=== PATIENT | female | born 1970 | race African-American/Black ===

== ENCOUNTER 2017-05-24 11:31 | Inpatient (IN) | payer OTHER ==
[2017-05-24 13:21] VITALS: BMI 31.4
--- NOTE | 2017-05-24 13:55 | HP ---
CIWA Score - CIWA Score Nausea/Vomitin (vomiting x 2) Muscle Tremors: 4-Moderate,w/Arms Extend Anxiety: 4-Mod. Anxious/Guarded Agitation: 3 Paroxysmal Sweats: No Perspiration Orientation: 0-Oriented Tacttile Disturbances: 0-None Auditory Disturbances: 0-None Visual Disturbances: 0-None Headache: 3-Moderate CIWA-Ar Total Score: 17 Admission ROS S - HPI Chief Complaint: Alcohol withdrawal symptoms Allergies/Adverse Reactions: Allergies Allergy/AdvReac Type Severity Reaction Status Date / Time No Known Allergies Allergy Verified 05/24/17 13:40 History of Present Illness: 46 years old female with a long history of alcohol dependence is admitted to detox. Patient has been in previous detox in [facility] and reports 10 years of sobriety. This is her first admission to [facility]. Patient has medical history of asthma and cirrhosis of the liver. Exam Limitations: Physical Impairment (abdominal distention) - Ebola screening Have you traveled outside of the country in the last 21 days: No Have you had contact with anyone from an Ebola affected area: No Have you been sick,other than usual withdrawal symptoms: No Do you have a fever: No - Review of Systems Constitutional: Chills, Loss of Appetite, Night Sweats, Changes in sleep EENT: reports: Blurred Vision Respiratory: reports: No Symptoms reported Cardiac: reports: No Symptoms Reported GI: reports: Abdominal Distended, Diarrhea, Nausea, Poor Appetite, Poor Fluid Intake, Vomiting, Abdominal cramping : reports: No Symptoms Reported Musculoskeletal: reports: Muscle Pain, Muscle Weakness Integumentary: reports: Dryness Endocrine: reports: No Symptoms Reported Hematology: reports: No Symptoms Reported Psychiatric: reports: Mood/Affect Appropiate, Orientated x3, Anxious Other Systems: Reviewed and Negative Patient History - Patient Medical History Hx Anemia: Yes Hx Asthma: Yes Hx Chronic Obstructive Pulmonary Disease (COPD): No Hx Cancer: No Hx Cardiac Disorders: No Hx Congestive Heart Failure: No Hx Hypertension: No Hx Hypercholesterolemia: No Hx Pacemaker: No HX Cerebrovascular Accident: No Hx Seizures: No Hx Dementia: No Hx Diabetes: No Hx Gastrointestinal Disorders: No Hx Liver Disease: Yes (cirrhosis of the liver) Hx Genitourinary Disorders: No Hx Sexually Transmitted Disorders: No Hx Renal Disease (ESRD): No Hx Thyroid Disease: No Hx Human Immunodeficiency Virus (HIV): Yes (Negative 2016) Hx Hepatitis C: No Hx Depression: No Hx Suicide Attempt: No (Denies suicidal ideation) Hx Bipolar Disorder: No Hx Schizophrenia: No - Patient Surgical History Past Surgical History: Yes Hx Neurologic Surgery: No Hx Cataract Extraction: No Hx Cardiac Surgery: No Hx Lung Surgery: No Hx Breast Surgery: No Hx Breast Biopsy: No Hx Abdominal Surgery: Yes (tubal ligation 1985) Hx Appendectomy: No Hx Cholecystectomy: No Hx Genitourinary Surgery: No Hx Section: No Hx Orthopedic Surgery: No Hx Hysterectomy: No Other Surgical History: Tubal ligation 1985 Anesthesia Reaction: No - PPD History 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 History Hx Alcohol Use: Yes Hx Substance Use: No Substance Use Type: Alcohol Hx Substance Use Treatment: Yes ([facility]) - Substances Abused Alcohol Route: Oral Frequency: Daily Amount used: liquor- 1 pint Age of first use: 40 Date of Last Use: 05/24/17 Family Disease History - Family Disease History Family Disease History: [place]: Mother (), Other: Father (Alcoholic, ) Admission Physical Exam [facility] - Vital Signs Vital Signs: Vital Signs - 24 hr 05/24/17 13:06 Temperature 96.7 F L Pulse Rate 115 H Respiratory 20 Rate Blood Pressure 167/110 - Diagnostic (1) Alcohol dependence with uncomplicated withdrawal Current Visit: Yes Status: Chronic (2) Nicotine dependence Current Visit: Yes Status: Chronic (3) Asthma Current Visit: Yes Status: Chronic (4) Cirrhosis of liver Current Visit: Yes Status: Chronic Qualifiers: Hepatic cirrhosis type: alcoholic cirrhosis Cleared for Admission [facility] - Detox or Rehab [facility] Level of Care: Medically Managed Detox Regimen/Protocol: Librium S Breath Alcohol Content Breath Alcohol Content: 0.159 Urine Pregancy Test - Result Urine Test Results: Negative- NO Line Present Urine Drug Screen - Results Drug Screen Negative: Yes
[2017-05-24] MEDS ORDERED: LOPERAMIDE HCL 2 MG CAPSULE PO PRN (14:11)
[2017-05-24] MEDS ORDERED: IBUPROFEN 400 MG TABLET (FP) PO PRN (14:11)
[2017-05-24] MEDS ORDERED: chlordiazePOXIDE HCL 25 MG CAPSULE PO PRN (14:11)
[2017-05-24] MEDS ORDERED: P-EPHED 60MG/TRIPROLIDI 2.5MG TABLET PO PRN (14:11)
[2017-05-24] MEDS ORDERED: MENTHOL/PHENOL 1 EACH UD MM PRN (14:11)
[2017-05-24] MEDS ORDERED: guaiFENesin/D-METHORPHAN HB 10 ML UNIT-DOSE CUPS PO PRN (14:11)
[2017-05-24] MEDS ORDERED: MAG HYDROX/AL HYDROX/SIMETH 30 ML UNIT-DOSE CUP PO PRN (14:11)
[2017-05-24] MEDS ORDERED: MAGNESIUM CITRATE 300 ML BOTTLE PO PRN (14:11)
[2017-05-24] MEDS ORDERED: ACETAMINOPHEN 325 MG TABLET (FP) PO PRN (14:11)
[2017-05-24] MEDS ORDERED: MAGNESIUM HYDROX 2400MG/30ML ORAL SUSPENSION 30 ML CUP PO PRN (14:11)
[2017-05-24] MEDS ORDERED: NICOTINE POLACRILEX 2 MG GUM BC PRN (14:11)
[2017-05-24] MEDS: chlordiazePOXIDE HCL 25 MG CAPSULE PO SCH ×2 (17:20→22:35)
[2017-05-24 18:43] LABS: URINE APPEARANCE CLOUDY; URINE BILIRUBIN NEGATIVE (NEGATIVE); URINE BLOOD NEGATIVE (NEGATIVE); URINE COLOR AMBER; URINE GLUCOSE (UA) NEGATIVE (NEGATIVE); URINE KETONE TRACE (NEGATIVE); URINE LEUK ESTERASE NEGATIVE (NEGATIVE); URINE NITRITE NEGATIVE (NEGATIVE); URINE UROBILINOGEN 4.0 E.U/dl mg/dL (0.2-1.0)
[2017-05-24 19:05] LABS: URINE PROTEIN 1+ (NEGATIVE)
[2017-05-24 19:07] LABS: CALCIUM OXALATE CRYSTALS MODERATE /hpf (NONE SEEN); EPI CELLS MANY /HPF (FEW); URINE BACTERIA RARE /hpf (NONE SEEN); URINE MUCUS MANY
[2017-05-24] MEDS: THIAMINE HCL 100 MG TABLET (FP) PO SCH (22:35)
[2017-05-25] MEDS: chlordiazePOXIDE HCL 25 MG CAPSULE PO SCH ×4 (05:30→22:40)
[2017-05-25] MEDS ORDERED: NICOTINE 14 MG/24 HOURS TOPICAL PATCH TD SCH (10:00)
[2017-05-25] MEDS ORDERED: PRENATAL VITAMINS W/ FOLIC ACID TABLET (FP) PO SCH (10:00)
[2017-05-25 10:39] VITALS: PULSE 115
--- NOTE | 2017-05-25 11:11 | PN ---
[facility] CIWA - CIWA Score Nausea/Vomitin Muscle Tremors: 3 Anxiety: 3 Agitation: 3 Paroxysmal Sweats: 1-Minimal Palms Moist Orientation: 0-Oriented Tacttile Disturbances: 1-Very Mild Itch/Numbness Auditory Disturbances: 1-Very Mild Visual Disturbances: 0-None Headache: 2-Mild CIWA-Ar Total Score: 16 B[facility] Progress Note (SOAP) Subjective: ALERT,IRRITABLE,ANXIOUS,INTERRUPTED SLEEP,TREMOR,EDEMA BOTH LEGS,ABOMINAL DISTENSION WITH ASCITES Objective: 05/25/17 11:08 Vital Signs Temperature 97.1 F L 05/25/17 10:00 Pulse Rate 115 H 05/25/17 10:00 Respiratory Rate 16 05/25/17 10:00 Blood Pressure 135/82 05/25/17 10:00 O2 Sat by Pulse Oximetry (%) Laboratory Last Values Urine Color Madhuri 05/24/17 16:00 Urine Appearance Cloudy 05/24/17 16:00 Urine pH 6.0 (5.0-8.0) 05/24/17 16:00 Ur Specific [place] 1.018 (1.001-1.035) 05/24/17 16:00 Urine Protein 1+ (NEGATIVE) H 05/24/17 16:00 Urine Glucose (UA) Negative (NEGATIVE) 05/24/17 16:00 Urine Ketones Trace (NEGATIVE) H 05/24/17 16:00 Urine Blood Negative (NEGATIVE) 05/24/17 16:00 Urine Nitrite Negative (NEGATIVE) 05/24/17 16:00 Urine Bilirubin Negative (NEGATIVE) 05/24/17 16:00 Urine Urobilinogen 4.0 e.u/dl mg/dL (0.2-1.0) H 05/24/17 16:00 Ur Leukocyte Esterase Negative (NEGATIVE) 05/24/17 16:00 Urine WBC (Auto) 5 /hpf (3-5) 05/24/17 16:00 Urine RBC (Auto) 2 /hpf (0-3) 05/24/17 16:00 Ur Epithelial Cells Many /HPF (FEW) 05/24/17 16:00 Calcium Oxalate Crystal Moderate /hpf (NONE SEEN) 05/24/17 16:00 Urine Bacteria Rare /hpf (NONE SEEN) 05/24/17 16:00 Urine Mucus Many 05/24/17 16:00 Assessment: 05/25/17 11:09 WITHDRAWAL SYMPTOM Plan: PATIENT WILL BE TRANSFER TO ER AT [facility] FOR EVALUATION AND TREATMENT,SPOKE WITH DR ORTEGA, TO BE TRANSPORTED BY [facility]
[2017-05-25 12:00] LABS: MCH 34.3 pg (25.7-33.7); MCHC 33.4 g/dl (32.0-36.0); MEAN CELL VOLUME 102.9 fl (80-96); MEAN PLT VOLUME 8.9 fl (7.5-11.1); PLATELET COUNT 213 K/MM3 (134-434); RBC 2.62 M/mm3 (3.60-5.2); RDW 16.1 % (11.6-15.6); WHITE BLOOD COUNT 7.6 K/mm3 (4.0-10.0)
[2017-05-25 12:14] LABS: ALBUMIN 2.1 g/dl (3.4-5.0); ALK PHOS 184 U/L (45-117); ANION GAP 10 (8-16); BILIRUBIN,TOTAL 1.2 mg/dL (0.2-1.0); BLOOD UREA NITROGEN 7 mg/dL (7-18); CALCIUM 8.1 mg/dL (8.5-10.1); CHLORIDE 105 mmol/L (98-107); CO2 25 mmol/L (21-32); CREATININE 0.6 mg/dL (0.55-1.02); GLUCOSE,RANDOM 92 mg/dL (74-106); POTASSIUM 3.2 mmol/L (3.5-5.1); SGOT/AST 101 U/L (15-37); SGPT/ALT 20 U/L (12-78); SODIUM 140 mmol/L (136-145); TOT PROT 7.3 g/dl (6.4-8.2)
--- NOTE | 2017-05-25 13:26 | CONSULT ---
[facility] Psychiatric Consult - Data Date of interview: 05/25/17 Admission source: [facility] Identifying data: Pt. is a 46 year old female with a history of alcohol dependence. Pt. admitted to for alcohol dependence. Substance Abuse History: Following information confirmed with Ms. Armstrong: - Smoking Cessation. Smoking history: Current every day smoker. Have you smoked in the past 12 months: Yes. Aproximately how many cigarettes per day: 4. Hx Chewing Tobacco Use: No. Initiated information on smoking cessation: Yes. ' Breaking Loose' booklet given: 05/24/17. - Substance & Tx. History. Hx Alcohol Use: Yes. Hx Substance Use: No. Substance Use Type: Alcohol. Hx Substance Use Treatment: Yes ([facility]). - Substances Abused. Alcohol. Route: Oral. Frequency: Daily. Amount used: liquor- 1 pint. Age of first use: 40. Date of Last Use: 05/24/17 Medical History: Anemia, Asthma, Cirrhosis, HIV, Tubal ligation in 1985. Psychiatric History: Pt. denies h/o psychiatric hospitalizations and suicide attempts. Physical/Sexual Abuse/Trauma History: Denies. Mental Status Exam - Mental Status Exam Alert and Oriented to: Time, Place, Person Cognitive Function: Good Patient Appearance: Unkempt Mood: Irritable Patient Behavior: Agitated Voice Loudness: Normal Thought Process: Goal Oriented Hallucinations: Denies Suicidal Ideation: Denies Homicidal Ideation: Denies Insight/Judgement: Poor Sleep: Poorly Appetite: Fair Muscle strength/Tone: Mild Hypertonicity Gait/Station: Other (Did not observe patient's gait as patient was laying in bed during the interview.) Psychiatric Findings - Problem List ([place] 1, 2,3) (1) Alcohol dependence with uncomplicated withdrawal Current Visit: Yes Status: Acute (2) Nicotine dependence Current Visit: Yes Status: Acute (3) Substance induced mood disorder Current Visit: No Status: Suspected - Initial Treatment Plan Initial Treatment Plan: Psychoeducation provided. Detoxification in progress. Observation.
[2017-05-25 13:51] VITALS: BP 140/86; TEMP 98.8
--- NOTE | 2017-05-25 14:17 | EKG ---
Test Reason : Blood Pressure : / mmHG Vent. Rate : 109 BPM Atrial Rate : 109 BPM P-R Int : 148 ms QRS Dur : 084 ms QT Int : 406 ms P-R-T Axes : 033 -13 025 degrees QTc Int : 546 ms SINUS TACHYCARDIA MINIMAL VOLTAGE CRITERIA FOR LVH, MAY BE NORMAL VARIANT POOR R WAVE PROGRESSION ABNORMAL ECG WHEN COMPARED WITH ECG OF 24-MAY-2017 15:47, QT HAS LENGTHENED CLINICAL CORRELATION IS RECOMMENDED Confirmed by VIOLETTA LIU, YOSELIN ([id number]) on 05/25/2017 2:16:28 PM Referred By: Fernando Forrester Confirmed By:YOSELIN SHIPLEY MD
--- NOTE | 2017-05-25 14:18 | EKG ---
Test Reason : Blood Pressure : / mmHG Vent. Rate : 102 BPM Atrial Rate : 102 BPM P-R Int : 128 ms QRS Dur : 080 ms QT Int : 372 ms P-R-T Axes : 033 -17 017 degrees QTc Int : 484 ms SINUS TACHYCARDIA MINIMAL VOLTAGE CRITERIA FOR LVH, MAY BE NORMAL VARIANT POOR R WAVE PROGRESSION ABNORMAL ECG NO PREVIOUS ECGS AVAILABLE Confirmed by VIOLETTA LIU, YOSELIN ([id number]) on 05/25/2017 2:17:38 PM Referred By: Fernando Forrester Confirmed By:YOSELIN SHIPLEY MD
[2017-05-25] MEDS: THIAMINE HCL 100 MG TABLET (FP) PO SCH (22:40)
[2017-05-26] MEDS: chlordiazePOXIDE HCL 25 MG CAPSULE PO SCH (06:54)
--- NOTE | 2017-05-26 15:19 | DS ---
[facility] Detox Discharge Summary Admission Date: 05/24/17 Discharge Date: 05/25/17 - History Present History: Alcohol Dependence Additional Comments: patient transferred to [facility] for evaluation and paracentiesis of ascites was admitted to complete detox while hospitlized Pertinent Past History: alcoholic cirrohsis, anxiety, depression and insomnia,nicotine depenednece, increasing ascites and abdo pain - Physical Exam Results Vital Signs: Vital Signs Temperature 98.8 F 05/25/17 13:50 Pulse Rate 115 H 05/25/17 13:50 Respiratory Rate 20 05/25/17 13:50 Blood Pressure 140/86 05/25/17 13:50 O2 Sat by Pulse Oximetry (%) Laboratory Tests 05/24/17 05/25/17 05/25/17 16:00 07:50 07:50 WBC 7.6 RBC 2.62 L Hgb 9.0 L Hct 27.0 L MCV 102.9 H MCH 34.3 H MCHC 33.4 RDW 16.1 H Plt Count 213 MPV 8.9 Sodium 140 Potassium 3.2 L Chloride 105 Carbon Dioxide 25 Anion Gap 10 BUN 7 Creatinine 0.6 Creat Clearance w eGFR > 60 Random Glucose 92 Calcium 8.1 L Total Bilirubin 1.2 H AST 101 H ALT 20 Alkaline Phosphatase 184 H Total Protein 7.3 Albumin 2.1 L Urine Color Madhuri Urine Appearance Cloudy Urine pH 6.0 Ur Specific [place] 1.018 Urine Protein 1+ H Urine Glucose (UA) Negative Urine Ketones Trace H Urine Blood Negative Urine Nitrite Negative Urine Bilirubin Negative Urine Urobilinogen 4.0 e.u/dl H Ur Leukocyte Esterase Negative Urine WBC (Auto) 5 Urine RBC (Auto) 2 Ur Epithelial Cells Many Calcium Oxalate Crystal Moderate Urine Bacteria Rare Urine Mucus Many RPR Titer 05/25/17 07:50 WBC RBC Hgb Hct MCV MCH MCHC RDW Plt Count MPV Sodium Potassium Chloride Carbon Dioxide Anion Gap BUN Creatinine Creat Clearance w eGFR Random Glucose Calcium Total Bilirubin AST ALT Alkaline Phosphatase Total Protein Albumin Urine Color Urine Appearance Urine pH Ur Specific [place] Urine Protein Urine Glucose (UA) Urine Ketones Urine Blood Urine Nitrite Urine Bilirubin Urine Urobilinogen Ur Leukocyte Esterase Urine WBC (Auto) Urine RBC (Auto) Ur Epithelial Cells Calcium Oxalate Crystal Urine Bacteria Urine Mucus RPR Titer Nonreactive anemia, hypokalemia, hypoalbuminemia Pertinent Admission Physical Exam Findings: withdrawal sx, ascites, abdo pain/discomfort - Treatment Hospital Course: Detox Protocol Followed Patient has Accepted a Rehab Referral to: no - Medication Discharge Medications: Ambulatory Orders NK [No Known Home Medication] 05/26/17 - Diagnosis (1) Alcohol dependence with uncomplicated withdrawal Status: Acute (2) Ascites Status: Acute (3) Cirrhosis of liver Status: Chronic Qualifiers: Hepatic cirrhosis type: unspecified hepatic cirrhosis Ascites presence: with ascites Qualified Code(s): K74.60 - Unspecified cirrhosis of liver (4) Nicotine dependence Status: Acute (5) Asthma Status: Chronic (6) Substance induced mood disorder Status: Suspected - AMA Did Patient Leave Against Medical Advice: No
[2017-05-26] MEDS ORDERED: chlordiazePOXIDE 5 MG CAPSULE PO SCH (17:00)
[2017-05-27] MEDS ORDERED: chlordiazePOXIDE HCL 10 MG CAPSULE PO SCH (17:00)
== END 2017-05-25 00:42 | disposition short-term general hospital (02) | DRG 775 ==
LOC: YASAS 11:31 → Y6N 14:03
PROVIDERS: ADMIT Internal Medicine; ATTEND Internal Medicine
PROC: HZ2ZZZZ Detoxification Services for Substance Abuse Treatment (ICD-10-PCS; principal; 2017-05-24)
DX: F10.230 Alcohol dependence with withdrawal, uncomplicated (principal); F17.210 Nicotine dependence, cigarettes, uncomplicated; F19.24 Other psychoactive substance dependence with psychoactive substance-induced mood disorder; R18.8 Other ascites; K74.60 Unspecified cirrhosis of liver; J45.909 Unspecified asthma, uncomplicated; D64.9 Anemia, unspecified
CPT/HCPCS: 36415; 80053; 81003; 81015; 85027; 86593; 93005; 93010

== ENCOUNTER 2017-05-25 12:59 | Inpatient (IN) | payer OTHER ==
--- NOTE | 2017-05-25 13:48 | PDOC ---
History of Present Illness - General Chief Complaint: Pain Stated Complaint: ABD PAIN Time Seen by Provider: 05/25/17 13:28 - History of Present Illness Initial Comments: 05/25/17 14:04 The patient is a 46 year old female with a history of alcohol abuse and liver cirrhosis who presents from [facility] for evaluation of abdominal distension. The patient reports abdominal distension beginning 4 months ago and getting progressively worse. She noted worsening distension with associated generalized abdominal discomfort that she describes as a pressure. She notes some constipation as well as some nausea, but denies any vomiting and states that she is still able to tolerate PO intake. She denies fevers, chills , chest pain, SOB, or changes with urination. Past History - Past Medical History Allergies/Adverse Reactions: Allergies Allergy/AdvReac Type Severity Reaction Status Date / Time No Known Allergies Allergy Verified 05/25/17 13:56 Home Medications: Ambulatory Orders Unobtainable [Unobtainable] 05/25/17 Anemia: Yes Asthma: Yes Cancer: No Cardiac Disorders: No CVA: No COPD: No CHF: No Dementia: No Diabetes: No GI Disorders: No Disorders: No HTN: No Hypercholesterolemia: No Kidney Stones: No Liver Disease: Yes (cirrhosis of the liver) Seizures: No Thyroid Disease: No - Surgical History Abdominal Surgery: Yes (tubal ligation 1985) Appendectomy: No Cardiac Surgery: No Cholecystectomy: No Lung Surgery: No Neurologic Surgery: No Orthopedic Surgery: No - Reproductive History PID: No - Suicide/Smoking/Psychosocial Hx Smoking History: Current every day smoker Have you smoked in the past 12 months: Yes Number of Cigarettes Smoked Daily: 4 'Breaking Loose' booklet given: 05/24/17 Hx Alcohol Use: Yes Drug/Substance Use Hx: No Substance Use Type: Alcohol Hx Substance Use Treatment: Yes ([facility]) Review of Systems - Review of Systems Comments:: 05/25/17 14:07 Constitutional: No fevers, chills, fatigue, malaise HEENT: No Rhinorrhea, nasal congestion, visual changes Cardiovascular: No chest pain, syncope, palpitations, lightheadedness Respiratory: No Cough, SOB, Hemoptysis, Gastrointestinal: Abdominal distension, abdominal discomfort, nausea, constipation. No Vomiting, Diarrhea, Melena Genitourinary: No Dysuria, Frequency, Urgency, Hesitancy, Hematuria, Flank pain Musculoskeletal: No Myalgia, arthralgia Skin: No rashes, bruising, pallor Neurologic: No Headache, Dizziness, Numbness, Weakness, or Tingling Psychiatric: No Hallucinations. No SI or HI *Physical Exam - Physical Exam Comments: 05/25/17 14:09 General Appearance: Nourished. No Apparent Distress HEENT: EOMI, ROSSANA. No Pharyngeal Erythema, Tonsillar Exudate, Tonsillar Erythema Neck: No Cervical Lymphadenopathy Respiratory/Chest: Lungs Clear, Normal Breath Sounds. No Crackles, Rales, Rhonchi, Wheezing Cardiovascular: Regular Rhythm, Regular Rate. No Murmur, Gallops, Rubs Gastrointestinal/Abdominal: Normal Bowel Sounds, Tense and significantly distended abdomen with no tenderness to percussion. No Guarding, Rebound, Musculoskeletal: No CVA Tenderness Extremity: Normal Capillary Refill Integumentary: Normal Color, Dry, Warm Neurologic: Fully Oriented, Alert, Normal Mood/Affect, Normal Response, Procedures - Additional Procedures Additional Procedures: other (Paracentesis performed. Location cleaned with betadine and anesthatized with 8ccs of lidocane. 60ml of clear peritoneal fluid aspirated ) ED Treatment Course - LABORATORY CBC & Chemistry Diagram: 05/25/17 14:00 05/25/17 14:00 Medical Decision Making - Medical Decision Making 05/25/17 14:11 The patient is a 46 year old female with a history of alcohol abuse and liver cirrhosis who presents from [facility] for evaluation of abdominal distension. Differential includes but is not limited to: Liver Cirrhosis with Ascities, SBP, infectious, metabolic derangement. Given the patient's significant distension, it is likely her symptoms are due to the amount of ascities in her abdomen. She is currently afebrile with a relatively non- tender abdomen, making SBP less likely, however we will obtain a cbc, cmp, coags , lipase as well as a diagnostic paracentesis to evaluate further. We will continue to monitor and reassess. 05/25/17 18:53 cbc, coags, ua are unremarkable. Perotineal fluid was clear on aspiration and has been sent to the lab for eval. We believe that the patient requires admission for further management and therapeutic paracentesis tomorrow. We discussed the case with the hospitalist team who accepted the patient for admission. The patient has been given librium to prevent alcohol withdrawal. *DC/Admit/Observation/Transfer Diagnosis at time of Disposition: Alcohol dependence with uncomplicated withdrawal Cirrhosis of liver Qualifiers: Hepatic cirrhosis type: unspecified hepatic cirrhosis Ascites presence: with ascites Qualified Code(s): K74.60 - Unspecified cirrhosis of liver Ascites Qualifiers: Ascites type: other type Qualified Code(s): R18.8 - Other ascites - Discharge Dispostion Condition at time of disposition: Stable Admit: Yes - Referrals - Patient Instructions - Post Discharge Activity
[2017-05-25] MEDS ORDERED: morphine CARPU-JECT 4 MG/1 ML DISP.SYRIN IVPUSH ONE (13:52)
[2017-05-25 14:14] LABS: HCG,QUALITATIVE URINE NEGATIVE
[2017-05-25 14:16] LABS: URINE APPEARANCE CLOUDY; URINE BLOOD NEGATIVE (NEGATIVE); URINE COLOR AMBER; URINE GLUCOSE (UA) NEGATIVE (NEGATIVE); URINE KETONE TRACE (NEGATIVE); URINE LEUK ESTERASE TRACE (NEGATIVE); URINE NITRITE NEGATIVE (NEGATIVE); URINE PROTEIN 1+ (NEGATIVE); URINE UROBILINOGEN 4.0 E.U/dl mg/dL (0.2-1.0)
[2017-05-25 14:19] LABS: BASO % 1.8 % (0-2.0); EOS % 1.2 % (0-4.5); HEMATOCRIT 31.4 % (32.4-45.2); HEMOGLOBIN 10.6 GM/dL (10.7-15.3); LYMPH % 24.4 % (8-40); MCH 34.3 pg (25.7-33.7); MCHC 33.6 g/dl (32.0-36.0); MEAN CELL VOLUME 101.8 fl (80-96); MEAN PLT VOLUME 9.1 fl (7.5-11.1); MONO % 8.9 % (3.8-10.2); NEUT % 63.7 % (42.8-82.8); PLATELET COUNT 286 K/MM3 (134-434); RBC 3.08 M/mm3 (3.60-5.2); RDW 16.4 % (11.6-15.6); WHITE BLOOD COUNT 8.9 K/mm3 (4.0-10.0)
[2017-05-25] MEDS ORDERED: morphine CARPU-JECT 10 MG/1 ML DISP.SYRIN ONE ×2 (14:19→18:32)
[2017-05-25 14:21] LABS: EPI CELLS MANY /HPF (FEW); URINE BACTERIA RARE /hpf (NONE SEEN); URINE HYALINE CAST 2 /lpf; URINE MUCUS MANY
[2017-05-25 14:43] LABS: INR 1.32 (0.82-1.09); PROTHROMBIN TIME (PATIENT) 14.9 SEC (9.98-11.88)
--- NOTE | 2017-05-25 17:01 | PDOC ---
Attending Attestation - Resident Resident Name: SarahPacheoc - ED Attending Attestation I have performed the following: I have examined & evaluated the patient, The case was reviewed & discussed with the resident, I agree w/resident's findings & plan, Exceptions are as noted - Medical Decision Making 05/25/17 17:01 Large abdominal distention secondary to ascites given slight tenderness we'll perform paracentesis cover with antibiotics observe on medicine to rule out SBP. Patient can receive therapeutic drainage as well while in-house <Dino Perry - Last Filed: 05/25/17 17:00> - HPI HPI: 05/25/17 17:05 The patient is a 46 year old female with a significant PMH of liver cirrhosis and alcohol abuse, now at [facility], who presents to the emergency department with worsening abdominal distension for the past 2 months. The patient also reports abdominal discomfort with associated nausea and constipation. The patient states she has been feeling different from her baseline and reports high pressure secondary to taking medication for her alcohol withdrawal symptoms. The patient denies chest pain, shortness of breath, headache and dizziness. Denies fever, chills, vomit, and diarrhea. Denies dysuria, frequency, urgency and hematuria. Allergies: NKA Past surgical history: None reported. Social history: Alcohol abuse, now in rehab. Current smoker (4 per day). No reported drug use. - Physicial Exam PE: 05/25/17 17:06 Vitals: Triage vital signs reviewed General Appearance: No acute distress, well nourished, well developed Head: Atraumatic Eyes: Pupils equal reactive round, extraocular movement intact Ears: TM's normal bilaterally Nose: Nares patent bilaterally; no nasal congestion Throat: Posterior oropharynx without erythema, mucous membranes moist Neck: Supple; No nuchal rigidity Chest Wall: Nontender Cardiac: Regular rate and rhythm, no murmurs, no rubs, no gallops Lungs: Clear to auscultation bilateral, good air movement bilaterally Abdomen: (+) Abdomen distended, tender to palpation. Soft, normal bowel sounds. Genitourinary: Rectal: Exam deferred Extremities: Full range of motion to all extremities, no cyanosis, clubbing, or edema Skin: Warm and dry, no rashes or lesions, no rash, no petechiae Neuro: AOX3; Cranial Nerves 2-12 grossly intact, Strength intact to all extremities, Sensation intact to all extremities, gait normal Psych: Normal mood, normal affect - Medical Decision Making 05/25/17 17:06 Plan: Laboratory: CMP, HCG Qual, Lipase, UA, Urine microscopic, peritoneal fluid profile, cell count Meds: Morphine Microbiology: Blood culture, body fluid culture <Jessi Velasquez - Last Filed: 05/25/17 17:08>
[2017-05-25 17:26] LABS: TOTAL PROTEIN,PERITONEAL FLUID 3 gm/dL
[2017-05-25] MEDS ORDERED: chlordiazePOXIDE HCL 25 MG CAPSULE PO ONE (17:35)
[2017-05-25] MEDS ORDERED: CEFTRIAXONE 1 GM in DEXTROSE 5%-WATER - 50 ML IVPB ONE (17:39)
[2017-05-25] MEDS ORDERED: CEFTRIAXONE 1 GM/50 ML BAG ONE (17:50)
[2017-05-25] MEDS ORDERED: chlordiazePOXIDE HCL 25 MG CAPSULE ONE (17:50)
[2017-05-25 17:57] LABS: PERITONEAL RBC 455 /mm3
[2017-05-25] MEDS ORDERED: morphine CARPU-JECT 2 MG/1 ML DISP.SYRIN IVPUSH ONE (17:58)
[2017-05-25 18:33] LABS: PERITONEAL FLUID LYMPHOCYTE 27 %; PERITONEAL FLUID MACROPHAGE 65 %; PERITONEAL FLUID MONOCYTE 4 %; PERITONEAL FLUID NEUTROPHIL 4 %
--- NOTE | 2017-05-25 19:32 | PN ---
Teaching Attending Note Name of Resident: Reilly Brown ATTENDING PHYSICIAN STATEMENT I saw and evaluated the patient. I reviewed the resident's note and discussed the case with the resident. I agree with the resident's findings and plan as documented. SUBJECTIVE: 46 yo F with hx of etoh abuse and liver cirrhosis, asthma, Last drink 24 hrs ago who presents from Detox at [facility] for increased abdominal distension. States that this began 4 months ago, and has increased. Also, with associated nausea. States she has had several days of diarrhea, watery and brown. No chest pain, pressure or shortness of breath. Does not note any fevers of chills. States occasionally feels lump near her vagina when she coughs, but then it goes away. Does not have any pain there. OBJECTIVE: Physical: VS: Vital Signs Period Temp Pulse Resp BP Sys/Pires Pulse Ox Last 24 Hr 99.8 F 110 24 144/97 100 GEN: NAD, Resting in bed, AA0X3 HEENT:NCAT, PERRL, throat without erythema or exudates CARD: RRR S1, S2 RESP: CTAB ABD: Distended, BSX4, NTD to palpation EXT: +2 Pitting Edema, Bilateral and equal, pulses intact CBCD WBC 8.9 K/mm3 (4.0-10.0) 05/25/17 14:00 RBC 3.08 M/mm3 (3.60-5.2) L 05/25/17 14:00 Hgb 10.6 GM/dL (10.7-15.3) L D 05/25/17 14:00 Hct 31.4 % (32.4-45.2) L D 05/25/17 14:00 MCV 101.8 fl (80-96) H 05/25/17 14:00 MCHC 33.6 g/dl (32.0-36.0) 05/25/17 14:00 RDW 16.4 % (11.6-15.6) H 05/25/17 14:00 Plt Count 286 K/MM3 (134-434) D 05/25/17 14:00 MPV 9.1 fl (7.5-11.1) 05/25/17 14:00 CMP Sodium Cancelled 05/25/17 14:00 Potassium Cancelled 05/25/17 14:00 Chloride Cancelled 05/25/17 14:00 Carbon Dioxide Cancelled 05/25/17 14:00 Anion Gap Cancelled 05/25/17 14:00 BUN Cancelled 05/25/17 14:00 Creatinine Cancelled 05/25/17 14:00 Creat Clearance w eGFR Cancelled 05/25/17 14:00 Random Glucose Cancelled 05/25/17 14:00 Calcium Cancelled 05/25/17 14:00 Total Bilirubin Cancelled 05/25/17 14:00 AST Cancelled 05/25/17 14:00 ALT Cancelled 05/25/17 14:00 Alkaline Phosphatase Cancelled 05/25/17 14:00 Total Protein Cancelled 05/25/17 14:00 Albumin Cancelled 05/25/17 14:00 Home Medications Medication Instructions Recorded Unobtainable [Unobtainable] 05/25/17 ASSESSMENT AND PLAN: 46 yo F with hx of etoh abuse and liver cirrhosis who presents with increased abdominal distension, being admitted for theraputic paracentesis 1) Ascites due to ETOH Cirrhosis - Paracentesis in AM - NPO - COAGS, CBC - Type and Screen - IR guided paracentesis - Needs GI FU outpt. 2.) EOTH Absuse - CIWA, Banana Bag - Thiamine/Folic A - Monitor for withdrawl - Detox consult 3.) Ashtma - Not in Exacerbation - Nebs PRN 4.) Diarrhea - Stool Cx - C. Difff- Less likely 5.) Macrocytic Anemia - B12, Folate - Trend 6.) Hyperbilirubines - Check D. Bili 7.) Dvt Ppx - Scd Place in Spor-Maximus
--- NOTE | 2017-05-25 19:37 | HP ---
CHIEF COMPLAINT: Abdominal Distension PCP: None HISTORY OF PRESENT ILLNESS: 46 yo woman w/ pmh of asthma, alcohol abuse and recently diagnosed cirrhosis who presents with four months of progressive abdominal distension and LE edema, recently with five days of increased abdominal pain and diarrhea. Pt with hx of ~6 years of chronic alcohol abuse (1pint/day). Pt noted slowly progressive abdominal distension roughly four months ago. She had never experienced these symptoms before and had never been diagnosed with liver dz prior to this admission. Roughly five days ago, patient noted new non-bloody diarrhea and band -like abdominal pain in upper abdomen and LLQ, worsened by inspiration. Pt denies any fever/chills, CORNELIUS, CP, PALMA, dysuria, fatigue, neuro symptoms. In addition, pt endorses multiple episodes of nonbloody, nonbilious emesis at onset of abdominal pain, however has not experienced any further episodes. She also endorses BL anterior forearm pruritic rash and productive cough with brown sputum over the last few weeks. Pt presented to [facility] yesterday, however was sent to ED for medical management of ascites before continuation of rehab tx. Pt has never been hospitalized for ascites/SBP before. She does not follow with a PCP or a GI specialist. Per pt, she was recently seen in the ED last week and received an abdominal MRI, which was notable for hepatic cirrhosis. ER course was notable for: (1)WBC 8.9 (2)Temp 99.8, Pulse 110 (3)Diag paracentesis w/ minimal PMNs (4) Recent Travel: None PAST MEDICAL HISTORY: Alcohol abuse Liver cirrhosis Anemia Asthma PAST SURGICAL HISTORY: Tubal Ligation (1985) Social History: Smoking: Current smoker. 4cigs/day Alcohol: Chronic drinker for past 6 years. Drugs: Denies Family History: Noncontributory Allergies No Known Allergies Allergy (Verified 05/25/17 13:56) HOME MEDICATIONS: Home Medications Medication Instructions Recorded Unobtainable [Unobtainable] 05/25/17 REVIEW OF SYSTEMS CONSTITUTIONAL: Absent: fever, chills, diaphoresis, generalized weakness, malaise, loss of appetite, weight change HEENT: Absent: rhinorrhea, nasal congestion, throat pain, throat swelling, difficulty swallowing, mouth swelling, ear pain, eye pain, visual changes CARDIOVASCULAR: Absent: chest pain, syncope, palpitations, irregular heart rate, lightheadedness , peripheral edema RESPIRATORY: Absent: cough, shortness of breath, dyspnea with exertion, orthopnea, wheezing, stridor, hemoptysis GASTROINTESTINAL: abdominal distension, nausea, constipation, abdominal pain, Absent: vomiting, diarrhea, melena, hematochezia GENITOURINARY: Absent: dysuria, frequency, urgency, hesitancy, hematuria, flank pain, genital pain MUSCULOSKELETAL: Absent: myalgia, arthralgia, joint swelling, back pain, neck pain SKIN: Absent: rash, itching, pallor HEMATOLOGIC/IMMUNOLOGIC: Absent: easy bleeding, easy bruising, lymphadenopathy, frequent infections ENDOCRINE: Absent: unexplained weight gain, unexplained weight loss, heat intolerance, cold intolerance NEUROLOGIC: Absent: headache, focal weakness or paresthesias, dizziness, unsteady gait, seizure, mental status changes, bladder or bowel incontinence PSYCHIATRIC: Absent: anxiety, depression, suicidal or homicidal ideation, hallucinations. PHYSICAL EXAMINATION Vital Signs - 24 hr 05/25/17 13:20 Temperature 99.8 F H Pulse Rate 110 H Respiratory 24 Rate Blood Pressure 144/97 O2 Sat by Pulse 100 Oximetry (%) GENERAL: Awake, alert, and fully oriented, in no acute distress. HEAD: Normal with no signs of trauma. EYES: Pupils equal, round and reactive to light, extraocular movements intact, sclera discolouration (yellow/brown), conjunctiva clear. No lid lag. EARS, NOSE, THROAT: Ears normal, nares patent, oropharynx clear without exudates. Moist mucous membranes. NECK: Normal range of motion, supple without lymphadenopathy, JVD, or masses. LUNGS: Decreased breath sounds at bases. Trace upper airway wheezing. No rhonchi , crackles. No accessory muscle use. HEART: Regular rate and rhythm, 2/6 systolic murmur best heard at RUSB/LUSB. Normal S1 and S2 ABDOMEN: Significantly disctended. Tender to palpation in epigastric, RLQ and LLQ regions. Increased tone, negative rebound tenderness. Mild voluntary guarding. Unable to appreciate organomegaly. +shifting dullness. Negative rachel 's, pederson fishman sign MUSCULOSKELETAL: Normal range of motion at all joints. No bony deformities or tenderness. No CVA tenderness. UPPER EXTREMITIES: 2+ pulses, warm, well-perfused. No cyanosis. No clubbing. No peripheral edema. LOWER EXTREMITIES: 2+ pulses, warm, well-perfused. No calf tenderness. 2+ pitting edema to knees BL. NEUROLOGICAL: Cranial nerves II-XII intact. Normal speech. Normal gait. Genital: Reducible mass in L inguinal region, likely inguinal hernia. PSYCHIATRIC: Cooperative. Good eye contact. Appropriate mood and affect. SKIN: Warm, dry, normal turgor, no rashes or lesions noted, normal capillary refill. Laboratory Results - last 24 hr CBC, BMP 05/25/17 14:00 05/25/17 05/25/17 05/25/17 14:00 14:00 14:05 WBC 8.9 RBC 3.08 L Hgb 10.6 L D Hct 31.4 L D MCV 101.8 H MCH 34.3 H MCHC 33.6 RDW 16.4 H Plt Count 286 D MPV 9.1 Neutrophils % 63.7 Lymphocytes % 24.4 Monocytes % 8.9 Eosinophils % 1.2 Basophils % 1.8 PT with INR INR PTT (Actin FS) Sodium Cancelled Potassium Cancelled Chloride Cancelled Carbon Dioxide Cancelled Anion Gap Cancelled BUN Cancelled Creatinine Cancelled Creat Clearance w eGFR Cancelled Random Glucose Cancelled Calcium Cancelled Total Bilirubin Cancelled AST Cancelled ALT Cancelled Alkaline Phosphatase Cancelled Total Protein Cancelled Albumin Cancelled Lipase Cancelled Urine Color Madhuri Urine Appearance Cloudy Urine pH 6.0 Ur Specific [place] 1.028 Urine Protein 1+ H Urine Glucose (UA) Negative Urine Ketones Trace H Urine Blood Negative Urine Nitrite Negative Urine Bilirubin 2.0 Urine Urobilinogen 4.0 e.u/dl H Ur Leukocyte Esterase Negative Urine WBC (Auto) 9 Urine RBC (Auto) 10 Ur Epithelial Cells Many Urine Bacteria Rare Hyaline Casts 2 Urine Mucus Many Urine HCG, Qual Negative Peritoneal WBC Peritoneal RBC Periton Neutrophils Periton Lymphocytes Peritoneal Monocytes Periton Macrophages Peritoneal Tot Protein Peritoneal Albumin Peritoneal LDH Peritoneal Glucose Peritoneal Amylase 05/25/17 05/25/17 14:15 17:00 WBC RBC Hgb Hct MCV MCH MCHC RDW Plt Count MPV Neutrophils % Lymphocytes % Monocytes % Eosinophils % Basophils % PT with INR 14.90 H INR 1.32 H PTT (Actin FS) 35.0 H Sodium Potassium Chloride Carbon Dioxide Anion Gap BUN Creatinine Creat Clearance w eGFR Random Glucose Calcium Total Bilirubin AST ALT Alkaline Phosphatase Total Protein Albumin Lipase Urine Color Urine Appearance Urine pH Ur Specific [place] Urine Protein Urine Glucose (UA) Urine Ketones Urine Blood Urine Nitrite Urine Bilirubin Urine Urobilinogen Ur Leukocyte Esterase Urine WBC (Auto) Urine RBC (Auto) Ur Epithelial Cells Urine Bacteria Hyaline Casts Urine Mucus Urine HCG, Qual Peritoneal WBC 172 Peritoneal RBC 455 Periton Neutrophils 4 Periton Lymphocytes 27 Peritoneal Monocytes 4 Periton Macrophages 65 Peritoneal Tot Protein 3 Peritoneal Albumin 1 Peritoneal LDH 88 Peritoneal Glucose 104 Peritoneal Amylase 13 No micro No CXR, EKG ASSESSMENT/PLAN: 46 yo woman w/ pmh of asthma, alcohol abuse and recently diagnosed cirrhosis who presents with four months of progressive abdominal distension and LE edema, recently with five days of increased abdominal pain and diarrhea. Unlikely to be SBP, given no WBC count and ascitic fluid with minimal PMNs (4). Pt will require follow-up w/ outpt GI specialist for further management of liver dz. Will require continuation of alcohol detox #Ascites secondary to Cirrhosis (likely alcoholic) - Prior MRI + for liver cirrhosis per pt. SAAG 1.2, likely secondary to increased portal pressures. PMN 4, not SBP; lipase nrml (76) - IR guided Paracentesis - NPO - Daily CMP, coags, type and screen - Outpt GI follow-up - f/u abdominal MRI studies - Lasix after K repletion - Compazine for N/V - F/u EKG #Alcohol abuse - Detox consult - Thiamine/folate - CIWA - Monitor for withdrawal symptoms - Utilization Specialist about alcohol cessation - Refer to detox program on discharge #Diarrhea - Stool cultures - C-diff antigens # Asthma/URI/PNA - Trace wheezing, persistent productive cough - Duonebs QIDR PRN - O2 tx as needed. Titrate to sat >94% - F/u CXR - trend fever, WBC #Anemia - Hgb 10.6, MCV 101.8 - Trend H/H - B12, Folate #Hyperbilirubinemia - Daily CMPs - D. Bili in AM - RUQ U/S after paracentesis PPX SCDs FEN Gentle IVFs Daily BMPs, monitor for hypoK NPO Telemetry Plan discussed with attending, Dr. Sloan Brown, PGY1 Visit type - Emergency Visit Emergency Visit: Yes ED Registration Date: 05/25/17 Care time: The patient presented to the Emergency Department on the above date and was hospitalized for further evaluation of their emergent condition. - New Patient This patient is new to me today: Yes Date on this admission: 05/26/17 - Critical Care Critical Care patient: No
[2017-05-25 20:34] LABS: ALBUMIN 2.2 g/dl (3.4-5.0); ALK PHOS 177 U/L (45-117); ANION GAP 8 (8-16); BILIRUBIN,TOTAL 1.9 mg/dL (0.2-1.0); BLOOD UREA NITROGEN 7 mg/dL (7-18); CALCIUM 7.9 mg/dL (8.5-10.1); CHLORIDE 104 mmol/L (98-107); CO2 29 mmol/L (21-32); CREATININE 0.7 mg/dL (0.55-1.02); GLUCOSE,RANDOM 137 mg/dL (74-106); LIPASE 76 U/L (73-393); POTASSIUM 3.5 mmol/L (3.5-5.1); SGOT/AST 98 U/L (15-37); SGPT/ALT 19 U/L (12-78); SODIUM 141 mmol/L (136-145); TOT PROT 8.4 g/dl (6.4-8.2)
[2017-05-25] MEDS ORDERED: FOLIC ACID INJECTION - 1 MG, THIAMINE HCL 100 MG, MULTIVIT INJECTION ADULT 10 ML in SOD... IVPB ONE (21:04)
[2017-05-25] MEDS ORDERED: chlordiazePOXIDE HCL 25 MG CAPSULE PO PRN (21:06)
[2017-05-25] MEDS ORDERED: ALBUTEROL SO4 2.5/IPRATROPIUM 0.5 INH SOL 3 ML VIAL.NEB. NEB PRN (21:47)
[2017-05-25] MEDS ORDERED: ACETAMINOPHEN 500 MG TABLET (FP) PO PRN (21:49)
[2017-05-25] MEDS ORDERED: PROCHLORPERAZINE INJECTION 10 MG/2 ML VIAL IM PRN (21:51)
[2017-05-25] MEDS ORDERED: HEPARIN NA (PORCINE) 5,000 UNITS/ML 1ML VIAL SQ SCH (22:00)
[2017-05-25] MEDS: chlordiazePOXIDE HCL 25 MG CAPSULE PO SCH (23:04)
[2017-05-25] MEDS ORDERED: PREGABALIN 50 MG CAPSULE ONE (23:46)
[2017-05-26] MEDS: chlordiazePOXIDE HCL 25 MG CAPSULE PO SCH ×5 (05:18→22:53)
[2017-05-26] MEDS ORDERED: chlordiazePOXIDE HCL 25 MG CAPSULE ONE ×3 (05:30→12:47)
[2017-05-26 07:42] LABS: BASO % 0.5 % (0-2.0); EOS % 2.5 % (0-4.5); HEMATOCRIT 29.9 % (32.4-45.2); HEMOGLOBIN 9.9 GM/dL (10.7-15.3); LYMPH % 30.2 % (8-40); MCH 34.4 pg (25.7-33.7); MCHC 33.1 g/dl (32.0-36.0); MEAN PLT VOLUME 8.9 fl (7.5-11.1); MONO % 8.4 % (3.8-10.2); NEUT % 58.4 % (42.8-82.8); PLATELET COUNT 213 K/MM3 (134-434); RBC 2.88 M/mm3 (3.60-5.2); WHITE BLOOD COUNT 7.5 K/mm3 (4.0-10.0)
[2017-05-26 08:09] LABS: BILIRUBIN,DIRECT 1.6 mg/dL (0.0-0.2)
[2017-05-26 08:10] LABS: INR 1.47 (0.82-1.09); PROTHROMBIN TIME (PATIENT) 16.6 SEC (9.98-11.88)
[2017-05-26 08:24] LABS: ALBUMIN 2.4 g/dl (3.4-5.0); ANION GAP 8 (8-16); BLOOD UREA NITROGEN 8 mg/dL (7-18); CALCIUM 8.1 mg/dL (8.5-10.1); CHLORIDE 104 mmol/L (98-107); CO2 26 mmol/L (21-32); CREATININE 0.6 mg/dL (0.55-1.02); GLUCOSE,RANDOM 80 mg/dL (74-106); PHOSPHOROUS 2.8 mg/dL (2.5-4.9); SGPT/ALT 19 U/L (12-78); SODIUM 138 mmol/L (136-145)
[2017-05-26 08:25] LABS: ALK PHOS 160 U/L (45-117); BILIRUBIN,TOTAL 2.5 mg/dL (0.2-1.0); TOT PROT 8.4 g/dl (6.4-8.2)
[2017-05-26 08:26] LABS: MAGNESIUM 1.5 mg/dL (1.8-2.4); POTASSIUM 3.7 mmol/L (3.5-5.1); SGOT/AST 97 U/L (15-37)
[2017-05-26] MEDS ORDERED: THIAMINE HCL 100 MG TABLET (FP) PO SCH (10:00)
[2017-05-26] MEDS: FOLIC ACID 1 MG TABLET (FP) PO SCH (10:00)
[2017-05-26] MEDS ORDERED: FUROSEMIDE 20 MG TABLET (FP) PO SCH (10:00)
[2017-05-26] MEDS ORDERED: SPIRONOLACTONE 25 MG TABLET (FP) PO SCH (10:00)
--- NOTE | 2017-05-26 12:16 | CON.GI ---
Consult - History of Present Illness History of Present Illness: Per initial encounter in ED, 46 yof w/ asthma, alcohol abuse and recently diagnosed cirrhosis who presents with four months of progressive abdominal distension and LE edema. Pt with hx of ~6 years of chronic alcohol abuse (1pint/ day). The is decreased PO intake, no fever, chills, melena, hmatochezia, hematemesis, dysphagia, odynophagia. No prior history of intraabdominal infection, EGD, colonoscopy. She doesn't have PCP, gastronetrologist, or infection prevention specialist. 11 L of abdominal fluid was removed earlier this am. - History Source History Provided By: Patient - Past Medical History ...LMP: 12/09/16 - Alcohol/Substance Use Hx Alcohol Use: Yes - Smoking History Smoking history: Current every day smoker Have you smoked in the past 12 months: Yes Aproximately how many cigarettes per day: 4 Home Medications - Allergies Allergies/Adverse Reactions: Allergies Allergy/AdvReac Type Severity Reaction Status Date / Time No Known Allergies Allergy Verified 05/25/17 13:56 - Home Medications Home Medications: Ambulatory Orders Unobtainable [Unobtainable] 05/25/17 Family Disease History - Family Disease History Family Disease History: CA: Mother (), Other: Father (Alcoholic, ) Review of Systems Findings/Remarks: aspe r H&P and HPI Physical Exam-GI Vital Signs: Vital Signs Temperature 98.3 F 05/26/17 07:08 Pulse Rate 101 H 05/26/17 07:08 Respiratory Rate 24 05/25/17 13:20 Blood Pressure 142/61 05/26/17 07:08 O2 Sat by Pulse Oximetry (%) 99 05/26/17 07:08 Constitutional: Yes: No Distress, Calm Cardiovascular: Yes: Regular Rate and Rhythm Respiratory: Yes: Regular Gastrointestinal Inspection: No: Ascites, Distention ...Auscultate: Yes: Normoactive Bowel Sounds, No Bowel Sounds ...Palpate: No: Firm/Rigid, Guarding ...Percussion: No: Fluid Wave Neurological: Yes: Alert, Oriented Labs: CBC, BMP 05/26/17 07:30 05/26/17 07:30 INR, PTT INR 1.47 (0.82-1.09) H 05/26/17 07:30 Abnormal Lab Results 05/25/17 05/25/17 05/25/17 14:00 14:05 14:15 RBC 3.08 L Hgb 10.6 L D Hct 31.4 L D MCV 101.8 H MCH 34.3 H RDW 16.4 H PT with INR 14.90 H INR 1.32 H PTT (Actin FS) 35.0 H Random Glucose Calcium Magnesium Total Bilirubin Direct Bilirubin AST Alkaline Phosphatase Total Protein Albumin Vitamin B12 Serum Folate Urine Protein 1+ H Urine Ketones Trace H Urine Urobilinogen 4.0 e.u/dl H 05/25/17 05/26/17 05/26/17 18:30 07:30 07:30 RBC 2.88 L Hgb 9.9 L Hct 29.9 L MCV 104.0 H MCH 34.4 H RDW 16.0 H PT with INR 16.60 H INR 1.47 H PTT (Actin FS) Random Glucose 137 H D Calcium 7.9 L Magnesium Total Bilirubin 1.9 H D Direct Bilirubin AST 98 H Alkaline Phosphatase 177 H Total Protein 8.4 H Albumin 2.2 L Vitamin B12 Serum Folate Urine Protein Urine Ketones Urine Urobilinogen 05/26/17 05/26/17 05/26/17 07:30 07:30 07:30 RBC Hgb Hct MCV MCH RDW PT with INR INR PTT (Actin FS) Random Glucose Calcium 8.1 L Magnesium 1.5 L Total Bilirubin 2.5 H D Direct Bilirubin 1.6 H AST 97 H Alkaline Phosphatase 160 H Total Protein 8.4 H Albumin 2.4 L Vitamin B12 1055 H Serum Folate 94 H Urine Protein Urine Ketones Urine Urobilinogen Imaging - Results X-ray: Report Reviewed Problem List - Problems (1) Alcohol dependence with uncomplicated withdrawal Code(s): F10.230 - ALCOHOL DEPENDENCE WITH WITHDRAWAL, UNCOMPLICATED (2) Ascites Code(s): R18.8 - OTHER ASCITES Qualifiers: Ascites type: other type Qualified Code(s): R18.8 - Other ascites (3) Cirrhosis of liver Code(s): K74.60 - UNSPECIFIED CIRRHOSIS OF LIVER Qualifiers: Hepatic cirrhosis type: unspecified hepatic cirrhosis Ascites presence: with ascites Qualified Code(s): K74.60 - Unspecified cirrhosis of liver Assessment/Plan symptomatic, tense ascites, presumed alcoholic hepatic cirrhosis. No evidence of SBP per asitic fluid results. Monitor for HRS after large volume paracentesis. Consider Albumin IV MRI of the liver, AFP [place] and lasix if no evidnce of HRS Lactulose EGD Salt restriction will follow
[2017-05-26 13:35] VITALS: BMI 29.5
--- NOTE | 2017-05-26 14:01 | PN ---
Teaching Attending Note Name of Resident: Roma Hartman ATTENDING PHYSICIAN STATEMENT I saw and evaluated the patient. I reviewed the resident's note and discussed the case with the resident. I agree with the resident's findings and plan as documented. SUBJECTIVE:sen after paracentesis no fever or chills. has less abd pain, no fever or chills. reports being at [facility] 2 weeks ago, and was diagnosed with cirrhosis. OBJECTIVE: NAD, AAOx 3., MMM, no JVD Cv: RRR, no MRG Lungs: CTAB Abd: soft, TTP in all quadrants. Liver , especially L lobe , is palpated in epigastric area 4 cm below the costal margin. Ext: 2+ pitting edema . ASSESSMENT AND PLAN: 46 yo lady with h/o Asthma , and recent diagnosis of Cirrhosis in [facility] 2 weeks ago, who presented from [facility] due to distended abd, she was ofund to have ascitis 1- Ascitis, due to liver cirrhosis: likely alcoholic in nature . No evidence of SBP per fluid analysis . 11 L were removed -give 50 g of albumin - hold alsix and spironolactone for now , due to the large volume paracentesis to avoid hepatorenal syndrome - if Cr remains stable, then can start them this admission . - per her, she had MRI done at [facility] , will try to obtain report - check Hepatitis serology - EGD to r/o varices - alcohol abstinence 2- Alcohol dependence: No signs of withdrawal - cont librium detox - cont thiamine and folic - interested in rehab after this 3- Normocytic anemia: - B12 nad folat enl - check iron studies . - EGD 4- h/o Asthma: PRN albuterol HLOC
--- NOTE | 2017-05-26 15:11 | CONSULT ---
Consult Detox [facility] Reason for Current Admission/Consult: alcohol use disorder and detoxification regimen Referred by:: maddy august MD - History History of Present Illness: 46 yo f with chronic alcoholism, transferred from [facility] yesterday mid alcohol detox because of increasing abdominal pain/girth from ascites. Today had paracentesis removing 11 l of fluid, admitted to [facility] to complee detox which she is tolerating well. was restarted, now resting comfortably after procedure and 50mg of libirium adminsitered. h/o increasing severe medical compromise from end stage alcoholic cirrhosis with ascites/liver disease - History Source History Provided By: Medical Record, Caregiver Limitations to Obtaining History: Clinical Condition - Alcohol/Substance Use Hx Alcohol Use: Yes Hx Substance Use: No Hx Substance Use Treatment: Yes ([facility] inpatient alcohol detox) - Current Drug/Alcohol Use Alcohol Route: Oral Frequency: Daily Amount used: 1 pint spirits Age of first use: 40 Date of Last Use: 05/24/17 - Past Medical History ...LMP: 12/09/16 - Significant Medical Findings: 46 yo f w chronic alcoholis, end stage liver disease with ascites s/p paraentesis w removal of 11 litres of fluids still being detoxed with libirum 50mg. Awaiting bed for admission in ED CIWA Score - CIWA Score Nausea/Vomitin-No Nausea/No Vomiting Muscle Tremors: None Anxiety: 0-No Anxiety, at Ease Agitation: 0-Normal Activity Paroxysmal Sweats: No Perspiration Orientation: 0-Oriented Tacttile Disturbances: 0-None Auditory Disturbances: 0-None Visual Disturbances: 0-None Headache: 0-None Present CIWA-Ar Total Score: 0 Assessment Plan - Diagnosis (1) Alcohol dependence with uncomplicated withdrawal Status: Acute (2) Ascites Status: Acute (3) Cirrhosis of liver Status: Chronic Qualifiers: Hepatic cirrhosis type: unspecified hepatic cirrhosis Ascites presence: with ascites Qualified Code(s): K74.60 - Unspecified cirrhosis of liver (4) Nicotine dependence Status: Acute (5) Asthma Status: Chronic (6) Substance induced mood disorder Status: Suspected - Plan Plan: chart, labs, imaging, ekg reviewed, patient examined, history taken, discussed care with staff, carol was very agitated post procedure but now sleepign comfortably cont librium detox, when patient is medically stable bed can be arranged for alcohol rehab at [facility]. Thank you for this consult. Fernando Forrester MD [phone] - Medication Detox Regimen/Protocol: Ovi
[2017-05-26] MEDS ORDERED: chlordiazePOXIDE HCL 25 MG CAPSULE PO ONE (15:20)
[2017-05-26] MEDS ORDERED: chlordiazePOXIDE HCL 25 MG CAPSULE PO PRN (15:20)
[2017-05-26] MEDS ORDERED: ALBUMIN HUMAN 25% 12.5 GM/50 ML VIAL IVPB ONE (16:00)
[2017-05-26] MEDS ORDERED: chlordiazePOXIDE HCL 25 MG CAPSULE PO SCH (17:00)
[2017-05-26] MEDS ORDERED: ALBUMIN HUMAN 25% 100 ML VIAL IVPB ONE (18:30)
[2017-05-26] MEDS ORDERED: MAGNESIUM SULF 50% (8.12 MEQ/2 ML-1 GM VIAL) IVPB ONE (18:45)
[2017-05-26] MEDS ORDERED: MELATONIN 5 MG TABLETS PO ONE (19:00)
[2017-05-26] MEDS: THIAMINE HCL 100 MG TABLET (FP) PO SCH (21:34)
--- NOTE | 2017-05-26 22:24 | PN ---
Physical Exam: SUBJECTIVE: Patient seen and examined. Had large volume paracentesis this morning (11L removed). Abdominal pain improved. No fever or chills. OBJECTIVE: Vital Signs Period Temp Pulse Resp BP Sys/Pires Pulse Ox Last 24 Hr 98.0 F-99.5 F 92-110 20-20 108-151/61-98 99-99 GENERAL: aaox3, nad EYES: sclera anicteric, conjunctiva clear ENT: oropharynx clear without exudates, MMM LUNGS: CTAB HEART: rrr, no m/r/g ABDOMEN: Soft, nondistended, diffusely tender in all 4 quadrants, normoactive BS , hepatomegaly rebound, no hepatosplenomegaly, no masses. EXTREMITIES: 2+ pre-tibial and pedal pitting edema, wwp CBC, BMP 05/26/17 07:30 05/26/17 07:30 Mg 1.5 Phos - 2.8 Total Bilirubin 2.5 mg/dL (0.2-1.0) H D 05/26/17 07:30 Direct Bilirubin 1.6 mg/dL (0.0-0.2) H 05/26/17 07:30 AST 97 U/L (15-37) H 05/26/17 07:30 ALT 19 U/L (12-78) 05/26/17 07:30 Alkaline Phosphatase 160 U/L (45-117) H 05/26/17 07:30 Albumin 2.4 g/dl (3.4-5.0) L 05/26/17 07:30 Active Medications Albuterol/Ipratropium (Duoneb -) 1 amp NEB Q6H PRN PRN Reason: SHORTNESS OF BREATH Chlordiazepoxide HCl (Librium -) 25 mg PO [id number] MOODY Stop: 05/27/17 17:01 Chlordiazepoxide HCl (Librium -) 15 mg PO [id number] MOODY Stop: 05/28/17 17:01 Chlordiazepoxide HCl (Librium -) 25 mg PO Q4H PRN PRN Reason: WITHDRAWAL(CONT SUBST) Stop: 05/28/17 21:05 Folic Acid (Folic Acid -) 1 mg PO DAILY [facility] Last Admin: 05/26/17 10:00 Dose: Not Given Prochlorperazine Edisylate (Compazine Injection -) 5 mg IM Q4H PRN PRN Reason: NAUSEA AND/OR VOMITING Thiamine HCl (Vitamin B1 -) 100 mg PO HS MOODY Last Admin: 05/26/17 21:34 Dose: 100 mg ASSESSMENT/PLAN: 46yo woman with PMH of asthma, EtOH abuse (1pint/day), and recently diagnosed cirrhosis who presents with abdominal pain, ascites and LE edema. afour months of progressive abdominal distension and LE edema, recently with five days of increased abdominal pain and diarrhea. Unlikely to be SBP, given no WBC count and ascitic fluid with minimal PMNs (4). Pt will require follow-up w/ outpt GI specialist for further management of liver dz. Will require continuation of alcohol detox #Ascites 2/2 to likely alcoholic cirrhosis, no SBP per ascitic studies, SAAG 1.2 (transudative) -GI following and planning for EGD to r/o varices -Large volume removed - will give Albumin IV 100mg -Will consider spironolactone and lasix tomorrow if no e/o HRS -f/u hepatic viral panel and AFP #Alcohol abuse, 1pint/d -Dr. Forrester consulted. Librium detox started -Continue Thiamine, folate, MVI -Lactulose tomorrow if no HRS -Pt wishes to go to [facility] detox program on discharge #non-bloddy diarrhea -f/u stool cultures, C-diff #h/o asthma -O2 PRN, titrate to pSaO2>90% -Duo nebs Q6H PRN #macrocytic anemia, B12 and folate wnl -f/u Fe studies #FEN: PO hydration / Mg repleted / Na controlled diet #DVT PPX - SCDs d/w Dr. Yaneli Hartman MD PGY1 - Internal Medicine Visit type - Emergency Visit Emergency Visit: No - New Patient This patient is new to me today: Yes Date on this admission: 05/26/17 - Critical Care Critical Care patient: No
[2017-05-27] MEDS: chlordiazePOXIDE HCL 25 MG CAPSULE PO SCH ×3 (06:16→18:06)
[2017-05-27 07:36] LABS: HEMOGLOBIN 8.4 GM/dL (10.7-15.3); MCH 34.6 pg (25.7-33.7); MCHC 33.7 g/dl (32.0-36.0); MEAN CELL VOLUME 102.5 fl (80-96); PLATELET COUNT 174 K/MM3 (134-434); RBC 2.43 M/mm3 (3.60-5.2); RDW 16.1 % (11.6-15.6); WHITE BLOOD COUNT 7.2 K/mm3 (4.0-10.0)
[2017-05-27 08:05] LABS: ALBUMIN 2.2 g/dl (3.4-5.0); ANION GAP 9 (8-16); BLOOD UREA NITROGEN 7 mg/dL (7-18); CHLORIDE 107 mmol/L (98-107); CO2 26 mmol/L (21-32); GLUCOSE,RANDOM 87 mg/dL (74-106); MAGNESIUM 1.9 mg/dL (1.8-2.4); POTASSIUM 3.1 mmol/L (3.5-5.1); SODIUM 142 mmol/L (136-145)
[2017-05-27 08:09] LABS: ALK PHOS 107 U/L (45-117); BILIRUBIN,TOTAL 1.5 mg/dL (0.2-1.0); CREATININE 0.6 mg/dL (0.55-1.02); PHOSPHOROUS 2.9 mg/dL (2.5-4.9); SGOT/AST 44 U/L (15-37); SGPT/ALT 10 U/L (12-78); TOT PROT 5.6 g/dl (6.4-8.2)
--- NOTE | 2017-05-27 08:40 | PN ---
Physical Exam: SUBJECTIVE: Patient seen and examined. LVP (11L) yesterday, s/p Albumin IV. This morning patient c/o generalized weakness and aches. Continues to have diffuse abdominal pain. No nausea or vomiting. Ambulating to bathroom; eating and voiding without issue. OBJECTIVE: Vital Signs Period Temp Pulse Resp BP Sys/Pires Pulse Ox Last 24 Hr 97.8 F-99.8 F 92-110 18-20 100-151/57-98 99-99 GENERAL: aaox3, nad EYES: sclera anicteric, conjunctiva clear ENT: MMM LUNGS: CTAB HEART: rrr, no m/r/g ABDOMEN: Soft, nondistended, mild diffuse discomfort in all 4 quadrants, normoactive BS EXTREMITIES: 2+ pre-tibial and pedal pitting edema, wwp CBC, BMP 05/27/17 07:00 05/27/17 07:00 Phos - 2.9 Mg - 1.9 Hepatic Panel Total Bilirubin 1.5 mg/dL (0.2-1.0) H D 05/27/17 07:00 Direct Bilirubin 0.9 mg/dL (0.0-0.2) H D 05/27/17 07:00 AST 44 U/L (15-37) H D 05/27/17 07:00 ALT 10 U/L (12-78) L D 05/27/17 07:00 Alkaline Phosphatase 107 U/L (45-117) D 05/27/17 07:00 Albumin 2.2 g/dl (3.4-5.0) L 05/27/17 07:00 Active Medications Albuterol/Ipratropium (Duoneb -) 1 amp NEB Q6H PRN PRN Reason: SHORTNESS OF BREATH Chlordiazepoxide HCl (Librium -) 25 mg PO [id number] [facility] Stop: 05/27/17 17:01 Last Admin: 05/27/17 11:55 Dose: 25 mg Chlordiazepoxide HCl (Librium -) 15 mg PO [id number] [facility] Stop: 05/28/17 17:01 Chlordiazepoxide HCl (Librium -) 25 mg PO Q4H PRN PRN Reason: WITHDRAWAL(CONT SUBST) Stop: 05/28/17 21:05 Folic Acid (Folic Acid -) 1 mg PO DAILY [facility] Last Admin: 05/27/17 11:55 Dose: 1 mg Furosemide (Lasix -) 40 mg PO DAILY [facility] Last Admin: 05/27/17 11:56 Dose: 40 mg Potassium Chloride (Potassium Chloride Oral Liquid) 40 meq PO BID [facility] Last Admin: 05/27/17 11:56 Dose: 40 meq Prochlorperazine Edisylate (Compazine Injection -) 5 mg IM Q4H PRN PRN Reason: NAUSEA AND/OR VOMITING Spironolactone (Aldactone -) 100 mg PO DAILY [facility] Thiamine HCl (Vitamin B1 -) 100 mg PO HS [facility] Last Admin: 05/26/17 21:34 Dose: 100 mg ASSESSMENT/PLAN: 46yo woman with PMH of asthma, EtOH abuse (1pint/day), and recently diagnosed cirrhosis who presents with abdominal pain, tense ascites and LE edema. #Ascites 2/2 to likely alcoholic cirrhosis, no SBP per ascitic studies, SAAG 1.2 (transudative) -GI following. EGD tomorrow to r/o varices -MRCP to evaluate liver -Start spironolactone and lasix -Hepatic viral panel and AFP still pending #macrocytic anemia, 8.4 from 9.9 yesterday, no s/s of active bleeding -Will repeat in evening -B12 and folate wnl, remaining Fe studies pending #Alcohol abuse (reports 1pint/day) -Dr. Forrester consulted. Librium detox started -Thiamine, folate, MVI -Pt wishes to go to [facility] detox program on discharge #non-bloddy diarrhea -f/u stool cultures, C-diff #h/o asthma -Duo nebs Q6H PRN #FEN: PO hydration / repleting K / Na controlled diet, NPO after midnight for EGD tomorrow #DVT PPX - SCDs d/w Dr. Carlitos Hartman MD PGY1 - Internal Medicine Visit type - Emergency Visit Emergency Visit: No - New Patient This patient is new to me today: No - Critical Care Critical Care patient: No - Discharge Referral Referred to [facility] Med P.C.: No
--- NOTE | 2017-05-27 09:56 | PN ---
Progress Note, Physician History of Present Illness: C/o generalized body ache. BUN, Cr, WBC normal. Hgb 8.4 g/dl from 10.6 w/o obvious external signs of blood loss. S/p 11 L paracentesis. - Current Medication List Current Medications: Active Medications Albuterol/Ipratropium (Duoneb -) 1 amp NEB Q6H PRN PRN Reason: SHORTNESS OF BREATH Chlordiazepoxide HCl (Librium -) 25 mg PO [id number] [facility] Stop: 05/27/17 17:01 Last Admin: 05/27/17 06:16 Dose: 25 mg Chlordiazepoxide HCl (Librium -) 15 mg PO [id number] [facility] Stop: 05/28/17 17:01 Chlordiazepoxide HCl (Librium -) 25 mg PO Q4H PRN PRN Reason: WITHDRAWAL(CONT SUBST) Stop: 05/28/17 21:05 Folic Acid (Folic Acid -) 1 mg PO DAILY [facility] Last Admin: 05/26/17 10:00 Dose: Not Given Potassium Chloride (Potassium Chloride Oral Liquid) 40 meq PO BID [facility] Prochlorperazine Edisylate (Compazine Injection -) 5 mg IM Q4H PRN PRN Reason: NAUSEA AND/OR VOMITING Thiamine HCl (Vitamin B1 -) 100 mg PO HS [facility] Last Admin: 05/26/17 21:34 Dose: 100 mg - Objective Vital Signs: Vital Signs Temperature 98.8 F 05/27/17 06:00 Pulse Rate 98 H 05/27/17 06:00 Respiratory Rate 18 05/27/17 06:00 Blood Pressure 100/62 05/27/17 06:00 O2 Sat by Pulse Oximetry (%) 99 05/26/17 21:00 Constitutional: Yes: Anxious, Mild Distress Eyes: Yes: Conjunctiva Clear HENT: Yes: Atraumatic Neck: Yes: Supple Cardiovascular: Yes: Regular Rate and Rhythm, Tachycardia Respiratory: Yes: Regular Gastrointestinal: Yes: Soft. No: Melena, Rectal Bleeding, Tenderness, Tenderness, Epigastrium, Tenderness, Rebound, Vomiting Neurological: Yes: Alert, Oriented. No: Asterixis, Confusion, Lethargy, Tremors Labs: CBC, BMP 05/27/17 07:00 05/27/17 07:00 INR, PTT INR 1.47 (0.82-1.09) H 05/26/17 07:30 Laboratory Results - last 24 hr 05/26/17 05/26/17 05/26/17 07:30 07:30 09:40 WBC RBC Hgb Hct MCV MCH MCHC RDW Plt Count MPV Sodium Potassium Chloride Carbon Dioxide Anion Gap BUN Creatinine Creat Clearance w eGFR POC Glucometer Random Glucose Calcium Phosphorus Magnesium Ferritin 120.825 Cancelled Total Bilirubin Direct Bilirubin 1.6 H AST ALT Alkaline Phosphatase Total Protein Albumin Hepatitis C Antibody Blood Type O POSITIVE Antibody Screen Negative 05/26/17 05/26/17 05/26/17 16:49 18:45 18:45 WBC RBC Hgb Hct MCV MCH MCHC RDW Plt Count MPV Sodium Potassium Chloride Carbon Dioxide Anion Gap BUN Creatinine Creat Clearance w eGFR POC Glucometer 92 Random Glucose Calcium Phosphorus Magnesium Ferritin 109.191 Total Bilirubin Direct Bilirubin AST ALT Alkaline Phosphatase Total Protein Albumin Hepatitis C Antibody Cancelled Blood Type Antibody Screen 05/27/17 05/27/17 05/27/17 06:18 07:00 07:00 WBC 7.2 RBC 2.43 L Hgb 8.4 L D Hct 25.0 L D MCV 102.5 H MCH 34.6 H MCHC 33.7 RDW 16.1 H Plt Count 174 MPV 9.0 Sodium 142 Potassium 3.1 L Chloride 107 Carbon Dioxide 26 Anion Gap 9 BUN 7 Creatinine 0.6 Creat Clearance w eGFR > 60 POC Glucometer 105 Random Glucose 87 Calcium 8.0 L Phosphorus 2.9 Magnesium 1.9 D Ferritin Total Bilirubin 1.5 H D Direct Bilirubin AST 44 H D ALT 10 L D Alkaline Phosphatase 107 D Total Protein 5.6 L D Albumin 2.2 L Hepatitis C Antibody Blood Type Antibody Screen Problem List - Problems (1) Alcohol dependence with uncomplicated withdrawal Code(s): F10.230 - ALCOHOL DEPENDENCE WITH WITHDRAWAL, UNCOMPLICATED (2) Ascites Code(s): R18.8 - OTHER ASCITES (3) Cirrhosis of liver Code(s): K74.60 - UNSPECIFIED CIRRHOSIS OF LIVER Qualifiers: Hepatic cirrhosis type: unspecified hepatic cirrhosis Ascites presence: with ascites Qualified Code(s): K74.60 - Unspecified cirrhosis of liver Assessment/Plan symptomatic, tense ascites, presumed alcoholic hepatic cirrhosis. No evidence of SBP per asitic fluid results. CBC this PM MRI of the liver, AFP [place] and lasix if no evidnce of HRS Lactulose EGD Salt restriction will follow
[2017-05-27] MEDS ORDERED: chlordiazePOXIDE HCL 25 MG CAPSULE PO PRN (11:50)
[2017-05-27 11:53] LABS: BILIRUBIN,DIRECT 0.9 mg/dL (0.0-0.2)
[2017-05-27] MEDS: FOLIC ACID 1 MG TABLET (FP) PO SCH (11:55)
[2017-05-27] MEDS: POTASSIUM CHLORIDE ORAL LIQUID 20 MEQ/15 ML PO SCH ×2 (11:56→22:32)
[2017-05-27] MEDS: FUROSEMIDE 40 MG TABLET (FP) PO SCH (11:56)
--- NOTE | 2017-05-27 12:54 | PN ---
Progress Note (short form) - Note Progress Note: Called to speak with the patient at her request. She is upset b/c she is "still not feeling well". Wants to know names of doctors who did paracentesis. I explained to her her liver is in advanced stage of the disease, we are monitoring blood test results, starting water pills to prevent fluid in the abdomen from accumulating and scheduling endoscopy to look at the stomach and esophagus. She was referred to sewing machine operator floorperson for auxiliary questions. Problem List - Problems (1) Alcohol dependence with uncomplicated withdrawal Code(s): F10.230 - ALCOHOL DEPENDENCE WITH WITHDRAWAL, UNCOMPLICATED (2) Ascites Code(s): R18.8 - OTHER ASCITES (3) Cirrhosis of liver Code(s): K74.60 - UNSPECIFIED CIRRHOSIS OF LIVER Qualifiers: Hepatic cirrhosis type: unspecified hepatic cirrhosis Ascites presence: with ascites Qualified Code(s): K74.60 - Unspecified cirrhosis of liver
--- NOTE | 2017-05-27 13:30 | MSN ---
Progress Note (short form) - Note Progress Note: Subjective: Patient was seen this morning and states that she has generalized aches. She complains of aches mostly on her abdomen and posterior leg. She has not had a bowel movement for 2 days. She also notes that she has been wheezing last night and this morning. Patient denies chest pain/ SOB. Objective: Last Vital Signs Temp Pulse Resp BP Pulse Ox 98.8 F 98 H 18 100/62 99 05/27/17 06:00 05/27/17 06:00 05/27/17 06:00 05/27/17 06:00 05/26/17 21:00 General: patient is alert and oriented x3. In mild distress. HEENT: normorcephalic, atraumatic. PERRLA. Scleral icterus B/L. Trachea midline. no lymphadenopathy Lungs: scattered wheezes throughout. Heart: RRR. no murmurs, rubs or gallops. Abdomen: distended, diffusely tender in all 4 quadrants, normoactive bowel sound. hepatomegaly. Extremities: 2+ pitting edema on the left LE, 3+ pitting edema on right LE. Tenderness on palpation of b/l calf. Pulses 2+ B/L on UE and LE. CBC, BMP 05/27/17 07:00 05/27/17 07:00 05/27/17 05/27/17 07:00 07:00 RBC 2.43 L Hgb 8.4 L D Hct 25.0 L D MCV 102.5 H MCH 34.6 H RDW 16.1 H Potassium 3.1 L Calcium 8.0 L Total Bilirubin 1.5 H D Direct Bilirubin 0.9 H D AST 44 H D ALT 10 L D Total Protein 5.6 L D Albumin 2.2 L Assessment/ Plan: 46yo F with a PMH of asthma, EtOH abuse and cirrhosis diagnosed at [facility] 2 weeks ago presented with abdominal pain, ascites and LE edema likely due to alcoholic cirrhosis, possible alcoholic hepatitis. # Ascites likely due to alcoholic cirrhosis - paracentesis performed on 05/26/17 drained 11L. Albumin 100g administered after. - GI (Dr. Frias) consulted and plan on EGD to rule out varices. - diurese: Furosemide (Lasix -) 40 mg PO DAILY [facility] Spironolactone (Aldactone -) 100 mg PO DAILY [facility] - hepatic viral panel, AFP pending. #Alcohol abuse - Dr. Forrester consulted. Patient on Librium detox and will go to rehab at [facility] after d/c. - Thiamine HCl (Vitamin B1 -) 100 mg PO HS [facility] - Folic Acid (Folic Acid -) 1 mg PO DAILY [facility] #hx of asthma, wheezing. - O2 prn, titrate to O2 >90% - Albuterol/Ipratropium (Duoneb -) 1 amp NEB Q6H PRN #macrocytic anemia, B12 and folate wnl - pending Fe studies #FEN - F: PO hydration - E: K+ repleted - N: Na controlled diet. NPO after midnight for EGD
[2017-05-27] MEDS: SPIRONOLACTONE 25 MG TABLET (FP) PO SCH (13:37)
[2017-05-27] MEDS ORDERED: chlordiazePOXIDE 5 MG CAPSULE PO SCH (17:00)
[2017-05-27] MEDS ORDERED: PT OWN MED DRAWER 7, Y5N ONE (18:46)
--- NOTE | 2017-05-27 19:05 | PN ---
Teaching Attending Note Name of Resident: Roma Hartman ATTENDING PHYSICIAN STATEMENT I saw and evaluated the patient. I reviewed the resident's note and discussed the case with the resident. I agree with the resident's findings and plan as documented. SUBJECTIVE: C/O diffuse abdominal pain less than before. No fever or chills. OBJECTIVE: Vital Signs Temperature 97.3 F L 05/27/17 15:18 Pulse Rate 97 H 05/27/17 15:18 Respiratory Rate 20 05/27/17 14:06 Blood Pressure 102/60 05/27/17 15:18 O2 Sat by Pulse Oximetry (%) 100 05/27/17 10:00 CBCD WBC 7.2 K/mm3 (4.0-10.0) 05/27/17 07:00 RBC 2.43 M/mm3 (3.60-5.2) L 05/27/17 07:00 Hgb 8.4 GM/dL (10.7-15.3) L D 05/27/17 07:00 Hct 25.0 % (32.4-45.2) L D 05/27/17 07:00 MCV 102.5 fl (80-96) H 05/27/17 07:00 MCHC 33.7 g/dl (32.0-36.0) 05/27/17 07:00 RDW 16.1 % (11.6-15.6) H 05/27/17 07:00 Plt Count 174 K/MM3 (134-434) 05/27/17 07:00 MPV 9.0 fl (7.5-11.1) 05/27/17 07:00 CMP Sodium 142 mmol/L (136-145) 05/27/17 07:00 Potassium 3.1 mmol/L (3.5-5.1) L 05/27/17 07:00 Chloride 107 mmol/L (98-107) 05/27/17 07:00 Carbon Dioxide 26 mmol/L (21-32) 05/27/17 07:00 Anion Gap 9 (8-16) 05/27/17 07:00 BUN 7 mg/dL (7-18) 05/27/17 07:00 Creatinine 0.6 mg/dL (0.55-1.02) 05/27/17 07:00 Creat Clearance w eGFR > 60 (>60) 05/27/17 07:00 Random Glucose 87 mg/dL (74-106) 05/27/17 07:00 Calcium 8.0 mg/dL (8.5-10.1) L 05/27/17 07:00 Total Bilirubin 1.5 mg/dL (0.2-1.0) H D 05/27/17 07:00 AST 44 U/L (15-37) H D 05/27/17 07:00 ALT 10 U/L (12-78) L D 05/27/17 07:00 Alkaline Phosphatase 107 U/L (45-117) D 05/27/17 07:00 Total Protein 5.6 g/dl (6.4-8.2) L D 05/27/17 07:00 Albumin 2.2 g/dl (3.4-5.0) L 05/27/17 07:00 CARDIAC ENZYMES Troponin I 0.03 ng/ml (0.00-0.05) 05/25/17 19:30 Current Medications Generic Name Dose Route Start Last Admin Trade Name Freq PRN Reason Stop Dose Admin Albuterol/Ipratropium 1 amp 05/25/17 21:47 Duoneb - NEB Q6H PRN SHORTNESS OF BREATH Chlordiazepoxide HCl 15 mg 05/27/17 23:00 Librium - PO 05/28/17 17:01 [id number] [facility] Chlordiazepoxide HCl 25 mg 05/27/17 11:50 Librium - PO 05/28/17 21:05 Q4H PRN WITHDRAWAL(CONT SUBST) Folic Acid 1 mg 05/26/17 10:00 05/27/17 11:55 Folic Acid - PO 1 mg DAILY [facility] Administration Furosemide 40 mg 05/27/17 10:00 05/27/17 11:56 Lasix - PO 40 mg DAILY [facility] Administration Multivitamins/Minerals/Vitamin C 1 tab 05/28/17 10:00 Tab-A-Vit - PO DAILY [facility] Potassium Chloride 40 meq 05/27/17 10:00 05/27/17 11:56 Potassium Chloride Oral Liquid PO 40 meq BID [facility] Administration Prochlorperazine Edisylate 5 mg 05/25/17 21:51 Compazine Injection - IM Q4H PRN NAUSEA AND/OR VOMITING Spironolactone 100 mg 05/27/17 10:00 05/27/17 13:37 Aldactone - PO 100 mg DAILY [facility] Administration Thiamine HCl 100 mg 05/26/17 22:00 05/26/17 21:34 Vitamin B1 - PO 100 mg HS [facility] Administration Home Medications Medication Instructions Recorded NK [No Known Home Medication] 05/26/17 PE: per resident's note ASSESSMENT AND PLAN: 46 yo lady with h/o Asthma , and recent diagnosis of Cirrhosis in [facility] 2 weeks ago, who presented from [facility] due to distended abd, she was ofund to have ascitis # Ascitis, due to liver cirrhosis: most likely due to alcoholism s/p Paracentesis will monitor on Lasix, spironolactone, thiamine, folic acid # Alcohol dependence: No signs of withdrawal, cont librium detox , cont thiamine and folic # Normocytic anemia: B12 & folic acid wnl , EGD # Hx of Asthma: albuterol PRN
[2017-05-27] MEDS: THIAMINE HCL 100 MG TABLET (FP) PO SCH (22:32)
[2017-05-27] MEDS: chlordiazePOXIDE 5 MG CAPSULE PO SCH (22:32)
[2017-05-28 06:08] LABS: SERUM IRON SATURATION 32 % (15-55); TOTAL IRON BINDING CAPACITY 93 ug/dL (250-450); UIBC 63 ug/dL (131-425)
[2017-05-28 06:08] LABS: HEPATITIS B CORE ANTIBODY,IGM Negative (Negative)
[2017-05-28] MEDS: chlordiazePOXIDE 5 MG CAPSULE PO SCH ×3 (06:35→17:02)
[2017-05-28] MEDS ORDERED: LIDOCAINE HCL/PF 2% SDV 5ML VIAL ONE (08:00)
[2017-05-28] MEDS ORDERED: PROPOFOL 20 ML ONE (08:00)
--- NOTE | 2017-05-28 08:29 | PROC ---
Endoscopy Procedure Endoscopy procedure completed. Please see scanned procedure report. antral gastritis, otherwise normal EGD. No esophageal, or gastric varices, no portal hypertensive gastropathy noted. Normal proximal small bowel. Biopsies taken from antrum.
--- NOTE | 2017-05-28 10:00 | PN ---
[facility] Progress Note (SOAP) Subjective: c/o pain all over since this am, s/p endoscopy - no varices or portal hypertension noted, still tremulous unable to sleep at night Objective: 05/28/17 09:57 Vital Signs - 24 hr 05/27/17 05/27/17 05/27/17 10:00 14:06 15:18 Temperature 98.4 F 97.3 F L Pulse Rate 101 H 97 H Respiratory 20 Rate Blood Pressure 99/68 102/60 O2 Sat by Pulse 100 Oximetry (%) 05/27/17 05/27/17 05/27/17 18:00 21:00 22:00 Temperature 98.3 F 98.1 F Pulse Rate 93 H 95 H Respiratory 20 20 Rate Blood Pressure 126/90 104/66 O2 Sat by Pulse 100 Oximetry (%) 05/28/17 05/28/17 05/28/17 02:00 05:57 08:31 Temperature 98.9 F 98.3 F 97.9 F Pulse Rate 96 H 89 91 H Respiratory 20 20 16 Rate Blood Pressure 100/58 98/60 76/45 O2 Sat by Pulse 99 Oximetry (%) 05/28/17 05/28/17 05/28/17 08:46 09:01 09:15 Temperature Pulse Rate 92 H 91 H 91 H Respiratory 18 18 18 Rate Blood Pressure 87/57 91/62 94/56 O2 Sat by Pulse 99 99 99 Oximetry (%) Laboratory Results - last 24 hr 05/26/17 05/27/17 05/27/17 18:45 07:00 07:00 Sodium Potassium Chloride Carbon Dioxide Anion Gap BUN Creatinine Creat Clearance w eGFR POC Glucometer Random Glucose Calcium Phosphorus Magnesium Iron 30 TIBC 93 L Iron Saturation 32 Total Bilirubin Direct Bilirubin AST ALT Alkaline Phosphatase Total Protein Albumin Tumor Marker AFP 1.7 Hep B Core IgM Ab Negative Hepatitis C Antibody 0.1 05/27/17 05/27/17 05/27/17 07:00 07:00 12:06 Sodium 142 Potassium 3.1 L Chloride 107 Carbon Dioxide 26 Anion Gap 9 BUN 7 Creatinine 0.6 Creat Clearance w eGFR > 60 POC Glucometer 97 Random Glucose 87 Calcium 8.0 L Phosphorus 2.9 Magnesium 1.9 D Iron TIBC Iron Saturation Total Bilirubin 1.5 H D Direct Bilirubin 0.9 H D Cancelled AST 44 H D ALT 10 L D Alkaline Phosphatase 107 D Total Protein 5.6 L D Albumin 2.2 L Tumor Marker AFP Hep B Core IgM Ab Hepatitis C Antibody 05/27/17 05/27/17 05/28/17 18:04 22:33 06:37 Sodium Potassium Chloride Carbon Dioxide Anion Gap BUN Creatinine Creat Clearance w eGFR POC Glucometer 77 141 99 Random Glucose Calcium Phosphorus Magnesium Iron TIBC Iron Saturation Total Bilirubin Direct Bilirubin AST ALT Alkaline Phosphatase Total Protein Albumin Tumor Marker AFP Hep B Core IgM Ab Hepatitis C Antibody anemia, low k tremulous, anxious, a and o x3 Assessment: 05/28/17 09:58 alcohol dependence with withdrawal, cont detox, give libirum at [facility] for sleep , ambien prn, low k - needs supplementation,, when medically stable patient is requesting to come to [facility] for rehab, beds available at this time. neurontin 100mg tid for pain started, may need to be tapped again. avoid tyleno and nsaids in this patient, consider adding flexeril, do not send before she completes her mediicallys upervised detox while hospitalized. Fernando Forrester MD [phone]
[2017-05-28 10:32] LABS: BASO % 0.9 % (0-2.0); EOS % 3.1 % (0-4.5); HEMATOCRIT 26.6 % (32.4-45.2); HEMOGLOBIN 8.7 GM/dL (10.7-15.3); LYMPH % 40.4 % (8-40); MCH 34.2 pg (25.7-33.7); MCHC 32.7 g/dl (32.0-36.0); MEAN CELL VOLUME 104.5 fl (80-96); MEAN PLT VOLUME 9.8 fl (7.5-11.1); MONO % 9.7 % (3.8-10.2); NEUT % 45.9 % (42.8-82.8); PLATELET COUNT 197 K/MM3 (134-434); RBC 2.54 M/mm3 (3.60-5.2); RDW 16.1 % (11.6-15.6); WHITE BLOOD COUNT 7.6 K/mm3 (4.0-10.0)
[2017-05-28 10:42] LABS: ALBUMIN 2.1 g/dl (3.4-5.0); ANION GAP 6 (8-16); BILIRUBIN,TOTAL 1.2 mg/dL (0.2-1.0); BLOOD UREA NITROGEN 6 mg/dL (7-18); CALCIUM 8.1 mg/dL (8.5-10.1); CHLORIDE 108 mmol/L (98-107); CO2 29 mmol/L (21-32); CREATININE 0.7 mg/dL (0.55-1.02); GLUCOSE,RANDOM 93 mg/dL (74-106); POTASSIUM 3.8 mmol/L (3.5-5.1); SGOT/AST 45 U/L (15-37); SGPT/ALT 12 U/L (12-78); SODIUM 143 mmol/L (136-145)
[2017-05-28 10:43] LABS: ALK PHOS 117 U/L (45-117)
[2017-05-28] MEDS: FOLIC ACID 1 MG TABLET (FP) PO SCH (11:51)
[2017-05-28] MEDS: SPIRONOLACTONE 25 MG TABLET (FP) PO SCH (11:52)
[2017-05-28] MEDS: POTASSIUM CHLORIDE ORAL LIQUID 20 MEQ/15 ML PO SCH ×2 (11:53→21:24)
[2017-05-28] MEDS: FUROSEMIDE 40 MG TABLET (FP) PO SCH (11:53)
[2017-05-28] MEDS: MULTIVITAMINS (DAILY MVI) TABLET (FP) PO SCH (11:53)
--- NOTE | 2017-05-28 16:59 | PN ---
Physical Exam: SUBJECTIVE: Patient seen and examined. poor sleep. c/o generalized body pain and weakness. some tremors. no fever or chills. OBJECTIVE: Vital Signs Period Temp Pulse Resp BP Sys/Pires Pulse Ox Last 24 Hr 97.9 F-98.9 F 88-96 16-20 76-144/45-90 99-100 GENERAL: anxious, aaox3 EYES: sclera anicteric, conjunctiva clear ENT: oropharynx clear without exudates, mmm LUNGS: CTAB HEART: rrr, normal s1/s2, no m/r/g ABDOMEN: distended, diffuse ttp in all 4 quadrants EXTREMITIES: 2+ DP pulses, wwp, 2+ pretibial pitting edema NEUROLOGICAL: Cranial nerves II through XII grossly intact. CBC, BMP 05/28/17 06:45 05/28/17 06:45 Hepatic Panel Total Bilirubin 1.2 mg/dL (0.2-1.0) H 05/28/17 06:45 Direct Bilirubin 0.9 mg/dL (0.0-0.2) H D 05/27/17 07:00 AST 45 U/L (15-37) H 05/28/17 06:45 ALT 12 U/L (12-78) 05/28/17 06:45 Alkaline Phosphatase 117 U/L (45-117) 05/28/17 06:45 Albumin 2.1 g/dl (3.4-5.0) L 05/28/17 06:45 Microbiology 05/25/17 17:00 Ascites Gram Stain - Final 05/25/17 17:00 Ascites Body Fluid Culture - Final NO GROWTH OF AEROBIC ORGANISMS AFTER 48 HOURS INCUBATION 05/25/17 17:00 Ascites Anaerobic Culture - Final NO ANAEROBES WERE ISOLATED 05/25/17 14:16 Blood - Peripheral Venous Blood Culture - Preliminary NO GROWTH OBTAINED AFTER 72 HOURS, INCUBATION TO CONTINUE FOR 2 DAYS. 05/25/17 14:00 Blood - Peripheral Venous Blood Culture - Preliminary NO GROWTH OBTAINED AFTER 72 HOURS, INCUBATION TO CONTINUE FOR 2 DAYS. Active Medications Albuterol/Ipratropium (Duoneb -) 1 amp NEB Q6H PRN PRN Reason: SHORTNESS OF BREATH Chlordiazepoxide HCl (Librium -) 25 mg PO Q4H PRN PRN Reason: WITHDRAWAL(CONT SUBST) Stop: 05/28/17 21:05 Chlordiazepoxide HCl (Librium -) 25 mg PO HS [facility] Folic Acid (Folic Acid -) 1 mg PO DAILY [facility] Last Admin: 05/28/17 11:51 Dose: 1 mg Furosemide (Lasix -) 40 mg PO DAILY [facility] Last Admin: 05/28/17 11:53 Dose: 40 mg Gabapentin (Neurontin -) 100 mg PO TID [facility] Last Admin: 05/28/17 17:02 Dose: 100 mg Multivitamins/Minerals/Vitamin C (Tab-A-Vit -) 1 tab PO DAILY [facility] Last Admin: 05/28/17 11:53 Dose: 1 tab Potassium Chloride (Potassium Chloride Oral Liquid) 40 meq PO BID [facility] Last Admin: 05/28/17 11:53 Dose: 40 meq Prochlorperazine Edisylate (Compazine Injection -) 5 mg IM Q4H PRN PRN Reason: NAUSEA AND/OR VOMITING Spironolactone (Aldactone -) 100 mg PO DAILY [facility] Last Admin: 05/28/17 11:52 Dose: 100 mg Thiamine HCl (Vitamin B1 -) 100 mg PO HS [facility] Last Admin: 05/27/17 22:32 Dose: 100 mg Zolpidem Tartrate (Ambien -) 10 mg PO HS PRN PRN Reason: INSOMNIA ASSESSMENT/PLAN: 46yo woman with PMH of asthma, EtOH abuse (1pint/day), and recently diagnosed cirrhosis who presents with abdominal pain, tense ascites and LE edema. #transudative ascites likely due to alcoholic cirrhosis, appears to be re- accumulating s/p 11L removed, may need TIPS s/p EGD - antral gastritis, but no varices or portal hypertension gastropathy -GI following. MRCP c/w cirrhosis and ascites. AFP negative, hepatitis viral panel pending -Spironolactone 100mg qd and lasix 40mg po qd --> SBP in 80's today, will hold off on increasing doses today #macrocytic anemia -B12 and folate wnl, Fe low normal, TIBC low #Alcohol abuse (reports 1pint/day) -Dr. Forrester consulted. Librium detox started -Thiamine, folate, MVI -Will d/c patient to [facility] rehab #non-bloddy diarrhea -f/u stool cultures, C-diff #h/o asthma -Duo nebs Q6H PRN #FEN: PO hydration / lytes wnl / Na controlled diet #DVT PPX - SCDs d/w Dr. Carlitos Hartman MD PGY1 - Internal Medicine Visit type - Emergency Visit Emergency Visit: No - New Patient This patient is new to me today: No - Critical Care Critical Care patient: No
[2017-05-28] MEDS: GABAPENTIN 100 MG CAPSULE (FP) PO SCH ×2 (17:02→21:24)
--- NOTE | 2017-05-28 20:09 | PN ---
Teaching Attending Note Name of Resident: Roma Hartman ATTENDING PHYSICIAN STATEMENT I saw and evaluated the patient. I reviewed the resident's note and discussed the case with the resident. I agree with the resident's findings and plan as documented. SUBJECTIVE: OBJECTIVE: Vital Signs Temperature 98.5 F 05/28/17 15:41 Pulse Rate 92 H 05/28/17 15:41 Respiratory Rate 18 05/28/17 15:41 Blood Pressure 144/90 05/28/17 15:41 O2 Sat by Pulse Oximetry (%) 100 05/28/17 09:45 CBCD WBC 7.6 K/mm3 (4.0-10.0) 05/28/17 06:45 RBC 2.54 M/mm3 (3.60-5.2) L 05/28/17 06:45 Hgb 8.7 GM/dL (10.7-15.3) L 05/28/17 06:45 Hct 26.6 % (32.4-45.2) L 05/28/17 06:45 MCV 104.5 fl (80-96) H 05/28/17 06:45 MCHC 32.7 g/dl (32.0-36.0) 05/28/17 06:45 RDW 16.1 % (11.6-15.6) H 05/28/17 06:45 Plt Count 197 K/MM3 (134-434) 05/28/17 06:45 MPV 9.8 fl (7.5-11.1) 05/28/17 06:45 CMP Sodium 143 mmol/L (136-145) 05/28/17 06:45 Potassium 3.8 mmol/L (3.5-5.1) D 05/28/17 06:45 Chloride 108 mmol/L (98-107) H 05/28/17 06:45 Carbon Dioxide 29 mmol/L (21-32) 05/28/17 06:45 Anion Gap 6 (8-16) L 05/28/17 06:45 BUN 6 mg/dL (7-18) L 05/28/17 06:45 Creatinine 0.7 mg/dL (0.55-1.02) 05/28/17 06:45 Creat Clearance w eGFR > 60 (>60) 05/28/17 06:45 Random Glucose 93 mg/dL (74-106) 05/28/17 06:45 Calcium 8.1 mg/dL (8.5-10.1) L 05/28/17 06:45 Total Bilirubin 1.2 mg/dL (0.2-1.0) H 05/28/17 06:45 AST 45 U/L (15-37) H 05/28/17 06:45 ALT 12 U/L (12-78) 05/28/17 06:45 Alkaline Phosphatase 117 U/L (45-117) 05/28/17 06:45 Total Protein 6.0 g/dl (6.4-8.2) L 05/28/17 06:45 Albumin 2.1 g/dl (3.4-5.0) L 05/28/17 06:45 CARDIAC ENZYMES Troponin I 0.03 ng/ml (0.00-0.05) 05/25/17 19:30 Home Medications Medication Instructions Recorded NK [No Known Home Medication] 05/26/17 ASSESSMENT AND PLAN: 46 yo lady with h/o Asthma , and recent diagnosis of Cirrhosis in [facility] 2 weeks ago, who presented from [facility] due to distended abd, she was ofund to have ascitis # Ascitis, due to liver cirrhosis: most likely due to alcoholism s/p Paracentesis will monitor on Lasix, spironolactone, thiamine, folic acid # Alcohol dependence: No signs of withdrawal, cont librium detox , cont thiamine and folic # Normocytic anemia: B12 & folic acid wnl , EGD # Hx of Asthma: albuterol PRN
[2017-05-28] MEDS: chlordiazePOXIDE HCL 25 MG CAPSULE PO SCH (21:23)
[2017-05-28] MEDS: THIAMINE HCL 100 MG TABLET (FP) PO SCH (21:25)
[2017-05-28] MEDS: ZOLPIDEM TARTRATE 5 MG TABLET PO PRN (23:31)
[2017-05-29 06:06] LABS: HBSAG SCREEN Negative (Negative); HEP A AB, IGM Negative (Negative); HEP B CORE AB, TOT Positive (Negative)
[2017-05-29] MEDS: GABAPENTIN 100 MG CAPSULE (FP) PO SCH ×3 (06:23→21:48)
[2017-05-29] MEDS: FOLIC ACID 1 MG TABLET (FP) PO SCH (09:52)
[2017-05-29] MEDS: SPIRONOLACTONE 25 MG TABLET (FP) PO SCH ×2 (09:53→15:09)
[2017-05-29] MEDS: FUROSEMIDE 40 MG TABLET (FP) PO SCH ×2 (09:53→15:10)
[2017-05-29] MEDS: MULTIVITAMINS (DAILY MVI) TABLET (FP) PO SCH (09:53)
[2017-05-29] MEDS: POTASSIUM CHLORIDE ORAL LIQUID 20 MEQ/15 ML PO SCH (09:53)
[2017-05-29 10:11] LABS: BASO % 0.5 % (0-2.0); EOS % 3.6 % (0-4.5); HEMATOCRIT 28.7 % (32.4-45.2); HEMOGLOBIN 9.5 GM/dL (10.7-15.3); LYMPH % 38.8 % (8-40); MCHC 33.2 g/dl (32.0-36.0); MEAN CELL VOLUME 102.5 fl (80-96); MEAN PLT VOLUME 8.7 fl (7.5-11.1); MONO % 8.3 % (3.8-10.2); NEUT % 48.8 % (42.8-82.8); PLATELET COUNT 232 K/MM3 (134-434); RDW 16.1 % (11.6-15.6); WHITE BLOOD COUNT 7.2 K/mm3 (4.0-10.0)
[2017-05-29 11:05] LABS: ALBUMIN 2.3 g/dl (3.4-5.0); ANION GAP 6 (8-16); BLOOD UREA NITROGEN 7 mg/dL (7-18); CALCIUM 8.2 mg/dL (8.5-10.1); CHLORIDE 104 mmol/L (98-107); CO2 28 mmol/L (21-32); CREATININE 0.8 mg/dL (0.55-1.02); GLUCOSE,RANDOM 118 mg/dL (74-106); SGOT/AST 40 U/L (15-37); SGPT/ALT 13 U/L (12-78); SODIUM 138 mmol/L (136-145)
[2017-05-29 11:07] LABS: ALK PHOS 116 U/L (45-117); BILIRUBIN,TOTAL 1.6 mg/dL (0.2-1.0); TOT PROT 6.7 g/dl (6.4-8.2)
--- NOTE | 2017-05-29 12:20 | PATH ---
Surgical Pathology Report Patient Name: RONI GATES [facility]. Rec. #: [id number] /Age/Gender: 1970 (Age: 46) / F Account: [id number] Location: [address] [place] [id number] Taken: 05/28/2017 Received: 05/28/2017 Reported: 05/29/2017 Physicians: Devyn Aviles M.D. Specimen(s) Received BX ANTRUM Clinical History Preoperative diagnosis: Cirrhosis of the liver, esophageal varices surveillance Postoperative diagnosis: Gastritis Final Diagnosis STOMACH, ANTRUM, BIOPSY: REACTIVE GASTROPATHY WITH SUPERFICIAL ULCERATION. IMMUNOSTAIN FOR H. PYLORI IS NEGATIVE. Electronically Signed Robbi Ramos M.D. Gross Description Received in formalin, labeled "biopsy antrum" are 2 perez, irregular portions of soft tissue measuring 0.2 and 0.3 cm. in greatest dimension. The specimens are submitted in toto in one cassette. 05/28/201705/28/2017
--- NOTE | 2017-05-29 12:26 | MSN ---
Progress Note (short form) - Note Progress Note: Subjective: Patient was seen this morning. Patient complains of calf pain and abdominal pain. Patient has had a bowel movement, has a good appetite. Denies: chest pain, SOB, N/V/D Objective: Last Vital Signs Temp Pulse Resp BP Pulse Ox 97.3 F L 92 H 20 103/56 99 05/29/17 09:51 05/29/17 12:04 05/29/17 12:04 05/29/17 12:04 05/29/17 11:00 General: patient is alert and oriented x3. In no apparent distress HEENT: normocephalic, atraumatic. PERRLA. Scleral icterus B/L. Trachea midline. no lymphadenopathy Lungs:CTA B/L. no wheezing, rhonci, crackles. Heart: RRR. no murmurs, rubs or gallops. Abdomen: distended, diffusely tender in all 4 quadrants, normoactive bowel sound. hepatomegaly. shifting dullness on percussion. Extremities: 2+ pitting edema on B/L LE. Tenderness on palpation of b/l calf. Pulses 2+ B/L on UE and LE. CBC, BMP 05/29/17 09:50 05/29/17 09:50 Imaging: - US B/L LE on 05/29/16 no evidence of DVT. Edema noted. - MRI 05/28/16 - Cirrhotic liver with large abdominal ascites. - Nonspecific 8 mm focus of delayed arterial/early portal venous enhancement in the right hepatic lobe subcapsular region demonstrating washout but with no restricted diffusion or T2 signal abnormality. This possibly represents focus of regenerative nodule however continued follow-up is recommended. Findings are suggestive of LI-RAD 2 lesion-probably benign lesion. Continued follow-up is recommended. Alpha- fetoprotein level is also helpful. - Diffuse irregularity in the omentum with mild enhancement in the left upper abdominal quadrant omentum is nonspecific. Underlying infection/inflammation or neoplasm cannot be excluded. Clinical correlation is needed. Diagnostic paracentesis would be helpful. - Contracted gallbladder containing small amount of sludge and possibly small stone with wall thickening likely secondary to hepatocellular disease rather than cholecystitis. Correlate with patient's symptoms. - Left adrenal gland hyperplasia. - Xray chest on 05/26/16 Imaging reveals a weak inspiration with elevated right hemidiaphragm and some right base atelectasis with prominent mediastinum. Correlation recommended. Assessment/ Plan: 46yo F with a PMH of asthma, EtOH abuse and cirrhosis diagnosed at [facility] 2 weeks ago presented with abdominal pain, ascites and LE edema likely due to alcoholic cirrhosis, possible alcoholic hepatitis. # Ascites likely due to alcoholic cirrhosis- re-accumulating - paracentesis performed on 05/26/17 drained 11L. Fluid re-accumulating, may need another paracentesis or TIPS - GI (Dr. Frias) consulted. EGD showed antral gastritis, biopsy negative for H. Pylori - diuretics cannot be increased yet due to bp on lower side: Furosemide (Lasix - ) 40 mg PO DAILY [facility] Spironolactone (Aldactone -) 100 mg PO DAILY MOODY - hepatic viral panel negative, AFP wnl. # Leg pain likely due to fluid accumulation - US performed on B/L LE shows no DVT - pain: Gabapentin (Neurontin -) 100 mg PO TID MOODY. Consider adding flexeril if needed. #Alcohol abuse - Dr. Forrester consulted. Patient on Librium detox and will go to rehab at [facility] after d/c. - Thiamine HCl (Vitamin B1 -) 100 mg PO HS MOODY - Folic Acid (Folic Acid -) 1 mg PO DAILY MOODY #hx of asthma, wheezing. - O2 prn, titrate to O2 >90% - Albuterol/Ipratropium (Duoneb -) 1 amp NEB Q6H PRN #macrocytic anemia, B12 and folate wnl - pending Fe studies #FEN - F: PO hydration - E: K+ repleted - N: Na controlled diet. NPO after midnight for EGD
--- NOTE | 2017-05-29 13:17 | PN ---
Progress Note, Physician History of Present Illness: No events, c/o unsteady gate - Current Medication List Current Medications: Active Medications Albuterol/Ipratropium (Duoneb -) 1 amp NEB Q6H PRN PRN Reason: SHORTNESS OF BREATH Chlordiazepoxide HCl (Librium -) 25 mg PO HS [facility] Last Admin: 05/28/17 21:23 Dose: 25 mg Folic Acid (Folic Acid -) 1 mg PO DAILY [facility] Last Admin: 05/29/17 09:52 Dose: 1 mg Furosemide (Lasix -) 40 mg PO DAILY [facility] Last Admin: 05/29/17 09:53 Dose: Not Given Gabapentin (Neurontin -) 100 mg PO TID [facility] Last Admin: 05/29/17 06:23 Dose: 100 mg Multivitamins/Minerals/Vitamin C (Tab-A-Vit -) 1 tab PO DAILY [facility] Last Admin: 05/29/17 09:53 Dose: 1 tab Potassium Chloride (Potassium Chloride Oral Liquid) 40 meq PO BID [facility] Last Admin: 05/29/17 09:53 Dose: 40 meq Prochlorperazine Edisylate (Compazine Injection -) 5 mg IM Q4H PRN PRN Reason: NAUSEA AND/OR VOMITING Spironolactone (Aldactone -) 100 mg PO DAILY [facility] Last Admin: 05/29/17 09:53 Dose: Not Given Thiamine HCl (Vitamin B1 -) 100 mg PO HS [facility] Last Admin: 05/28/17 21:25 Dose: 100 mg Zolpidem Tartrate (Ambien -) 10 mg PO HS PRN PRN Reason: INSOMNIA Last Admin: 05/28/17 23:31 Dose: 10 mg - Objective Vital Signs: Vital Signs Temperature 97.3 F L 05/29/17 09:51 Pulse Rate 92 H 05/29/17 12:04 Respiratory Rate 20 05/29/17 12:04 Blood Pressure 103/56 05/29/17 12:04 O2 Sat by Pulse Oximetry (%) 99 05/29/17 11:00 Constitutional: Yes: No Distress, Calm Eyes: Yes: Conjunctiva Clear HENT: Yes: Atraumatic Neck: Yes: Supple Gastrointestinal: Yes: Ascites, Distention. No: Melena, Rectal Bleeding, Tenderness, Tenderness, Epigastrium, Vomiting Neurological: Yes: Alert, Oriented. No: Confusion, Lethargy, Tremors Labs: CBC, BMP 05/29/17 09:50 05/29/17 09:50 INR, PTT INR 1.47 (0.82-1.09) H 05/26/17 07:30 Abnormal Lab Results 05/26/17 05/29/17 05/29/17 18:45 09:50 09:50 RBC 2.80 L Hgb 9.5 L Hct 28.7 L MCV 102.5 H MCH 34.0 H RDW 16.1 H Anion Gap 6 L Random Glucose 118 H D Calcium 8.2 L Total Bilirubin 1.6 H D AST 40 H Albumin 2.3 L Hepatitis A Ab Total Positive H Hep B Core Total Ab Positive H Problem List - Problems (1) Alcohol dependence with uncomplicated withdrawal Code(s): F10.230 - ALCOHOL DEPENDENCE WITH WITHDRAWAL, UNCOMPLICATED (2) Ascites Code(s): R18.8 - OTHER ASCITES (3) Cirrhosis of liver Code(s): K74.60 - UNSPECIFIED CIRRHOSIS OF LIVER Qualifiers: Hepatic cirrhosis type: unspecified hepatic cirrhosis Ascites presence: with ascites Qualified Code(s): K74.60 - Unspecified cirrhosis of liver Assessment/Plan Asymptomatic, tense ascites, presumed alcoholic hepatic cirrhosis. No evidence of SBP per asitic fluid results. Possibly stage I-II encephalopathy, ?Wernicke Recurrent, tense ascites Consider repeast paracenthesis, and if reaccumulating despite high dose diuretics, TIPS may be an option. However, encephalopathy may worsen Aldacton and Lasix Lactulose Salt restriction neurology eval b12, B1-2, folate will follow
--- NOTE | 2017-05-29 14:13 | PN ---
<Roma Hartman - Last Filed: 05/29/17 20:11> Physical Exam: SUBJECTIVE: Patient seen and examined. C/o calf pain and weakness. Feels gait is unsteady. Some tremors. No fever or chills. OBJECTIVE: Vital Signs Period Temp Pulse Resp BP Sys/Pires Pulse Ox Last 24 Hr 97.1 F-98.6 F 88-104 18-20 100-144/54-90 99-100 GENERAL: anxious, aaox3 EYES: sclera anicteric, conjunctiva clear ENT: oropharynx clear without exudates, mmm LUNGS: CTAB HEART: rrr, normal s1/s2, no m/r/g ABDOMEN: distended, shifting dullness, diffuse ttp in all 4 quadrants EXTREMITIES: 2+ DP pulses, wwp, 2+ pretibial pitting edema NEUROLOGICAL: CN II through XII intact. gait intact. motor strength 5/5 in all 4 extremities. mild hand tremors, no asterixis, no tongue fasiculations. CBC, BMP 05/29/17 09:50 05/29/17 09:50 Hepatic Panel Total Bilirubin 1.6 mg/dL (0.2-1.0) H D 05/29/17 09:50 Direct Bilirubin 0.9 mg/dL (0.0-0.2) H D 05/27/17 07:00 AST 40 U/L (15-37) H 05/29/17 09:50 ALT 13 U/L (12-78) 05/29/17 09:50 Alkaline Phosphatase 116 U/L (45-117) 05/29/17 09:50 Albumin 2.3 g/dl (3.4-5.0) L 05/29/17 09:50 Microbiology 05/25/17 14:16 Blood - Peripheral Venous Blood Culture - Preliminary NO GROWTH OBTAINED AFTER 96 HOURS, INCUBATION TO CONTINUE FOR 1 DAYS. 05/25/17 14:00 Blood - Peripheral Venous Blood Culture - Preliminary NO GROWTH OBTAINED AFTER 96 HOURS, INCUBATION TO CONTINUE FOR 1 DAYS. 05/25/17 17:00 Ascites Gram Stain - Final 05/25/17 17:00 Ascites Body Fluid Culture - Final NO GROWTH OF AEROBIC ORGANISMS AFTER 48 HOURS INCUBATION 05/25/17 17:00 Ascites Anaerobic Culture - Final NO ANAEROBES WERE ISOLATED Active Medications Albuterol/Ipratropium (Duoneb -) 1 amp NEB Q6H PRN PRN Reason: SHORTNESS OF BREATH Chlordiazepoxide HCl (Librium -) 25 mg PO HS [facility] Last Admin: 05/28/17 21:23 Dose: 25 mg Folic Acid (Folic Acid -) 1 mg PO DAILY [facility] Last Admin: 05/29/17 09:52 Dose: 1 mg Furosemide (Lasix -) 40 mg PO DAILY [facility] Last Admin: 05/29/17 15:10 Dose: 40 mg Gabapentin (Neurontin -) 100 mg PO TID [facility] Last Admin: 05/29/17 14:04 Dose: 100 mg Multivitamins/Minerals/Vitamin C (Tab-A-Vit -) 1 tab PO DAILY [facility] Last Admin: 05/29/17 09:53 Dose: 1 tab Potassium Chloride (Potassium Chloride Oral Liquid) 40 meq PO BID [facility] Last Admin: 05/29/17 09:53 Dose: 40 meq Prochlorperazine Edisylate (Compazine Injection -) 5 mg IM Q4H PRN PRN Reason: NAUSEA AND/OR VOMITING Spironolactone (Aldactone -) 100 mg PO DAILY [facility] Last Admin: 05/29/17 15:09 Dose: 100 mg Thiamine HCl (Vitamin B1 -) 100 mg PO HS [facility] Last Admin: 05/28/17 21:25 Dose: 100 mg Zolpidem Tartrate (Ambien -) 10 mg PO HS PRN PRN Reason: INSOMNIA Last Admin: 05/28/17 23:31 Dose: 10 mg ASSESSMENT/PLAN: 46yo woman with PMH of asthma, EtOH abuse (1pint/day), and recently diagnosed cirrhosis who presents with abdominal pain, tense ascites and LE edema. #transudative ascites likely due to alcoholic cirrhosis, fluid re-accumulating s /p 11L removed on 05/26, may need 2nd therapeutic para and possible TIPS s/p EGD 05/28- antral gastritis, but no varices or portal hypertension gastropathy , AFP neg, Hepatitis serology c/w prior Hep B infection (HepBc and HepBs Ab+, HepBc Ag neg), acute HepA and HCV neg -GI following. MRCP c/w cirrhosis and ascites -Spironolactone 100mg qd and lasix 40mg po qd, hold if SBP<95 #unsteady gait, pt receiving thiamine, folate, and MVI -Neurology consulted -will check B1, B2, ammonia levels #bilateral calf pain, likely 2/2 to edema, U/S dopplers negative for DVTs -Continue gabapentin 100mg TID #macrocytic anemia -B12 and folate wnl, Fe low normal, TIBC low #Alcohol abuse (reports 1pint/day) -Dr. Forrester consulted. On Librium detox -Continue thiamine, folate, MVI -Will d/c patient to [facility] rehab #non-bloody diarrhea -f/u stool cultures, C-diff #h/o asthma -Duo nebs Q6H PRN #FEN: PO hydration / Mg repleted / Na controlled diet #DVT PPX - SCDs d/w Dr. Carlitos Hartman MD PGY1 - Internal Medicine Visit type - Emergency Visit Emergency Visit: No - New Patient This patient is new to me today: No - Critical Care Critical Care patient: No <Pascual Urbina - Last Filed: 05/29/17 20:49> Physical Exam: SUBJECTIVE: Patient seen and examined agree with
[2017-05-29 19:04] LABS: MAGNESIUM 1.7 mg/dL (1.8-2.4); PHOSPHOROUS 3.6 mg/dL (2.5-4.9)
[2017-05-29] MEDS ORDERED: MAGNESIUM SULF 50% (8.12 MEQ/2 ML-1 GM VIAL) IVPB ONE ×2 (19:31→22:00)
[2017-05-29] MEDS: THIAMINE HCL 100 MG TABLET (FP) PO SCH (21:47)
[2017-05-29] MEDS: chlordiazePOXIDE HCL 25 MG CAPSULE PO SCH (21:48)
[2017-05-29] MEDS: ZOLPIDEM TARTRATE 5 MG TABLET PO PRN (21:48)
[2017-05-30] MEDS: GABAPENTIN 100 MG CAPSULE (FP) PO SCH ×3 (06:24→22:15)
[2017-05-30] MEDS: FUROSEMIDE 40 MG TABLET (FP) PO SCH (10:07)
[2017-05-30] MEDS: FOLIC ACID 1 MG TABLET (FP) PO SCH (10:07)
[2017-05-30] MEDS: MULTIVITAMINS (DAILY MVI) TABLET (FP) PO SCH (10:07)
[2017-05-30] MEDS: SPIRONOLACTONE 25 MG TABLET (FP) PO SCH (10:07)
[2017-05-30 11:54] LABS: EOS % 2.7 % (0-4.5); HEMATOCRIT 28.4 % (32.4-45.2); HEMOGLOBIN 9.4 GM/dL (10.7-15.3); LYMPH % 33.4 % (8-40); MCHC 33.2 g/dl (32.0-36.0); MEAN CELL VOLUME 102.7 fl (80-96); MEAN PLT VOLUME 9.7 fl (7.5-11.1); MONO % 8.7 % (3.8-10.2); NEUT % 53.2 % (42.8-82.8); PLATELET COUNT 208 K/MM3 (134-434); RBC 2.77 M/mm3 (3.60-5.2); RDW 16.3 % (11.6-15.6); WHITE BLOOD COUNT 8.2 K/mm3 (4.0-10.0)
[2017-05-30 12:30] LABS: ALBUMIN 2.4 g/dl (3.4-5.0); ALK PHOS 138 U/L (45-117); ANION GAP 7 (8-16); BILIRUBIN,TOTAL 1.3 mg/dL (0.2-1.0); BLOOD UREA NITROGEN 10 mg/dL (7-18); CALCIUM 8.5 mg/dL (8.5-10.1); CHLORIDE 102 mmol/L (98-107); CO2 28 mmol/L (21-32); CREATININE 0.9 mg/dL (0.55-1.02); GLUCOSE,RANDOM 99 mg/dL (74-106); POTASSIUM 4.3 mmol/L (3.5-5.1); SGOT/AST 41 U/L (15-37); SGPT/ALT 14 U/L (12-78); SODIUM 137 mmol/L (136-145); TOT PROT 7.2 g/dl (6.4-8.2)
--- NOTE | 2017-05-30 13:26 | PN ---
Progress Note (short form) - Note Progress Note: Vital Signs Temperature 98.9 F 05/30/17 10:00 Pulse Rate 99 H 05/30/17 10:00 Respiratory Rate 18 05/30/17 10:00 Blood Pressure 80/50 05/30/17 10:00 O2 Sat by Pulse Oximetry (%) 98 05/29/17 21:00 CBCD WBC 8.2 K/mm3 (4.0-10.0) 05/30/17 11:14 RBC 2.77 M/mm3 (3.60-5.2) L 05/30/17 11:14 Hgb 9.4 GM/dL (10.7-15.3) L 05/30/17 11:14 Hct 28.4 % (32.4-45.2) L 05/30/17 11:14 MCV 102.7 fl (80-96) H 05/30/17 11:14 MCHC 33.2 g/dl (32.0-36.0) 05/30/17 11:14 RDW 16.3 % (11.6-15.6) H 05/30/17 11:14 Plt Count 208 K/MM3 (134-434) 05/30/17 11:14 MPV 9.7 fl (7.5-11.1) D 05/30/17 11:14 CMP Sodium 137 mmol/L (136-145) 05/30/17 11:14 Potassium 4.3 mmol/L (3.5-5.1) 05/30/17 11:14 Chloride 102 mmol/L (98-107) 05/30/17 11:14 Carbon Dioxide 28 mmol/L (21-32) 05/30/17 11:14 Anion Gap 7 (8-16) L 05/30/17 11:14 BUN 10 mg/dL (7-18) D 05/30/17 11:14 Creatinine 0.9 mg/dL (0.55-1.02) 05/30/17 11:14 Creat Clearance w eGFR > 60 (>60) 05/30/17 11:14 Random Glucose 99 mg/dL (74-106) 05/30/17 11:14 Calcium 8.5 mg/dL (8.5-10.1) 05/30/17 11:14 Total Bilirubin 1.3 mg/dL (0.2-1.0) H 05/30/17 11:14 AST 41 U/L (15-37) H 05/30/17 11:14 ALT 14 U/L (12-78) 05/30/17 11:14 Alkaline Phosphatase 138 U/L (45-117) H 05/30/17 11:14 Total Protein 7.2 g/dl (6.4-8.2) 05/30/17 11:14 Albumin 2.4 g/dl (3.4-5.0) L 05/30/17 11:14 CARDIAC ENZYMES Troponin I 0.03 ng/ml (0.00-0.05) 05/25/17 19:30 Home Medications Medication Instructions Recorded NK [No Known Home Medication] 05/26/17 Current Medications Generic Name Dose Route Start Last Admin Trade Name Freq PRN Reason Stop Dose Admin Albuterol/Ipratropium 1 amp 05/25/17 21:47 Duoneb - NEB Q6H PRN SHORTNESS OF BREATH Chlordiazepoxide HCl 25 mg 05/28/17 22:00 05/29/17 21:48 Librium - PO 25 mg HS [facility]ODY Administration Folic Acid 1 mg 05/26/17 10:00 05/30/17 10:07 Folic Acid - PO 1 mg DAILY [facility] Administration Furosemide 40 mg 05/29/17 14:07 05/30/17 10:07 Lasix - PO Not Given DAILY [facility] Gabapentin 100 mg 05/28/17 14:00 05/30/17 06:24 Neurontin - PO 100 mg TID [facility] Administration Multivitamins/Minerals/Vitamin C 1 tab 05/28/17 10:00 05/30/17 10:07 Tab-A-Vit - PO 1 tab DAILY [facility] Administration Prochlorperazine Edisylate 5 mg 05/25/17 21:51 Compazine Injection - IM Q4H PRN NAUSEA AND/OR VOMITING Spironolactone 100 mg 05/29/17 14:07 05/30/17 10:07 Aldactone - PO Not Given DAILY [facility] Thiamine HCl 100 mg 05/26/17 22:00 05/29/17 21:47 Vitamin B1 - PO 100 mg HS [facility] Administration Zolpidem Tartrate 10 mg 05/28/17 09:53 05/29/17 21:48 Ambien - PO 10 mg HS PRN Administration INSOMNIA Home Medications Medication Instructions Recorded NK [No Known Home Medication] 05/26/17
--- NOTE | 2017-05-30 14:45 | CONSULT ---
Consult - text type - Consultation Consultation Note: NEUROLOGICAL CONSULTATION is greatly appreciated: Events reviewed, patient examined. Nain 46 yo RH woman with h/o chronic alcoholism and cirrhosis is admitted with increasing abdominal girth c/w ascites. S/p paracentesis removing 11 liters but patient notes "belly coming back," MRI of abd shows atrophic, nodular liver c/w cirrhosis but no masses. Labs show elevated alk phos and transaminases with ammonia level=40.8 mg%. Also a macrocytic anemia with normal B12 and folic acid. Pt relates approx 2 mos of nocturnal pains in both legs with insomnia. She describes "heaviness" in the legs as well as "sharp, shooting pains" in the ankles, feet and toes that can awaken her from sleep. difficult "getting comfortable" and falling asleep. + stiffness in the legs. Pains and stiffness improve with walking but she did fall x 1 yesterday without sequellae. RADHA: Thin. Ascitic. 1+ pretiabial edema. Neck supple. Neg SLR. NEURO: Awake, alert, cooperative. Ox 3. Sl dysathric speech. CN II-XII: Normal Motor: No drift. +Asterixis. Normal strength. Minimal cogwheeling with reinforcement. Brisk reflexes except absent AJ's. Toes downgoing. Coord: No FTN Dystaxia. Sensory: Normal. Romberg neg Gait: Sl wide-based, shuffling, unsteady with turns. IMP: 1. Mild B/L cerebral dysfunction with features of hyperammonemic (hepatic) encephalopthy. 2. Mild ataxia, probably multifactorial with mild extrapyramidal and neuropathic signs. 3. Nocturnal dysesthesia and paresthesia with features of Restless Legs Syndrome (RLS) possible due to iron deficiency/chronic disease. SUGGEST: CT of head (C-) Check Fe++, TIBC, Ferritin. Repeat Mg++ level and replenish if neccessary. Try pramipexole .125 mg hs x 2 days then .25 mg q HS. (If effective can add a morning dose after breakfast). PT for gait with walker. Thank you very much, Ricki Cantu MD
[2017-05-30] MEDS ORDERED: PRAMIPEXOLE DIHYDROCHLORIDE 0.125 MG TABLET PO SCH (20:00)
[2017-05-30] MEDS: chlordiazePOXIDE HCL 25 MG CAPSULE PO SCH (22:15)
[2017-05-30] MEDS: THIAMINE HCL 100 MG TABLET (FP) PO SCH (22:15)
[2017-05-31] MEDS: GABAPENTIN 100 MG CAPSULE (FP) PO SCH ×3 (06:26→21:05)
[2017-05-31] MEDS: SPIRONOLACTONE 25 MG TABLET (FP) PO SCH (09:35)
[2017-05-31] MEDS: MULTIVITAMINS (DAILY MVI) TABLET (FP) PO SCH (09:35)
[2017-05-31] MEDS: FUROSEMIDE 40 MG TABLET (FP) PO SCH (09:35)
[2017-05-31] MEDS: FOLIC ACID 1 MG TABLET (FP) PO SCH (09:35)
[2017-05-31 10:04] LABS: EOS % 2.8 % (0-4.5); HEMATOCRIT 29.4 % (32.4-45.2); HEMOGLOBIN 9.9 GM/dL (10.7-15.3); LYMPH % 37.1 % (8-40); MCH 34.8 pg (25.7-33.7); MCHC 33.8 g/dl (32.0-36.0); MEAN CELL VOLUME 102.9 fl (80-96); MEAN PLT VOLUME 8.8 fl (7.5-11.1); MONO % 10.5 % (3.8-10.2); NEUT % 48.6 % (42.8-82.8); PLATELET COUNT 251 K/MM3 (134-434); RBC 2.85 M/mm3 (3.60-5.2); RDW 15.5 % (11.6-15.6); WHITE BLOOD COUNT 7.9 K/mm3 (4.0-10.0)
--- NOTE | 2017-05-31 17:05 | PN ---
Progress Note (short form) - Note Progress Note: Vital Signs Temperature 99.3 F 05/31/17 14:13 Pulse Rate 92 H 05/31/17 14:13 Respiratory Rate 20 05/31/17 14:13 Blood Pressure 81/49 05/31/17 14:13 O2 Sat by Pulse Oximetry (%) 100 05/31/17 09:00 GENERAL: anxious, aaox3 EYES: sclera anicteric, conjunctiva clear ENT: oropharynx clear without exudates, mmm LUNGS: CTAB HEART: rrr, normal s1/s2, no m/r/g ABDOMEN: distended, diffuse ttp in all 4 quadrants EXTREMITIES: 2+ DP pulses, wwp, 2+ pretibial pitting edema NEUROLOGICAL: Cranial nerves II through XII grossly intact. CBCD WBC 7.9 K/mm3 (4.0-10.0) 05/31/17 09:40 RBC 2.85 M/mm3 (3.60-5.2) L 05/31/17 09:40 Hgb 9.9 GM/dL (10.7-15.3) L 05/31/17 09:40 Hct 29.4 % (32.4-45.2) L 05/31/17 09:40 MCV 102.9 fl (80-96) H 05/31/17 09:40 MCHC 33.8 g/dl (32.0-36.0) 05/31/17 09:40 RDW 15.5 % (11.6-15.6) 05/31/17 09:40 Plt Count 251 K/MM3 (134-434) D 05/31/17 09:40 MPV 8.8 fl (7.5-11.1) 05/31/17 09:40 CMP Sodium 137 mmol/L (136-145) 05/30/17 11:14 Potassium 4.3 mmol/L (3.5-5.1) 05/30/17 11:14 Chloride 102 mmol/L (98-107) 05/30/17 11:14 Carbon Dioxide 28 mmol/L (21-32) 05/30/17 11:14 Anion Gap 7 (8-16) L 05/30/17 11:14 BUN 10 mg/dL (7-18) D 05/30/17 11:14 Creatinine 0.9 mg/dL (0.55-1.02) 05/30/17 11:14 Creat Clearance w eGFR > 60 (>60) 05/30/17 11:14 Random Glucose 99 mg/dL (74-106) 05/30/17 11:14 Calcium 8.5 mg/dL (8.5-10.1) 05/30/17 11:14 Total Bilirubin 1.3 mg/dL (0.2-1.0) H 05/30/17 11:14 AST 41 U/L (15-37) H 05/30/17 11:14 ALT 14 U/L (12-78) 05/30/17 11:14 Alkaline Phosphatase 138 U/L (45-117) H 05/30/17 11:14 Total Protein 7.2 g/dl (6.4-8.2) 05/30/17 11:14 Albumin 2.4 g/dl (3.4-5.0) L 05/30/17 11:14 CARDIAC ENZYMES Troponin I 0.03 ng/ml (0.00-0.05) 05/25/17 19:30 Current Medications Generic Name Dose Route Start Last Admin Trade Name Freq PRN Reason Stop Dose Admin Albuterol/Ipratropium 1 amp 05/25/17 21:47 Duoneb - NEB Q6H PRN SHORTNESS OF BREATH Chlordiazepoxide HCl 25 mg 05/28/17 22:00 05/30/17 22:15 Librium - PO 25 mg HS ON [facility] OF [facility] Administration Folic Acid 1 mg 05/26/17 10:00 05/31/17 09:35 Folic Acid - PO 1 mg DAILY [facility] Administration Furosemide 40 mg 05/29/17 14:07 05/31/17 09:35 Lasix - PO Not Given DAILY [facility] Gabapentin 100 mg 05/28/17 14:00 05/31/17 14:00 Neurontin - PO 100 mg TID [facility] OF [facility] Administration Multivitamins/Minerals/Vitamin C 1 tab 05/28/17 10:00 05/31/17 09:35 Tab-A-Vit - PO 1 tab DAILY [facility] Administration Pramipexole Dihydrochloride 0.125 mg 05/31/17 20:00 Mirapex - PO HS@2000 ON LICENSE OF [facility] Spironolactone 100 mg 05/29/17 14:07 05/31/17 09:35 Aldactone - PO Not Given DAILY [facility] Thiamine HCl 100 mg 05/26/17 22:00 05/30/17 22:15 Vitamin B1 - PO 100 mg HS [facility] Administration Home Medications Medication Instructions Recorded NK [No Known Home Medication] 05/26/17 A/P: 46 yo lady with h/o Asthma , and recent diagnosis of Cirrhosis in [facility] 2 weeks ago, who presented from [facility] due to distended abd, she was ofund to have ascitis # Ascitis, due to liver cirrhosis: due to alcoholism s/p Paracentesis #1, patient's abdomen increased in size again, ordered another paracenthesis per IR in am. continue taking Lasix, spironolactone, thiamine, folic acid # Alcohol dependence: No signs of withdrawal, cont librium detox , cont thiamine and folic # Normocytic anemia: B12 & folic acid wnl , EGD # Hx of Asthma: albuterol PRN Going paracentesis in am by IR
[2017-05-31] MEDS ORDERED: PT OWN MED DRAWER 7, Y5N ONE (19:49)
[2017-05-31] MEDS ORDERED: LACTULOSE 20 GM/30 ML UDC (FOR ORAL USE ONLY) PO ONE (20:00)
[2017-05-31] MEDS: PRAMIPEXOLE DIHYDROCHLORIDE 0.25 MG TABLET PO SCH (21:01)
[2017-05-31] MEDS: THIAMINE HCL 100 MG TABLET (FP) PO SCH (21:05)
[2017-05-31] MEDS: chlordiazePOXIDE HCL 25 MG CAPSULE PO SCH (21:05)
[2017-06-01] MEDS: GABAPENTIN 100 MG CAPSULE (FP) PO SCH ×3 (05:40→21:40)
[2017-06-01 06:06] LABS: SERUM IRON SATURATION 17 % (15-55); TOTAL IRON BINDING CAPACITY 160 ug/dL (250-450); UIBC 133 ug/dL (131-425)
[2017-06-01 08:13] LABS: BASO % 0.9 % (0-2.0); EOS % 2.7 % (0-4.5); HEMATOCRIT 26.5 % (32.4-45.2); HEMOGLOBIN 8.9 GM/dL (10.7-15.3); MCH 34.2 pg (25.7-33.7); MCHC 33.5 g/dl (32.0-36.0); MEAN CELL VOLUME 102.1 fl (80-96); MEAN PLT VOLUME 8.6 fl (7.5-11.1); MONO % 14.8 % (3.8-10.2); NEUT % 46.6 % (42.8-82.8); PLATELET COUNT 236 K/MM3 (134-434); RBC 2.59 M/mm3 (3.60-5.2); RDW 15.3 % (11.6-15.6); WHITE BLOOD COUNT 8.2 K/mm3 (4.0-10.0)
[2017-06-01 08:27] LABS: INR 1.41 (0.82-1.09); PROTHROMBIN TIME (PATIENT) 15.9 SEC (9.98-11.88)
[2017-06-01 08:41] LABS: ANION GAP 8 (8-16); BLOOD UREA NITROGEN 8 mg/dL (7-18); CHLORIDE 106 mmol/L (98-107); CO2 25 mmol/L (21-32); GLUCOSE,RANDOM 85 mg/dL (74-106); MAGNESIUM 1.9 mg/dL (1.8-2.4); POTASSIUM 3.9 mmol/L (3.5-5.1); SODIUM 139 mmol/L (136-145)
[2017-06-01 08:46] LABS: ALK PHOS 112 U/L (45-117); BILIRUBIN,TOTAL 1.1 mg/dL (0.2-1.0); CREATININE 0.8 mg/dL (0.55-1.02); PHOSPHOROUS 4.2 mg/dL (2.5-4.9); SGOT/AST 32 U/L (15-37); SGPT/ALT 10 U/L (12-78); TOT PROT 6.4 g/dl (6.4-8.2)
[2017-06-01] MEDS: MULTIVITAMINS (DAILY MVI) TABLET (FP) PO SCH (09:48)
[2017-06-01] MEDS: FOLIC ACID 1 MG TABLET (FP) PO SCH (09:48)
--- NOTE | 2017-06-01 11:01 | PN ---
Progress Note, Physician History of Present Illness: No events, much more awake and alert. - Current Medication List Current Medications: Active Medications Albuterol/Ipratropium (Duoneb -) 1 amp NEB Q6H PRN PRN Reason: SHORTNESS OF BREATH Chlordiazepoxide HCl (Librium -) 25 mg PO [facility] Last Admin: 05/31/17 21:05 Dose: 25 mg Folic Acid (Folic Acid -) 1 mg PO DAILY [facility] Last Admin: 06/01/17 09:48 Dose: 1 mg Furosemide (Lasix -) 40 mg PO DAILY [facility] Last Admin: 05/31/17 09:35 Dose: Not Given Gabapentin (Neurontin -) 100 mg PO TID [facility] Last Admin: 06/01/17 05:40 Dose: 100 mg Multivitamins/Minerals/Vitamin C (Tab-A-Vit -) 1 tab PO DAILY [facility] Last Admin: 06/01/17 09:48 Dose: 1 tab Pramipexole Dihydrochloride (Mirapex -) 0.125 mg PO HS@2000 [facility] Last Admin: 05/31/17 21:01 Dose: 0.125 mg Spironolactone (Aldactone -) 100 mg PO DAILY [facility] Last Admin: 05/31/17 09:35 Dose: Not Given Thiamine HCl (Vitamin B1 -) 100 mg PO [facility] Last Admin: 05/31/17 21:05 Dose: 100 mg - Objective Vital Signs: Vital Signs Temperature 98.7 F 06/01/17 09:33 Pulse Rate 94 H 06/01/17 09:33 Respiratory Rate 20 06/01/17 09:33 Blood Pressure 111/57 06/01/17 09:33 O2 Sat by Pulse Oximetry (%) 99 05/31/17 21:00 Constitutional: Yes: No Distress, Calm Eyes: Yes: Conjunctiva Clear HENT: Yes: Atraumatic Neck: Yes: Supple Cardiovascular: Yes: Regular Rate and Rhythm Gastrointestinal: Yes: Soft, Ascites, Distention. No: Melena, Rectal Bleeding, Tenderness, Tenderness, Epigastrium, Tenderness, Rebound, Vomiting Neurological: Yes: Alert, Oriented Labs: CBC, BMP 06/01/17 07:16 06/01/17 07:16 INR, PTT INR 1.41 (0.82-1.09) H 06/01/17 07:16 Laboratory Results - last 24 hr 05/30/17 05/31/17 05/31/17 11:14 11:53 16:40 WBC RBC Hgb Hct MCV MCH MCHC RDW Plt Count MPV Neutrophils % Lymphocytes % Monocytes % Eosinophils % Basophils % PT with INR INR Sodium Potassium Chloride Carbon Dioxide Anion Gap BUN Creatinine Creat Clearance w eGFR POC Glucometer 86 112 Random Glucose Calcium Phosphorus Magnesium Iron 27 TIBC 160 L Iron Saturation 17 Total Bilirubin AST ALT Alkaline Phosphatase Total Protein Albumin 06/01/17 06/01/17 06/01/17 00:49 06:05 07:16 WBC 8.2 RBC 2.59 L Hgb 8.9 L D Hct 26.5 L MCV 102.1 H MCH 34.2 H MCHC 33.5 RDW 15.3 Plt Count 236 MPV 8.6 Neutrophils % 46.6 Lymphocytes % 35.0 Monocytes % 14.8 H Eosinophils % 2.7 Basophils % 0.9 PT with INR INR Sodium Potassium Chloride Carbon Dioxide Anion Gap BUN Creatinine Creat Clearance w eGFR POC Glucometer 109 100 Random Glucose Calcium Phosphorus Magnesium Iron TIBC Iron Saturation Total Bilirubin AST ALT Alkaline Phosphatase Total Protein Albumin 06/01/17 06/01/17 07:16 07:16 WBC RBC Hgb Hct MCV MCH MCHC RDW Plt Count MPV Neutrophils % Lymphocytes % Monocytes % Eosinophils % Basophils % PT with INR 15.90 H INR 1.41 H Sodium 139 Potassium 3.9 Chloride 106 Carbon Dioxide 25 Anion Gap 8 BUN 8 Creatinine 0.8 Creat Clearance w eGFR > 60 POC Glucometer Random Glucose 85 Calcium 8.0 L Phosphorus 4.2 Magnesium 1.9 Iron TIBC Iron Saturation Total Bilirubin 1.1 H AST 32 D ALT 10 L D Alkaline Phosphatase 112 Total Protein 6.4 Albumin 2.0 L Problem List - Problems (1) Alcohol dependence with uncomplicated withdrawal Code(s): F10.230 - ALCOHOL DEPENDENCE WITH WITHDRAWAL, UNCOMPLICATED (2) Ascites Code(s): R18.8 - OTHER ASCITES (3) Cirrhosis of liver Code(s): K74.60 - UNSPECIFIED CIRRHOSIS OF LIVER Qualifiers: Hepatic cirrhosis type: unspecified hepatic cirrhosis Ascites presence: with ascites Qualified Code(s): K74.60 - Unspecified cirrhosis of liver Assessment/Plan Asymptomatic, no longer has tense ascites. repeast paracenthesis [place]on and Lasix Lactulose Salt restriction
[2017-06-01] MEDS: FUROSEMIDE 40 MG TABLET (FP) PO SCH (11:30)
[2017-06-01] MEDS: SPIRONOLACTONE 25 MG TABLET (FP) PO SCH (11:30)
--- NOTE | 2017-06-01 16:53 | PN ---
[facility] Progress Note (SOAP) Subjective: patient without complaints, no withdrawal sx noted requesting rehab at [facility] when stable Objective: 06/01/17 16:52 Vital Signs - 24 hr 05/31/17 05/31/17 05/31/17 18:00 20:44 21:00 Temperature 98.1 F 100.1 F H Pulse Rate 98 H 95 H Respiratory 20 20 Rate Blood Pressure 131/78 101/59 O2 Sat by Pulse 99 Oximetry (%) 06/01/17 06/01/17 06/01/17 00:53 04:00 09:33 Temperature 99.6 F 98.9 F 98.7 F Pulse Rate 95 H 90 94 H Respiratory 18 18 20 Rate Blood Pressure 89/45 106/62 111/57 O2 Sat by Pulse Oximetry (%) 06/01/17 06/01/17 06/01/17 10:00 11:26 14:25 Temperature 98.1 F Pulse Rate 97 H 94 H Respiratory 20 20 Rate Blood Pressure 139/78 117/79 O2 Sat by Pulse 100 100 Oximetry (%) 06/01/17 15:59 Temperature 98.2 F Pulse Rate 94 H Respiratory 20 Rate Blood Pressure 100/61 O2 Sat by Pulse Oximetry (%) Laboratory Results - last 24 hr 05/30/17 05/31/17 06/01/17 11:14 16:40 00:49 WBC RBC Hgb Hct MCV MCH MCHC RDW Plt Count MPV Neutrophils % Lymphocytes % Monocytes % Eosinophils % Basophils % PT with INR INR Sodium Potassium Chloride Carbon Dioxide Anion Gap BUN Creatinine Creat Clearance w eGFR POC Glucometer 112 109 Random Glucose Calcium Phosphorus Magnesium Iron 27 TIBC 160 L Iron Saturation 17 Total Bilirubin AST ALT Alkaline Phosphatase Total Protein Albumin 06/01/17 06/01/17 06/01/17 06:05 07:16 07:16 WBC 8.2 RBC 2.59 L Hgb 8.9 L D Hct 26.5 L MCV 102.1 H MCH 34.2 H MCHC 33.5 RDW 15.3 Plt Count 236 MPV 8.6 Neutrophils % 46.6 Lymphocytes % 35.0 Monocytes % 14.8 H Eosinophils % 2.7 Basophils % 0.9 PT with INR 15.90 H INR 1.41 H Sodium Potassium Chloride Carbon Dioxide Anion Gap BUN Creatinine Creat Clearance w eGFR POC Glucometer 100 Random Glucose Calcium Phosphorus Magnesium Iron TIBC Iron Saturation Total Bilirubin AST ALT Alkaline Phosphatase Total Protein Albumin 06/01/17 06/01/17 07:16 11:46 WBC RBC Hgb Hct MCV MCH MCHC RDW Plt Count MPV Neutrophils % Lymphocytes % Monocytes % Eosinophils % Basophils % PT with INR INR Sodium 139 Potassium 3.9 Chloride 106 Carbon Dioxide 25 Anion Gap 8 BUN 8 Creatinine 0.8 Creat Clearance w eGFR > 60 POC Glucometer 102 Random Glucose 85 Calcium 8.0 L Phosphorus 4.2 Magnesium 1.9 Iron TIBC Iron Saturation Total Bilirubin 1.1 H AST 32 D ALT 10 L D Alkaline Phosphatase 112 Total Protein 6.4 Albumin 2.0 L Assessment: 06/01/17 16:52 patient may be transferred to [facility] for inpaient alcohol rehab when medically stable. Fernando Forrester [phone]
--- NOTE | 2017-06-01 17:49 | PN ---
Addendum entered and electronically signed by Roma Hartman, RESIDENT 06/01/17 19: 03: [id number] fluid removed during paracentesis - will give Albumin IV Original Note: <Roma Hartman - Last Filed: 06/01/17 17:37> Physical Exam: SUBJECTIVE: Patient seen and examined. Feels better today. LE edema and bilateral leg pain has improved. No fever, chills, sob, chest pain. OBJECTIVE: Vital Signs Period Temp Pulse Resp BP Sys/Pires Pulse Ox Last 24 Hr 98.1 F-100.1 F 90-98 18-20 89-139/45-79 99-100 GENERAL: lying comfortably in bed, nad, aaox3 EYES: sclera anicteric, conjunctiva clear ENT: oropharynx clear without exudates, mmm LUNGS: CTAB HEART: rrr, normal s1/s2, no m/r/g ABDOMEN: distended, but not tense, +shifting dullness, non-tender EXTREMITIES: 2+ DP pulses, wwp, 1+ pretibial pitting edema NEUROLOGICAL: CN II through XII grossly intact. no hand tremors, no asterixis CBC, BMP 06/01/17 07:16 06/01/17 07:16 Hepatic Panel Total Bilirubin 1.1 mg/dL (0.2-1.0) H 06/01/17 07:16 Direct Bilirubin 0.9 mg/dL (0.0-0.2) H D 05/27/17 07:00 AST 32 U/L (15-37) D 06/01/17 07:16 ALT 10 U/L (12-78) L D 06/01/17 07:16 Alkaline Phosphatase 112 U/L (45-117) 06/01/17 07:16 Albumin 2.0 g/dl (3.4-5.0) L 06/01/17 07:16 Active Medications Albuterol/Ipratropium (Duoneb -) 1 amp NEB Q6H PRN PRN Reason: SHORTNESS OF BREATH Chlordiazepoxide HCl (Librium -) 25 mg PO [facility] Last Admin: 05/31/17 21:05 Dose: 25 mg Folic Acid (Folic Acid -) 1 mg PO DAILY [facility] Last Admin: 06/01/17 09:48 Dose: 1 mg Furosemide (Lasix -) 40 mg PO DAILY [facility] Last Admin: 06/01/17 11:30 Dose: 40 mg Gabapentin (Neurontin -) 100 mg PO TID [facility] Last Admin: 06/01/17 14:30 Dose: 100 mg Multivitamins/Minerals/Vitamin C (Tab-A-Vit -) 1 tab PO DAILY [facility] Last Admin: 06/01/17 09:48 Dose: 1 tab Pramipexole Dihydrochloride (Mirapex -) 0.125 mg PO HS@1999 [facility] Last Admin: 05/31/17 21:01 Dose: 0.125 mg Spironolactone (Aldactone -) 100 mg PO DAILY [facility] Last Admin: 06/01/17 11:30 Dose: 100 mg Thiamine HCl (Vitamin B1 -) 100 mg PO [facility] Last Admin: 05/31/17 21:05 Dose: 100 mg ASSESSMENT/PLAN: 46yo woman with PMH of asthma, EtOH abuse (1pint/day), and recently diagnosed cirrhosis who presents with abdominal pain, tense ascites and LE edema. #transudative ascites likely due to alcoholic cirrhosis, fluid re-accumulating s /p 11L removed on 05/26, may need 2nd therapeutic para and possible TIPS s/p EGD 05/28- antral gastritis, but no varices or portal hypertension gastropathy , AFP neg, Hepatitis serology c/w prior Hep B infection (HepBc and HepBs Ab+, HepBc Ag neg), acute HepA and HCV neg; MRCP c/w cirrhosis and ascites -GI following. -2nd Paracentesis today -Continue with Spironolactone 100mg qd and lasix 40mg po qd, hold if SBP<95 #bilateral calf pain, improved, U/S dopplers negative for DVTs -Continue gabapentin 100mg TID -Continue Pramipexole 0.125mg PO per Neurology, increase to 0.25mg HS tomorrow #macrocytic anemia -B12 and folate wnl, Fe low normal, TIBC low #Alcohol abuse (reports 1pint/day) -Dr. Forrester consulted. completed Librium detox, continue Librium 25mg HS -Continue thiamine, folate, MVI -Will d/c patient to [facility] rehab #h/o asthma -Duo nebs Q6H PRN #FEN: PO hydration / Mg repleted / Na controlled diet #DVT PPX - SCDs d/w Dr. Carlitos Hartman MD PGY1 - Internal Medicine Visit type - Emergency Visit Emergency Visit: No - New Patient This patient is new to me today: No - Critical Care Critical Care patient: No <Pascual Urbina - Last Filed: 06/01/17 19:45> Physical Exam: SUBJECTIVE: Patient seen and examined Patient is s/p paracenthesis x2 today . will initiate albumin , taken 5.6 liter today and previously taken 11L on 05/26/2017 Patient is doing well. agree with the resident's assessment and plan. will monitor
[2017-06-01] MEDS: ALBUMIN HUMAN 25% 12.5 GM/50 ML VIAL IVPB SCH ×4 (20:15→23:32)
[2017-06-01] MEDS ORDERED: PT OWN MED DRAWER 7, Y5N ONE (21:38)
[2017-06-01] MEDS: THIAMINE HCL 100 MG TABLET (FP) PO SCH (21:40)
[2017-06-01] MEDS: chlordiazePOXIDE HCL 25 MG CAPSULE PO SCH (21:40)
[2017-06-01] MEDS ORDERED: LACTATED RINGERS SOLUTION 1,000 ML/1,000 ML INFUS.BAG IV ONE (22:04)
[2017-06-01] MEDS ORDERED: ACETAMINOPHEN 325 MG TABLET (FP) PO ONE (22:13)
--- NOTE | 2017-06-01 22:31 | HOSP ---
Subjective - Review of Symptoms Events since last encounter: Called to bedside by nursing staff for hypotension in pt (70s/40s) and fever of 100.7. Pt S/P therapeutic paracentesis today, w/ 5.6L removed. Pt given 12.5g albumin in evening by day team. Pt denies feeling feverish/chills, lightheadness/CORNELIUS, cough, SOB, palpitations, dysuria, diarrhea or rashes. Pt states BP is normally ~140/80. PE: NCAT RRR, S1, S2 CTABL Abdomen soft, mildly tender to palpation, ND 2+ DP, PT pulses in legs Pt likely hypotensive secondary to fluid shifts from paracentesis, however given fever and recent abdominal procedure, clinically prudent to r/o occult infectious process. Recommendation: - Complete albumin infusion - Bolus 1L LR and repeat vitals. Vitals q4h - CBC, lactic acid - Low dose tylenol (325mg PO once) for fever. Can give tylenol as antipyretic in setting of hepatic/renal failure, as long as dose is limited to less than > 2g per day. - Continue to monitor for signs of hypotension, fever or infection - Maintain MAP >65 Physical Examination Vital Signs: Vital Signs Temperature 98.3 F 06/01/17 17:01 Pulse Rate 94 H 06/01/17 17:01 Respiratory Rate 18 06/01/17 17:01 Blood Pressure 106/66 06/01/17 17:01 O2 Sat by Pulse Oximetry (%) 100 06/01/17 14:25 Labs: CBC, BMP 06/01/17 07:16 06/01/17 07:16 Visit type - Emergency Visit Emergency Visit: Yes ED Registration Date: 05/25/17 Care time: The patient presented to the Emergency Department on the above date and was hospitalized for further evaluation of their emergent condition. - New Patient This patient is new to me today: No - Critical Care Critical Care patient: No
[2017-06-01] MEDS: PRAMIPEXOLE DIHYDROCHLORIDE 0.25 MG TABLET PO SCH (23:01)
[2017-06-02 01:02] LABS: BASO % 1.8 % (0-2.0); HEMATOCRIT 28.7 % (32.4-45.2); HEMOGLOBIN 9.8 GM/dL (10.7-15.3); LYMPH % 32.6 % (8-40); MCH 34.7 pg (25.7-33.7); MEAN CELL VOLUME 101.9 fl (80-96); MEAN PLT VOLUME 9.8 fl (7.5-11.1); MONO % 12.9 % (3.8-10.2); NEUT % 50.7 % (42.8-82.8); PLATELET COUNT 266 K/MM3 (134-434); RBC 2.81 M/mm3 (3.60-5.2); RDW 15.4 % (11.6-15.6); WHITE BLOOD COUNT 8.3 K/mm3 (4.0-10.0)
[2017-06-02] MEDS: GABAPENTIN 100 MG CAPSULE (FP) PO SCH ×3 (06:19→22:21)
[2017-06-02 08:57] LABS: HEMATOCRIT 34.1 % (32.4-45.2); MCH 33.5 pg (25.7-33.7); MCHC 32.3 g/dl (32.0-36.0); MEAN CELL VOLUME 103.9 fl (80-96); MEAN PLT VOLUME 9.9 fl (7.5-11.1); PLATELET COUNT 227 K/MM3 (134-434); RBC 3.28 M/mm3 (3.60-5.2); RDW 15.7 % (11.6-15.6); WHITE BLOOD COUNT 8.8 K/mm3 (4.0-10.0)
[2017-06-02 09:30] LABS: ALBUMIN 2.9 g/dl (3.4-5.0); ALK PHOS 119 U/L (45-117); ANION GAP 9 (8-16); BILIRUBIN,TOTAL 1.5 mg/dL (0.2-1.0); BLOOD UREA NITROGEN 9 mg/dL (7-18); CALCIUM 8.6 mg/dL (8.5-10.1); CHLORIDE 106 mmol/L (98-107); CO2 24 mmol/L (21-32); CREATININE 0.9 mg/dL (0.55-1.02); GLUCOSE,RANDOM 104 mg/dL (74-106); SGOT/AST 32 U/L (15-37); SGPT/ALT 13 U/L (12-78); SODIUM 139 mmol/L (136-145); TOT PROT 7.9 g/dl (6.4-8.2)
[2017-06-02] MEDS ORDERED: PT OWN MED DRAWER 7, Y5N ONE ×2 (10:33→21:49)
[2017-06-02] MEDS: FUROSEMIDE 40 MG TABLET (FP) PO SCH (10:45)
[2017-06-02] MEDS: FOLIC ACID 1 MG TABLET (FP) PO SCH (10:45)
[2017-06-02] MEDS: MULTIVITAMINS (DAILY MVI) TABLET (FP) PO SCH (10:45)
[2017-06-02] MEDS ORDERED: SPIRONOLACTONE 25 MG TABLET (FP) PO SCH (11:00)
--- NOTE | 2017-06-02 13:16 | PN ---
Progress Note, Physician History of Present Illness: Hypertensive overnight with low grade fever. S/p 5 L paracentesis. Asymptomatic this am. - Current Medication List Current Medications: Active Medications Albuterol/Ipratropium (Duoneb -) 1 amp NEB Q6H PRN PRN Reason: SHORTNESS OF BREATH Chlordiazepoxide HCl (Librium -) 25 mg PO [facility] Last Admin: 06/01/17 21:40 Dose: 25 mg Folic Acid (Folic Acid -) 1 mg PO DAILY [facility] Last Admin: 06/02/17 10:45 Dose: 1 mg Furosemide (Lasix -) 40 mg PO DAILY [facility] Last Admin: 06/02/17 10:45 Dose: 40 mg Gabapentin (Neurontin -) 100 mg PO TID [facility] Last Admin: 06/02/17 06:19 Dose: 100 mg Multivitamins/Minerals/Vitamin C (Tab-A-Vit -) 1 tab PO DAILY [facility] Last Admin: 06/02/17 10:45 Dose: 1 tab Pramipexole Dihydrochloride (Mirapex -) 0.125 mg PO HS@1999 [facility] Last Admin: 06/01/17 23:01 Dose: 0.125 mg Spironolactone (Aldactone -) 50 mg PO DAILY [facility] Thiamine HCl (Vitamin B1 -) 100 mg PO [facility] Last Admin: 06/01/17 21:40 Dose: 100 mg - Objective Vital Signs: Vital Signs Temperature 97.9 F 06/02/17 10:00 Pulse Rate 90 06/02/17 10:00 Respiratory Rate 16 06/02/17 10:00 Blood Pressure 102/53 06/02/17 10:00 O2 Sat by Pulse Oximetry (%) 100 06/02/17 09:00 Constitutional: Yes: No Distress, Calm Eyes: Yes: Conjunctiva Clear HENT: Yes: Atraumatic Neck: Yes: Supple Cardiovascular: Yes: Regular Rate and Rhythm Respiratory: Yes: Regular Gastrointestinal: Yes: Soft. No: Distention, Melena, Rectal Bleeding, Tenderness, Vomiting Neurological: Yes: Alert, Oriented Labs: CBC, BMP 06/02/17 08:47 06/02/17 08:47 INR, PTT INR 1.41 (0.82-1.09) H 06/01/17 07:16 Laboratory Results - last 24 hr 05/29/17 06/02/17 06/02/17 17:45 00:00 00:00 WBC 8.3 RBC 2.81 L Hgb 9.8 L D Hct 28.7 L MCV 101.9 H MCH 34.7 H MCHC 34.0 RDW 15.4 Plt Count 266 MPV 9.8 D Neutrophils % 50.7 Lymphocytes % 32.6 Monocytes % 12.9 H Eosinophils % 2.0 Basophils % 1.8 Sodium Potassium Chloride Carbon Dioxide Anion Gap BUN Creatinine Creat Clearance w eGFR Random Glucose Lactic Acid 1.2 Calcium Total Bilirubin AST ALT Alkaline Phosphatase Total Protein Albumin Serum Copper 104 06/02/17 06/02/17 08:47 08:47 WBC 8.8 RBC 3.28 L Hgb 11.0 D Hct 34.1 D MCV 103.9 H MCH 33.5 MCHC 32.3 RDW 15.7 H Plt Count 227 MPV 9.9 Neutrophils % Lymphocytes % Monocytes % Eosinophils % Basophils % Sodium 139 Potassium 4.0 Chloride 106 Carbon Dioxide 24 Anion Gap 9 BUN 9 Creatinine 0.9 Creat Clearance w eGFR > 60 Random Glucose 104 D Lactic Acid Calcium 8.6 Total Bilirubin 1.5 H D AST 32 ALT 13 D Alkaline Phosphatase 119 H Total Protein 7.9 D Albumin 2.9 L D Serum Copper Problem List - Problems (1) Alcohol dependence with uncomplicated withdrawal Code(s): F10.230 - ALCOHOL DEPENDENCE WITH WITHDRAWAL, UNCOMPLICATED (2) Ascites Code(s): R18.8 - OTHER ASCITES (3) Cirrhosis of liver Code(s): K74.60 - UNSPECIFIED CIRRHOSIS OF LIVER Qualifiers: Hepatic cirrhosis type: unspecified hepatic cirrhosis Ascites presence: with ascites Qualified Code(s): K74.60 - Unspecified cirrhosis of liver Assessment/Plan Asymptomatic, no longer has tense ascites. Repeat BUN, Cr, CBC in PM Aldacton and Lasix Lactulose Salt restriction
--- NOTE | 2017-06-02 13:37 | PN ---
Teaching Attending Note Name of Resident: Roma Hartman ATTENDING PHYSICIAN STATEMENT I saw and evaluated the patient. I reviewed the resident's note and discussed the case with the resident. I agree with the resident's findings and plan as documented. SUBJECTIVE: OBJECTIVE: Vital Signs Temperature 97.9 F 06/02/17 10:00 Pulse Rate 90 06/02/17 10:00 Respiratory Rate 16 06/02/17 10:00 Blood Pressure 102/53 06/02/17 10:00 O2 Sat by Pulse Oximetry (%) 100 06/02/17 09:00 CBCD WBC 8.8 K/mm3 (4.0-10.0) 06/02/17 08:47 RBC 3.28 M/mm3 (3.60-5.2) L 06/02/17 08:47 Hgb 11.0 GM/dL (10.7-15.3) D 06/02/17 08:47 Hct 34.1 % (32.4-45.2) D 06/02/17 08:47 MCV 103.9 fl (80-96) H 06/02/17 08:47 MCHC 32.3 g/dl (32.0-36.0) 06/02/17 08:47 RDW 15.7 % (11.6-15.6) H 06/02/17 08:47 Plt Count 227 K/MM3 (134-434) 06/02/17 08:47 MPV 9.9 fl (7.5-11.1) 06/02/17 08:47 CMP Sodium 139 mmol/L (136-145) 06/02/17 08:47 Potassium 4.0 mmol/L (3.5-5.1) 06/02/17 08:47 Chloride 106 mmol/L (98-107) 06/02/17 08:47 Carbon Dioxide 24 mmol/L (21-32) 06/02/17 08:47 Anion Gap 9 (8-16) 06/02/17 08:47 BUN 9 mg/dL (7-18) 06/02/17 08:47 Creatinine 0.9 mg/dL (0.55-1.02) 06/02/17 08:47 Creat Clearance w eGFR > 60 (>60) 06/02/17 08:47 Random Glucose 104 mg/dL (74-106) D 06/02/17 08:47 Calcium 8.6 mg/dL (8.5-10.1) 06/02/17 08:47 Total Bilirubin 1.5 mg/dL (0.2-1.0) H D 06/02/17 08:47 AST 32 U/L (15-37) 06/02/17 08:47 ALT 13 U/L (12-78) D 06/02/17 08:47 Alkaline Phosphatase 119 U/L (45-117) H 06/02/17 08:47 Total Protein 7.9 g/dl (6.4-8.2) D 06/02/17 08:47 Albumin 2.9 g/dl (3.4-5.0) L D 06/02/17 08:47 CARDIAC ENZYMES Troponin I 0.03 ng/ml (0.00-0.05) 05/25/17 19:30 Current Medications Generic Name Dose Route Start Last Admin Trade Name Freq PRN Reason Stop Dose Admin Albuterol/Ipratropium 1 amp 05/25/17 21:47 Duoneb - NEB Q6H PRN SHORTNESS OF BREATH Chlordiazepoxide HCl 25 mg 05/28/17 22:00 06/01/17 21:40 Librium - PO 25 mg HS [facility] Administration Folic Acid 1 mg 05/26/17 10:00 06/02/17 10:45 Folic Acid - PO 1 mg DAILY [facility] Administration Furosemide 40 mg 05/29/17 14:07 06/02/17 10:45 Lasix - PO 40 mg DAILY [facility] Administration Gabapentin 100 mg 05/28/17 14:00 06/02/17 06:19 Neurontin - PO 100 mg TID [facility] Administration Multivitamins/Minerals/Vitamin C 1 tab 05/28/17 10:00 06/02/17 10:45 Tab-A-Vit - PO 1 tab DAILY [facility] Administration Pramipexole Dihydrochloride 0.125 mg 05/31/17 20:00 06/01/17 23:01 Mirapex - PO 0.125 mg HS@2000 [facility] Administration Spironolactone 50 mg 06/02/17 11:00 Aldactone - PO DAILY [facility] Thiamine HCl 100 mg 05/26/17 22:00 06/01/17 21:40 Vitamin B1 - PO 100 mg HS [facility] Administration Home Medications Medication Instructions Recorded NK [No Known Home Medication] 05/26/17 PE: per resident's note ASSESSMENT AND PLAN: 46 yo lady with h/o Asthma , and recent diagnosis of Cirrhosis in [facility] 2 weeks ago, who presented from [facility] due to distended abd, she was ofund to have ascitis # Ascitis, due to liver cirrhosis: due to alcoholism s/p Paracentesis x2 , patient's abdomen is soft now , in size again, continue taking Lasix, spironolactone, thiamine, folic acid # Alcohol dependence: No signs of withdrawal, cont librium detox , cont thiamine and folic # Normocytic anemia: B12 & folic acid wnl , EGD # Hx of Asthma: albuterol PRN completed paracynthesis x 2
[2017-06-02 17:34] LABS: EOS % 2.4 % (0-4.5); HEMATOCRIT 26.5 % (32.4-45.2); HEMOGLOBIN 8.8 GM/dL (10.7-15.3); LYMPH % 29.4 % (8-40); MCH 34.2 pg (25.7-33.7); MCHC 33.4 g/dl (32.0-36.0); MEAN CELL VOLUME 102.4 fl (80-96); MEAN PLT VOLUME 9.4 fl (7.5-11.1); MONO % 16.3 % (3.8-10.2); NEUT % 50.9 % (42.8-82.8); PLATELET COUNT 244 K/MM3 (134-434); RBC 2.59 M/mm3 (3.60-5.2); RDW 14.4 % (11.6-15.6); WHITE BLOOD COUNT 7.7 K/mm3 (4.0-10.0)
[2017-06-02 18:09] LABS: ALBUMIN 2.4 g/dl (3.4-5.0); ALK PHOS 97 U/L (45-117); ANION GAP 7 (8-16); BILIRUBIN,TOTAL 1.1 mg/dL (0.2-1.0); BLOOD UREA NITROGEN 10 mg/dL (7-18); CALCIUM 7.9 mg/dL (8.5-10.1); CHLORIDE 103 mmol/L (98-107); CO2 28 mmol/L (21-32); CREATININE 0.8 mg/dL (0.55-1.02); GLUCOSE,RANDOM 118 mg/dL (74-106); POTASSIUM 3.7 mmol/L (3.5-5.1); SGOT/AST 26 U/L (15-37); SGPT/ALT 11 U/L (12-78); SODIUM 138 mmol/L (136-145); TOT PROT 6.3 g/dl (6.4-8.2)
--- NOTE | 2017-06-02 18:35 | PN ---
Physical Exam: 24H Events: -yesterday 5.6L removed, given Albumin IVP -Hypotensive to 70's/40's and given 1L LR, with low grade fever to 100.7 SUBJECTIVE: Patient seen and examined. feels gait is unsteady, but otherwise leg and abdominal pain has improved. no fever or chills. OBJECTIVE: Vital Signs Period Temp Pulse Resp BP Sys/Pires Pulse Ox Last 24 Hr 97.9 F-100.7 F 83-94 16-20 74-102/40-60 98-100 GENERAL: sitting in chair, nad, aaox3 EYES: sclera anicteric, conjunctiva clear ENT: oropharynx clear without exudates, mmm LUNGS: CTAB HEART: rrr, normal s1/s2, no m/r/g ABDOMEN: distended, but not tense, non-tender EXTREMITIES: 2+ DP pulses, wwp, no edema NEUROLOGICAL: CN II through XII grossly intact. no hand tremors, no asterixis CBC, BMP 06/02/17 16:30 Hepatic Panel Total Bilirubin 1.5 mg/dL (0.2-1.0) H D 06/02/17 08:47 Direct Bilirubin 0.9 mg/dL (0.0-0.2) H D 05/27/17 07:00 AST 32 U/L (15-37) 06/02/17 08:47 ALT 13 U/L (12-78) D 06/02/17 08:47 Alkaline Phosphatase 119 U/L (45-117) H 06/02/17 08:47 Albumin 2.9 g/dl (3.4-5.0) L D 06/02/17 08:47 Microbiology 05/31/17 20:00 Stool Clostridium difficile Antigen POSITIVE/ Toxin NEGATIVE 05/28/17 04:30 Stool Salmonella/Shigella Culture - Final NO GROWTH OF SALMONELLA OR SHIGELLA SPECIES OBTAINED 05/28/17 04:30 Stool Campylobacter Culture - Final NO GROWTH OF CAMPYLOBACTER SPECIES OBTAINED 05/28/17 04:30 Stool Yersinia Culture - Final NO GROWTH OF YERSINIA SPECIES OBTAINED 05/28/17 04:30 Stool Vibrio Culture - Final NO GROWTH OF VIBRIO SPECIES OBTAINED 05/28/17 04:30 Stool Escherichia coli 0157 Culture - Final NO GROWTH OF E COLI 0157 OBTAINED 05/25/17 14:16 Blood - Peripheral Venous Blood Culture - Final NO GROWTH AFTER 5 DAYS INCUBATION 05/25/17 14:00 Blood - Peripheral Venous Blood Culture - Final NO GROWTH AFTER 5 DAYS INCUBATION 05/25/17 17:00 Ascites Gram Stain - Final 05/25/17 17:00 Ascites Body Fluid Culture - Final NO GROWTH OF AEROBIC ORGANISMS AFTER 48 HOURS INCUBATION 05/25/17 17:00 Ascites Anaerobic Culture - Final NO ANAEROBES WERE ISOLATED Active Medications Albuterol/Ipratropium (Duoneb -) 1 amp NEB Q6H PRN PRN Reason: SHORTNESS OF BREATH Chlordiazepoxide HCl (Librium -) 25 mg PO HS [facility] Last Admin: 06/01/17 21:40 Dose: 25 mg Folic Acid (Folic Acid -) 1 mg PO DAILY [facility] Last Admin: 06/02/17 10:45 Dose: 1 mg Furosemide (Lasix -) 20 mg PO DAILY [facility] Gabapentin (Neurontin -) 100 mg PO TID [facility] Last Admin: 06/02/17 14:39 Dose: 100 mg Multivitamins/Minerals/Vitamin C (Tab-A-Vit -) 1 tab PO DAILY [facility] Last Admin: 06/02/17 10:45 Dose: 1 tab Pramipexole Dihydrochloride (Mirapex -) 0.25 mg PO 1999 [facility] Spironolactone (Aldactone -) 50 mg PO DAILY [facility] Thiamine HCl (Vitamin B1 -) 100 mg PO [facility] Last Admin: 06/01/17 21:40 Dose: 100 mg ASSESSMENT/PLAN: 46yo woman with PMH of asthma, EtOH abuse (1pint/day), and recently diagnosed cirrhosis who presents with abdominal pain, tense ascites and LE edema and found to have alcoholic cirrhosis. #transudative ascites likely due to alcoholic cirrhosis, s/p 5.6L removed yesterday and 11L removed on 05/26, may need TIPS s/p EGD 05/28- antral gastritis, but no varices or portal hypertension gastropathy , AFP neg, neg hepatitis panel, MRCP c/w cirrhosis -GI following -Reduced diuretics to Spironolactone 50mg po qd and lasix 20mg due to hypotension, hold if SBP<95 #bilateral calf pain, improved, U/S dopplers negative for DVTs -Continue gabapentin 100mg TID -Increast Pramipexole 0.25mg PO HS as per Neurology #macrocytic anemia -B12 and folate wnl, Fe low normal, TIBC low #Alcohol abuse (reports 1pint/day) -Dr. Forrester consulted. completed Librium detox, continue Librium 25mg HS -Continue thiamine, folate, MVI -[facility] #h/o asthma -Duo nebs Q6H PRN #FEN: PO hydration / lytes wnl / Na controlled diet, fluid restriction #DVT PPX - SCDs d/w Dr. Carlitos Hartman MD PGY1 - Internal Medicine Visit type - Emergency Visit Emergency Visit: No - New Patient This patient is new to me today: No - Critical Care Critical Care patient: No
[2017-06-02] MEDS ORDERED: PRAMIPEXOLE DIHYDROCHLORIDE 0.25 MG TABLET PO SCH (20:00)
[2017-06-02] MEDS: chlordiazePOXIDE HCL 25 MG CAPSULE PO SCH (22:21)
[2017-06-02] MEDS: THIAMINE HCL 100 MG TABLET (FP) PO SCH (22:21)
[2017-06-03] MEDS: GABAPENTIN 100 MG CAPSULE (FP) PO SCH ×2 (05:48→14:40)
--- NOTE | 2017-06-03 06:57 | PN ---
Physical Exam: SUBJECTIVE: Patient seen and examined OBJECTIVE: Vital Signs Period Temp Pulse Resp BP Sys/Pires Pulse Ox Last 24 Hr 97.9 F-99.5 F 88-94 16-20 89-102/49-53 100-100 GENERAL: The patient is awake, alert, and fully oriented, in no acute distress. HEAD: Normal with no signs of trauma. EYES: PERRL, extraocular movements intact, sclera anicteric, conjunctiva clear. No ptosis. ENT: Ears normal, nares patent, oropharynx clear without exudates, moist mucous membranes. NECK: Trachea midline, full range of motion, supple. LUNGS: Breath sounds equal, clear to auscultation bilaterally, no wheezes, no crackles, no accessory muscle use. HEART: Regular rate and rhythm, S1, S2 without murmur, rub or gallop. ABDOMEN: Soft, nontender, nondistended, normoactive bowel sounds, no guarding, no rebound, no hepatosplenomegaly, no masses. EXTREMITIES: 2+ pulses, warm, well-perfused, no edema. NEUROLOGICAL: Cranial nerves II through XII grossly intact. Normal speech, gait not observed. PSYCH: Normal mood, normal affect. SKIN: Warm, dry, normal turgor, no rashes or lesions noted Laboratory Results - last 24 hr 05/29/17 06/02/17 06/02/17 17:45 08:47 08:47 WBC 8.8 RBC 3.28 L Hgb 11.0 D Hct 34.1 D MCV 103.9 H MCH 33.5 MCHC 32.3 RDW 15.7 H Plt Count 227 MPV 9.9 Neutrophils % Lymphocytes % Monocytes % Eosinophils % Basophils % Sodium 139 Potassium 4.0 Chloride 106 Carbon Dioxide 24 Anion Gap 9 BUN 9 Creatinine 0.9 Creat Clearance w eGFR > 60 Random Glucose 104 D Calcium 8.6 Total Bilirubin 1.5 H D AST 32 ALT 13 D Alkaline Phosphatase 119 H Total Protein 7.9 D Albumin 2.9 L D Serum Copper 104 06/02/17 06/02/17 16:30 16:30 WBC 7.7 RBC 2.59 L D Hgb 8.8 L D Hct 26.5 L D MCV 102.4 H MCH 34.2 H MCHC 33.4 RDW 14.4 Plt Count 244 MPV 9.4 Neutrophils % 50.9 Lymphocytes % 29.4 Monocytes % 16.3 H Eosinophils % 2.4 Basophils % 1.0 Sodium 138 Potassium 3.7 Chloride 103 Carbon Dioxide 28 Anion Gap 7 L BUN 10 Creatinine 0.8 Creat Clearance w eGFR > 60 Random Glucose 118 H Calcium 7.9 L Total Bilirubin 1.1 H D AST 26 ALT 11 L Alkaline Phosphatase 97 Total Protein 6.3 L D Albumin 2.4 L Serum Copper Active Medications Generic Name Dose Route Start Last Admin Trade Name Freq PRN Reason Stop Dose Admin Albuterol/Ipratropium 1 amp 05/25/17 21:47 Duoneb - NEB Q6H PRN SHORTNESS OF BREATH Chlordiazepoxide HCl 25 mg 05/28/17 22:00 06/02/17 22:21 Librium - PO 25 mg HS [facility] Administration Folic Acid 1 mg 05/26/17 10:00 06/02/17 10:45 Folic Acid - PO 1 mg DAILY [facility] Administration Furosemide 20 mg 06/03/17 10:00 Lasix - PO DAILY [facility] Gabapentin 100 mg 05/28/17 14:00 06/03/17 05:48 Neurontin - PO 100 mg TID [facility] Administration Multivitamins/Minerals/Vitamin C 1 tab 05/28/17 10:00 06/02/17 10:45 Tab-A-Vit - PO 1 tab DAILY [facility] Administration Pramipexole Dihydrochloride 0.25 mg 06/02/17 20:00 06/02/17 22:21 Mirapex - PO 0.25 mg DAILY@2000 [facility] Administration Spironolactone 50 mg 06/02/17 11:00 Aldactone - PO DAILY [facility] Thiamine HCl 100 mg 05/26/17 22:00 06/02/17 22:21 Vitamin B1 - PO 100 mg HS [facility] Administration ASSESSMENT/PLAN:
[2017-06-03 08:29] LABS: HEMATOCRIT 27.4 % (32.4-45.2); HEMOGLOBIN 9.1 GM/dL (10.7-15.3); MCH 33.9 pg (25.7-33.7); MCHC 33.1 g/dl (32.0-36.0); MEAN CELL VOLUME 102.3 fl (80-96); MEAN PLT VOLUME 9.2 fl (7.5-11.1); PLATELET COUNT 255 K/MM3 (134-434); RBC 2.67 M/mm3 (3.60-5.2); RDW 15.1 % (11.6-15.6)
[2017-06-03 09:12] LABS: CHLORIDE 105 mmol/L (98-107); SODIUM 138 mmol/L (136-145)
[2017-06-03 09:27] LABS: ALBUMIN 2.2 g/dl (3.4-5.0); ALK PHOS 106 U/L (45-117); ANION GAP 9 (8-16); BILIRUBIN,TOTAL 0.9 mg/dL (0.2-1.0); BLOOD UREA NITROGEN 9 mg/dL (7-18); CALCIUM 8.1 mg/dL (8.5-10.1); CO2 24 mmol/L (21-32); CREATININE 0.7 mg/dL (0.55-1.02); GLUCOSE,RANDOM 88 mg/dL (74-106); PHOSPHOROUS 3.9 mg/dL (2.5-4.9); SGPT/ALT 11 U/L (12-78); TOT PROT 6.2 g/dl (6.4-8.2)
[2017-06-03 09:28] LABS: MAGNESIUM 1.8 mg/dL (1.8-2.4); POTASSIUM 3.8 mmol/L (3.5-5.1); SGOT/AST 29 U/L (15-37)
[2017-06-03] MEDS ORDERED: FUROSEMIDE 20 MG TABLET (FP) PO SCH (10:00)
[2017-06-03] MEDS: FOLIC ACID 1 MG TABLET (FP) PO SCH (10:17)
[2017-06-03] MEDS: MULTIVITAMINS (DAILY MVI) TABLET (FP) PO SCH (10:17)
--- NOTE | 2017-06-03 10:57 | PN ---
[facility] Progress Note (SOAP) Subjective: pateitn stable, no compliants, completed detox, no diarrhea Objective: 06/03/17 10:55 Vital Signs - 24 hr 06/02/17 06/02/17 06/02/17 15:07 16:30 21:00 Temperature 98.0 F 99.5 F Pulse Rate 91 H 94 H Respiratory 16 20 18 Rate Blood Pressure 91/51 89/49 O2 Sat by Pulse 100 Oximetry (%) 06/03/17 06/03/17 06/03/17 01:56 06:00 10:00 Temperature 99 F 98.9 F 98.5 F Pulse Rate 90 88 88 Respiratory 18 18 18 Rate Blood Pressure 90/52 90/52 93/55 O2 Sat by Pulse Oximetry (%) Laboratory Tests 05/25/17 05/25/17 05/25/17 14:00 14:00 14:05 WBC 8.9 RBC 3.08 L Hgb 10.6 L D Hct 31.4 L D MCV 101.8 H MCH 34.3 H MCHC 33.6 RDW 16.4 H Plt Count 286 D MPV 9.1 Neutrophils % 63.7 Lymphocytes % 24.4 Monocytes % 8.9 Eosinophils % 1.2 Basophils % 1.8 PT with INR INR PTT (Actin FS) Sodium Cancelled Potassium Cancelled Chloride Cancelled Carbon Dioxide Cancelled Anion Gap Cancelled BUN Cancelled Creatinine Cancelled Creat Clearance w eGFR Cancelled POC Glucometer Random Glucose Cancelled Lactic Acid Calcium Cancelled Phosphorus Magnesium Iron TIBC Iron Saturation Ferritin Total Bilirubin Cancelled Direct Bilirubin AST Cancelled ALT Cancelled Alkaline Phosphatase Cancelled Ammonia Troponin I Total Protein Cancelled Albumin Cancelled Lipase Cancelled Tumor Marker AFP Vitamin B2 Vitamin B12 Serum Folate Urine Color Madhuri Urine Appearance Cloudy Urine pH 6.0 Ur Specific [place] 1.028 Urine Protein 1+ H Urine Glucose (UA) Negative Urine Ketones Trace H Urine Blood Negative Urine Nitrite Negative Urine Bilirubin 2.0 Urine Urobilinogen 4.0 e.u/dl H Ur Leukocyte Esterase Negative Urine WBC (Auto) 9 Urine RBC (Auto) 10 Ur Epithelial Cells Many Urine Bacteria Rare Hyaline Casts 2 Urine Mucus Many Urine HCG, Qual Negative Peritoneal WBC Peritoneal RBC Periton Neutrophils Periton Lymphocytes Peritoneal Monocytes Periton Macrophages Peritoneal Tot Protein Peritoneal Albumin Peritoneal LDH Peritoneal Glucose Peritoneal Amylase Stool Occult Blood Serum Copper Hep A IgM Ab Confirm Hepatitis A Ab Total Hep Bs Antigen Hep Bs Antibody Hep B Core Total Ab Hep B Core IgM Ab Hepatitis C Antibody Blood Type Antibody Screen 05/25/17 05/25/17 05/25/17 14:15 17:00 18:30 WBC RBC Hgb Hct MCV MCH MCHC RDW Plt Count MPV Neutrophils % Lymphocytes % Monocytes % Eosinophils % Basophils % PT with INR 14.90 H INR 1.32 H PTT (Actin FS) 35.0 H Sodium 141 Potassium 3.5 Chloride 104 Carbon Dioxide 29 Anion Gap 8 BUN 7 Creatinine 0.7 Creat Clearance w eGFR > 60 POC Glucometer Random Glucose 137 H D Lactic Acid Calcium 7.9 L Phosphorus Magnesium Iron TIBC Iron Saturation Ferritin Total Bilirubin 1.9 H D Direct Bilirubin AST 98 H ALT 19 Alkaline Phosphatase 177 H Ammonia Troponin I Total Protein 8.4 H Albumin 2.2 L Lipase 76 Tumor Marker AFP Vitamin B2 Vitamin B12 Serum Folate Urine Color Urine Appearance Urine pH Ur Specific [place] Urine Protein Urine Glucose (UA) Urine Ketones Urine Blood Urine Nitrite Urine Bilirubin Urine Urobilinogen Ur Leukocyte Esterase Urine WBC (Auto) Urine RBC (Auto) Ur Epithelial Cells Urine Bacteria Hyaline Casts Urine Mucus Urine HCG, Qual Peritoneal WBC 172 Peritoneal RBC 455 Periton Neutrophils 4 Periton Lymphocytes 27 Peritoneal Monocytes 4 Periton Macrophages 65 Peritoneal Tot Protein 3 Peritoneal Albumin 1 Peritoneal LDH 88 Peritoneal Glucose 104 Peritoneal Amylase 13 Stool Occult Blood Serum Copper Hep A IgM Ab Confirm Hepatitis A Ab Total Hep Bs Antigen Hep Bs Antibody Hep B Core Total Ab Hep B Core IgM Ab Hepatitis C Antibody Blood Type Antibody Screen 05/25/17 05/26/17 05/26/17 19:30 07:30 07:30 WBC 7.5 RBC 2.88 L Hgb 9.9 L Hct 29.9 L MCV 104.0 H MCH 34.4 H MCHC 33.1 RDW 16.0 H Plt Count 213 D MPV 8.9 Neutrophils % 58.4 Lymphocytes % 30.2 D Monocytes % 8.4 Eosinophils % 2.5 D Basophils % 0.5 PT with INR 16.60 H INR 1.47 H PTT (Actin FS) Sodium Potassium Chloride Carbon Dioxide Anion Gap BUN Creatinine Creat Clearance w eGFR POC Glucometer Random Glucose Lactic Acid Calcium Phosphorus Magnesium Iron TIBC Iron Saturation Ferritin Total Bilirubin Direct Bilirubin AST ALT Alkaline Phosphatase Ammonia Troponin I 0.03 Total Protein Albumin Lipase Tumor Marker AFP Vitamin B2 Vitamin B12 Serum Folate Urine Color Urine Appearance Urine pH Ur Specific [place] Urine Protein Urine Glucose (UA) Urine Ketones Urine Blood Urine Nitrite Urine Bilirubin Urine Urobilinogen Ur Leukocyte Esterase Urine WBC (Auto) Urine RBC (Auto) Ur Epithelial Cells Urine Bacteria Hyaline Casts Urine Mucus Urine HCG, Qual Peritoneal WBC Peritoneal RBC Periton Neutrophils Periton Lymphocytes Peritoneal Monocytes Periton Macrophages Peritoneal Tot Protein Peritoneal Albumin Peritoneal LDH Peritoneal Glucose Peritoneal Amylase Stool Occult Blood Serum Copper Hep A IgM Ab Confirm Hepatitis A Ab Total Hep Bs Antigen Hep Bs Antibody Hep B Core Total Ab Hep B Core IgM Ab Hepatitis C Antibody Blood Type Antibody Screen 05/26/17 05/26/17 05/26/17 07:30 07:30 07:30 WBC RBC Hgb Hct MCV MCH MCHC RDW Plt Count MPV Neutrophils % Lymphocytes % Monocytes % Eosinophils % Basophils % PT with INR INR PTT (Actin FS) Sodium 138 Potassium 3.7 Chloride 104 Carbon Dioxide 26 Anion Gap 8 BUN 8 Creatinine 0.6 Creat Clearance w eGFR > 60 POC Glucometer Random Glucose 80 D Lactic Acid Calcium 8.1 L Phosphorus 2.8 Magnesium 1.5 L Iron TIBC Iron Saturation Ferritin 120.825 Total Bilirubin 2.5 H D Direct Bilirubin 1.6 H AST 97 H ALT 19 Alkaline Phosphatase 160 H Ammonia Troponin I Total Protein 8.4 H Albumin 2.4 L Lipase Tumor Marker AFP Vitamin B2 Vitamin B12 1055 H Serum Folate 94 H Urine Color Urine Appearance Urine pH Ur Specific [place] Urine Protein Urine Glucose (UA) Urine Ketones Urine Blood Urine Nitrite Urine Bilirubin Urine Urobilinogen Ur Leukocyte Esterase Urine WBC (Auto) Urine RBC (Auto) Ur Epithelial Cells Urine Bacteria Hyaline Casts Urine Mucus Urine HCG, Qual Peritoneal WBC Peritoneal RBC Periton Neutrophils Periton Lymphocytes Peritoneal Monocytes Periton Macrophages Peritoneal Tot Protein Peritoneal Albumin Peritoneal LDH Peritoneal Glucose Peritoneal Amylase Stool Occult Blood Serum Copper Hep A IgM Ab Confirm Hepatitis A Ab Total Hep Bs Antigen Hep Bs Antibody Hep B Core Total Ab Hep B Core IgM Ab Hepatitis C Antibody Blood Type Antibody Screen 05/26/17 05/26/17 05/26/17 07:30 09:40 16:49 WBC RBC Hgb Hct MCV MCH MCHC RDW Plt Count MPV Neutrophils % Lymphocytes % Monocytes % Eosinophils % Basophils % PT with INR INR PTT (Actin FS) Sodium Potassium Chloride Carbon Dioxide Anion Gap BUN Creatinine Creat Clearance w eGFR POC Glucometer 92 Random Glucose Lactic Acid Calcium Phosphorus Magnesium Iron TIBC Iron Saturation Ferritin Cancelled Total Bilirubin Direct Bilirubin AST ALT Alkaline Phosphatase Ammonia Troponin I Total Protein Albumin Lipase Tumor Marker AFP Vitamin B2 Vitamin B12 Serum Folate Urine Color Urine Appearance Urine pH Ur Specific [place] Urine Protein Urine Glucose (UA) Urine Ketones Urine Blood Urine Nitrite Urine Bilirubin Urine Urobilinogen Ur Leukocyte Esterase Urine WBC (Auto) Urine RBC (Auto) Ur Epithelial Cells Urine Bacteria Hyaline Casts Urine Mucus Urine HCG, Qual Peritoneal WBC Peritoneal RBC Periton Neutrophils Periton Lymphocytes Peritoneal Monocytes Periton Macrophages Peritoneal Tot Protein Peritoneal Albumin Peritoneal LDH Peritoneal Glucose Peritoneal Amylase Stool Occult Blood Serum Copper Hep A IgM Ab Confirm Hepatitis A Ab Total Hep Bs Antigen Hep Bs Antibody Hep B Core Total Ab Hep B Core IgM Ab Hepatitis C Antibody Blood Type O POSITIVE Antibody Screen Negative 05/26/17 05/26/17 05/26/17 18:45 18:45 18:45 WBC RBC Hgb Hct MCV MCH MCHC RDW Plt Count MPV Neutrophils % Lymphocytes % Monocytes % Eosinophils % Basophils % PT with INR INR PTT (Actin FS) Sodium Potassium Chloride Carbon Dioxide Anion Gap BUN Creatinine Creat Clearance w eGFR POC Glucometer Random Glucose Lactic Acid Calcium Phosphorus Magnesium Iron TIBC Iron Saturation Ferritin 109.191 Total Bilirubin Direct Bilirubin AST ALT Alkaline Phosphatase Ammonia Troponin I Total Protein Albumin Lipase Tumor Marker AFP Vitamin B2 Vitamin B12 Serum Folate Urine Color Urine Appearance Urine pH Ur Specific [place] Urine Protein Urine Glucose (UA) Urine Ketones Urine Blood Urine Nitrite Urine Bilirubin Urine Urobilinogen Ur Leukocyte Esterase Urine WBC (Auto) Urine RBC (Auto) Ur Epithelial Cells Urine Bacteria Hyaline Casts Urine Mucus Urine HCG, Qual Peritoneal WBC Peritoneal RBC Periton Neutrophils Periton Lymphocytes Peritoneal Monocytes Periton Macrophages Peritoneal Tot Protein Peritoneal Albumin Peritoneal LDH Peritoneal Glucose Peritoneal Amylase Stool Occult Blood Serum Copper Hep A IgM Ab Confirm Negative Hepatitis A Ab Total Positive H Hep Bs Antigen Negative Hep Bs Antibody Reactive Hep B Core Total Ab Positive H Hep B Core IgM Ab Negative Hepatitis C Antibody Cancelled 0.1 Blood Type Antibody Screen 05/27/17 05/27/17 05/27/17 06:18 07:00 07:00 WBC RBC Hgb Hct MCV MCH MCHC RDW Plt Count MPV Neutrophils % Lymphocytes % Monocytes % Eosinophils % Basophils % PT with INR INR PTT (Actin FS) Sodium Potassium Chloride Carbon Dioxide Anion Gap BUN Creatinine Creat Clearance w eGFR POC Glucometer 105 Random Glucose Lactic Acid Calcium Phosphorus Magnesium Iron 30 TIBC 93 L Iron Saturation 32 Ferritin Total Bilirubin Direct Bilirubin AST ALT Alkaline Phosphatase Ammonia Troponin I Total Protein Albumin Lipase Tumor Marker AFP 1.7 Vitamin B2 Vitamin B12 Serum Folate Urine Color Urine Appearance Urine pH Ur Specific [place] Urine Protein Urine Glucose (UA) Urine Ketones Urine Blood Urine Nitrite Urine Bilirubin Urine Urobilinogen Ur Leukocyte Esterase Urine WBC (Auto) Urine RBC (Auto) Ur Epithelial Cells Urine Bacteria Hyaline Casts Urine Mucus Urine HCG, Qual Peritoneal WBC Peritoneal RBC Periton Neutrophils Periton Lymphocytes Peritoneal Monocytes Periton Macrophages Peritoneal Tot Protein Peritoneal Albumin Peritoneal LDH Peritoneal Glucose Peritoneal Amylase Stool Occult Blood Serum Copper Hep A IgM Ab Confirm Hepatitis A Ab Total Hep Bs Antigen Hep Bs Antibody Hep B Core Total Ab Hep B Core IgM Ab Hepatitis C Antibody Blood Type Antibody Screen 05/27/17 05/27/17 05/27/17 07:00 07:00 07:00 WBC 7.2 RBC 2.43 L Hgb 8.4 L D Hct 25.0 L D MCV 102.5 H MCH 34.6 H MCHC 33.7 RDW 16.1 H Plt Count 174 MPV 9.0 Neutrophils % Lymphocytes % Monocytes % Eosinophils % Basophils % PT with INR INR PTT (Actin FS) Sodium 142 Potassium 3.1 L Chloride 107 Carbon Dioxide 26 Anion Gap 9 BUN 7 Creatinine 0.6 Creat Clearance w eGFR > 60 POC Glucometer Random Glucose 87 Lactic Acid Calcium 8.0 L Phosphorus 2.9 Magnesium 1.9 D Iron TIBC Iron Saturation Ferritin Total Bilirubin 1.5 H D Direct Bilirubin 0.9 H D Cancelled AST 44 H D ALT 10 L D Alkaline Phosphatase 107 D Ammonia Troponin I Total Protein 5.6 L D Albumin 2.2 L Lipase Tumor Marker AFP Vitamin B2 Vitamin B12 Serum Folate Urine Color Urine Appearance Urine pH Ur Specific [place] Urine Protein Urine Glucose (UA) Urine Ketones Urine Blood Urine Nitrite Urine Bilirubin Urine Urobilinogen Ur Leukocyte Esterase Urine WBC (Auto) Urine RBC (Auto) Ur Epithelial Cells Urine Bacteria Hyaline Casts Urine Mucus Urine HCG, Qual Peritoneal WBC Peritoneal RBC Periton Neutrophils Periton Lymphocytes Peritoneal Monocytes Periton Macrophages Peritoneal Tot Protein Peritoneal Albumin Peritoneal LDH Peritoneal Glucose Peritoneal Amylase Stool Occult Blood Serum Copper Hep A IgM Ab Confirm Hepatitis A Ab Total Hep Bs Antigen Hep Bs Antibody Hep B Core Total Ab Hep B Core IgM Ab Hepatitis C Antibody Blood Type Antibody Screen 05/27/17 05/27/17 05/27/17 12:06 18:04 22:33 WBC RBC Hgb Hct MCV MCH MCHC RDW Plt Count MPV Neutrophils % Lymphocytes % Monocytes % Eosinophils % Basophils % PT with INR INR PTT (Actin FS) Sodium Potassium Chloride Carbon Dioxide Anion Gap BUN Creatinine Creat Clearance w eGFR POC Glucometer 97 77 141 Random Glucose Lactic Acid Calcium Phosphorus Magnesium Iron TIBC Iron Saturation Ferritin Total Bilirubin Direct Bilirubin AST ALT Alkaline Phosphatase Ammonia Troponin I Total Protein Albumin Lipase Tumor Marker AFP Vitamin B2 Vitamin B12 Serum Folate Urine Color Urine Appearance Urine pH Ur Specific [place] Urine Protein Urine Glucose (UA) Urine Ketones Urine Blood Urine Nitrite Urine Bilirubin Urine Urobilinogen Ur Leukocyte Esterase Urine WBC (Auto) Urine RBC (Auto) Ur Epithelial Cells Urine Bacteria Hyaline Casts Urine Mucus Urine HCG, Qual Peritoneal WBC Peritoneal RBC Periton Neutrophils Periton Lymphocytes Peritoneal Monocytes Periton Macrophages Peritoneal Tot Protein Peritoneal Albumin Peritoneal LDH Peritoneal Glucose Peritoneal Amylase Stool Occult Blood Serum Copper Hep A IgM Ab Confirm Hepatitis A Ab Total Hep Bs Antigen Hep Bs Antibody Hep B Core Total Ab Hep B Core IgM Ab Hepatitis C Antibody Blood Type Antibody Screen 05/28/17 05/28/17 05/28/17 04:30 06:37 06:45 WBC RBC Hgb Hct MCV MCH MCHC RDW Plt Count MPV Neutrophils % Lymphocytes % Monocytes % Eosinophils % Basophils % PT with INR INR PTT (Actin FS) Sodium Potassium Chloride Carbon Dioxide Anion Gap BUN Creatinine Creat Clearance w eGFR POC Glucometer 99 Random Glucose Lactic Acid Calcium Phosphorus Magnesium Iron TIBC Iron Saturation Ferritin Total Bilirubin Direct Bilirubin AST ALT Alkaline Phosphatase Ammonia Troponin I Total Protein Albumin Lipase Tumor Marker AFP 2.8 Vitamin B2 Vitamin B12 Serum Folate Urine Color Urine Appearance Urine pH Ur Specific [place] Urine Protein Urine Glucose (UA) Urine Ketones Urine Blood Urine Nitrite Urine Bilirubin Urine Urobilinogen Ur Leukocyte Esterase Urine WBC (Auto) Urine RBC (Auto) Ur Epithelial Cells Urine Bacteria Hyaline Casts Urine Mucus Urine HCG, Qual Peritoneal WBC Peritoneal RBC Periton Neutrophils Periton Lymphocytes Peritoneal Monocytes Periton Macrophages Peritoneal Tot Protein Peritoneal Albumin Peritoneal LDH Peritoneal Glucose Peritoneal Amylase Stool Occult Blood Negative Serum Copper Hep A IgM Ab Confirm Hepatitis A Ab Total Hep Bs Antigen Hep Bs Antibody Hep B Core Total Ab Hep B Core IgM Ab Hepatitis C Antibody Blood Type Antibody Screen 05/28/17 05/28/17 05/28/17 06:45 06:45 11:39 WBC 7.6 RBC 2.54 L Hgb 8.7 L Hct 26.6 L MCV 104.5 H MCH 34.2 H MCHC 32.7 RDW 16.1 H Plt Count 197 MPV 9.8 Neutrophils % 45.9 D Lymphocytes % 40.4 H D Monocytes % 9.7 Eosinophils % 3.1 Basophils % 0.9 PT with INR INR PTT (Actin FS) Sodium 143 Potassium 3.8 D Chloride 108 H Carbon Dioxide 29 Anion Gap 6 L BUN 6 L Creatinine 0.7 Creat Clearance w eGFR > 60 POC Glucometer 106 Random Glucose 93 Lactic Acid Calcium 8.1 L Phosphorus Magnesium Iron TIBC Iron Saturation Ferritin Total Bilirubin 1.2 H Direct Bilirubin AST 45 H ALT 12 Alkaline Phosphatase 117 Ammonia Troponin I Total Protein 6.0 L Albumin 2.1 L Lipase Tumor Marker AFP Vitamin B2 Vitamin B12 Serum Folate Urine Color Urine Appearance Urine pH Ur Specific [place] Urine Protein Urine Glucose (UA) Urine Ketones Urine Blood Urine Nitrite Urine Bilirubin Urine Urobilinogen Ur Leukocyte Esterase Urine WBC (Auto) Urine RBC (Auto) Ur Epithelial Cells Urine Bacteria Hyaline Casts Urine Mucus Urine HCG, Qual Peritoneal WBC Peritoneal RBC Periton Neutrophils Periton Lymphocytes Peritoneal Monocytes Periton Macrophages Peritoneal Tot Protein Peritoneal Albumin Peritoneal LDH Peritoneal Glucose Peritoneal Amylase Stool Occult Blood Serum Copper Hep A IgM Ab Confirm Hepatitis A Ab Total Hep Bs Antigen Hep Bs Antibody Hep B Core Total Ab Hep B Core IgM Ab Hepatitis C Antibody Blood Type Antibody Screen 05/28/17 05/29/17 05/29/17 17:27 06:22 09:50 WBC 7.2 RBC 2.80 L Hgb 9.5 L Hct 28.7 L MCV 102.5 H MCH 34.0 H MCHC 33.2 RDW 16.1 H Plt Count 232 MPV 8.7 D Neutrophils % 48.8 Lymphocytes % 38.8 Monocytes % 8.3 Eosinophils % 3.6 Basophils % 0.5 PT with INR INR PTT (Actin FS) Sodium Potassium Chloride Carbon Dioxide Anion Gap BUN Creatinine Creat Clearance w eGFR POC Glucometer 87 98 Random Glucose Lactic Acid Calcium Phosphorus Magnesium Iron TIBC Iron Saturation Ferritin Total Bilirubin Direct Bilirubin AST ALT Alkaline Phosphatase Ammonia Troponin I Total Protein Albumin Lipase Tumor Marker AFP Vitamin B2 Vitamin B12 Serum Folate Urine Color Urine Appearance Urine pH Ur Specific [place] Urine Protein Urine Glucose (UA) Urine Ketones Urine Blood Urine Nitrite Urine Bilirubin Urine Urobilinogen Ur Leukocyte Esterase Urine WBC (Auto) Urine RBC (Auto) Ur Epithelial Cells Urine Bacteria Hyaline Casts Urine Mucus Urine HCG, Qual Peritoneal WBC Peritoneal RBC Periton Neutrophils Periton Lymphocytes Peritoneal Monocytes Periton Macrophages Peritoneal Tot Protein Peritoneal Albumin Peritoneal LDH Peritoneal Glucose Peritoneal Amylase Stool Occult Blood Serum Copper Hep A IgM Ab Confirm Hepatitis A Ab Total Hep Bs Antigen Hep Bs Antibody Hep B Core Total Ab Hep B Core IgM Ab Hepatitis C Antibody Blood Type Antibody Screen 05/29/17 05/29/17 05/29/17 09:50 11:53 15:30 WBC RBC Hgb Hct MCV MCH MCHC RDW Plt Count MPV Neutrophils % Lymphocytes % Monocytes % Eosinophils % Basophils % PT with INR INR PTT (Actin FS) Sodium 138 Potassium 4.0 Chloride 104 Carbon Dioxide 28 Anion Gap 6 L BUN 7 Creatinine 0.8 Creat Clearance w eGFR > 60 POC Glucometer 89 Random Glucose 118 H D Lactic Acid Calcium 8.2 L Phosphorus Magnesium Iron TIBC Iron Saturation Ferritin Total Bilirubin 1.6 H D Direct Bilirubin AST 40 H ALT 13 Alkaline Phosphatase 116 Ammonia Troponin I Total Protein 6.7 Albumin 2.3 L Lipase Tumor Marker AFP Vitamin B2 Vitamin B12 Serum Folate 41 H D Urine Color Urine Appearance Urine pH Ur Specific [place] Urine Protein Urine Glucose (UA) Urine Ketones Urine Blood Urine Nitrite Urine Bilirubin Urine Urobilinogen Ur Leukocyte Esterase Urine WBC (Auto) Urine RBC (Auto) Ur Epithelial Cells Urine Bacteria Hyaline Casts Urine Mucus Urine HCG, Qual Peritoneal WBC Peritoneal RBC Periton Neutrophils Periton Lymphocytes Peritoneal Monocytes Periton Macrophages Peritoneal Tot Protein Peritoneal Albumin Peritoneal LDH Peritoneal Glucose Peritoneal Amylase Stool Occult Blood Serum Copper Hep A IgM Ab Confirm Hepatitis A Ab Total Hep Bs Antigen Hep Bs Antibody Hep B Core Total Ab Hep B Core IgM Ab Hepatitis C Antibody Blood Type Antibody Screen 05/29/17 05/29/17 05/29/17 17:30 17:45 17:45 WBC RBC Hgb Hct MCV MCH MCHC RDW Plt Count MPV Neutrophils % Lymphocytes % Monocytes % Eosinophils % Basophils % PT with INR INR PTT (Actin FS) Sodium Potassium Chloride Carbon Dioxide Anion Gap BUN Creatinine Creat Clearance w eGFR POC Glucometer 98 Random Glucose Lactic Acid Calcium Phosphorus 3.6 D Magnesium 1.7 L Iron TIBC Iron Saturation Ferritin Total Bilirubin Direct Bilirubin AST ALT Alkaline Phosphatase Ammonia 40.8 H Troponin I Total Protein Albumin Lipase Tumor Marker AFP Vitamin B2 Vitamin B12 Serum Folate Urine Color Urine Appearance Urine pH Ur Specific [place] Urine Protein Urine Glucose (UA) Urine Ketones Urine Blood Urine Nitrite Urine Bilirubin Urine Urobilinogen Ur Leukocyte Esterase Urine WBC (Auto) Urine RBC (Auto) Ur Epithelial Cells Urine Bacteria Hyaline Casts Urine Mucus Urine HCG, Qual Peritoneal WBC Peritoneal RBC Periton Neutrophils Periton Lymphocytes Peritoneal Monocytes Periton Macrophages Peritoneal Tot Protein Peritoneal Albumin Peritoneal LDH Peritoneal Glucose Peritoneal Amylase Stool Occult Blood Serum Copper Hep A IgM Ab Confirm Hepatitis A Ab Total Hep Bs Antigen Hep Bs Antibody Hep B Core Total Ab Hep B Core IgM Ab Hepatitis C Antibody Blood Type Antibody Screen 05/29/17 05/30/17 05/30/17 17:45 06:23 09:15 WBC RBC Hgb Hct MCV MCH MCHC RDW Plt Count MPV Neutrophils % Lymphocytes % Monocytes % Eosinophils % Basophils % PT with INR INR PTT (Actin FS) Sodium Potassium Chloride Carbon Dioxide Anion Gap BUN Creatinine Creat Clearance w eGFR POC Glucometer 95 Random Glucose Lactic Acid Calcium Phosphorus Magnesium Iron TIBC Iron Saturation Ferritin Total Bilirubin Direct Bilirubin AST ALT Alkaline Phosphatase Ammonia Troponin I Total Protein Albumin Lipase Tumor Marker AFP Vitamin B2 214.0 Vitamin B12 Serum Folate Urine Color Urine Appearance Urine pH Ur Specific [place] Urine Protein Urine Glucose (UA) Urine Ketones Urine Blood Urine Nitrite Urine Bilirubin Urine Urobilinogen Ur Leukocyte Esterase Urine WBC (Auto) Urine RBC (Auto) Ur Epithelial Cells Urine Bacteria Hyaline Casts Urine Mucus Urine HCG, Qual Peritoneal WBC Peritoneal RBC Periton Neutrophils Periton Lymphocytes Peritoneal Monocytes Periton Macrophages Peritoneal Tot Protein Peritoneal Albumin Peritoneal LDH Peritoneal Glucose Peritoneal Amylase Stool Occult Blood Serum Copper 104 Hep A IgM Ab Confirm Hepatitis A Ab Total Hep Bs Antigen Hep Bs Antibody Hep B Core Total Ab Hep B Core IgM Ab Hepatitis C Antibody Blood Type Antibody Screen 05/30/17 05/30/17 05/30/17 11:14 11:14 11:14 WBC 8.2 RBC 2.77 L Hgb 9.4 L Hct 28.4 L MCV 102.7 H MCH 34.0 H MCHC 33.2 RDW 16.3 H Plt Count 208 MPV 9.7 D Neutrophils % 53.2 Lymphocytes % 33.4 Monocytes % 8.7 Eosinophils % 2.7 Basophils % 2.0 D PT with INR INR PTT (Actin FS) Sodium 137 Potassium 4.3 Chloride 102 Carbon Dioxide 28 Anion Gap 7 L BUN 10 D Creatinine 0.9 Creat Clearance w eGFR > 60 POC Glucometer Random Glucose 99 Lactic Acid Calcium 8.5 Phosphorus Magnesium Iron 27 TIBC 160 L Iron Saturation 17 Ferritin Total Bilirubin 1.3 H Direct Bilirubin AST 41 H ALT 14 Alkaline Phosphatase 138 H Ammonia Troponin I Total Protein 7.2 Albumin 2.4 L Lipase Tumor Marker AFP Vitamin B2 Vitamin B12 Serum Folate Urine Color Urine Appearance Urine pH Ur Specific [place] Urine Protein Urine Glucose (UA) Urine Ketones Urine Blood Urine Nitrite Urine Bilirubin Urine Urobilinogen Ur Leukocyte Esterase Urine WBC (Auto) Urine RBC (Auto) Ur Epithelial Cells Urine Bacteria Hyaline Casts Urine Mucus Urine HCG, Qual Peritoneal WBC Peritoneal RBC Periton Neutrophils Periton Lymphocytes Peritoneal Monocytes Periton Macrophages Peritoneal Tot Protein Peritoneal Albumin Peritoneal LDH Peritoneal Glucose Peritoneal Amylase Stool Occult Blood Serum Copper Hep A IgM Ab Confirm Hepatitis A Ab Total Hep Bs Antigen Hep Bs Antibody Hep B Core Total Ab Hep B Core IgM Ab Hepatitis C Antibody Blood Type Antibody Screen 05/30/17 05/30/17 05/31/17 11:57 16:37 06:26 WBC RBC Hgb Hct MCV MCH MCHC RDW Plt Count MPV Neutrophils % Lymphocytes % Monocytes % Eosinophils % Basophils % PT with INR INR PTT (Actin FS) Sodium Potassium Chloride Carbon Dioxide Anion Gap BUN Creatinine Creat Clearance w eGFR POC Glucometer 115 111 109 Random Glucose Lactic Acid Calcium Phosphorus Magnesium Iron TIBC Iron Saturation Ferritin Total Bilirubin Direct Bilirubin AST ALT Alkaline Phosphatase Ammonia Troponin I Total Protein Albumin Lipase Tumor Marker AFP Vitamin B2 Vitamin B12 Serum Folate Urine Color Urine Appearance Urine pH Ur Specific [place] Urine Protein Urine Glucose (UA) Urine Ketones Urine Blood Urine Nitrite Urine Bilirubin Urine Urobilinogen Ur Leukocyte Esterase Urine WBC (Auto) Urine RBC (Auto) Ur Epithelial Cells Urine Bacteria Hyaline Casts Urine Mucus Urine HCG, Qual Peritoneal WBC Peritoneal RBC Periton Neutrophils Periton Lymphocytes Peritoneal Monocytes Periton Macrophages Peritoneal Tot Protein Peritoneal Albumin Peritoneal LDH Peritoneal Glucose Peritoneal Amylase Stool Occult Blood Serum Copper Hep A IgM Ab Confirm Hepatitis A Ab Total Hep Bs Antigen Hep Bs Antibody Hep B Core Total Ab Hep B Core IgM Ab Hepatitis C Antibody Blood Type Antibody Screen 05/31/17 05/31/17 05/31/17 09:40 11:53 16:40 WBC 7.9 RBC 2.85 L Hgb 9.9 L Hct 29.4 L MCV 102.9 H MCH 34.8 H MCHC 33.8 RDW 15.5 Plt Count 251 D MPV 8.8 Neutrophils % 48.6 Lymphocytes % 37.1 Monocytes % 10.5 H Eosinophils % 2.8 Basophils % 1.0 PT with INR INR PTT (Actin FS) Sodium Potassium Chloride Carbon Dioxide Anion Gap BUN Creatinine Creat Clearance w eGFR POC Glucometer 86 112 Random Glucose Lactic Acid Calcium Phosphorus Magnesium Iron TIBC Iron Saturation Ferritin Total Bilirubin Direct Bilirubin AST ALT Alkaline Phosphatase Ammonia Troponin I Total Protein Albumin Lipase Tumor Marker AFP Vitamin B2 Vitamin B12 Serum Folate Urine Color Urine Appearance Urine pH Ur Specific [place] Urine Protein Urine Glucose (UA) Urine Ketones Urine Blood Urine Nitrite Urine Bilirubin Urine Urobilinogen Ur Leukocyte Esterase Urine WBC (Auto) Urine RBC (Auto) Ur Epithelial Cells Urine Bacteria Hyaline Casts Urine Mucus Urine HCG, Qual Peritoneal WBC Peritoneal RBC Periton Neutrophils Periton Lymphocytes Peritoneal Monocytes Periton Macrophages Peritoneal Tot Protein Peritoneal Albumin Peritoneal LDH Peritoneal Glucose Peritoneal Amylase Stool Occult Blood Serum Copper Hep A IgM Ab Confirm Hepatitis A Ab Total Hep Bs Antigen Hep Bs Antibody Hep B Core Total Ab Hep B Core IgM Ab Hepatitis C Antibody Blood Type Antibody Screen 06/01/17 06/01/17 06/01/17 00:49 06:05 07:16 WBC 8.2 RBC 2.59 L Hgb 8.9 L D Hct 26.5 L MCV 102.1 H MCH 34.2 H MCHC 33.5 RDW 15.3 Plt Count 236 MPV 8.6 Neutrophils % 46.6 Lymphocytes % 35.0 Monocytes % 14.8 H Eosinophils % 2.7 Basophils % 0.9 PT with INR INR PTT (Actin FS) Sodium Potassium Chloride Carbon Dioxide Anion Gap BUN Creatinine Creat Clearance w eGFR POC Glucometer 109 100 Random Glucose Lactic Acid Calcium Phosphorus Magnesium Iron TIBC Iron Saturation Ferritin Total Bilirubin Direct Bilirubin AST ALT Alkaline Phosphatase Ammonia Troponin I Total Protein Albumin Lipase Tumor Marker AFP Vitamin B2 Vitamin B12 Serum Folate Urine Color Urine Appearance Urine pH Ur Specific [place] Urine Protein Urine Glucose (UA) Urine Ketones Urine Blood Urine Nitrite Urine Bilirubin Urine Urobilinogen Ur Leukocyte Esterase Urine WBC (Auto) Urine RBC (Auto) Ur Epithelial Cells Urine Bacteria Hyaline Casts Urine Mucus Urine HCG, Qual Peritoneal WBC Peritoneal RBC Periton Neutrophils Periton Lymphocytes Peritoneal Monocytes Periton Macrophages Peritoneal Tot Protein Peritoneal Albumin Peritoneal LDH Peritoneal Glucose Peritoneal Amylase Stool Occult Blood Serum Copper Hep A IgM Ab Confirm Hepatitis A Ab Total Hep Bs Antigen Hep Bs Antibody Hep B Core Total Ab Hep B Core IgM Ab Hepatitis C Antibody Blood Type Antibody Screen 06/01/17 06/01/17 06/01/17 07:16 07:16 11:46 WBC RBC Hgb Hct MCV MCH MCHC RDW Plt Count MPV Neutrophils % Lymphocytes % Monocytes % Eosinophils % Basophils % PT with INR 15.90 H INR 1.41 H PTT (Actin FS) Sodium 139 Potassium 3.9 Chloride 106 Carbon Dioxide 25 Anion Gap 8 BUN 8 Creatinine 0.8 Creat Clearance w eGFR > 60 POC Glucometer 102 Random Glucose 85 Lactic Acid Calcium 8.0 L Phosphorus 4.2 Magnesium 1.9 Iron TIBC Iron Saturation Ferritin Total Bilirubin 1.1 H Direct Bilirubin AST 32 D ALT 10 L D Alkaline Phosphatase 112 Ammonia Troponin I Total Protein 6.4 Albumin 2.0 L Lipase Tumor Marker AFP Vitamin B2 Vitamin B12 Serum Folate Urine Color Urine Appearance Urine pH Ur Specific [place] Urine Protein Urine Glucose (UA) Urine Ketones Urine Blood Urine Nitrite Urine Bilirubin Urine Urobilinogen Ur Leukocyte Esterase Urine WBC (Auto) Urine RBC (Auto) Ur Epithelial Cells Urine Bacteria Hyaline Casts Urine Mucus Urine HCG, Qual Peritoneal WBC Peritoneal RBC Periton Neutrophils Periton Lymphocytes Peritoneal Monocytes Periton Macrophages Peritoneal Tot Protein Peritoneal Albumin Peritoneal LDH Peritoneal Glucose Peritoneal Amylase Stool Occult Blood Serum Copper Hep A IgM Ab Confirm Hepatitis A Ab Total Hep Bs Antigen Hep Bs Antibody Hep B Core Total Ab Hep B Core IgM Ab Hepatitis C Antibody Blood Type Antibody Screen 06/02/17 06/02/17 06/02/17 00:00 00:00 08:47 WBC 8.3 8.8 RBC 2.81 L 3.28 L Hgb 9.8 L D 11.0 D Hct 28.7 L 34.1 D MCV 101.9 H 103.9 H MCH 34.7 H 33.5 MCHC 34.0 32.3 RDW 15.4 15.7 H Plt Count 266 227 MPV 9.8 D 9.9 Neutrophils % 50.7 Lymphocytes % 32.6 Monocytes % 12.9 H Eosinophils % 2.0 Basophils % 1.8 PT with INR INR PTT (Actin FS) Sodium Potassium Chloride Carbon Dioxide Anion Gap BUN Creatinine Creat Clearance w eGFR POC Glucometer Random Glucose Lactic Acid 1.2 Calcium Phosphorus Magnesium Iron TIBC Iron Saturation Ferritin Total Bilirubin Direct Bilirubin AST ALT Alkaline Phosphatase Ammonia Troponin I Total Protein Albumin Lipase Tumor Marker AFP Vitamin B2 Vitamin B12 Serum Folate Urine Color Urine Appearance Urine pH Ur Specific [place] Urine Protein Urine Glucose (UA) Urine Ketones Urine Blood Urine Nitrite Urine Bilirubin Urine Urobilinogen Ur Leukocyte Esterase Urine WBC (Auto) Urine RBC (Auto) Ur Epithelial Cells Urine Bacteria Hyaline Casts Urine Mucus Urine HCG, Qual Peritoneal WBC Peritoneal RBC Periton Neutrophils Periton Lymphocytes Peritoneal Monocytes Periton Macrophages Peritoneal Tot Protein Peritoneal Albumin Peritoneal LDH Peritoneal Glucose Peritoneal Amylase Stool Occult Blood Serum Copper Hep A IgM Ab Confirm Hepatitis A Ab Total Hep Bs Antigen Hep Bs Antibody Hep B Core Total Ab Hep B Core IgM Ab Hepatitis C Antibody Blood Type Antibody Screen 06/02/17 06/02/17 06/02/17 08:47 16:30 16:30 WBC 7.7 RBC 2.59 L D Hgb 8.8 L D Hct 26.5 L D MCV 102.4 H MCH 34.2 H MCHC 33.4 RDW 14.4 Plt Count 244 MPV 9.4 Neutrophils % 50.9 Lymphocytes % 29.4 Monocytes % 16.3 H Eosinophils % 2.4 Basophils % 1.0 PT with INR INR PTT (Actin FS) Sodium 139 138 Potassium 4.0 3.7 Chloride 106 103 Carbon Dioxide 24 28 Anion Gap 9 7 L BUN 9 10 Creatinine 0.9 0.8 Creat Clearance w eGFR > 60 > 60 POC Glucometer Random Glucose 104 D 118 H Lactic Acid Calcium 8.6 7.9 L Phosphorus Magnesium Iron TIBC Iron Saturation Ferritin Total Bilirubin 1.5 H D 1.1 H D Direct Bilirubin AST 32 26 ALT 13 D 11 L Alkaline Phosphatase 119 H 97 Ammonia Troponin I Total Protein 7.9 D 6.3 L D Albumin 2.9 L D 2.4 L Lipase Tumor Marker AFP Vitamin B2 Vitamin B12 Serum Folate Urine Color Urine Appearance Urine pH Ur Specific [place] Urine Protein Urine Glucose (UA) Urine Ketones Urine Blood Urine Nitrite Urine Bilirubin Urine Urobilinogen Ur Leukocyte Esterase Urine WBC (Auto) Urine RBC (Auto) Ur Epithelial Cells Urine Bacteria Hyaline Casts Urine Mucus Urine HCG, Qual Peritoneal WBC Peritoneal RBC Periton Neutrophils Periton Lymphocytes Peritoneal Monocytes Periton Macrophages Peritoneal Tot Protein Peritoneal Albumin Peritoneal LDH Peritoneal Glucose Peritoneal Amylase Stool Occult Blood Serum Copper Hep A IgM Ab Confirm Hepatitis A Ab Total Hep Bs Antigen Hep Bs Antibody Hep B Core Total Ab Hep B Core IgM Ab Hepatitis C Antibody Blood Type Antibody Screen 06/03/17 06/03/17 06:30 06:30 WBC 9.0 RBC 2.67 L Hgb 9.1 L Hct 27.4 L MCV 102.3 H MCH 33.9 H MCHC 33.1 RDW 15.1 Plt Count 255 MPV 9.2 Neutrophils % Lymphocytes % Monocytes % Eosinophils % Basophils % PT with INR INR PTT (Actin FS) Sodium 138 Potassium 3.8 Chloride 105 Carbon Dioxide 24 Anion Gap 9 BUN 9 Creatinine 0.7 Creat Clearance w eGFR > 60 POC Glucometer Random Glucose 88 D Lactic Acid Calcium 8.1 L Phosphorus 3.9 Magnesium 1.8 Iron TIBC Iron Saturation Ferritin Total Bilirubin 0.9 Direct Bilirubin AST 29 ALT 11 L Alkaline Phosphatase 106 Ammonia Troponin I Total Protein 6.2 L Albumin 2.2 L Lipase Tumor Marker AFP Vitamin B2 Vitamin B12 Serum Folate Urine Color Urine Appearance Urine pH Ur Specific [place] Urine Protein Urine Glucose (UA) Urine Ketones Urine Blood Urine Nitrite Urine Bilirubin Urine Urobilinogen Ur Leukocyte Esterase Urine WBC (Auto) Urine RBC (Auto) Ur Epithelial Cells Urine Bacteria Hyaline Casts Urine Mucus Urine HCG, Qual Peritoneal WBC Peritoneal RBC Periton Neutrophils Periton Lymphocytes Peritoneal Monocytes Periton Macrophages Peritoneal Tot Protein Peritoneal Albumin Peritoneal LDH Peritoneal Glucose Peritoneal Amylase Stool Occult Blood Serum Copper Hep A IgM Ab Confirm Hepatitis A Ab Total Hep Bs Antigen Hep Bs Antibody Hep B Core Total Ab Hep B Core IgM Ab Hepatitis C Antibody Blood Type Antibody Screen Assessment: 06/03/17 10:55 detxo completed, arrange for rehab bed as per patietn request when medically stable. patient appears able to participate in inpatient rehab at [facility]. Fernando Garcia md [phone]
--- NOTE | 2017-06-03 11:16 | PN ---
Progress Note, Physician History of Present Illness: No events. Comfortable. Ambulating. - Current Medication List Current Medications: Active Medications Albuterol/Ipratropium (Duoneb -) 1 amp NEB Q6H PRN PRN Reason: SHORTNESS OF BREATH Chlordiazepoxide HCl (Librium -) 25 mg PO [facility] Last Admin: 06/02/17 22:21 Dose: 25 mg Folic Acid (Folic Acid -) 1 mg PO DAILY [facility] Last Admin: 06/03/17 10:17 Dose: 1 mg Furosemide (Lasix -) 20 mg PO DAILY [facility] Last Admin: 06/03/17 10:17 Dose: 20 mg Gabapentin (Neurontin -) 100 mg PO TID [facility] Last Admin: 06/03/17 05:48 Dose: 100 mg Multivitamins/Minerals/Vitamin C (Tab-A-Vit -) 1 tab PO DAILY [facility] Last Admin: 06/03/17 10:17 Dose: 1 tab Pramipexole Dihydrochloride (Mirapex -) 0.25 mg PO DAILY@1999 [facility] Last Admin: 06/02/17 22:21 Dose: 0.25 mg Spironolactone (Aldactone -) 50 mg PO DAILY [facility] Last Admin: 06/03/17 10:14 Dose: Not Given Thiamine HCl (Vitamin B1 -) 100 mg PO [facility] Last Admin: 06/02/17 22:21 Dose: 100 mg - Objective Vital Signs: Vital Signs Temperature 98.5 F 06/03/17 10:00 Pulse Rate 88 06/03/17 10:00 Respiratory Rate 18 06/03/17 10:00 Blood Pressure 93/55 06/03/17 10:00 O2 Sat by Pulse Oximetry (%) 100 06/02/17 21:00 Constitutional: Yes: No Distress, Calm Eyes: Yes: Conjunctiva Clear HENT: Yes: Atraumatic Neck: Yes: Supple Cardiovascular: Yes: Regular Rate and Rhythm Respiratory: Yes: Regular Gastrointestinal: Yes: Soft, Ascites, Distention (mild). No: Melena, Rectal Bleeding, Tenderness, Tenderness, Epigastrium, Tenderness, Rebound, Vomiting Neurological: Yes: Alert, Oriented Labs: CBC, BMP 06/03/17 06:30 06/03/17 06:30 INR, PTT INR 1.41 (0.82-1.09) H 06/01/17 07:16 Laboratory Results - last 24 hr 05/30/17 06/02/17 06/02/17 09:15 16:30 16:30 WBC 7.7 RBC 2.59 L D Hgb 8.8 L D Hct 26.5 L D MCV 102.4 H MCH 34.2 H MCHC 33.4 RDW 14.4 Plt Count 244 MPV 9.4 Neutrophils % 50.9 Lymphocytes % 29.4 Monocytes % 16.3 H Eosinophils % 2.4 Basophils % 1.0 Sodium 138 Potassium 3.7 Chloride 103 Carbon Dioxide 28 Anion Gap 7 L BUN 10 Creatinine 0.8 Creat Clearance w eGFR > 60 Random Glucose 118 H Calcium 7.9 L Phosphorus Magnesium Total Bilirubin 1.1 H D AST 26 ALT 11 L Alkaline Phosphatase 97 Total Protein 6.3 L D Albumin 2.4 L Vitamin B2 214.0 06/03/17 06/03/17 06:30 06:30 WBC 9.0 RBC 2.67 L Hgb 9.1 L Hct 27.4 L MCV 102.3 H MCH 33.9 H MCHC 33.1 RDW 15.1 Plt Count 255 MPV 9.2 Neutrophils % Lymphocytes % Monocytes % Eosinophils % Basophils % Sodium 138 Potassium 3.8 Chloride 105 Carbon Dioxide 24 Anion Gap 9 BUN 9 Creatinine 0.7 Creat Clearance w eGFR > 60 Random Glucose 88 D Calcium 8.1 L Phosphorus 3.9 Magnesium 1.8 Total Bilirubin 0.9 AST 29 ALT 11 L Alkaline Phosphatase 106 Total Protein 6.2 L Albumin 2.2 L Vitamin B2 Problem List - Problems (1) Alcohol dependence with uncomplicated withdrawal Code(s): F10.230 - ALCOHOL DEPENDENCE WITH WITHDRAWAL, UNCOMPLICATED (2) Ascites Code(s): R18.8 - OTHER ASCITES (3) Cirrhosis of liver Code(s): K74.60 - UNSPECIFIED CIRRHOSIS OF LIVER Qualifiers: Hepatic cirrhosis type: unspecified hepatic cirrhosis Ascites presence: with ascites Qualified Code(s): K74.60 - Unspecified cirrhosis of liver Assessment/Plan Asymptomatic, no longer has tense ascites. [place] and Lasix Lactulose Salt restriction Follow up as op in 1-2 weeks
[2017-06-03] MEDS ORDERED: NICOTINE 7 MG/24 HOURS TOPICAL PATCH TD SCH (17:00)
--- NOTE | 2017-06-03 17:34 | DS ---
Physical Exam: SUBJECTIVE: Patient seen and examined OBJECTIVE: Vital Signs Period Temp Pulse Resp BP Sys/Pires Pulse Ox Last 24 Hr 98.0 F-99 F 86-93 16-20 90-104/52-68 100-100 PHYSICAL EXAM GENERAL: The patient is awake, alert, and fully oriented, in no acute distress. HEAD: Normal with no signs of trauma. EYES: PERRL, extraocular movements intact, sclera anicteric, conjunctiva clear. ENT: Ears normal, nares patent, oropharynx clear without exudates, moist mucous membranes. NECK: Trachea midline, full range of motion, supple. LUNGS: Breath sounds equal, clear to auscultation bilaterally, no wheezes, no crackles, no accessory muscle use. HEART: Regular rate and rhythm, S1, S2 without murmur, rub or gallop. ABDOMEN: Soft, nontender, nondistended, normoactive bowel sounds, no guarding, no rebound, no hepatosplenomegaly, no masses. EXTREMITIES: 2+ pulses, warm, well-perfused, no edema. NEUROLOGICAL: Cranial nerves II through XII grossly intact. Normal speech, gait not observed. PSYCH: Normal mood, normal affect. SKIN: Warm, dry, normal turgor, no rashes or lesions noted. LABS Laboratory Results - last 24 hr 05/30/17 06/02/17 06/02/17 09:15 16:30 16:30 WBC 7.7 RBC 2.59 L D Hgb 8.8 L D Hct 26.5 L D MCV 102.4 H MCH 34.2 H MCHC 33.4 RDW 14.4 Plt Count 244 MPV 9.4 Neutrophils % 50.9 Lymphocytes % 29.4 Monocytes % 16.3 H Eosinophils % 2.4 Basophils % 1.0 Sodium 138 Potassium 3.7 Chloride 103 Carbon Dioxide 28 Anion Gap 7 L BUN 10 Creatinine 0.8 Creat Clearance w eGFR > 60 Random Glucose 118 H Calcium 7.9 L Phosphorus Magnesium Total Bilirubin 1.1 H D AST 26 ALT 11 L Alkaline Phosphatase 97 Total Protein 6.3 L D Albumin 2.4 L Vitamin B2 214.0 06/03/17 06/03/17 06:30 06:30 WBC 9.0 RBC 2.67 L Hgb 9.1 L Hct 27.4 L MCV 102.3 H MCH 33.9 H MCHC 33.1 RDW 15.1 Plt Count 255 MPV 9.2 Neutrophils % Lymphocytes % Monocytes % Eosinophils % Basophils % Sodium 138 Potassium 3.8 Chloride 105 Carbon Dioxide 24 Anion Gap 9 BUN 9 Creatinine 0.7 Creat Clearance w eGFR > 60 Random Glucose 88 D Calcium 8.1 L Phosphorus 3.9 Magnesium 1.8 Total Bilirubin 0.9 AST 29 ALT 11 L Alkaline Phosphatase 106 Total Protein 6.2 L Albumin 2.2 L Vitamin B2 HOSPITAL COURSE: Date of Admission:05/25/17 Date of Discharge: 06/03/17 Discharge Summary Reason For Visit: HEPATIC CIRRHOSIS ACITES Current Active Problems Alcohol dependence with uncomplicated withdrawal (Acute) Ascites (Acute) Cirrhosis of liver (Chronic) Condition: Stable - Instructions Diet, Activity, Other Instructions: f/u antral biopsy with Dr. Frias Abdominal MRI - Left adrenal gland hyperplasia - Home Medications Comprehensive Discharge Medication List: Ambulatory Orders NK [No Known Home Medication] 05/26/17 - Discharge Referral Referred to [facility] Med P.C.: No
[2017-06-03 18:55] VITALS: BP 107/67; PULSE 90; TEMP 98.7
--- NOTE | 2017-06-03 19:56 | PN ---
Teaching Attending Note Name of Resident: Roma Hartman ATTENDING PHYSICIAN STATEMENT I saw and evaluated the patient. I reviewed the resident's note and discussed the case with the resident. I agree with the resident's findings and plan as documented. SUBJECTIVE: no fever or chills, no abd pain. OBJECTIVE: NAD, AAOx 3., MMM, no JVD Cv: RRR, no MRG Lungs: CTAB Abd: soft, NT Liver, is palpated in epigastric area 4 cm below the costal margin. Ext: 1+ pitting edema . ASSESSMENT AND PLAN: 46 yo lady with h/o Asthma , and recent diagnosis of Cirrhosis in [facility] 2 weeks ago, who presented from [facility] due to distended abd, she was ofund to have ascitis 1- Ascitis, due to liver cirrhosis: likely alcoholic in nature . No evidence of SBP per fluid analysis. s/p paracentesis x2. cont diuretics 2- cirrhosis : no esophageal varices today. - cont lactulose - GI f/u - alcohol abstinence , to qualify fro liver transplant 3- ETOH abuse: was detoxed , but still on Librium. send to rehab where librium can be tapered off 3- Normocytic anemia: ACD 4- h/o Asthma: PRN albuterol transfer to [facility] rehab
--- NOTE | 2017-06-03 20:48 | DS ---
Physical Exam: SUBJECTIVE: Patient seen and examined OBJECTIVE: Vital Signs Period Temp Pulse Resp BP Sys/Pires Pulse Ox Last 24 Hr 98.0 F-99 F 86-93 16-20 90-107/52-68 100-100 PHYSICAL EXAM GENERAL: The patient is awake, alert, and fully oriented, in no acute distress. HEAD: Normal with no signs of trauma. EYES: PERRL, extraocular movements intact, sclera anicteric, conjunctiva clear. ENT: Ears normal, nares patent, oropharynx clear without exudates, moist mucous membranes. NECK: Trachea midline, full range of motion, supple. LUNGS: Breath sounds equal, clear to auscultation bilaterally, no wheezes, no crackles, no accessory muscle use. HEART: Regular rate and rhythm, S1, S2 without murmur, rub or gallop. ABDOMEN: Soft, nontender, nondistended, normoactive bowel sounds, no guarding, no rebound, no hepatosplenomegaly, no masses. EXTREMITIES: 2+ pulses, warm, well-perfused, no edema. NEUROLOGICAL: Cranial nerves II through XII grossly intact. Normal speech, gait not observed. PSYCH: Normal mood, normal affect. SKIN: Warm, dry, normal turgor, no rashes or lesions noted. LABS Laboratory Results - last 24 hr 05/30/17 06/03/17 06/03/17 09:15 06:30 06:30 WBC 9.0 RBC 2.67 L Hgb 9.1 L Hct 27.4 L MCV 102.3 H MCH 33.9 H MCHC 33.1 RDW 15.1 Plt Count 255 MPV 9.2 Sodium 138 Potassium 3.8 Chloride 105 Carbon Dioxide 24 Anion Gap 9 BUN 9 Creatinine 0.7 Creat Clearance w eGFR > 60 Random Glucose 88 D Calcium 8.1 L Phosphorus 3.9 Magnesium 1.8 Total Bilirubin 0.9 AST 29 ALT 11 L Alkaline Phosphatase 106 Total Protein 6.2 L Albumin 2.2 L Vitamin B2 214.0 HOSPITAL COURSE: Date of Admission:05/25/17 Date of Discharge: 06/03/17 Discharge Summary Reason For Visit: HEPATIC CIRRHOSIS ACITES Current Active Problems Alcohol dependence with uncomplicated withdrawal (Acute) Ascites (Acute) Cirrhosis of liver (Chronic) Condition: Improved - Instructions Diet, Activity, Other Instructions: You were admitted to the hospital for fluid in your abdomen (ascites). The fluid was removed two separate times by a procedure called paracentesis. You were given Librium for alcohol detox. You are being transferred to [facility] for rehabilitation. Recommendations: -Keep a low salt diet to help prevent fluid re-accumulation. -It is important to not drink alcohol. You need to remain abstinent for 6 months before you can qualify for a liver transplant. -You have a history of asthma, and it is important that you stop smoking cigarettes. You were given a nicotine patch. Ask the doctors at [facility] if medications to help you quit smoking would be appropriate. - You have Left adrenal gland hyperplasia , please follow with your PCP for repeat imaging and hormonal testing if indicated - You have a liver lesion that needs to be followed periodically by imaging. Discuss this with Dr. Frias. Medications: You were started on the medications listed below. The providers at rehab may adjust them. Please follow their recommendations. -Spironolactone 50mg daily and Furosemide 20mg daily. These are two diuretics ( water pills) to help keep the fluid from re-accumulating. -Pramipexole 0.25mg at bedtime. This medication is for your lower leg pain and discomfort that may be due to Restless leg syndrome. If you feel this medication does not help or want to stop taking it, discuss it first with a physician. It is important to decrease the dose slowly. -Gabapentin 100mg three times per day for pain. -Folic acid 1mg every day and Thiamine 100mg every day. These are vitamins that you should take daily. -Take a Multivitamin every day -Take Albuterol inhaler 1-2puffs every 4-6 hours as needed if you experience shortness of breath. This medication is for your asthma. - librium is to be tapered off in rehab - take lactulose to achieve 2-3 bowel movements per day Follow-up: -Make an appointment to see Dr. Frias (stomach doctor) in 1-2 weeks. You should discuss your medications and ask about the results of the stomach biopsy he took. -Make an appointment with Dr. Isidro, who is a primary care physician, when you complete rehab to establish care. Please return to the Emergency Department if you have fever, chills, worsening fluid in your abdomen, or have new or concerning symptoms. Referrals: Jorge Isidro MD [Staff Physician] - Bartolo Frias MD [Staff Physician] - () Disposition: TRANSFER ACUTE CARE/OTHER HOSP - Home Medications Comprehensive Discharge Medication List: Ambulatory Orders Albuterol Sulfate Inhaler - [Ventolin HFA Inhaler -] 1 - 2 inh PO Q4H #1 inhaler 06/03/17 Chlordiazepoxide [Librium -] 25 mg PO HS capsule MDD 25 06/03/17 Folic Acid - 1 mg PO DAILY tablet 06/03/17 Furosemide [Lasix -] 20 mg PO DAILY tablet 06/03/17 Gabapentin [Neurontin -] 100 mg PO TID capsule 06/03/17 Lactulose 20 gm PO BID PRN #1 ml 06/03/17 Multivitamins [Multivit ([facility])] 1 tab PO DAILY tab 06/03/17 Pramipexole Dihydrochloride [Mirapex -] 0.25 mg PO DAILY@1999 tablet 06/03/17 Spironolactone [Aldactone -] 50 mg PO DAILY tablet 06/03/17 Thiamine HCl [Vitamin B1 -] 100 mg PO HS tablet 06/03/17 - Discharge Referral Referred to [facility] Med P.C.: No
== END 2017-06-03 20:30 | disposition short-term general hospital (02) | DRG 264 ==
LOC: JER 12:59 → JERBED 18:07 → J5S 05-26 18:29 → J8W 06-01 14:45
PROVIDERS: ADMIT Internal Medicine; ATTEND Internal Medicine
PROC: 0W9G3ZX Drainage of Peritoneal Cavity, Percutaneous Approach, Diagnostic (ICD-10-PCS; 2017-05-26)
PROC: 0DD68ZX Extraction of Stomach, Via Natural or Artificial Opening Endoscopic, Diagnostic (ICD-10-PCS; principal; 2017-05-28 08:00)
PROC: 0W9G3ZX Drainage of Peritoneal Cavity, Percutaneous Approach, Diagnostic (ICD-10-PCS; 2017-06-01)
DX: K70.31 Alcoholic cirrhosis of liver with ascites (principal); R19.7 Diarrhea, unspecified; J45.909 Unspecified asthma, uncomplicated; J06.9 Acute upper respiratory infection, unspecified; D64.9 Anemia, unspecified; F10.230 Alcohol dependence with withdrawal, uncomplicated; F17.210 Nicotine dependence, cigarettes, uncomplicated; K29.70 Gastritis, unspecified, without bleeding
CPT/HCPCS: 36415; 71045-TC; 74183-TC; 76942-TC; 80053; 81003; 81015; 82042; 82105; 82140; 82150; 82248; 82272; 82525; 82607; 82728; 82746; 82945; 82962; 83540; 83550; 83605; 83615; 83690; 83735; 84100; 84157; 84252; 84425; 84484; 84703; 85025; 85027; 85610; 85730; 86704; 86705; 86706; 86708; 86803; 86850; 86900; 86901; 87040; 87045; 87046; 87070; 87075; 87205; 87324; 87340; 87449; 87899; 88305-TC; 89051; 93970-TC; 99285-25; P9047

== ENCOUNTER 2017-06-03 20:58 | Inpatient (IN) | payer OTHER ==
[2017-06-03] MEDS ORDERED: LIDOCAINE PATCH REMOVAL MC SCH (22:00)
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
[2017-06-03 22:37] VITALS: BMI 23.0
[2017-06-03] MEDS ORDERED: MAGNESIUM HYDROX 2400MG/30ML ORAL SUSPENSION 30 ML CUP PO PRN (22:44)
[2017-06-03] MEDS ORDERED: MAG HYDROX/AL HYDROX/SIMETH 30 ML UNIT-DOSE CUP PO PRN (22:44)
[2017-06-03] MEDS ORDERED: LOPERAMIDE HCL 2 MG CAPSULE PO PRN (22:44)
[2017-06-03] MEDS ORDERED: ACETAMINOPHEN 325 MG TABLET (FP) PO PRN (22:44)
[2017-06-03] MEDS ORDERED: P-EPHED 60MG/TRIPROLIDI 2.5MG TABLET PO PRN (22:44)
[2017-06-03] MEDS ORDERED: IBUPROFEN 400 MG TABLET (FP) PO PRN (22:44)
[2017-06-03] MEDS ORDERED: guaiFENesin/D-METHORPHAN HB 10 ML UNIT-DOSE CUPS PO PRN (22:44)
[2017-06-03] MEDS ORDERED: MAGNESIUM CITRATE 300 ML BOTTLE PO PRN (22:44)
[2017-06-03] MEDS ORDERED: NICOTINE POLACRILEX 2 MG GUM BC PRN (22:44)
[2017-06-03] MEDS ORDERED: MENTHOL/PHENOL 1 EACH UD MM PRN (22:44)
[2017-06-03] MEDS ORDERED: ALBUTEROL SO4 18 GM HFA INHALER IH PRN (22:47)
[2017-06-04 00:01] LABS: URINE APPEARANCE SLCLOUDY; URINE BILIRUBIN NEGATIVE (NEGATIVE); URINE BLOOD NEGATIVE (NEGATIVE); URINE COLOR YELLOW; URINE GLUCOSE (UA) NEGATIVE (NEGATIVE); URINE KETONE NEGATIVE (NEGATIVE); URINE NITRITE NEGATIVE (NEGATIVE); URINE PROTEIN NEGATIVE (NEGATIVE); URINE UROBILINOGEN 4.0 E.U/dl mg/dL (0.2-1.0)
[2017-06-04 00:10] LABS: URINE LEUK ESTERASE 2+ (NEGATIVE)
[2017-06-04 01:06] LABS: EPI CELLS FEW /HPF (FEW); URINE BACTERIA RARE /hpf (NONE SEEN); URINE MUCUS RARE
[2017-06-04] MEDS: GABAPENTIN 100 MG CAPSULE (FP) PO SCH ×2 (06:40→13:22)
[2017-06-04 07:37] VITALS: BP 93/60
[2017-06-04] MEDS ORDERED: SPIRONOLACTONE 25 MG TABLET (FP) PO SCH (10:00)
[2017-06-04] MEDS ORDERED: LACTULOSE 20 GM/30 ML UDC (FOR ORAL USE ONLY) PO SCH (10:00)
[2017-06-04] MEDS ORDERED: NICOTINE 14 MG/24 HOURS TOPICAL PATCH TD SCH (10:00)
[2017-06-04] MEDS ORDERED: FUROSEMIDE 20 MG TABLET (FP) PO SCH (10:00)
[2017-06-04] MEDS ORDERED: LIDOCAINE 5% TOPICAL PATCH TP SCH (10:00)
[2017-06-04] MEDS ORDERED: PRENATAL VITAMINS W/ FOLIC ACID TABLET (FP) PO SCH (10:00)
--- NOTE | 2017-06-04 12:44 | EKG ---
Test Reason : Blood Pressure : / mmHG Vent. Rate : 085 BPM Atrial Rate : 085 BPM P-R Int : 126 ms QRS Dur : 080 ms QT Int : 396 ms P-R-T Axes : 046 -01 015 degrees QTc Int : 471 ms NORMAL SINUS RHYTHM POSSIBLE LEFT ATRIAL ENLARGEMENT BORDERLINE ECG WHEN COMPARED WITH ECG OF 25-MAY-2017 06:06, CRITERIA FOR ANTERIOR INFARCT ARE NO LONGER PRESENT T WAVE INVERSION NO LONGER EVIDENT IN ANTERIOR LEADS QT HAS SHORTENED Confirmed by COLUMBA BARRIOS MD ([id number]) on 06/04/2017 12:44:18 PM Referred By: Confirmed By:COLUMBA BARRIOS MD
[2017-06-04 13:05] VITALS: PULSE 94
[2017-06-04 13:53] VITALS: TEMP 99.8
--- NOTE | 2017-06-04 14:12 | PN ---
[facility] Progress Note Note: Was called by the nurse from to place a discharge order due to fact that patient's insurance does not cover inpatient treatment, patient was referred to [facility] program. Patient was admitted to on 06/03 in evening shift. Please see medical staff notes.
[2017-06-04] MEDS ORDERED: PRAMIPEXOLE DIHYDROCHLORIDE 0.25 MG TABLET PO SCH (20:00)
[2017-06-04] MEDS ORDERED: THIAMINE HCL 100 MG TABLET (FP) PO SCH (22:00)
[2017-06-04] MEDS ORDERED: MINERAL OIL/PETROLAT/WATER TOPICAL CREAM 113 GM JAR TP SCH (22:00)
== END 2017-06-04 14:18 | disposition home or self-care (01) | DRG 772 ==
LOC: YASAS 20:58 → Y3E 23:10
PROVIDERS: ADMIT Psychiatry & Neurology Psychiatry; ATTEND Psychiatry & Neurology Psychiatry
PROC: HZ42ZZZ Group Counseling for Substance Abuse Treatment, Cognitive-Behavioral (ICD-10-PCS; principal; 2017-06-03)
DX: F10.230 Alcohol dependence with withdrawal, uncomplicated (principal); F17.213 Nicotine dependence, cigarettes, with withdrawal; F34.1 Dysthymic disorder; D52.0 Dietary folate deficiency anemia; J45.22 Mild intermittent asthma with status asthmaticus; K74.60 Unspecified cirrhosis of liver; R76.11 Nonspecific reaction to tuberculin skin test without active tuberculosis; R63.4 Abnormal weight loss; Z68.23 Body mass index [BMI] 23.0-23.9, adult
CPT/HCPCS: 71046-TC; 81003; 81015; 93005; 93010

== ENCOUNTER 2017-06-16 12:20 | Inpatient (IN) | payer OTHER ==
[2017-06-16 14:20] VITALS: BMI 24.1
--- NOTE | 2017-06-16 19:45 | HP ---
Admission ROS [facility] Chief Complaint: i want to go to rehab Allergies/Adverse Reactions: Allergies Allergy/AdvReac Type Severity Reaction Status Date / Time No Known Allergies Allergy Verified 06/16/17 15:37 History of Present Illness: 45 years old female with long history of alcohol nicotine dependence has neuropathy constipation cirrhosis of liver with ascites asthma Exam Limitations: No Limitations - Ebola screening Have you traveled outside of the country in the last 21 days: No Have you had contact with anyone from an Ebola affected area: No Have you been sick,other than usual withdrawal symptoms: No Do you have a fever: No - Review of Systems Constitutional: Loss of Appetite, Unintentional Wgt. Loss, Unexplained wgt Loss EENT: reports: Blurred Vision (eye glasses) Respiratory: reports: No Symptoms reported Cardiac: reports: No Symptoms Reported GI: reports: Constipated, Poor Appetite : reports: No Symptoms Reported Musculoskeletal: reports: Back Pain Integumentary: reports: Rash Neuro: reports: No Symptoms reported Endocrine: reports: No Symptoms Reported Hematology: reports: No Symptoms Reported Psychiatric: reports: Judgement Intact, Mood/Affect Appropiate, Orientated x3 Other Systems: Reviewed and Negative Patient History - Patient Medical History Hx Anemia: Yes Hx Asthma: Yes Hx Chronic Obstructive Pulmonary Disease (COPD): No Hx Cancer: No Hx Cardiac Disorders: No Hx Congestive Heart Failure: No Hx Hypertension: No Hx Hypercholesterolemia: No Hx Pacemaker: No HX Cerebrovascular Accident: No Hx Seizures: No Hx Dementia: No Hx Diabetes: No Hx Gastrointestinal Disorders: No Hx Liver Disease: Yes (cirrhosis of the liver) Hx Genitourinary Disorders: No Hx Sexually Transmitted Disorders: No Hx Renal Disease (ESRD): No Hx Thyroid Disease: No Hx Human Immunodeficiency Virus (HIV): No (Negative 2015) Hx Hepatitis C: No Hx Depression: Yes Hx Suicide Attempt: No (Denies suicidal ideation) Hx Bipolar Disorder: No Hx Schizophrenia: No - Patient Surgical History Past Surgical History: Yes Hx Neurologic Surgery: No Hx Cataract Extraction: No Hx Cardiac Surgery: No Hx Lung Surgery: No Hx Breast Surgery: No Hx Breast Biopsy: No Hx Abdominal Surgery: Yes (tubal ligation 1985) Hx Appendectomy: No Hx Cholecystectomy: No Hx Genitourinary Surgery: No Hx Section: No Hx Orthopedic Surgery: No Hx Hysterectomy: No Other Surgical History: Tubal ligation 1985 Anesthesia Reaction: No - PPD History Previous Implant?: Yes Documented Results: Positive w/proof Implanted On Prior R Admission?: No PPD to be Administered?: No - Reproductive History Patient is a Female of Child Bearing Age (11 -55 yrs old): Yes Last Menstrual Period: 12/09/16 Patient : No - Smoking Cessation Smoking history: Current every day smoker Have you smoked in the past 12 months: Yes Aproximately how many cigarettes per day: 4 Cigars Per Day: 0 Hx Chewing Tobacco Use: No Initiated information on smoking cessation: Yes 'Breaking Loose' booklet given: 06/16/17 - Substance & Tx. History Hx Alcohol Use: Yes Hx Substance Use: No Substance Use Type: Alcohol Hx Substance Use Treatment: Yes (05/2017 [facility] - Substances Abused Alcohol Route: Oral Frequency: Daily Amount used: 1 PINT vodka Age of first use: 37 Date of Last Use: 06/15/17 Family Disease History - Family Disease History Family Disease History: [place]: Mother (), Other: Father (Alcoholic, ), Brother ( killed), Sister (no contact) Admission Physical Exam [facility] - Vital Signs Vital Signs: Vital Signs - 24 hr 06/16/17 14:18 Temperature 98.1 F Pulse Rate 100 H Respiratory 20 Rate Blood Pressure 110/73 - Physical General Appearance: Yes: No Apparent Distress, Appropriately Dressed, Thin HEENTM: Yes: Hearing grossly Normal, Normal ENT Inspection, Normocephalic, Normal Voice Respiratory: Yes: Chest Non-Tender, Lungs Clear, Normal Breath Sounds, No Respiratory Distress, No Accessory Muscle Use Neck: Yes: Supple, Trachea in good position Breast: Yes: Breasts Symetrical Cardiology: Yes: Regular Rhythm, S1, S2, Tachycardia Abdominal: Yes: Non Tender, Soft, Protuberent (long history of ascites treated with lasix and mechanical drainage) Genitourinary: Yes: Within Normal Limits Back: Yes: Normal Inspection Musculoskeletal: Yes: full range of Motion, Gait Steady, Back pain (mild) Extremities: Yes: Normal Inspection, Normal Range of Motion, Non-Tender Neurological: Yes: Fully Oriented, Alert, Motor Strength 5/5, Normal Response, Numbness (feet treated with neurontin) Integumentary: Yes: Warm, Other (rashes) Lymphatic: Yes: Within Normal Limits - Diagnostic (1) Alcohol dependence with uncomplicated withdrawal Current Visit: Yes Status: Acute (2) Nicotine dependence Current Visit: Yes Status: Acute Qualifiers: Nicotine product type: cigarettes Substance use status: in withdrawal Qualified Code(s): F17.213 - Nicotine dependence, cigarettes, with withdrawal (3) Weight loss Current Visit: Yes Status: Acute (4) Asthma Current Visit: Yes Status: Chronic Qualifiers: Asthma severity: mild Asthma persistence: intermittent Asthma complication type: with status asthmaticus Qualified Code(s): J45.22 - Mild intermittent asthma with status asthmaticus (5) Cirrhosis of liver Current Visit: Yes Status: Chronic Qualifiers: Hepatic cirrhosis type: unspecified hepatic cirrhosis Ascites presence: with ascites Qualified Code(s): K74.60 - Unspecified cirrhosis of liver Comment: with ascites (6) Positive PPD, treated Current Visit: Yes Status: Resolved Cleared for Admission [facility] - Detox or Rehab [facility] Level of Care: Observation Bed Detox Regimen/Protocol: Not Applicable Claeared for Rehab Admission: Yes [facility] Breath Alcohol Content Breath Alcohol Content: 0 Urine Pregancy Test - Result Urine Test Results: Negative- NO Line Present Urine Drug Screen - Results Drug Screen Negative: No Urine Drug Screen Results: BZO-Benzodiazepines Inpatient Rehab Admission - Initial Determination Are CD services needed?: Yes Free of communicable disease: Yes Not in need of hospitalization: Yes - Rehab Admission Criteria Previous failed treatment: Yes Poor recovery environment: Yes Comorbidities: Yes Lacks judgement: No Patient is meeting Inpatient Rehab admission criteria:: Yes
[2017-06-16] MEDS ORDERED: guaiFENesin/D-METHORPHAN HB 10 ML UNIT-DOSE CUPS PO PRN (19:52)
[2017-06-16] MEDS ORDERED: P-EPHED 60MG/TRIPROLIDI 2.5MG TABLET PO PRN (19:52)
[2017-06-16] MEDS ORDERED: ACETAMINOPHEN 325 MG TABLET (FP) PO PRN (19:52)
[2017-06-16] MEDS ORDERED: LOPERAMIDE HCL 2 MG CAPSULE PO PRN (19:52)
[2017-06-16] MEDS ORDERED: IBUPROFEN 400 MG TABLET (FP) PO PRN (19:52)
[2017-06-16] MEDS ORDERED: MAG HYDROX/AL HYDROX/SIMETH 30 ML UNIT-DOSE CUP PO PRN (19:52)
[2017-06-16] MEDS ORDERED: MENTHOL/PHENOL 1 EACH UD MM PRN (19:52)
[2017-06-16] MEDS ORDERED: MAGNESIUM CITRATE 300 ML BOTTLE PO PRN (19:52)
[2017-06-16] MEDS ORDERED: MAGNESIUM HYDROX 2400MG/30ML ORAL SUSPENSION 30 ML CUP PO PRN (19:52)
[2017-06-16] MEDS ORDERED: ALBUTEROL SO4 18 GM HFA INHALER IH PRN (19:54)
[2017-06-16] MEDS: THIAMINE HCL 100 MG TABLET (FP) PO SCH (22:04)
[2017-06-16] MEDS: HYDROCORTISONE 1% TOPICAL OINT 30 GM TUBE TP SCH (22:04)
[2017-06-16] MEDS: LACTULOSE 20 GM/30 ML UDC (FOR ORAL USE ONLY) PO SCH (22:04)
[2017-06-16] MEDS: GABAPENTIN 100 MG CAPSULE (FP) PO SCH (22:04)
[2017-06-16] MEDS: PRAMIPEXOLE DIHYDROCHLORIDE 0.25 MG TABLET PO SCH (23:06)
[2017-06-17 00:01] LABS: URINE APPEARANCE SLCLOUDY; URINE BILIRUBIN NEGATIVE (NEGATIVE); URINE BLOOD NEGATIVE (NEGATIVE); URINE COLOR AMBER; URINE GLUCOSE (UA) NEGATIVE (NEGATIVE); URINE KETONE TRACE (NEGATIVE); URINE LEUK ESTERASE TRACE (NEGATIVE); URINE NITRITE NEGATIVE (NEGATIVE)
[2017-06-17 00:18] LABS: URINE PROTEIN 1+ (NEGATIVE)
[2017-06-17 00:21] LABS: EPI CELLS MODERATE /HPF (FEW); URINE BACTERIA RARE /hpf (NONE SEEN); URINE MUCUS RARE
[2017-06-17] MEDS: GABAPENTIN 100 MG CAPSULE (FP) PO SCH ×3 (06:40→21:49)
--- NOTE | 2017-06-17 10:22 | EKG ---
Test Reason : Blood Pressure : / mmHG Vent. Rate : 089 BPM Atrial Rate : 089 BPM P-R Int : 126 ms QRS Dur : 086 ms QT Int : 400 ms P-R-T Axes : 035 -10 006 degrees QTc Int : 486 ms NORMAL SINUS RHYTHM MINIMAL VOLTAGE CRITERIA FOR LVH, MAY BE NORMAL VARIANT PROLONGED QT ABNORMAL ECG WHEN COMPARED WITH ECG OF 04-JUN-2017 08:14, NO SIGNIFICANT CHANGE WAS FOUND Confirmed by DELORES LIU, NANDINI ([id number]) on 06/17/2017 10:22:45 AM Referred By: Confirmed By:NANDINI ESTRELLA MD
[2017-06-17] MEDS: PRENATAL VITAMINS W/ FOLIC ACID TABLET (FP) PO SCH (10:34)
[2017-06-17] MEDS: SPIRONOLACTONE 25 MG TABLET (FP) PO SCH (10:34)
[2017-06-17] MEDS: FUROSEMIDE 20 MG TABLET (FP) PO SCH (10:34)
[2017-06-17] MEDS: LACTULOSE 20 GM/30 ML UDC (FOR ORAL USE ONLY) PO SCH ×2 (10:34→21:48)
[2017-06-17] MEDS: NICOTINE 14 MG/24 HOURS TOPICAL PATCH TD SCH (10:35)
[2017-06-17] MEDS: HYDROCORTISONE 1% TOPICAL OINT 30 GM TUBE TP SCH ×4 (10:37→21:49)
[2017-06-17 13:40] LABS: HEMATOCRIT 30.1 % (32.4-45.2); MCH 33.2 pg (25.7-33.7); MCHC 33.1 g/dl (32.0-36.0); MEAN CELL VOLUME 100.3 fl (80-96); MEAN PLT VOLUME 8.7 fl (7.5-11.1); PLATELET COUNT 328 K/MM3 (134-434); WHITE BLOOD COUNT 7.5 K/mm3 (4.0-10.0)
[2017-06-17 13:42] LABS: ALBUMIN 2.6 g/dl (3.4-5.0); ALK PHOS 110 U/L (45-117); ANION GAP 8 (8-16); BLOOD UREA NITROGEN 11 mg/dL (7-18); CALCIUM 8.4 mg/dL (8.5-10.1); CHLORIDE 105 mmol/L (98-107); CO2 29 mmol/L (21-32); CREATININE 0.8 mg/dL (0.55-1.02); GLUCOSE,RANDOM 170 mg/dL (74-106); POTASSIUM 3.1 mmol/L (3.5-5.1); SGOT/AST 41 U/L (15-37); SGPT/ALT 17 U/L (12-78); SODIUM 142 mmol/L (136-145); TOT PROT 7.3 g/dl (6.4-8.2)
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
[2017-06-17] MEDS ORDERED: PT OWN MED DRAWER 7, Y5N ONE (19:35)
[2017-06-17] MEDS: PRAMIPEXOLE DIHYDROCHLORIDE 0.25 MG TABLET PO SCH (21:48)
[2017-06-17] MEDS: THIAMINE HCL 100 MG TABLET (FP) PO SCH (21:48)
[2017-06-17] MEDS: diphenhydrAMINE HCL 50 MG CAPSULE PO PRN (21:50)
[2017-06-18] MEDS: GABAPENTIN 100 MG CAPSULE (FP) PO SCH ×3 (06:37→21:41)
[2017-06-18] MEDS: NICOTINE 14 MG/24 HOURS TOPICAL PATCH TD SCH (10:27)
[2017-06-18] MEDS: LACTULOSE 20 GM/30 ML UDC (FOR ORAL USE ONLY) PO SCH ×2 (10:27→21:42)
[2017-06-18] MEDS: FUROSEMIDE 20 MG TABLET (FP) PO SCH (10:28)
[2017-06-18] MEDS: SPIRONOLACTONE 25 MG TABLET (FP) PO SCH (10:28)
[2017-06-18] MEDS: PRENATAL VITAMINS W/ FOLIC ACID TABLET (FP) PO SCH (10:28)
[2017-06-18] MEDS: HYDROCORTISONE 1% TOPICAL OINT 30 GM TUBE TP SCH ×4 (10:29→21:42)
--- NOTE | 2017-06-18 13:22 | PN ---
[facility] Progress Note Note: random glc 170 post prandial ho etoh check fasting fsg known anemia
[2017-06-18] MEDS ORDERED: PT OWN MED DRAWER 7, Y5N ONE (19:41)
[2017-06-18] MEDS: PRAMIPEXOLE DIHYDROCHLORIDE 0.25 MG TABLET PO SCH (21:41)
[2017-06-18] MEDS: THIAMINE HCL 100 MG TABLET (FP) PO SCH (21:41)
[2017-06-18] MEDS: diphenhydrAMINE HCL 50 MG CAPSULE PO PRN (21:43)
[2017-06-19] MEDS: GABAPENTIN 100 MG CAPSULE (FP) PO SCH ×3 (06:51→21:41)
[2017-06-19] MEDS ORDERED: PT OWN MED DRAWER 7, Y5N ONE (09:06)
[2017-06-19] MEDS: SPIRONOLACTONE 25 MG TABLET (FP) PO SCH (10:35)
[2017-06-19] MEDS: FUROSEMIDE 20 MG TABLET (FP) PO SCH (10:35)
[2017-06-19] MEDS: PRENATAL VITAMINS W/ FOLIC ACID TABLET (FP) PO SCH (10:35)
[2017-06-19] MEDS: LACTULOSE 20 GM/30 ML UDC (FOR ORAL USE ONLY) PO SCH ×2 (10:35→21:41)
[2017-06-19] MEDS: NICOTINE 14 MG/24 HOURS TOPICAL PATCH TD SCH (10:35)
[2017-06-19] MEDS: POTASSIUM CHLORIDE TABS 20 MEQ TABLET.ER (FP) PO SCH ×2 (10:35→21:41)
[2017-06-19] MEDS: HYDROCORTISONE 1% TOPICAL OINT 30 GM TUBE TP SCH ×4 (10:36→21:42)
[2017-06-19] MEDS: PRAMIPEXOLE DIHYDROCHLORIDE 0.25 MG TABLET PO SCH (21:41)
[2017-06-19] MEDS: THIAMINE HCL 100 MG TABLET (FP) PO SCH (21:41)
[2017-06-19] MEDS: diphenhydrAMINE HCL 50 MG CAPSULE PO PRN (21:43)
[2017-06-20] MEDS: GABAPENTIN 100 MG CAPSULE (FP) PO SCH ×3 (06:49→22:01)
[2017-06-20] MEDS ORDERED: PT OWN MED DRAWER 7, Y5N ONE ×2 (08:29→16:55)
[2017-06-20] MEDS: POTASSIUM CHLORIDE TABS 20 MEQ TABLET.ER (FP) PO SCH ×2 (10:22→22:01)
[2017-06-20] MEDS: PRENATAL VITAMINS W/ FOLIC ACID TABLET (FP) PO SCH (10:22)
[2017-06-20] MEDS: LACTULOSE 20 GM/30 ML UDC (FOR ORAL USE ONLY) PO SCH ×2 (10:22→22:02)
[2017-06-20] MEDS: HYDROCORTISONE 1% TOPICAL OINT 30 GM TUBE TP SCH ×4 (10:23→22:01)
[2017-06-20] MEDS: NICOTINE 14 MG/24 HOURS TOPICAL PATCH TD SCH (10:23)
[2017-06-20] MEDS: FUROSEMIDE 20 MG TABLET (FP) PO SCH (11:00)
[2017-06-20] MEDS: SPIRONOLACTONE 25 MG TABLET (FP) PO SCH ×2 (11:00→18:17)
[2017-06-20] MEDS: PRAMIPEXOLE DIHYDROCHLORIDE 0.25 MG TABLET PO SCH (21:00)
[2017-06-20] MEDS: THIAMINE HCL 100 MG TABLET (FP) PO SCH (22:00)
[2017-06-20] MEDS: diphenhydrAMINE HCL 50 MG CAPSULE PO PRN (22:01)
[2017-06-21] MEDS: GABAPENTIN 100 MG CAPSULE (FP) PO SCH ×3 (06:48→21:36)
[2017-06-21] MEDS: NICOTINE 14 MG/24 HOURS TOPICAL PATCH TD SCH (10:20)
[2017-06-21] MEDS: POTASSIUM CHLORIDE TABS 20 MEQ TABLET.ER (FP) PO SCH ×2 (10:20→21:36)
[2017-06-21] MEDS: PRENATAL VITAMINS W/ FOLIC ACID TABLET (FP) PO SCH (10:21)
[2017-06-21] MEDS: LACTULOSE 20 GM/30 ML UDC (FOR ORAL USE ONLY) PO SCH ×2 (10:21→21:36)
[2017-06-21] MEDS: FUROSEMIDE 20 MG TABLET (FP) PO SCH (10:21)
[2017-06-21] MEDS: SPIRONOLACTONE 25 MG TABLET (FP) PO SCH ×2 (10:21→17:53)
[2017-06-21] MEDS: HYDROCORTISONE 1% TOPICAL OINT 30 GM TUBE TP SCH ×4 (10:22→21:36)
[2017-06-21 10:43] LABS: HEMOGLOBIN 10.5 GM/dL (10.7-15.3); MCH 32.9 pg (25.7-33.7); MCHC 32.9 g/dl (32.0-36.0); MEAN CELL VOLUME 99.9 fl (80-96); MEAN PLT VOLUME 9.2 fl (7.5-11.1); PLATELET COUNT 297 K/MM3 (134-434); RDW 15.2 % (11.6-15.6); WHITE BLOOD COUNT 9.4 K/mm3 (4.0-10.0)
[2017-06-21 10:53] LABS: CALCIUM 9.6 mg/dL (8.5-10.1); POTASSIUM 4.4 mmol/L (3.5-5.1)
[2017-06-21] MEDS: PRAMIPEXOLE DIHYDROCHLORIDE 0.25 MG TABLET PO SCH (19:55)
[2017-06-21] MEDS: THIAMINE HCL 100 MG TABLET (FP) PO SCH (21:36)
[2017-06-21] MEDS: diphenhydrAMINE HCL 50 MG CAPSULE PO PRN (21:37)
[2017-06-21] MEDS ORDERED: diphenhydrAMINE HCL 25 MG CAPSULE (FP) PO ONE (21:37)
[2017-06-22] MEDS: GABAPENTIN 100 MG CAPSULE (FP) PO SCH ×3 (06:47→21:49)
[2017-06-22] MEDS: HYDROCORTISONE 1% TOPICAL OINT 30 GM TUBE TP SCH ×4 (10:34→21:51)
[2017-06-22] MEDS: PRENATAL VITAMINS W/ FOLIC ACID TABLET (FP) PO SCH (10:34)
[2017-06-22] MEDS: LACTULOSE 20 GM/30 ML UDC (FOR ORAL USE ONLY) PO SCH ×2 (10:34→21:51)
[2017-06-22] MEDS: NICOTINE 14 MG/24 HOURS TOPICAL PATCH TD SCH (10:34)
[2017-06-22] MEDS: SPIRONOLACTONE 25 MG TABLET (FP) PO SCH ×2 (11:08→18:02)
[2017-06-22] MEDS: FUROSEMIDE 20 MG TABLET (FP) PO SCH (11:08)
[2017-06-22 14:00] LABS: ALBUMIN 2.7 g/dl (3.4-5.0); ANION GAP 10 (8-16); BLOOD UREA NITROGEN 9 mg/dL (7-18); CHLORIDE 100 mmol/L (98-107); CO2 28 mmol/L (21-32); GLUCOSE,RANDOM 101 mg/dL (74-106); POTASSIUM 4.4 mmol/L (3.5-5.1); SODIUM 138 mmol/L (136-145)
[2017-06-22 14:04] LABS: ALK PHOS 140 U/L (45-117); BILIRUBIN,TOTAL 0.6 mg/dL (0.2-1.0); CREATININE 0.7 mg/dL (0.55-1.02); SGOT/AST 29 U/L (15-37); SGPT/ALT 15 U/L (12-78); TOT PROT 7.4 g/dl (6.4-8.2)
[2017-06-22] MEDS: diphenhydrAMINE HCL 50 MG CAPSULE PO PRN (21:49)
[2017-06-22] MEDS: PRAMIPEXOLE DIHYDROCHLORIDE 0.25 MG TABLET PO SCH (21:49)
[2017-06-22] MEDS: THIAMINE HCL 100 MG TABLET (FP) PO SCH (21:49)
[2017-06-23] MEDS ORDERED: PT OWN MED DRAWER 7, Y5N ONE ×2 (05:58→14:19)
[2017-06-23] MEDS: GABAPENTIN 100 MG CAPSULE (FP) PO SCH ×3 (06:46→21:47)
[2017-06-23] MEDS: FUROSEMIDE 40 MG/5 ML UNIT-DOSE CUP PO SCH ×2 (08:18→14:00)
[2017-06-23] MEDS: NICOTINE 14 MG/24 HOURS TOPICAL PATCH TD SCH (10:33)
[2017-06-23] MEDS: LACTULOSE 20 GM/30 ML UDC (FOR ORAL USE ONLY) PO SCH ×2 (10:33→21:47)
[2017-06-23] MEDS: PRENATAL VITAMINS W/ FOLIC ACID TABLET (FP) PO SCH (10:34)
[2017-06-23] MEDS: SPIRONOLACTONE 25 MG TABLET (FP) PO SCH ×2 (10:34→18:03)
[2017-06-23] MEDS: HYDROCORTISONE 1% TOPICAL OINT 30 GM TUBE TP SCH ×4 (10:35→21:48)
[2017-06-23] MEDS: THIAMINE HCL 100 MG TABLET (FP) PO SCH (21:47)
[2017-06-23] MEDS: PRAMIPEXOLE DIHYDROCHLORIDE 0.25 MG TABLET PO SCH (21:47)
[2017-06-23] MEDS: diphenhydrAMINE HCL 50 MG CAPSULE PO PRN (21:47)
[2017-06-24] MEDS ORDERED: PT OWN MED DRAWER 7, Y5N ONE ×5 (03:37→13:23)
[2017-06-24] MEDS: GABAPENTIN 100 MG CAPSULE (FP) PO SCH (06:43)
[2017-06-24] MEDS: FUROSEMIDE 40 MG/5 ML UNIT-DOSE CUP PO SCH ×2 (06:46→13:23)
[2017-06-24] MEDS: PRENATAL VITAMINS W/ FOLIC ACID TABLET (FP) PO SCH (10:19)
[2017-06-24] MEDS: SPIRONOLACTONE 25 MG TABLET (FP) PO SCH ×2 (10:20→18:17)
[2017-06-24] MEDS: LACTULOSE 20 GM/30 ML UDC (FOR ORAL USE ONLY) PO SCH ×2 (10:20→21:39)
[2017-06-24] MEDS: HYDROCORTISONE 1% TOPICAL OINT 30 GM TUBE TP SCH ×4 (10:20→21:40)
[2017-06-24] MEDS: NICOTINE 14 MG/24 HOURS TOPICAL PATCH TD SCH (10:21)
[2017-06-24] MEDS: THIAMINE HCL 100 MG TABLET (FP) PO SCH (21:39)
[2017-06-24] MEDS: diphenhydrAMINE HCL 50 MG CAPSULE PO PRN (21:39)
[2017-06-24] MEDS: PRAMIPEXOLE DIHYDROCHLORIDE 0.25 MG TABLET PO SCH (21:39)
[2017-06-25] MEDS ORDERED: PT OWN MED DRAWER 7, Y5N ONE ×2 (02:56→11:35)
[2017-06-25] MEDS: FUROSEMIDE 40 MG/5 ML UNIT-DOSE CUP PO SCH ×2 (06:48→13:09)
[2017-06-25] MEDS: SPIRONOLACTONE 25 MG TABLET (FP) PO SCH ×2 (10:25→17:06)
[2017-06-25] MEDS: PRENATAL VITAMINS W/ FOLIC ACID TABLET (FP) PO SCH (10:25)
[2017-06-25] MEDS: NICOTINE 14 MG/24 HOURS TOPICAL PATCH TD SCH (10:27)
[2017-06-25] MEDS: LACTULOSE 20 GM/30 ML UDC (FOR ORAL USE ONLY) PO SCH ×2 (10:27→21:33)
[2017-06-25] MEDS: HYDROCORTISONE 1% TOPICAL OINT 30 GM TUBE TP SCH ×4 (10:27→21:34)
[2017-06-25] MEDS: NICOTINE POLACRILEX 2 MG GUM BC PRN (10:29)
[2017-06-25] MEDS: THIAMINE HCL 100 MG TABLET (FP) PO SCH (21:33)
[2017-06-25] MEDS: PRAMIPEXOLE DIHYDROCHLORIDE 0.25 MG TABLET PO SCH (21:34)
[2017-06-25] MEDS: diphenhydrAMINE HCL 50 MG CAPSULE PO PRN (21:34)
[2017-06-26] MEDS: FUROSEMIDE 40 MG/5 ML UNIT-DOSE CUP PO SCH ×2 (06:27→13:21)
[2017-06-26] MEDS: LACTULOSE 20 GM/30 ML UDC (FOR ORAL USE ONLY) PO SCH ×2 (10:26→21:43)
[2017-06-26] MEDS: SPIRONOLACTONE 25 MG TABLET (FP) PO SCH ×2 (10:26→17:22)
[2017-06-26] MEDS: HYDROCORTISONE 1% TOPICAL OINT 30 GM TUBE TP SCH ×4 (10:26→21:44)
[2017-06-26] MEDS: PRENATAL VITAMINS W/ FOLIC ACID TABLET (FP) PO SCH (10:26)
[2017-06-26] MEDS: NICOTINE POLACRILEX 2 MG GUM BC PRN (10:28)
[2017-06-26] MEDS: NICOTINE 14 MG/24 HOURS TOPICAL PATCH TD SCH (10:28)
[2017-06-26] MEDS: PRAMIPEXOLE DIHYDROCHLORIDE 0.25 MG TABLET PO SCH (21:43)
[2017-06-26] MEDS: THIAMINE HCL 100 MG TABLET (FP) PO SCH (21:43)
[2017-06-26] MEDS: diphenhydrAMINE HCL 50 MG CAPSULE PO PRN (21:44)
[2017-06-27] MEDS ORDERED: PT OWN MED DRAWER 7, Y5N ONE ×2 (05:54→12:56)
[2017-06-27] MEDS: FUROSEMIDE 40 MG/5 ML UNIT-DOSE CUP PO SCH ×2 (06:49→13:07)
[2017-06-27] MEDS: LACTULOSE 20 GM/30 ML UDC (FOR ORAL USE ONLY) PO SCH ×2 (10:23→21:32)
[2017-06-27] MEDS: HYDROCORTISONE 1% TOPICAL OINT 30 GM TUBE TP SCH ×4 (10:23→21:33)
[2017-06-27] MEDS: NICOTINE 14 MG/24 HOURS TOPICAL PATCH TD SCH (10:23)
[2017-06-27] MEDS: SPIRONOLACTONE 25 MG TABLET (FP) PO SCH ×2 (10:23→17:51)
[2017-06-27] MEDS: PRENATAL VITAMINS W/ FOLIC ACID TABLET (FP) PO SCH (10:23)
[2017-06-27] MEDS: NICOTINE POLACRILEX 2 MG GUM BC PRN (10:25)
[2017-06-27] MEDS: diphenhydrAMINE HCL 50 MG CAPSULE PO PRN (21:32)
[2017-06-27] MEDS: THIAMINE HCL 100 MG TABLET (FP) PO SCH (21:32)
[2017-06-27] MEDS: PRAMIPEXOLE DIHYDROCHLORIDE 0.25 MG TABLET PO SCH (21:32)
[2017-06-28] MEDS: FUROSEMIDE 40 MG/5 ML UNIT-DOSE CUP PO SCH ×2 (06:33→13:35)
[2017-06-28] MEDS ORDERED: PT OWN MED DRAWER 7, Y5N ONE (08:40)
[2017-06-28] MEDS: LACTULOSE 20 GM/30 ML UDC (FOR ORAL USE ONLY) PO SCH ×2 (10:30→21:42)
[2017-06-28] MEDS: NICOTINE 14 MG/24 HOURS TOPICAL PATCH TD SCH (10:30)
[2017-06-28] MEDS: PRENATAL VITAMINS W/ FOLIC ACID TABLET (FP) PO SCH (10:30)
[2017-06-28] MEDS: SPIRONOLACTONE 25 MG TABLET (FP) PO SCH ×2 (10:30→18:01)
[2017-06-28] MEDS: HYDROCORTISONE 1% TOPICAL OINT 30 GM TUBE TP SCH ×3 (10:31→21:43)
[2017-06-28] MEDS: PRAMIPEXOLE DIHYDROCHLORIDE 0.25 MG TABLET PO SCH (21:42)
[2017-06-28] MEDS: diphenhydrAMINE HCL 50 MG CAPSULE PO PRN (21:42)
[2017-06-28] MEDS: THIAMINE HCL 100 MG TABLET (FP) PO SCH (21:42)
[2017-06-29] MEDS ORDERED: PT OWN MED DRAWER 7, Y5N ONE ×2 (03:26→08:58)
[2017-06-29] MEDS: FUROSEMIDE 40 MG/5 ML UNIT-DOSE CUP PO SCH ×2 (06:42→13:03)
[2017-06-29] MEDS: LACTULOSE 20 GM/30 ML UDC (FOR ORAL USE ONLY) PO SCH ×2 (10:20→21:38)
[2017-06-29] MEDS: HYDROCORTISONE 1% TOPICAL OINT 30 GM TUBE TP SCH ×4 (10:20→21:39)
[2017-06-29] MEDS: SPIRONOLACTONE 25 MG TABLET (FP) PO SCH ×2 (10:20→18:06)
[2017-06-29] MEDS: PRENATAL VITAMINS W/ FOLIC ACID TABLET (FP) PO SCH (10:20)
[2017-06-29] MEDS: NICOTINE 14 MG/24 HOURS TOPICAL PATCH TD SCH (10:21)
[2017-06-29] MEDS: PRAMIPEXOLE DIHYDROCHLORIDE 0.25 MG TABLET PO SCH (21:38)
[2017-06-29] MEDS: THIAMINE HCL 100 MG TABLET (FP) PO SCH (21:38)
[2017-06-29] MEDS: diphenhydrAMINE HCL 50 MG CAPSULE PO PRN (21:39)
[2017-06-30] MEDS: FUROSEMIDE 40 MG/5 ML UNIT-DOSE CUP PO SCH ×2 (06:40→13:22)
[2017-06-30] MEDS: SPIRONOLACTONE 25 MG TABLET (FP) PO SCH ×2 (10:02→17:02)
[2017-06-30] MEDS: PRENATAL VITAMINS W/ FOLIC ACID TABLET (FP) PO SCH (10:02)
[2017-06-30] MEDS: HYDROCORTISONE 1% TOPICAL OINT 30 GM TUBE TP SCH ×4 (10:02→21:23)
[2017-06-30] MEDS: LACTULOSE 20 GM/30 ML UDC (FOR ORAL USE ONLY) PO SCH ×2 (10:02→21:23)
[2017-06-30] MEDS: NICOTINE 14 MG/24 HOURS TOPICAL PATCH TD SCH (10:02)
[2017-06-30] MEDS ORDERED: PT OWN MED DRAWER 7, Y5N ONE ×2 (12:58→16:55)
[2017-06-30] MEDS: PRAMIPEXOLE DIHYDROCHLORIDE 0.25 MG TABLET PO SCH (21:22)
[2017-06-30] MEDS: THIAMINE HCL 100 MG TABLET (FP) PO SCH (21:22)
[2017-06-30] MEDS: diphenhydrAMINE HCL 50 MG CAPSULE PO PRN (21:23)
[2017-07-01] MEDS ORDERED: PT OWN MED DRAWER 7, Y5N ONE ×4 (03:11→12:36)
[2017-07-01] MEDS: FUROSEMIDE 40 MG/5 ML UNIT-DOSE CUP PO SCH ×2 (06:40→13:23)
[2017-07-01] MEDS: SPIRONOLACTONE 25 MG TABLET (FP) PO SCH ×2 (10:29→18:21)
[2017-07-01] MEDS: LACTULOSE 20 GM/30 ML UDC (FOR ORAL USE ONLY) PO SCH ×2 (10:29→21:33)
[2017-07-01] MEDS: NICOTINE 14 MG/24 HOURS TOPICAL PATCH TD SCH (10:29)
[2017-07-01] MEDS: PRENATAL VITAMINS W/ FOLIC ACID TABLET (FP) PO SCH (10:29)
[2017-07-01] MEDS: HYDROCORTISONE 1% TOPICAL OINT 30 GM TUBE TP SCH ×4 (10:30→21:34)
[2017-07-01] MEDS: THIAMINE HCL 100 MG TABLET (FP) PO SCH (21:33)
[2017-07-01] MEDS: diphenhydrAMINE HCL 50 MG CAPSULE PO PRN (21:34)
[2017-07-01] MEDS: PRAMIPEXOLE DIHYDROCHLORIDE 0.25 MG TABLET PO SCH (21:34)
[2017-07-02] MEDS: FUROSEMIDE 40 MG/5 ML UNIT-DOSE CUP PO SCH ×2 (06:56→13:39)
[2017-07-02] MEDS ORDERED: PT OWN MED DRAWER 7, Y5N ONE ×3 (08:52→13:40)
[2017-07-02] MEDS: NICOTINE 14 MG/24 HOURS TOPICAL PATCH TD SCH (10:10)
[2017-07-02] MEDS: SPIRONOLACTONE 25 MG TABLET (FP) PO SCH ×2 (10:11→18:54)
[2017-07-02] MEDS: LACTULOSE 20 GM/30 ML UDC (FOR ORAL USE ONLY) PO SCH ×2 (10:11→21:40)
[2017-07-02] MEDS: PRENATAL VITAMINS W/ FOLIC ACID TABLET (FP) PO SCH (10:11)
[2017-07-02] MEDS: HYDROCORTISONE 1% TOPICAL OINT 30 GM TUBE TP SCH ×4 (10:12→21:41)
[2017-07-02] MEDS: PRAMIPEXOLE DIHYDROCHLORIDE 0.25 MG TABLET PO SCH (21:40)
[2017-07-02] MEDS: diphenhydrAMINE HCL 50 MG CAPSULE PO PRN (21:40)
[2017-07-02] MEDS: THIAMINE HCL 100 MG TABLET (FP) PO SCH (21:40)
[2017-07-03] MEDS ORDERED: PT OWN MED DRAWER 7, Y5N ONE ×2 (05:59→14:08)
[2017-07-03] MEDS: FUROSEMIDE 40 MG/5 ML UNIT-DOSE CUP PO SCH ×2 (06:31→13:24)
[2017-07-03] MEDS: SPIRONOLACTONE 25 MG TABLET (FP) PO SCH ×2 (10:43→19:22)
[2017-07-03] MEDS: HYDROCORTISONE 1% TOPICAL OINT 30 GM TUBE TP SCH ×4 (10:43→21:48)
[2017-07-03] MEDS: PRENATAL VITAMINS W/ FOLIC ACID TABLET (FP) PO SCH (10:43)
[2017-07-03] MEDS: LACTULOSE 20 GM/30 ML UDC (FOR ORAL USE ONLY) PO SCH ×2 (10:43→21:48)
[2017-07-03] MEDS: NICOTINE 14 MG/24 HOURS TOPICAL PATCH TD SCH (10:46)
[2017-07-03] MEDS: THIAMINE HCL 100 MG TABLET (FP) PO SCH (21:47)
[2017-07-03] MEDS: PRAMIPEXOLE DIHYDROCHLORIDE 0.25 MG TABLET PO SCH (21:48)
[2017-07-03] MEDS: diphenhydrAMINE HCL 50 MG CAPSULE PO PRN (21:48)
[2017-07-04] MEDS ORDERED: PT OWN MED DRAWER 7, Y5N ONE ×2 (03:20→12:51)
[2017-07-04] MEDS: FUROSEMIDE 40 MG/5 ML UNIT-DOSE CUP PO SCH ×2 (06:34→13:11)
[2017-07-04] MEDS: NICOTINE 14 MG/24 HOURS TOPICAL PATCH TD SCH (09:59)
[2017-07-04] MEDS: SPIRONOLACTONE 25 MG TABLET (FP) PO SCH ×2 (09:59→17:53)
[2017-07-04] MEDS: PRENATAL VITAMINS W/ FOLIC ACID TABLET (FP) PO SCH (09:59)
[2017-07-04] MEDS: HYDROCORTISONE 1% TOPICAL OINT 30 GM TUBE TP SCH ×4 (10:00→21:39)
[2017-07-04] MEDS: LACTULOSE 20 GM/30 ML UDC (FOR ORAL USE ONLY) PO SCH ×2 (10:00→21:39)
[2017-07-04] MEDS: PRAMIPEXOLE DIHYDROCHLORIDE 0.25 MG TABLET PO SCH (19:57)
[2017-07-04] MEDS: THIAMINE HCL 100 MG TABLET (FP) PO SCH (21:38)
[2017-07-04] MEDS: diphenhydrAMINE HCL 50 MG CAPSULE PO PRN (21:38)
[2017-07-05] MEDS: FUROSEMIDE 40 MG/5 ML UNIT-DOSE CUP PO SCH ×2 (06:36→13:06)
[2017-07-05] MEDS: NICOTINE 14 MG/24 HOURS TOPICAL PATCH TD SCH (09:49)
[2017-07-05] MEDS: SPIRONOLACTONE 25 MG TABLET (FP) PO SCH ×2 (09:49→17:59)
[2017-07-05] MEDS: PRENATAL VITAMINS W/ FOLIC ACID TABLET (FP) PO SCH (09:49)
[2017-07-05] MEDS: LACTULOSE 20 GM/30 ML UDC (FOR ORAL USE ONLY) PO SCH ×2 (09:50→21:24)
[2017-07-05] MEDS: HYDROCORTISONE 1% TOPICAL OINT 30 GM TUBE TP SCH ×4 (09:52→21:28)
[2017-07-05] MEDS ORDERED: PT OWN MED DRAWER 7, Y5N ONE (12:58)
[2017-07-05] MEDS: PRAMIPEXOLE DIHYDROCHLORIDE 0.25 MG TABLET PO SCH (20:00)
[2017-07-05] MEDS: THIAMINE HCL 100 MG TABLET (FP) PO SCH (21:24)
[2017-07-05] MEDS: diphenhydrAMINE HCL 50 MG CAPSULE PO PRN (21:24)
[2017-07-06] MEDS: FUROSEMIDE 40 MG/5 ML UNIT-DOSE CUP PO SCH ×2 (06:46→13:35)
[2017-07-06] MEDS: LACTULOSE 20 GM/30 ML UDC (FOR ORAL USE ONLY) PO SCH ×2 (10:31→21:45)
[2017-07-06] MEDS: PRENATAL VITAMINS W/ FOLIC ACID TABLET (FP) PO SCH (10:31)
[2017-07-06] MEDS: NICOTINE 14 MG/24 HOURS TOPICAL PATCH TD SCH (10:32)
[2017-07-06] MEDS: SPIRONOLACTONE 25 MG TABLET (FP) PO SCH ×2 (10:32→18:01)
[2017-07-06] MEDS: HYDROCORTISONE 1% TOPICAL OINT 30 GM TUBE TP SCH ×4 (10:33→21:46)
[2017-07-06] MEDS ORDERED: PT OWN MED DRAWER 7, Y5N ONE (10:33)
[2017-07-06] MEDS: PRAMIPEXOLE DIHYDROCHLORIDE 0.25 MG TABLET PO SCH (20:50)
[2017-07-06] MEDS: THIAMINE HCL 100 MG TABLET (FP) PO SCH (21:45)
[2017-07-06] MEDS: diphenhydrAMINE HCL 50 MG CAPSULE PO PRN (21:46)
[2017-07-07] MEDS ORDERED: PT OWN MED DRAWER 7, Y5N ONE ×3 (03:11→09:32)
[2017-07-07] MEDS: FUROSEMIDE 40 MG/5 ML UNIT-DOSE CUP PO SCH ×2 (06:45→13:05)
[2017-07-07] MEDS: NICOTINE 14 MG/24 HOURS TOPICAL PATCH TD SCH (10:13)
[2017-07-07] MEDS: SPIRONOLACTONE 25 MG TABLET (FP) PO SCH ×2 (10:14→17:58)
[2017-07-07] MEDS: LACTULOSE 20 GM/30 ML UDC (FOR ORAL USE ONLY) PO SCH ×2 (10:14→21:59)
[2017-07-07] MEDS: PRENATAL VITAMINS W/ FOLIC ACID TABLET (FP) PO SCH (10:14)
[2017-07-07] MEDS: HYDROCORTISONE 1% TOPICAL OINT 30 GM TUBE TP SCH ×4 (10:14→22:00)
[2017-07-07] MEDS: PRAMIPEXOLE DIHYDROCHLORIDE 0.25 MG TABLET PO SCH (19:36)
[2017-07-07] MEDS: diphenhydrAMINE HCL 50 MG CAPSULE PO PRN (21:59)
[2017-07-07] MEDS: THIAMINE HCL 100 MG TABLET (FP) PO SCH (21:59)
[2017-07-08] MEDS: FUROSEMIDE 40 MG/5 ML UNIT-DOSE CUP PO SCH ×2 (07:02→13:02)
[2017-07-08] MEDS ORDERED: PT OWN MED DRAWER 7, Y5N ONE ×2 (08:37→11:00)
[2017-07-08] MEDS: PRENATAL VITAMINS W/ FOLIC ACID TABLET (FP) PO SCH (10:33)
[2017-07-08] MEDS: LACTULOSE 20 GM/30 ML UDC (FOR ORAL USE ONLY) PO SCH ×2 (10:33→21:44)
[2017-07-08] MEDS: SPIRONOLACTONE 25 MG TABLET (FP) PO SCH ×2 (10:33→18:05)
[2017-07-08] MEDS: NICOTINE 14 MG/24 HOURS TOPICAL PATCH TD SCH (10:33)
[2017-07-08] MEDS: HYDROCORTISONE 1% TOPICAL OINT 30 GM TUBE TP SCH ×4 (10:34→21:45)
[2017-07-08] MEDS: PRAMIPEXOLE DIHYDROCHLORIDE 0.25 MG TABLET PO SCH (20:11)
[2017-07-08] MEDS: THIAMINE HCL 100 MG TABLET (FP) PO SCH (21:44)
[2017-07-08] MEDS: diphenhydrAMINE HCL 50 MG CAPSULE PO PRN (21:58)
[2017-07-09] MEDS: FUROSEMIDE 40 MG/5 ML UNIT-DOSE CUP PO SCH ×2 (06:20→13:34)
[2017-07-09] MEDS: PRENATAL VITAMINS W/ FOLIC ACID TABLET (FP) PO SCH (09:17)
[2017-07-09] MEDS: SPIRONOLACTONE 25 MG TABLET (FP) PO SCH ×2 (09:17→18:02)
[2017-07-09] MEDS: NICOTINE 14 MG/24 HOURS TOPICAL PATCH TD SCH (09:17)
[2017-07-09] MEDS: LACTULOSE 20 GM/30 ML UDC (FOR ORAL USE ONLY) PO SCH ×2 (09:17→21:41)
[2017-07-09] MEDS: HYDROCORTISONE 1% TOPICAL OINT 30 GM TUBE TP SCH ×4 (09:18→21:41)
[2017-07-09] MEDS ORDERED: PT OWN MED DRAWER 7, Y5N ONE ×2 (13:01→13:44)
[2017-07-09] MEDS: PRAMIPEXOLE DIHYDROCHLORIDE 0.25 MG TABLET PO SCH (19:24)
[2017-07-09] MEDS: THIAMINE HCL 100 MG TABLET (FP) PO SCH (21:41)
[2017-07-09] MEDS: diphenhydrAMINE HCL 50 MG CAPSULE PO PRN (21:42)
[2017-07-10] MEDS: FUROSEMIDE 40 MG/5 ML UNIT-DOSE CUP PO SCH ×2 (06:26→13:20)
[2017-07-10] MEDS: NICOTINE 14 MG/24 HOURS TOPICAL PATCH TD SCH (10:51)
[2017-07-10] MEDS: LACTULOSE 20 GM/30 ML UDC (FOR ORAL USE ONLY) PO SCH ×2 (10:51→22:00)
[2017-07-10] MEDS: SPIRONOLACTONE 25 MG TABLET (FP) PO SCH ×2 (10:51→17:48)
[2017-07-10] MEDS: HYDROCORTISONE 1% TOPICAL OINT 30 GM TUBE TP SCH ×4 (10:51→22:19)
[2017-07-10] MEDS: PRENATAL VITAMINS W/ FOLIC ACID TABLET (FP) PO SCH (10:51)
[2017-07-10] MEDS ORDERED: PT OWN MED DRAWER 7, Y5N ONE ×3 (12:02→17:37)
[2017-07-10] MEDS: PRAMIPEXOLE DIHYDROCHLORIDE 0.25 MG TABLET PO SCH (19:16)
[2017-07-10] MEDS: THIAMINE HCL 100 MG TABLET (FP) PO SCH (22:00)
[2017-07-10] MEDS: diphenhydrAMINE HCL 50 MG CAPSULE PO PRN (22:00)
[2017-07-11] MEDS: FUROSEMIDE 40 MG/5 ML UNIT-DOSE CUP PO SCH ×2 (06:22→13:21)
[2017-07-11] MEDS: PRENATAL VITAMINS W/ FOLIC ACID TABLET (FP) PO SCH (10:25)
[2017-07-11] MEDS: HYDROCORTISONE 1% TOPICAL OINT 30 GM TUBE TP SCH ×4 (10:25→21:58)
[2017-07-11] MEDS: SPIRONOLACTONE 25 MG TABLET (FP) PO SCH ×2 (10:25→18:05)
[2017-07-11] MEDS: LACTULOSE 20 GM/30 ML UDC (FOR ORAL USE ONLY) PO SCH ×2 (10:25→21:57)
[2017-07-11] MEDS: NICOTINE 14 MG/24 HOURS TOPICAL PATCH TD SCH (10:26)
[2017-07-11] MEDS ORDERED: PT OWN MED DRAWER 7, Y5N ONE (12:05)
[2017-07-11] MEDS: PRAMIPEXOLE DIHYDROCHLORIDE 0.25 MG TABLET PO SCH (19:44)
[2017-07-11] MEDS: THIAMINE HCL 100 MG TABLET (FP) PO SCH (21:57)
[2017-07-11] MEDS: diphenhydrAMINE HCL 50 MG CAPSULE PO PRN (21:57)
[2017-07-12] MEDS: FUROSEMIDE 40 MG/5 ML UNIT-DOSE CUP PO SCH ×2 (06:15→13:31)
[2017-07-12] MEDS: PRENATAL VITAMINS W/ FOLIC ACID TABLET (FP) PO SCH (10:20)
[2017-07-12] MEDS: LACTULOSE 20 GM/30 ML UDC (FOR ORAL USE ONLY) PO SCH ×2 (10:20→21:48)
[2017-07-12] MEDS: NICOTINE 14 MG/24 HOURS TOPICAL PATCH TD SCH (10:20)
[2017-07-12] MEDS: SPIRONOLACTONE 25 MG TABLET (FP) PO SCH ×2 (10:20→19:09)
[2017-07-12] MEDS: HYDROCORTISONE 1% TOPICAL OINT 30 GM TUBE TP SCH ×4 (10:20→21:49)
[2017-07-12] MEDS: PRAMIPEXOLE DIHYDROCHLORIDE 0.25 MG TABLET PO SCH (19:10)
[2017-07-12] MEDS: diphenhydrAMINE HCL 50 MG CAPSULE PO PRN (21:48)
[2017-07-12] MEDS: THIAMINE HCL 100 MG TABLET (FP) PO SCH (21:48)
[2017-07-13] MEDS: FUROSEMIDE 40 MG/5 ML UNIT-DOSE CUP PO SCH ×2 (06:20→14:08)
[2017-07-13] MEDS: HYDROCORTISONE 1% TOPICAL OINT 30 GM TUBE TP SCH ×4 (10:19→21:57)
[2017-07-13] MEDS: SPIRONOLACTONE 25 MG TABLET (FP) PO SCH ×2 (10:19→18:43)
[2017-07-13] MEDS: NICOTINE 14 MG/24 HOURS TOPICAL PATCH TD SCH (10:19)
[2017-07-13] MEDS: PRENATAL VITAMINS W/ FOLIC ACID TABLET (FP) PO SCH (10:19)
[2017-07-13] MEDS: LACTULOSE 20 GM/30 ML UDC (FOR ORAL USE ONLY) PO SCH ×2 (10:19→21:57)
[2017-07-13] MEDS: PRAMIPEXOLE DIHYDROCHLORIDE 0.25 MG TABLET PO SCH (19:37)
[2017-07-13] MEDS: THIAMINE HCL 100 MG TABLET (FP) PO SCH (21:56)
[2017-07-13] MEDS: diphenhydrAMINE HCL 50 MG CAPSULE PO PRN (21:56)
[2017-07-14] MEDS: FUROSEMIDE 40 MG/5 ML UNIT-DOSE CUP PO SCH (06:20)
[2017-07-14 07:07] VITALS: TEMP 98
[2017-07-14] MEDS: PRENATAL VITAMINS W/ FOLIC ACID TABLET (FP) PO SCH (09:51)
[2017-07-14] MEDS: SPIRONOLACTONE 25 MG TABLET (FP) PO SCH (09:51)
[2017-07-14] MEDS: NICOTINE 14 MG/24 HOURS TOPICAL PATCH TD SCH (09:51)
[2017-07-14] MEDS: HYDROCORTISONE 1% TOPICAL OINT 30 GM TUBE TP SCH (09:51)
[2017-07-14] MEDS: LACTULOSE 20 GM/30 ML UDC (FOR ORAL USE ONLY) PO SCH (09:51)
[2017-07-14 10:10] VITALS: BP 113/77; PULSE 95
--- NOTE | 2017-07-14 11:08 | PN ---
[facility] Progress Note Note: patient completed treatment today and was discharged in stable condition, patient is with h/o alcohol and nicotine dependence, Liver cirrhosis, Anemia, BA , patient was referred to [facility] outpatient program.
== END 2017-07-14 09:55 | disposition home or self-care (01) | DRG 772 ==
LOC: YASAS 12:20 → Y3E 16:25
PROVIDERS: ADMIT Psychiatry & Neurology Psychiatry; ATTEND Psychiatry & Neurology Psychiatry
PROC: HZ42ZZZ Group Counseling for Substance Abuse Treatment, Cognitive-Behavioral (ICD-10-PCS; principal; 2017-06-16)
DX: F10.20 Alcohol dependence, uncomplicated (principal); F17.213 Nicotine dependence, cigarettes, with withdrawal; F19.282 Other psychoactive substance dependence with psychoactive substance-induced sleep disorder; J45.22 Mild intermittent asthma with status asthmaticus; K74.60 Unspecified cirrhosis of liver; D52.0 Dietary folate deficiency anemia
CPT/HCPCS: 36415; 80053; 81003; 81015; 82310; 82962; 84132; 85027; 86593; 93005; 93010

== ENCOUNTER 2017-11-14 07:08 | Emergency (ER) | payer OTHER ==
[2017-11-14] MEDS ORDERED: predniSONE 20 MG TABLET (UD) PO ONE (07:54)
[2017-11-14] MEDS ORDERED: ALBUTEROL SO4 2.5/IPRATROPIUM 0.5 INH SOL 3 ML VIAL.NEB. NEB ONE ×2 (07:54→08:52)
[2017-11-14] MEDS: ALBUTEROL SO4 2.5/IPRATROPIUM 0.5 INH SOL 3 ML VIAL.NEB. NEB SCH ×4 (08:00→08:44)
[2017-11-14] MEDS ORDERED: predniSONE 20 MG TABLET (UD) ONE (08:00)
[2017-11-14 08:01] VITALS: TEMP 98.7; BMI 23.3
--- NOTE | 2017-11-14 08:08 | PDOC ---
History of Present Illness - General History Source: Patient - History of Present Illness Timing/Duration: reports: yesterday Associated Symptoms: reports: cough, shortness of breath, wheezing <Jean Pierre Sanders - Last Filed: 11/14/17 12:40> <Dino Perry - Last Filed: 11/14/17 12:45> - General Chief Complaint: Asthma Stated Complaint: ASTHMA Time Seen by Provider: 11/14/17 07:49 Past History - Past Medical History Anemia: Yes Asthma: Yes Cancer: No Cardiac Disorders: No CVA: No COPD: No CHF: No Dementia: No Diabetes: No GI Disorders: No Disorders: No HTN: No Hypercholesterolemia: No Kidney Stones: No Liver Disease: Yes (cirrhosis of the liver) Seizures: No Thyroid Disease: No - Surgical History Abdominal Surgery: Yes (tubal ligation 1991) Appendectomy: No Cardiac Surgery: No Cholecystectomy: No Lung Surgery: No Neurologic Surgery: No Orthopedic Surgery: No - Reproductive History PID: No - Suicide/Smoking/Psychosocial Hx Smoking History: Unknown if ever smoked Have you smoked in the past 12 months: Yes Number of Cigarettes Smoked Daily: 4 Cigars Per Day: 0 'Breaking Loose' booklet given: 06/16/17 Hx Alcohol Use: Yes (reports drinking since 2008,vodka 1,5 pint of daily) Drug/Substance Use Hx: No (stopped cocaine/crack in 1992) Substance Use Type: Alcohol Hx Substance Use Treatment: Yes (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, 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) <Jean Pierre Sanders - Last Filed: 11/14/17 12:40> <Dino Perry - Last Filed: 11/14/17 12:45> - Past Medical History Allergies/Adverse Reactions: Allergies Allergy/AdvReac Type Severity Reaction Status Date / Time No Known Allergies Allergy Verified 11/14/17 07:40 Home Medications: Ambulatory Orders Albuterol Sulfate Inhaler - [Ventolin HFA Inhaler -] 2 puff IH Q4H PRN #1 inhaler 10/08/17 Furosemide [Lasix -] 20 mg PO DAILY #30 tablet 10/08/17 Lactulose (Oral Use) [Cephulac -] 20 gm PO BID #60 udc 10/08/17 Loratadine [Claritin -] 10 mg PO Q48H PRN #15 tablet 10/08/17 Spironolactone [Aldactone] 0.5 tab PO DAILY #15 tablet 10/08/17 Prednisone [Prednisone 50 MG TABLETS] 50 mg PO DAILY #4 tablet 11/14/17 Respiratory Specific PMHX - Complaint Specific PMHX TB (Tuberculosis): No <Jean Pierre Sanders - Last Filed: 11/14/17 12:40> Review of Systems - Review of Systems Constitutional: No: Chills, Fever Respiratory: Yes: Cough, Shortness of Breath, Wheezing Cardiac (ROS): Yes: Chest Tightness <Jean Pierre Sanders - Last Filed: 11/14/17 12:40> *Physical Exam - Vital Signs Last Vital Signs Temp Pulse Resp BP Pulse Ox 98.7 F 83 18 142/91 98 11/14/17 07:15 11/14/17 07:15 11/14/17 07:15 11/14/17 07:15 11/14/17 07:15 - Physical Exam General Appearance: Yes: Appropriately Dressed. No: Apparent Distress HEENT: positive: Normal Voice Respiratory/Chest: positive: Respiratory Distress, Wheezing Cardiovascular: positive: Regular Rate, S1, S2 Integumentary: positive: Dry, Warm Neurologic: positive: Fully Oriented, Alert, Normal Mood/Affect <Jean Pierre Sanders - Last Filed: 11/14/17 12:40> - Vital Signs Last Vital Signs Temp Pulse Resp BP Pulse Ox 98.7 F 117 H 16 140/84 96 11/14/17 09:50 11/14/17 11:47 11/14/17 11:47 11/14/17 11:47 11/14/17 11:47 <Dino Perry - Last Filed: 11/14/17 12:45> ED Treatment Course - LABORATORY CBC & Chemistry Diagram: 11/14/17 10:30 11/14/17 10:30 - RADIOLOGY Radiology Studies Ordered: Category Date Time Status CHEST PA & LAT [RAD] Stat Radiology 11/14/17 07:53 Ordered <Jean Pierre Sanders - Last Filed: 11/14/17 12:40> - LABORATORY CBC & Chemistry Diagram: 11/14/17 10:30 11/14/17 10:30 - ADDITIONAL ORDERS Additional order review: Laboratory Results 11/14/17 11/14/1711/14/18 10:30 10:30 08:22 Sodium 141 Potassium 3.8 Chloride 109 H Carbon Dioxide 24 Anion Gap 8 BUN 11 Creatinine 0.9 Creat Clearance w eGFR > 60 Random Glucose 137 H Calcium 8.2 L Total Bilirubin 0.2 AST 39 H ALT 35 Alkaline Phosphatase 147 H Creatine Kinase 109 Troponin I < 0.02 Total Protein 7.1 Albumin 3.4 Urine HCG, Qual Negative Alcohol, Quantitative < 5.0 11/14/17 10:30 RBC 3.71 MCV 92.6 MCHC 34.3 RDW 14.9 MPV 9.2 D Neutrophils % 82.4 D Lymphocytes % 11.1 D Monocytes % 3.9 Eosinophils % 2.0 Basophils % 0.6 - Medications Given in the ED: ED Medications Discontinued Medications Generic Name Dose Route Start Last Admin Trade Name Freq PRN Reason Stop Dose Admin Albuterol/Ipratropium 1 amp 11/14/17 08:00 11/14/17 08:44 Duoneb - NEB 11/14/17 08:46 1 amp Q15M MOODY Administration Sodium Chloride 500 mls @ 500 mls/hr 11/14/17 10:24 11/14/17 10:25 Normal Saline - IV 11/14/17 11:23 500 mls/hr ASDIR STA Administration Magnesium Sulfate 2 gm 11/14/17 10:21 11/14/17 10:23 Magnesium Sulfate IVPB 11/14/17 10:22 2 gm ONCE ONE Administration Prednisone 60 mg 11/14/17 07:54 11/14/17 08:11 Deltasone - PO 11/14/17 07:55 60 mg ONCE ONE Administration <Dino Perry - Last Filed: 11/14/17 12:45> Medical Decision Making - Critical Care Time Total Critical Care Time (minutes): 35 Critical Care Statement: The care of this patient involved high complexity decision making to prevent further life threatening deterioration of the patient 's condition and/or to evaluate & treat vital organ system(s) failure or risk of failure. - Medical Decision Making 11/14/17 07:55 47-year-old female, history of ETOH abuse, cirrhosis, anemia, asthma, ~20 pack year hx, here with shortness of breath with wheezing and cough since yesterday, similar to her asthma. Pt denies any fever or chills. She states she has not had an asthma flare in several years and in fact did not have any asthma meds at home until recently when her doctor prescribed her an albuterol pump. States she has been using her pump since yesterday with no relief of symptoms. No history of intubation See exam Asthma exacerbation Tachy to 112, in NAD w/ diffuse exp wheeze on exam -duoneb -pred -cxr -reassess 11/14/17 10:20 Chest x-ray negative. On reassessment, patient continues to complain of wheezing and chest tightness with diffuse wheezing on exam. Will place IV, check labs and give mag at this time. Dispo pending, pt states she would rather not be admitted if possible 11/14/17 10:30 11/14/17 11:47 Labs unremarkable. Patient still with some mild wheezing and now agrees to be admitted to OBs. HR 117, doubt ETOH withdrawal as pt reports last ETOH intake was 06/11 after a stint in rehab. ETOH lvl <0.5 on labs. Tachycardia m/l 2/2 nebs. A/w call back from hosp to admit 11/14/17 12:40 Case d/w Dr Land, states she will come see pt and decide dispo <Jean Pierre Sanders - Last Filed: 11/14/17 12:40> *DC/Admit/Observation/Transfer <Jean Pierre Sanders - Last Filed: 11/14/17 12:40> - Discharge Dispostion Decision to Admit order: No Decision to Admit order Date/Time: Decision to Admit Order Category Date Time Status Decision to Admit to Hospital Routine Admission 11/14/17 12:42 Active <Dino Perry - Last Filed: 11/14/17 12:45> Diagnosis at time of Disposition: Asthma Qualifiers: Asthma severity: moderate Asthma persistence: unspecified Asthma complication type: with acute exacerbation Qualified Code(s): J45.901 - Unspecified asthma with (acute) exacerbation - Discharge Dispostion Condition at time of disposition: Fair - Referrals Referrals: Stacie Knowles ATTENDANT [facility] [Primary Care Provider] - - Patient Instructions Printed Discharge Instructions: Asthma -- Adult - Post Discharge Activity
[2017-11-14] MEDS ORDERED: MAGNESIUM SULF 50% (8.12 MEQ/2 ML-1 GM VIAL) IVPB ONE (10:21)
[2017-11-14] MEDS ORDERED: SODIUM CHLORIDE 500 ML IV STA ×2 (10:24→11:57)
[2017-11-14] MEDS ORDERED: MAGNESIUM 1GM/D5W - 2 GM/200 ML IVPB IVPB ONE (10:27)
[2017-11-14 10:44] LABS: BASO % 0.6 % (0-2.0); HEMATOCRIT 34.3 % (32.4-45.2); HEMOGLOBIN 11.8 GM/dL (10.7-15.3); LYMPH % 11.1 % (8-40); MCH 31.7 pg (25.7-33.7); MCHC 34.3 g/dl (32.0-36.0); MEAN CELL VOLUME 92.6 fl (80-96); MEAN PLT VOLUME 9.2 fl (7.5-11.1); MONO % 3.9 % (3.8-10.2); NEUT % 82.4 % (42.8-82.8); PLATELET COUNT 165 K/MM3 (134-434); RBC 3.71 M/mm3 (3.60-5.2); RDW 14.9 % (11.6-15.6); WHITE BLOOD COUNT 7.7 K/mm3 (4.0-10.0)
[2017-11-14 11:22] LABS: ALBUMIN 3.4 g/dl (3.4-5.0); ANION GAP 8 (8-16); BILIRUBIN,TOTAL 0.2 mg/dL (0.2-1.0); BLOOD UREA NITROGEN 11 mg/dL (7-18); CALCIUM 8.2 mg/dL (8.5-10.1); CHLORIDE 109 mmol/L (98-107); CO2 24 mmol/L (21-32); CREATININE 0.9 mg/dL (0.55-1.02); GLUCOSE,RANDOM 137 mg/dL (74-106); SGPT/ALT 35 U/L (12-78); SODIUM 141 mmol/L (136-145); TOT PROT 7.1 g/dl (6.4-8.2)
[2017-11-14 11:25] LABS: ALK PHOS 147 U/L (45-117)
[2017-11-14 11:33] LABS: POTASSIUM 3.8 mmol/L (3.5-5.1)
[2017-11-14 11:34] LABS: SGOT/AST 39 U/L (15-37)
[2017-11-14 11:48] VITALS: BP 140/84; PULSE 117
--- NOTE | 2017-11-16 21:54 | EKG ---
Test Reason : Blood Pressure : / mmHG Vent. Rate : 117 BPM Atrial Rate : 117 BPM P-R Int : 122 ms QRS Dur : 080 ms QT Int : 350 ms P-R-T Axes : 056 000 033 degrees QTc Int : 488 ms SINUS TACHYCARDIA RIGHT ATRIAL ENLARGEMENT BORDERLINE ECG WHEN COMPARED WITH ECG OF 16-JUN-2017 23:29, T WAVE VARIATION Confirmed by ALDO BALLESTEROS MD ([id number]) on 11/16/2017 9:53:37 PM Referred By: Confirmed By:ALDO BALLESTEROS MD
== END 2017-11-14 13:08 | disposition home or self-care (01) ==
LOC: JER 07:08
DX: J45.901 Unspecified asthma with (acute) exacerbation (principal); K74.60 Unspecified cirrhosis of liver; D64.9 Anemia, unspecified
CPT/HCPCS: 36415; 71046-TC-FY; 80053; 80307; 82550; 84484; 84703; 85025; 93005; 93010; 99283-25; J7620

== ENCOUNTER 2018-08-07 08:58 | Emergency (ER) | payer SELFPAY ==
[2018-08-07 09:09] VITALS: BMI 24.1
[2018-08-07] MEDS ORDERED: ONDANSETRON 4 MG/2 ML VIAL ONE ×2 (09:37→11:16)
[2018-08-07] MEDS: ONDANSETRON 4 MG/2 ML VIAL IVPUSH PRN ×2 (09:40→11:24)
[2018-08-07] MEDS ORDERED: ACETAMINOPHEN 1000 MG/100 ML VIAL (NON FORMULARY) IVPB ONE (09:49)
[2018-08-07] MEDS ORDERED: SODIUM CHLORIDE 1,000 ML IV STA (09:49)
[2018-08-07] MEDS ORDERED: ACETAMINOPHEN INJECTION 100 ML IVPB ONE (09:50)
--- NOTE | 2018-08-07 10:22 | PDOC ---
History of Present Illness - General Chief Complaint: Pain, Acute Stated Complaint: ABD PAIN Time Seen by Provider: 08/07/18 09:33 History Source: Patient Exam Limitations: No Limitations - History of Present Illness Initial Comments: 08/07/18 10:18 48 yo female pmh of ETOH abuse (over 14 months sober) cirrhosis, anemia, asthma and uterine fibroids presents to the ED for 1 day of diffuse abdominal cramping 3 episodes NB/NB vomiting today. Of note pt had similar episodes, 2 times over the last month that was of the same quality and intensity but resolved within 1 day without medication or PCP f/u. Pain described as constant cramping, worse in the LLQ with radiation to the left mid back. Denies burning/frequency/pain on urination, changes in bowel habits, F/C, vaginal pain/discharge, recent travel or illness, sick contacts, LMP 2 weeks ago, last couple cycles have been irregular, pain not similar to menstrual cramps in the past. Past History - Past Medical History Allergies/Adverse Reactions: Allergies Allergy/AdvReac Type Severity Reaction Status Date / Time No Known Allergies Allergy Verified 08/07/18 09:03 Home Medications: Ambulatory Orders NK [No Known Home Medication] 08/07/18 Anemia: Yes Asthma: Yes Cancer: No Cardiac Disorders: No CVA: No COPD: No CHF: No Dementia: No Diabetes: No GI Disorders: No Disorders: No HTN: No Hypercholesterolemia: No Kidney Stones: No Liver Disease: Yes (cirrhosis of the liver) Seizures: No Thyroid Disease: No - Surgical History Abdominal Surgery: Yes (tubal ligation 1991) Appendectomy: No Cardiac Surgery: No Cholecystectomy: No Lung Surgery: No Neurologic Surgery: No Orthopedic Surgery: No - Reproductive History PID: No - Immunization History Immunization Up to Date: No - Suicide/Smoking/Psychosocial Hx Smoking History: Current some day smoker Have you smoked in the past 12 months: Yes Number of Cigarettes Smoked Daily: 5 Cigars Per Day: 0 Information on smoking cessation initiated: Yes 'Breaking Loose' booklet given: 06/16/17 Hx Alcohol Use: Yes (etoh abuse, sober x months) Drug/Substance Use Hx: No Substance Use Type: Alcohol Hx Substance Use Treatment: Yes (completed [facility] treatment in 1992, 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) *Physical Exam - Vital Signs Last Vital Signs Temp Pulse Resp BP Pulse Ox 98.4 F 88 18 195/102 H 99 08/07/18 08:58 08/07/18 08:58 08/07/18 08:58 08/07/18 08:58 08/07/18 08:58 Moderate Sedation - Procedure Monitoring Vital Signs: Procedure Monitoring Vital Signs Temperature 98.4 F 08/07/18 08:58 Pulse Rate 88 08/07/18 08:58 Respiratory Rate 18 08/07/18 08:58 Blood Pressure 195/102 H 08/07/18 08:58 O2 Sat by Pulse Oximetry (%) 99 08/07/18 08:58 ED Treatment Course - LABORATORY CBC & Chemistry Diagram: 08/07/18 10:01 08/07/18 10:01 - Medications Given in the ED: ED Medications Discontinued Medications Generic Name Dose Route Start Last Admin Trade Name Freq PRN Reason Stop Dose Admin Acetaminophen 1,000 mg 08/07/18 09:49 08/07/18 10:06 Ofirmev Injection - IVPB 08/07/18 09:50 1,000 mg ONCE ONE Administration Medical Decision Making - Medical Decision Making 08/07/18 12:45 48 yo female presents for 1 day of intense crampy abdominal pain. Known hx of uterine fibroids DDX INLT: ovarian torsion, diverticulitis, renal stone TV US negative for torsion or acute findings Abd/pel non con ordered *DC/Admit/Observation/Transfer Diagnosis at time of Disposition: Abdominal pain, Gall stone - Discharge Dispostion Disposition: HOME Condition at time of disposition: Stable Decision to Admit order: No - Referrals Referrals: Stacie Knowles NP [Primary Care Provider] - Torsten Ricardo MD [Staff Physician] - - Patient Instructions Printed Discharge Instructions: DI for Gallstones, DI for Abdominal Pain-Adult Additional Instructions: Please go to your appointment ThursdayAugust 11 at [address] Ricardo. The office is expecting you. Please make an appointment with your primary doctor within the next 48 hours. take over the counter Motrin for your abdominal pain as needed. Return to the ER for new or concerning symptoms including but not limited to: high fevers, worsening abdominal pain or inability to eat or drink. Thank you - Post Discharge Activity
[2018-08-07 10:41] LABS: BASO % 1.5 % (0-2.0); EOS % 1.8 % (0-4.5); HEMATOCRIT 38.3 % (32.4-45.2); HEMOGLOBIN 13.1 GM/dL (10.7-15.3); MCH 31.5 pg (25.7-33.7); MCHC 34.1 g/dl (32.0-36.0); MEAN CELL VOLUME 92.4 fl (80-96); MONO % 5.1 % (3.8-10.2); NEUT % 52.6 % (42.8-82.8); PLATELET COUNT 236 K/MM3 (134-434); RBC 4.14 M/mm3 (3.60-5.2); RDW 14.4 % (11.6-15.6); WHITE BLOOD COUNT 9.1 K/mm3 (4.0-10.0)
[2018-08-07 10:43] LABS: URINE APPEARANCE CLEAR; URINE BILIRUBIN NEGATIVE (<2.0 mg/dL); URINE COLOR STRAW; URINE GLUCOSE (UA) NEGATIVE (NEGATIVE); URINE KETONE NEGATIVE (NEGATIVE); URINE LEUK ESTERASE NEGATIVE (NEGATIVE); URINE NITRITE NEGATIVE (NEGATIVE); URINE PROTEIN NEGATIVE (NEGATIVE); URINE UROBILINOGEN NEGATIVE mg/dL (0.2-1.0)
[2018-08-07 11:11] LABS: ALK PHOS 152 U/L (45-117); ANION GAP 6 MMOL/L (8-16); BILIRUBIN,TOTAL 0.3 mg/dL (0.2-1); BLOOD UREA NITROGEN 14 mg/dL (7-18); CALCIUM 9.4 mg/dL (8.5-10.1); CHLORIDE 106 mmol/L (98-107); CO2 27 mmol/L (21-32); CREATININE 0.9 mg/dL (0.55-1.3); GLUCOSE,RANDOM 103 mg/dL (74-106); LIPASE 68 U/L (73-393); POTASSIUM 4.3 mmol/L (3.5-5.1); SGOT/AST 38 U/L (15-37); SGPT/ALT 51 U/L (13-61); SODIUM 140 mmol/L (136-145); TOT PROT 7.8 g/dl (6.4-8.2)
[2018-08-07] MEDS ORDERED: KETOROLAC TROMETHAMINE 30 MG/1 ML VIAL IVPUSH ONE (11:14)
[2018-08-07] MEDS ORDERED: KETOROLAC TROMETHAMINE 30 MG/1 ML VIAL ONE (11:16)
[2018-08-07 11:33] LABS: COCAINE, UR NEGATIVE ng/ml (CUTOFF=300); METHADONE, UR NEGATIVE ng/ml (CUTOFF=300); OPIATES, URI NEGATIVE ng/ml (CUTOFF=300); PHENCYCLIDINE,URINE NEGATIVE ng/ml (CUTOFF=25); URINE AMPHETAMINES NEGATIVE ng/ml (CUTOFF=500); URINE BARBITURATES NEGATIVE ng/ml (CUTOFF=200); URINE BENZODIAZEPINES NEGATIVE ng/ml (CUTOFF=200)
--- NOTE | 2018-08-07 11:40 | PDOC ---
Attending Attestation - Resident Resident Name: Yuri Castillo - ED Attending Attestation I have performed the following: I have examined & evaluated the patient, The case was reviewed & discussed with the resident, I agree w/resident's findings & plan - HPI HPI: 08/07/18 11:37 48-year-old female with history of substance abuse now in remission presents with acute onset of left pelvic pain that awoke her from sleep around 6:30 AM. Pain has been a constant mild pain with intermittent sharp exacerbations, begins in the left pelvis and radiates to the back, associated with nausea and retching/vomiting. No fevers or chills, no urinary complaints, no recent diarrhea or constipation, presents for evaluation. On review of past presentations, patient does have history of ovarian cysts. - Physicial Exam PE: 08/07/18 11:38 Vitals as noted, afebrile Urine negative Alert, no jaundice or pallor Abdomen is soft/nondistended. Very local tenderness in the left lower pelvis, no guarding or rebound. No CVA tenderness, no palpable hernia, no rash. - Medical Decision Making 08/07/18 11:39 48-year-old female with acute left pelvic pain that awoke her from sleep, intermittent since then with nausea/retching. Afebrile, not . 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 Labs are within normal limits, including lipase Urinalysis is clear with no blood Pain control, IV fluids Transvaginal ultrasound Reassess
[2018-08-07 15:12] VITALS: BP 134/80; PULSE 74; TEMP 98.3
== END 2018-08-07 16:21 | disposition home or self-care (01) ==
LOC: JER 08:58
PROC: 3E033GC Introduction of Other Therapeutic Substance into Peripheral Vein, Percutaneous Approach (ICD-10-PCS; principal; 2018-08-07)
PROC: 3E0337Z Introduction of Electrolytic and Water Balance Substance into Peripheral Vein, Percutaneous Approach (ICD-10-PCS; 2018-08-07)
PROC: 3E033NZ Introduction of Analgesics, Hypnotics, Sedatives into Peripheral Vein, Percutaneous Approach (ICD-10-PCS; 2018-08-07)
PROC: 3E0333Z Introduction of Anti-inflammatory into Peripheral Vein, Percutaneous Approach (ICD-10-PCS; 2018-08-07)
DX: K80.20 Calculus of gallbladder without cholecystitis without obstruction (principal); D25.9 Leiomyoma of uterus, unspecified; D64.9 Anemia, unspecified; J45.909 Unspecified asthma, uncomplicated; K74.60 Unspecified cirrhosis of liver; F17.210 Nicotine dependence, cigarettes, uncomplicated; F10.21 Alcohol dependence, in remission
CPT/HCPCS: 36415; 74176-TC; 76830-TC; 80053; 80307; 81003; 83690; 84703; 85025; 87086; 99284-25; J0131; J7030

== ENCOUNTER 2018-08-11 03:14 | Inpatient (IN) | payer OTHER ==
[2018-08-11 07:14] LABS: URINE APPEARANCE CLEAR; URINE BILIRUBIN NEGATIVE (<2.0 mg/dL); URINE COLOR STRAW; URINE GLUCOSE (UA) NEGATIVE (NEGATIVE); URINE KETONE NEGATIVE (NEGATIVE); URINE LEUK ESTERASE NEGATIVE (NEGATIVE); URINE NITRITE NEGATIVE (NEGATIVE); URINE PROTEIN NEGATIVE (NEGATIVE); URINE UROBILINOGEN NEGATIVE mg/dL (0.2-1.0)
[2018-08-11 08:01] LABS: HCG,QUALITATIVE URINE Negative
[2018-08-11] MEDS ORDERED: ONDANSETRON 4 MG/2 ML VIAL IVPB ONE (08:23)
[2018-08-11] MEDS ORDERED: SODIUM CHLORIDE 1,000 ML IV STA ×2 (08:23→11:07)
[2018-08-11] MEDS ORDERED: KETOROLAC TROMETHAMINE 30 MG/1 ML VIAL IVPUSH ONE (08:24)
[2018-08-11] MEDS ORDERED: morphine CARPU-JECT 4 MG/1 ML DISP.SYRIN IVPUSH ONE (08:24)
--- NOTE | 2018-08-11 08:27 | PDOC ---
History of Present Illness - General History Source: Patient Exam Limitations: No Limitations - History of Present Illness Initial Comments: 08/11/18 08:43 The patient is a [id number], with a past medical history of anemia, asthma, EtOH abuse (14 months sober), liver cirrhosis, and uterine fibroids, who presents to the ED for evaluation of abdominal pain and vomiting that began at 1 :45 AM this morning. Patient states that she is experiencing soreness in the RUQ with radiation to the back. She reports multiple episodes of nonbloody/ nonbilious vomiting today. Patient was seen here on Monday 08/07 for similar symptoms and had an US taken that was +gallstones. Last menstrual period was at the end of June. The patient denies any fevers, chills, diarrhea, or constipation. Denies any chest pain or shortness of breath. Denies any urinary symptoms. Allergies: NKA Social History: Hx EtOH abuse (sober for 14 months). Surgical History: Tubal ligation - 1991 PCP: Dr. Stacie Knowles <Jennifer Camlio - Last Filed: 08/11/18 10:58> <Gregory Fung - Last Filed: 08/11/18 13:14> - General Chief Complaint: Pain, Acute Stated Complaint: ABD PAIN Time Seen by Provider: 08/11/18 08:12 Past History <Jennifer Camilo - Last Filed: 08/11/18 10:58> - Past Medical History Anemia: Yes Asthma: Yes Cancer: No Cardiac Disorders: No CVA: No COPD: No CHF: No Dementia: No Diabetes: No GI Disorders: No Disorders: No HTN: No Hypercholesterolemia: No Kidney Stones: No Liver Disease: Yes (cirrhosis of the liver) Seizures: No Thyroid Disease: No - Surgical History Abdominal Surgery: Yes (tubal ligation 1991) Appendectomy: No Cardiac Surgery: No Cholecystectomy: No Lung Surgery: No Neurologic Surgery: No Orthopedic Surgery: No - Reproductive History PID: No - Immunization History Immunization Up to Date: No - Suicide/Smoking/Psychosocial Hx Smoking History: Current some day smoker Have you smoked in the past 12 months: Yes Number of Cigarettes Smoked Daily: 10 Cigars Per Day: 0 Information on smoking cessation initiated: No 'Breaking Loose' booklet given: 06/16/17 Hx Alcohol Use: Yes (Occasional) Drug/Substance Use Hx: Yes Substance Use Type: Alcohol Hx Substance Use Treatment: Yes (completed prison treatment in 1992, 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) <KentonGregory - Last Filed: 08/11/18 13:14> - Past Medical History Allergies/Adverse Reactions: Allergies Allergy/AdvReac Type Severity Reaction Status Date / Time No Known Allergies Allergy Verified 08/11/18 05:06 Home Medications: Ambulatory Orders NK [No Known Home Medication] 08/07/18 Abd/GI Specific PMHX - Complaint Specific PMHX Hepatitis: No Pancreatitis: No <KentonGregory - Last Filed: 08/11/18 13:14> Review of Systems - Review of Systems Able to Perform ROS?: Yes Comments:: 08/11/18 08:44 CONSTITUTIONAL: No fever, no chills, no fatigue EYES: No visual changes ENT: No ear pain, no sore throat CARDIOVASCULAR: No chest pain, no palpitations RESPIRATORY: No cough, no SOB GI: (+)Abdominal pain, nausea, vomiting. No constipation, no diarrhea GENITOURINARY: No dysuria, no frequency, no hematuria MUSKULOSKELETAL: (+)Back pain. No joint pain, no myalgias SKIN: No rash NEURO: No headache <Jennifer Camilo - Last Filed: 08/11/18 10:58> *Physical Exam - Vital Signs Last Vital Signs Temp Pulse Resp BP Pulse Ox 98.1 F 79 18 198/110 H 100 08/11/18 07:20 08/11/18 07:20 08/11/18 07:20 08/11/18 07:20 08/11/18 07:20 - Physical Exam Comments: 08/11/18 08:52 CONSTITUTIONAL: Well-appearing; well-nourished; in no apparent distress HEAD: Normocephalic; atraumatic EYES: PERRL; EOM intact ENMT: External appears normal; normal oropharynx NECK: Supple; non-tender; no cervical lymphadenopathy CARD: Normal S1, S2; no murmurs, rubs, or gallops RESP: Normal chest excursion with respiration; breath sounds clear and equal bilaterally; no wheezes, rhonchi, or rales ABD: (+)Severe RUQ pain, +Moraes's sign. Soft, non-distended; no palpable organomegaly, no palpable hernias EXT: Normal ROM in all four extremities; non-tender to palpation; distal pulses intact SKIN: Warm, dry, no rash NEURO: No focal neurological deficiencies. <Jennifer Camilo - Last Filed: 08/11/18 10:58> - Vital Signs Last Vital Signs Temp Pulse Resp BP Pulse Ox 98.1 F 79 18 198/110 H 100 08/11/18 07:20 08/11/18 07:20 08/11/18 07:20 08/11/18 07:20 08/11/18 07:20 <Gregory Fung - Last Filed: 08/11/18 13:14> Moderate Sedation - Procedure Monitoring Vital Signs: Procedure Monitoring Vital Signs Temperature 98.1 F 08/11/18 07:20 Pulse Rate 79 08/11/18 07:20 Respiratory Rate 18 08/11/18 07:20 Blood Pressure 198/110 H 08/11/18 07:20 O2 Sat by Pulse Oximetry (%) 100 08/11/18 07:20 <Jennifer Camilo - Last Filed: 08/11/18 10:58> - Procedure Monitoring Vital Signs: Procedure Monitoring Vital Signs Temperature 98.1 F 08/11/18 07:20 Pulse Rate 79 08/11/18 07:20 Respiratory Rate 18 08/11/18 07:20 Blood Pressure 198/110 H 08/11/18 07:20 O2 Sat by Pulse Oximetry (%) 100 08/11/18 07:20 <Gregory Fung - Last Filed: 08/11/18 13:14> ED Treatment Course - LABORATORY CBC & Chemistry Diagram: 08/11/18 08:52 08/11/18 08:52 - ADDITIONAL ORDERS Additional order review: Laboratory Results 08/11/18 06:50 Urine Color Straw Urine Appearance Clear Urine pH 8.0 Ur Specific [place] 1.011 Urine Protein Negative Urine Glucose (UA) Negative Urine Ketones Negative Urine Blood Negative Urine Nitrite Negative Urine Bilirubin Negative Urine Urobilinogen Negative Ur Leukocyte Esterase Negative Urine HCG, Qual Negative <Jennifer Camilo - Last Filed: 08/11/18 10:58> - LABORATORY CBC & Chemistry Diagram: 08/11/18 08:52 08/11/18 08:52 - ADDITIONAL ORDERS Additional order review: Laboratory Results 08/11/18 06:50 Urine Color Straw Urine Appearance Clear Urine pH 8.0 Ur Specific [place] 1.011 Urine Protein Negative Urine Glucose (UA) Negative Urine Ketones Negative Urine Blood Negative Urine Nitrite Negative Urine Bilirubin Negative Urine Urobilinogen Negative Ur Leukocyte Esterase Negative Urine HCG, Qual Negative - RADIOLOGY Radiology Studies Ordered: Category Date Time Status ABDOMEN US -LIMITED [US] Stat Ultrasound 08/11/18 08:24 Ordered <Gregory Fung - Last Filed: 08/11/18 13:14> Medical Decision Making - Medical Decision Making 08/11/18 10:58 GI paged via phone service. Awaiting call back. <Jennifer Camilo - Last Filed: 08/11/18 10:58> - Medical Decision Making 08/11/18 10:50 Patient is a 48-year-old female with history of chronic pancreatitis, cholelithiasis who presents with atraumatic sharp right upper quadrant abdominal pain radiating to the back. Symptoms are consistent with biliary colic. Patient's hypotensive and afebrile initial evaluation with a positive Moraes's. Ultrasound reveals sludge and small calculi within the gallbladder without evidence of acute cholecystitis. Prominent pancreatic duct is noted without an obvious obstruction. CBC reveals WBCs of 10.2 which appears to increase from 9.14 days previously. Patient's AST is mildly elevated and alkaline phosphatase is elevated as well but appears to be at baseline. Patient' s symptoms may be related to choledocholithiasis or pancreatic obstruction. Will discuss with GI for possible admission for IV antibiotics and MRCP. We'll administer pain meds, antiemetics and IV fluids. <Gregory Fung - Last Filed: 08/11/18 13:14> *DC/Admit/Observation/Transfer - Attestations Scribe Attestion: 08/11/18 08:55 Documentation prepared by Jennifer Camilo, acting as vice president medical affairs for Gregory Fung MD. <Jennifer Camilo - Last Filed: 08/11/18 10:58> - Discharge Dispostion Decision to Admit order: Yes - Attestations Physician Attestion: 08/11/18 10:49 The documentation was prepared by the scribe under my direct supervision. I have reviewed the documentation which correctly represents the findings, medical decision-making and critical action taken by me. <Gregory Fung - Last Filed: 08/11/18 13:14> Diagnosis at time of Disposition: Pancreatic duct obstruction Gall stone Qualifiers: Cholecystitis presence: without cholecystitis Biliary obstruction: without biliary obstruction Qualified Code(s): K80.20 - Calculus of gallbladder without cholecystitis without obstruction Nausea and vomiting Qualifiers: Vomiting type: unspecified Vomiting Intractability: non-intractable Qualified Code(s): R11.2 - Nausea with vomiting, unspecified - Discharge Dispostion Condition at time of disposition: Fair - Referrals Referrals: Stacie Knowles, HEAT REGULATOR [Primary Care Provider] - - Patient Instructions - Post Discharge Activity
[2018-08-11] MEDS ORDERED: KETOROLAC TROMETHAMINE 15 MG/ML VIAL ONE (08:35)
[2018-08-11] MEDS ORDERED: morphine SULFATE 4 MG/ML VIAL ONE (08:35)
[2018-08-11] MEDS ORDERED: ONDANSETRON 4 MG/2 ML VIAL ONE (08:36)
[2018-08-11 09:00] LABS: BASO % 0.8 % (0-2.0); EOS % 0.4 % (0-4.5); HEMATOCRIT 36.7 % (32.4-45.2); HEMOGLOBIN 12.8 GM/dL (10.7-15.3); LYMPH % 16.4 % (8-40); MCH 31.4 pg (25.7-33.7); MCHC 34.8 g/dl (32.0-36.0); MEAN CELL VOLUME 90.1 fl (80-96); MEAN PLT VOLUME 10.1 fl (7.5-11.1); MONO % 1.8 % (3.8-10.2); NEUT % 80.6 % (42.8-82.8); PLATELET COUNT 236 K/MM3 (134-434); RBC 4.07 M/mm3 (3.60-5.2); RDW 14.1 % (11.6-15.6); WHITE BLOOD COUNT 10.2 K/mm3 (4.0-10.0)
[2018-08-11 09:30] LABS: ALBUMIN 4.4 g/dl (3.4-5.0); ALK PHOS 168 U/L (45-117); ANION GAP 8 MMOL/L (8-16); BILIRUBIN,TOTAL 0.2 mg/dL (0.2-1); BLOOD UREA NITROGEN 11 mg/dL (7-18); CALCIUM 9.5 mg/dL (8.5-10.1); CHLORIDE 102 mmol/L (98-107); CO2 24 mmol/L (21-32); CREATININE 0.8 mg/dL (0.55-1.3); GLUCOSE,RANDOM 123 mg/dL (74-106); LIPASE 54 U/L (73-393); POTASSIUM 3.9 mmol/L (3.5-5.1); SGOT/AST 43 U/L (15-37); SGPT/ALT 47 U/L (13-61); SODIUM 134 mmol/L (136-145); TOT PROT 8.5 g/dl (6.4-8.2)
[2018-08-11] MEDS ORDERED: morphine CARPU-JECT 2 MG/1 ML DISP.SYRIN IVPUSH ONE (12:23)
[2018-08-11] MEDS ORDERED: MORPHINE SULFATE 2 MG/ML VIAL ONE (12:40)
[2018-08-11] MEDS ORDERED: DEXTROSE 5%-0.45% SALINE 1,000 ML IV SCH ×3 (12:45→14:41)
[2018-08-11] MEDS ORDERED: SODIUM CHLORIDE 1,000 ML IV SCH ×2 (14:00→21:00)
[2018-08-11] MEDS ORDERED: PIPERACILLIN/TAZOB 3.375 GM 3.375 GM in DEXTROSE 5%-WATER - 50 ML IVPB ONE ×2 (14:02→22:00)
[2018-08-11] MEDS ORDERED: PIPERACILLIN/TAZOB 3.375 GM 3.375 GM/50 ML BAG IVPB ONE (14:10)
--- NOTE | 2018-08-11 14:23 | HP ---
CHIEF COMPLAINT: RUQ pain x 1 day PCP: Stacie Knowles HISTORY OF PRESENT ILLNESS: 48 y/o F with PMH anemia, asthma, alcohol abuse (14 mo clean), hepatic cirrhosis , leiomyomata, who presents to the ED c/o RUQ abdominal pain over the past day. As per pt, at 1:30AM, she developed pain in her RUQ. It was 6/10, constant, and felt like a "gnawing pain" with radiation to the back. Was a/w multiple episodes of NBNB emesis. No relation to food. Pt had the same exact pain on 08/07 and came to the ED for evaluation. Had a CTAP done which showed cholelithiasis, pancreatic calcifications and leiomyomata. Was d/c from ED with rec to f/u with Dr. Ricardo- states that her appt was today. During this time, pt endorses subjective chills and urinary frequency. Denies CORNELIUS, fever, SOB, chest pain or pressure, or changes in bowel function. 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 Has worked there for 8 yrs ago Smokin-7 cigarettes/day since age 25. has increased # gradually. would like to quit Alcohol: clean for 14 months. used to drink 1 pint/vodka x 8 yrs Drugs: denies Family History: mother- passed from [place] when pt was at 9 yrs old. does not know cause. father passed from complications from alcohol- cirrhosis Allergies No Known Allergies Allergy (Verified 08/11/18 05:06) HOME MEDICATIONS: Home Medications Medication Instructions Recorded NK [No Known Home Medication] 08/07/18 verified with patient - currently not on any meds including no BP meds states she used to be on aldactone, lasix REVIEW OF SYSTEMS CONSTITUTIONAL: Absent: fever, chills, diaphoresis, generalized weakness, malaise, loss of appetite, weight change HEENT: Absent: rhinorrhea, nasal congestion, throat pain, throat swelling, difficulty swallowing, mouth swelling, ear pain, eye pain, visual changes CARDIOVASCULAR: Absent: chest pain, syncope, palpitations, irregular heart rate, lightheadedness , peripheral edema RESPIRATORY: Absent: cough, shortness of breath, dyspnea with exertion, orthopnea, wheezing, stridor, hemoptysis GASTROINTESTINAL: +abdominal pain, nausea, vomiting Absent: abdominal distension, diarrhea, constipation, melena, hematochezia GENITOURINARY: +urinary frequency Absent: dysuria, urgency, hesitancy, hematuria, flank pain, genital pain MUSCULOSKELETAL: Absent: myalgia, arthralgia, joint swelling, back pain, neck pain SKIN: Absent: rash, itching, pallor HEMATOLOGIC/IMMUNOLOGIC: Absent: easy bleeding, easy bruising, lymphadenopathy, frequent infections ENDOCRINE: Absent: unexplained weight gain, unexplained weight loss, heat intolerance, cold intolerance NEUROLOGIC: Absent: headache, focal weakness or paresthesias, dizziness, unsteady gait, seizure, mental status changes, bladder or bowel incontinence PSYCHIATRIC: Absent: anxiety, depression, suicidal or homicidal ideation, hallucinations. PHYSICAL EXAMINATION Vital Signs 08/11/18 08/11/18 03:14 07:20 Temperature 98.3 F 98.1 F Pulse Rate 83 Pulse Rate [ 79 Left Radial] Respiratory 18 18 Rate Blood Pressure 195/87 H Blood Pressure 198/110 H [Right Arm] O2 Sat by Pulse 100 100 Oximetry (%) GENERAL: Pleasant. Resting comfortably. Awake, alert, and fully oriented, in no acute distress. HEAD: Normal with no signs of trauma. EYES: Pupils equal, round and reactive to light, extraocular movements intact, sclera anicteric, conjunctiva clear. EARS, NOSE, THROAT: Ears normal, nares patent, oropharynx clear without exudates. Moist mucous membranes. NECK: Normal range of motion, supple LUNGS: Breath sounds equal, clear to auscultation bilaterally. No wheezes, and no crackles. No accessory muscle use. HEART: Regular rate and rhythm, normal S1 and S2 without murmur, rub or gallop. ABDOMEN: Soft, obese, +TTP RUQ, not distended, normoactive bowel sounds LOWER EXTREMITIES: 2+ pt pulses, warm, well-perfused. No peripheral edema. NEUROLOGICAL: Cranial nerves II-XII intact. 5/5 motor strength UE, LE. sensation intact PSYCHIATRIC: Cooperative. Good eye contact. SKIN: Warm, dry, normal turgor Laboratory Results - last 24 hr 08/11/18 08/11/18 08/11/18 06:50 08:52 08:52 WBC 10.2 H RBC 4.07 Hgb 12.8 Hct 36.7 MCV 90.1 MCH 31.4 MCHC 34.8 RDW 14.1 Plt Count 236 MPV 10.1 Absolute Neuts (auto) 8.2 H Neutrophils % 80.6 D Lymphocytes % 16.4 D Monocytes % 1.8 L Eosinophils % 0.4 Basophils % 0.8 Nucleated RBC % 0 Sodium 134 L Potassium 3.9 Chloride 102 Carbon Dioxide 24 Anion Gap 8 BUN 11 Creatinine 0.8 Creat Clearance w eGFR 76.56 Random Glucose 123 H Calcium 9.5 Total Bilirubin 0.2 AST 43 H ALT 47 Alkaline Phosphatase 168 H Total Protein 8.5 H Albumin 4.4 Lipase 54 L Urine Color Straw Urine Appearance Clear Urine pH 8.0 Ur Specific [place] 1.011 Urine Protein Negative Urine Glucose (UA) Negative Urine Ketones Negative Urine Blood Negative Urine Nitrite Negative Urine Bilirubin Negative Urine Urobilinogen Negative Ur Leukocyte Esterase Negative Urine HCG, Qual Negative Gallbladder sono: with 5mm stone at GB neck, sludge, with small calculi in GB. no sono evidence of cholecystitis. mild diffuse fatty liver changes. prominent main pancreatic duct without obvious obstruction. no extrahepatic dilation. EKG: pending ASSESSMENT/PLAN: 48 y/o F with PMH anemia, asthma, alcohol abuse (14 mo clean), hepatic cirrhosis , leiomyomata, who presents to the ED c/o RUQ abdominal pain over the past day. #r/o choledocholithiasis, PD obstruction -U/S without information of whether CBD dilated, however prominent main pancreatic duct -LFTs WNL -afebrile, with mild white count -f/u MRCP to check for obstruction -c/w zosyn 3.375g q8h -pain control with morphine 2mg q6h PRN -may need ?endoscopic U/S to eval pancreatic area, for mass, or bx -await EKG qtc before zofran -GI consult: Dr. Flaherty -ID consult: Dr. Omalley -NPO #biliary colic -though no evidence acute cholecystitis on sono, with stones and sx -stone at GB neck -d/w surgery: scheduled for lap keanu on Thursday (08/13) -surgery on board: Dr. Ricardo -T+S, coags #HTN -likely 2/2 pain -has improved as pain better controlled #cirrhosis -c/w outpatient f/u -currently has not been on aldactone, lasix states self d/c -w/ hx varices on past EGD #leiomyomata -continue outpt f/u #F/E/N NS 100 cc/hr continue to follow lytes NPO #PPX Hep 5k SQ TID #Dispo admit to med-surg f/u MRCP for lap keanu on Thursday with Dr. Ricardo Visit type - Emergency Visit Emergency Visit: Yes ED Registration Date: 08/11/18 Care time: The patient presented to the Emergency Department on the above date and was hospitalized for further evaluation of their emergent condition. - New Patient This patient is new to me today: Yes Date on this admission: 08/11/18 - Critical Care Critical Care patient: No
[2018-08-11 14:51] LABS: INR 1.22 (0.83-1.09); PROTHROMBIN TIME (PATIENT) 14.4 SEC (9.7-13.0)
[2018-08-11 14:54] LABS: ACTIVATED PTT 42.4 SECONDS (25.2-36.5)
--- NOTE | 2018-08-11 15:03 | CONSULT ---
- Consultation REQUESTING PROVIDER: Radha Stock MD CONSULT REQUEST: We have been asked to surgically evaluate this patient for abdominal pain. PCP:Donnie Dennis MD HISTORY OF PRESENT ILLNESS: FROY who is a 48 y/o/A/A/female who presented to the ED for the second time in # days w/post prandial n/v/and RUQ colicky/sharp abdominal pain; she was sent to see me in my office h/e did not show for her appt. 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 She is 14 months alcohol free and denies substance abuse. She has had EGD in the past year w/o any evidence of varices; she had ascites as well in the past but does not have this anymore. PMHx: EtOH abuse/gastritis PSHx: BTL Home Medications Medication Instructions Recorded NK [No Known Home Medication] 08/07/18 Allergies Allergy/AdvReac Type Severity Reaction Status Date / Time No Known Allergies Allergy Verified 08/11/18 05:06 REVIEW OF SYSTEMS: CONSTITUTIONAL: Absent: fever, chills, diaphoresis, generalized weakness, malaise, loss of appetite, weight change CARDIOVASCULAR: Absent: chest pain, syncope, palpitations, irregular heart rate, lightheadedness , peripheral edema RESPIRATORY: Absent: cough, shortness of breath, dyspnea with exertion, wheezing, stridor, hemoptysis GASTROINTESTINAL: Present: abdominal pain, abdominal distension, nausea, vomiting, ascites GENITOURINARY: Absent: dysuria, frequency, urgency, hesitancy, hematuria, flank pain, genital pain MUSCULOSKELETAL: Absent: myalgia, arthralgia, joint swelling, back pain, neck pain SKIN: Absent: rash, itching, pallor HEMATOLOGIC/IMMUNOLOGIC: Absent: easy bleeding, easy bruising, lymphadenopathy NEUROLOGIC: Absent: headache, focal weakness, paresthesias, dizziness, unsteady gait, seizure, mental status changes, bladder or bowel incontinence PSYCHIATRIC: Absent: anxiety, depression, suicidal or homicidal ideation, hallucinations. PHYSICAL EXAM: GENERAL: Awake, alert, and fully oriented, in no acute distress. HEAD: Normal with no signs of trauma. EYES: sclera anicteric, conjunctiva clear. NECK: Normal ROM, supple without lymphadenopathy, JVD, or masses. ABDOMEN: Soft, tender RUQ w/guarding; no rebound, not distended, normoactive bowel sounds, no masses. No organomegaly. No hernias MUSCULOSKELETAL: Normal ROM at all joints. No bony deformities or tenderness. No CVA tenderness. UPPER EXTREMITIES: 2+ pulses, warm, well-perfused. No cyanosis. Cap refill <2 seconds. No peripheral edema. LOWER EXTREMITIES: 2+ pulses, warm, well-perfused. No calf tenderness. No peripheral edema. NEUROLOGICAL: Normal speech, gait not observed. PSYCH: Cooperative. Good eye contact. Appropriate mood and affect. SKIN: Warm, dry, normal turgor, no rashes or lesions noted. Vital Signs Temperature 98.1 F 08/11/18 07:20 Pulse Rate 79 08/11/18 07:20 Respiratory Rate 18 08/11/18 07:20 Blood Pressure 198/110 H 08/11/18 07:20 O2 Sat by Pulse Oximetry (%) 100 08/11/18 07:20 Lab Results WBC 10.2 K/mm3 (4.0-10.0) H 08/11/18 08:52 RBC 4.07 M/mm3 (3.60-5.2) 08/11/18 08:52 Hgb 12.8 GM/dL (10.7-15.3) 08/11/18 08:52 Hct 36.7 % (32.4-45.2) 08/11/18 08:52 MCV 90.1 fl (80-96) 08/11/18 08:52 MCHC 34.8 g/dl (32.0-36.0) 08/11/18 08:52 RDW 14.1 % (11.6-15.6) 08/11/18 08:52 Plt Count 236 K/MM3 (134-434) 08/11/18 08:52 Sodium 134 mmol/L (136-145) L 08/11/18 08:52 Potassium 3.9 mmol/L (3.5-5.1) 08/11/18 08:52 Chloride 102 mmol/L (98-107) 08/11/18 08:52 Carbon Dioxide 24 mmol/L (21-32) 08/11/18 08:52 Anion Gap 8 MMOL/L (8-16) 08/11/18 08:52 BUN 11 mg/dL (7-18) 08/11/18 08:52 Creatinine 0.8 mg/dL (0.55-1.3) 08/11/18 08:52 Random Glucose 123 mg/dL (74-106) H 08/11/18 08:52 Calcium 9.5 mg/dL (8.5-10.1) 08/11/18 08:52 INR 1.22 (0.83-1.09) H 08/11/18 14:28 US/CT reviewed images and reports IMP: biliary colic/acute cholecystitis/cholelithiasis/dilated pancreatic duct PLAN: Agree w/admisiion and NPO/IVF/IVAB's/MRCP; trend LFT's and for lap keanu possible open 08/13/18; r/b/t/a's d/w the patient and all ?'s answered. Torsten Ricardo MD FACS
[2018-08-11 15:25] VITALS: BMI 30.2
--- NOTE | 2018-08-11 16:36 | PN ---
Teaching Attending Note Name of Resident: Chen Renner ATTENDING PHYSICIAN STATEMENT I saw and evaluated the patient. I reviewed the resident's note and discussed the case with the resident. I agree with the resident's findings and plan as documented. SUBJECTIVE: This is a 48 year old woman with a history of anemia, asthma, alcohol abuse, alcoholic cirrhosis, chronic pancreatitis, gallstones, uterine fibroids who comes to the ED complaining of RUQ abdominal pain associated with nausea and vomiting that started overnight. She also reports having chills and urinary frequency. She had been seen in the ED for the same complaints on 08/07. Transvaginal US showed fibroid uterus with no evidence of ovarian torsion or other pathology. CT of the abdomen/pelvis showed cholelithiasis, pancreatic calcifications, and uterine leiomyomata. She was discharged with a referral to see Dr. Ricardo. She has not yet seen him. OBJECTIVE: Vital Signs Period Temp Pulse Resp BP Sys/Pires Pulse Ox Last 24 Hr 98.1 F-98.8 F 73-83 18-20 151-198/78-110 98-100 HEART: S1S2, RRR LUNGS: Clear ABDOMEN: Obese, soft, non-distended, (+) RUQ tenderness, normal BS EXTREMITIES: No edema Laboratory Tests 08/11/18 08/11/18 08/11/18 06:50 08:52 08:52 WBC 10.2 H RBC 4.07 Hgb 12.8 Hct 36.7 MCV 90.1 MCH 31.4 MCHC 34.8 RDW 14.1 Plt Count 236 MPV 10.1 Absolute Neuts (auto) 8.2 H Neutrophils % 80.6 D Lymphocytes % 16.4 D Monocytes % 1.8 L Eosinophils % 0.4 Basophils % 0.8 Nucleated RBC % 0 PT with INR INR PTT (Actin FS) Sodium 134 L Potassium 3.9 Chloride 102 Carbon Dioxide 24 Anion Gap 8 BUN 11 Creatinine 0.8 Creat Clearance w eGFR 76.56 Random Glucose 123 H Calcium 9.5 Total Bilirubin 0.2 AST 43 H ALT 47 Alkaline Phosphatase 168 H Total Protein 8.5 H Albumin 4.4 Lipase 54 L Urine Color Straw Urine Appearance Clear Urine pH 8.0 Ur Specific [place] 1.011 Urine Protein Negative Urine Glucose (UA) Negative Urine Ketones Negative Urine Blood Negative Urine Nitrite Negative Urine Bilirubin Negative Urine Urobilinogen Negative Ur Leukocyte Esterase Negative Urine HCG, Qual Negative Blood Type Antibody Screen 08/11/18 08/11/18 14:28 14:28 WBC RBC Hgb Hct MCV MCH MCHC RDW Plt Count MPV Absolute Neuts (auto) Neutrophils % Lymphocytes % Monocytes % Eosinophils % Basophils % Nucleated RBC % PT with INR 14.40 H INR 1.22 H PTT (Actin FS) 42.4 H Sodium Potassium Chloride Carbon Dioxide Anion Gap BUN Creatinine Creat Clearance w eGFR Random Glucose Calcium Total Bilirubin AST ALT Alkaline Phosphatase Total Protein Albumin Lipase Urine Color Urine Appearance Urine pH Ur Specific [place] Urine Protein Urine Glucose (UA) Urine Ketones Urine Blood Urine Nitrite Urine Bilirubin Urine Urobilinogen Ur Leukocyte Esterase Urine HCG, Qual Blood Type O POSITIVE Antibody Screen Negative Home Medications Medication Instructions Recorded NK [No Known Home Medication] 08/07/18 ASSESSMENT AND PLAN: This is a 48 year old woman with a history of asthma, alcohol abuse, alcoholic cirrhosis, chronic pancreatitis, gallstones, uterine fibroids who presented to the ED with RUQ abdominal pain, nausea, vomiting, chills, and urinary frequency. 1. Biliary colic, possible acute cholecystitis with chronic pancreatitis and mildly dilated pancreatic duct - Zosyn given in ED - NPO - IV fluid - Pain control - Zofran as needed for nausea - MRCP - Surgery consult appreciated - lap cholecystectomy tentatively scheduled for 08/13 - GI consult 2. Alcoholic cirrhosis - Appears compensated - had ascites 05/2017 but no evidence now - No varices on EGD 05/2017 - Not on any medications 3. History of alcohol abuse - Reports her last drink was >1 year ago 4. Asthma - Stable 5. Uterine fibroids
--- NOTE | 2018-08-11 16:44 | CON.GI ---
Consult Consult Specialty:: Gastroenterology Referred by:: Dr. Fung Reason for Consultation:: Abdominal pain - History of Present Illness History of Present Illness: 48 yo female h/o ETOH abuse (last drink 14 months ago) with reported cirrhosis ( 05/2017), uterine fibroids presents with recurrent episodes of RUQ pain. Pt reports first developing severe right upper quadrant abdominal pain in June after a large meal which resolved within a day. She reports feeling well until last Thursday when she again presented with severe crampy upper abdominal pain prompting ED evaluation. CT revealing cholelithiasis and changes suggestive of chronic pancreatitis. Symptoms resolved therefore was dc'd with surgery follow up. Pt now presents with recurrent RUQ pain described as severe and crampy in nature with radiation towards the back and right shoulder. +associated nausea/ vomiting and chills. Denies change in bowel pattern or rectal bleeding. US revealing gallbladder sludge with small stones, no evidence of cholecystitis. Fatty liver and mild PD dilation noted. Pt was seen by surgery, Dr. Ricardo and cholecystectomy has been tentatively planned for 08/13. Pt was seen by GI in 05/2017 with new diagnosis of cirrhosis with ascites. Pt has since stopped drinking. She had been taking diuretics however reports she was doing well and has not had further GI follow up and not currently on medications. Denies smoking or IVDA. - Past Medical History ...LMP: 07/21/18 ...: No - Alcohol/Substance Use Hx Alcohol Use: Yes (Occasional) - Smoking History Smoking history: Current every day smoker Have you smoked in the past 12 months: Yes Aproximately how many cigarettes per day: 10 Home Medications - Allergies Allergies/Adverse Reactions: Allergies Allergy/AdvReac Type Severity Reaction Status Date / Time No Known Allergies Allergy Verified 08/11/18 05:06 - Home Medications Home Medications: Ambulatory Orders NK [No Known Home Medication] 08/07/18 Family Disease History - Family Disease History Family Disease History: [place]: Mother (, stomach), Other: Father (Alcoholic , ), Brother ( killed), Sister (no contact) Review of Systems - Review of Systems Constitutional: reports: Chills Cardiovascular: reports: No Symptoms Respiratory: reports: No Symptoms Gastrointestinal: reports: Abdominal Pain, Other (see HPI for details) Neurological: reports: No Symptoms Physical Exam-GI Vital Signs: Vital Signs Temperature 98.8 F 08/11/18 15:05 Pulse Rate 73 08/11/18 15:05 Respiratory Rate 20 08/11/18 15:05 Blood Pressure 151/78 08/11/18 15:05 O2 Sat by Pulse Oximetry (%) 99 08/11/18 15:05 Constitutional: Yes: Well Nourished, No Distress, Calm HENT: Yes: WNL, Atraumatic, Normocephalic Cardiovascular: Yes: WNL, Regular Rate and Rhythm Respiratory: Yes: WNL, Regular, CTA Bilaterally ...Auscultate: Yes: Normoactive Bowel Sounds ...Palpate: Yes: Soft, Other (Abd soft, mildly tender on deep palpation of RUQ, negative murphys on my exam, nondistended) Edema: No Labs: CBC, BMP 08/11/18 08:52 08/11/18 08:52 INR, PTT INR 1.22 (0.83-1.09) H 08/11/18 14:28 Imaging - Results Cat Scan: Report Reviewed, Image Reviewed Ultrasound: Report Reviewed, Image Reviewed Problem List - Problems (1) Abdominal pain Assessment/Plan: 48 yo female h/o ETOH abuse (last drink 14 months ago) with reported cirrhosis/ ascites (05/2017), uterine fibroids presents with recurrent episodes of RUQ pain with recent CT revealing gallstones and pancreatic calcifications, US revealing GB sludge/small stones without evidence of cholecystitis, fatty liver and mild PD dilation. T bili normal with mild ast and alk phos elevation. Clinical presentation more consistent biliary colic in setting of gallstones. No obvious CBD stones or dilation however changes suggestive of chronic pancreatitis with mild PD dilation noted. -Continue to monitor WCC and LFT trend -Continue zosyn for now -MRCP to further evaluate biliary tree and r/o underlying pancreatic pathology -Follow up surgery recommendations re. cholecystectomy (tentatively planned on ) Code(s): R10.9 - UNSPECIFIED ABDOMINAL PAIN (2) Alcoholic cirrhosis of liver Assessment/Plan: H/o etoh abuse with admission noted in 05/2017 with new diagnosis of cirrhosis with ascites s/p paracentesis. EGD at that time without evidence of varices. Pt remains abstinent, last drink 14 months ago. Well compensated with no ascites appreciated. Mild coagulopathy noted otherwise normal synthetic function. Hepatitis serologies in 05/2017 suggestive of natural immunity/prior exposure. -Can remain of diuretics at this time -Monitor LFTs -Avoid nonessential hepatotoxic medications -Continued strict etoh abstinence Case d/w Dr. Ricardo Code(s): K70.30 - ALCOHOLIC CIRRHOSIS OF LIVER WITHOUT ASCITES
[2018-08-11] MEDS ORDERED: PIPERACILLIN/TAZOBACTAM 3.375 GM VIAL IVPB ONE (20:54)
[2018-08-11] MEDS ORDERED: DEXTROSE 5%-WATER - 50 ML IVPB ONE (20:54)
[2018-08-11] MEDS: MORPHINE SULFATE 2 MG/ML VIAL IVPUSH PRN (21:04)
[2018-08-11] MEDS: HEPARIN NA (PORCINE) 5,000 UNITS/ML 1ML VIAL SQ SCH (21:06)
[2018-08-12] MEDS: HEPARIN NA (PORCINE) 5,000 UNITS/ML 1ML VIAL SQ SCH ×4 (06:31→21:22)
[2018-08-12 08:53] LABS: BASO % 0.6 % (0-2.0); EOS % 1.6 % (0-4.5); HEMATOCRIT 31.8 % (32.4-45.2); HEMOGLOBIN 10.9 GM/dL (10.7-15.3); LYMPH % 49.4 % (8-40); MCH 31.2 pg (25.7-33.7); MCHC 34.2 g/dl (32.0-36.0); MEAN CELL VOLUME 91.1 fl (80-96); MEAN PLT VOLUME 9.8 fl (7.5-11.1); MONO % 5.2 % (3.8-10.2); NEUT % 43.2 % (42.8-82.8); PLATELET COUNT 202 K/MM3 (134-434); RBC 3.49 M/mm3 (3.60-5.2); RDW 13.8 % (11.6-15.6); WHITE BLOOD COUNT 7.5 K/mm3 (4.0-10.0)
[2018-08-12 09:35] LABS: ALBUMIN 3.1 g/dl (3.4-5.0); ALK PHOS 109 U/L (45-117); ANION GAP 4 MMOL/L (8-16); BILIRUBIN,TOTAL 0.4 mg/dL (0.2-1); BLOOD UREA NITROGEN 9 mg/dL (7-18); CALCIUM 8.2 mg/dL (8.5-10.1); CHLORIDE 112 mmol/L (98-107); CO2 23 mmol/L (21-32); CREATININE 0.8 mg/dL (0.55-1.3); GLUCOSE,RANDOM 88 mg/dL (74-106); MAGNESIUM 1.9 mg/dL (1.8-2.4); PHOSPHOROUS 3.4 mg/dL (2.5-4.9); POTASSIUM 4.1 mmol/L (3.5-5.1); SGOT/AST 24 U/L (15-37); SGPT/ALT 31 U/L (13-61); SODIUM 139 mmol/L (136-145); TOT PROT 6.3 g/dl (6.4-8.2)
[2018-08-12] MEDS: MORPHINE SULFATE 2 MG/ML VIAL IVPUSH PRN ×3 (10:01→22:19)
--- NOTE | 2018-08-12 11:00 | EKG ---
Test Reason : Blood Pressure : / mmHG Vent. Rate : 072 BPM Atrial Rate : 072 BPM P-R Int : 132 ms QRS Dur : 080 ms QT Int : 406 ms P-R-T Axes : 057 013 036 degrees QTc Int : 444 ms NORMAL SINUS RHYTHM NORMAL ECG WHEN COMPARED WITH ECG OF 14-NOV-2017 10:41, VENT. RATE HAS DECREASED BY 45 BPM Confirmed by COLUMBA BARRIOS MD ([id number]) on 08/12/2018 10:59:38 AM Referred By: Confirmed By:COLUMBA BARRIOS MD
--- NOTE | 2018-08-12 12:05 | SPA.PREOP ---
- PRE-OP NOTE Dx: Biliary colic/acute cholecystitis/cholelithiasis/dilated pancreatic duct Planned Procedure: Laprascopic cholecystectomy; possible open Surgeon: Torsten Ricardo Last Vital Signs Temp Pulse Resp BP Pulse Ox 98.3 F 84 20 135/98 99 08/12/18 10:00 08/12/18 10:00 08/12/18 10:00 08/12/18 10:00 08/11/18 21:00 Lab Results WBC 7.5 K/mm3 (4.0-10.0) 08/12/18 07:50 RBC 3.49 M/mm3 (3.60-5.2) L 08/12/18 07:50 Hgb 10.9 GM/dL (10.7-15.3) 08/12/18 07:50 Hct 31.8 % (32.4-45.2) L 08/12/18 07:50 MCV 91.1 fl (80-96) 08/12/18 07:50 MCHC 34.2 g/dl (32.0-36.0) 08/12/18 07:50 RDW 13.8 % (11.6-15.6) 08/12/18 07:50 Plt Count 202 K/MM3 (134-434) 08/12/18 07:50 Sodium 139 mmol/L (136-145) 08/12/18 07:50 Potassium 4.1 mmol/L (3.5-5.1) 08/12/18 07:50 Chloride 112 mmol/L (98-107) H 08/12/18 07:50 Carbon Dioxide 23 mmol/L (21-32) 08/12/18 07:50 Anion Gap 4 MMOL/L (8-16) L 08/12/18 07:50 BUN 9 mg/dL (7-18) 08/12/18 07:50 Creatinine 0.8 mg/dL (0.55-1.3) 08/12/18 07:50 Random Glucose 88 mg/dL (74-106) 08/12/18 07:50 Calcium 8.2 mg/dL (8.5-10.1) L 08/12/18 07:50 Blood Type O POSITIVE 08/11/18 14:28 Antibody Screen Negative 08/11/18 14:28 INR 1.22 (0.83-1.09) H 08/11/18 14:28 - IMAGING MRI: Report Reviewed, Image Reviewed - ASSESSMENT/PLAN Problem List - Problems (1) Biliary colic symptom Assessment/Plan: 1. NPO after midnight except po meds 2. GI/DVT PPX 3. Medical optimization / clearance 4. Consent to be obtained by surgeon after risks, benefits and alternatives discussed with patient and or Health Care Proxy. Code(s): K80.50 - CALCULUS OF BILE DUCT W/O CHOLANGITIS OR CHOLECYST W/O OBST Visit type - Case Type Case Type: ED Admission - Emergency Emergency Visit: Yes ED Registration Date: 08/11/18 Care time: The patient presented to the Emergency Department on the above date and was hospitalized for further evaluation of their emergent condition. - New patient This patient is new to me today: Yes Date on this admission: 08/12/18
[2018-08-12] MEDS: LACTATED RINGERS SOLUTION 1,000 ML/1,000 ML INFUS.BAG IV SCH (13:17)
--- NOTE | 2018-08-12 13:37 | PN ---
Physical Exam: SUBJECTIVE: Patient seen and examined at bedside. Ongoing abdominal pain. OBJECTIVE: Vital Signs Period Temp Pulse Resp BP Sys/Pires Pulse Ox Last 24 Hr 98.3 F-98.9 F 66-84 20-20 128-151/72-98 99-99 GENERAL: A&Ox3, NAD HEENT: NC/AT, PERRLA, EOMI, MMM NECK: Trachea midline, full range of motion, supple. LUNGS: CTA b/l HEART: RRR no m/r/g ABDOMEN: +bs, soft, diffuse tenderness most prominent in epigastrum, equivocal Moraes sign EXTREMITIES: 2+ pulses, warm, well-perfused, no edema. 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 SKIN: Warm, dry, normal turgor, no rashes or lesions noted Laboratory Results - last 24 hr 08/11/18 08/11/18 08/12/18 14:28 14:28 07:50 WBC 7.5 RBC 3.49 L Hgb 10.9 Hct 31.8 L MCV 91.1 MCH 31.2 MCHC 34.2 RDW 13.8 Plt Count 202 MPV 9.8 Absolute Neuts (auto) 3.3 Neutrophils % 43.2 D Lymphocytes % 49.4 H D Monocytes % 5.2 D Eosinophils % 1.6 D Basophils % 0.6 Nucleated RBC % 0 PT with INR 14.40 H INR 1.22 H PTT (Actin FS) 42.4 H Sodium Potassium Chloride Carbon Dioxide Anion Gap BUN Creatinine Creat Clearance w eGFR Random Glucose Calcium Phosphorus Magnesium Total Bilirubin AST ALT Alkaline Phosphatase Total Protein Albumin Blood Type O POSITIVE Antibody Screen Negative 08/12/18 07:50 WBC RBC Hgb Hct MCV MCH MCHC RDW Plt Count MPV Absolute Neuts (auto) Neutrophils % Lymphocytes % Monocytes % Eosinophils % Basophils % Nucleated RBC % PT with INR INR PTT (Actin FS) Sodium 139 Potassium 4.1 Chloride 112 H Carbon Dioxide 23 Anion Gap 4 L BUN 9 Creatinine 0.8 Creat Clearance w eGFR 76.56 Random Glucose 88 Calcium 8.2 L Phosphorus 3.4 Magnesium 1.9 Total Bilirubin 0.4 AST 24 ALT 31 Alkaline Phosphatase 109 Total Protein 6.3 L Albumin 3.1 L Blood Type Antibody Screen Active Medications Generic Name Dose Route Start Last Admin Trade Name Freq PRN Reason Stop Dose Admin Heparin Sodium (Porcine) 5,000 unit 08/11/18 22:00 08/12/18 06:31 Heparin - SQ 5,000 unit TID MOODY Administration Piperacillin Sod/Tazobactam 50 mls @ 100 mls/hr 08/11/18 22:00 Sod 3.375 gm/ Dextrose IVPB Q8H-IV MOODY Protocol Lactated Ringer's 1,000 ml in 1,000 mls @ 200 mls/hr 08/12/18 13:00 08/12/18 13:17 Lactated Ringers Solution IV 200 mls/hr ASDIR MOODY Administration Morphine Sulfate 2 mg 08/11/18 13:55 08/12/18 10:01 Morphine Sulfate IVPUSH 2 mg Q6H PRN Administration PAIN LEVEL 7 - 10 ASSESSMENT/PLAN: Patient is a 48 y/o F w/ PMHx anemia, asthma, EtOH abuse (14 mos sober), cirrhosis, uterine fibroids, p/w sudden onset gnawing RUQ pain x 1 day. Had similar symptoms on 08/07/18 and presented to ED, was discharged for f/u with Dr. Ricardo which was scheduled for day of admission. CT a/p at that time showed cholelithiasis, pancreatic calcifications, and fibroids. #RUQ/epigastric pain -abd US: 5mm stone in neck of GB, biliary sludge, prominent pancreatic duct, no definite acute cholecystitis -Sx consulted: CCY scheduled for 08/13, NPO and hold heparin at midnight -GI consulted: MRCP and cont Zosyn -MRCP: acute on chronic pancreatitis, liver cirrhosis, cholelithiasis CBD dilatation without choledocholithiasis, 1 cm R upper renal pole cystic mass ( Bosniak 2F) w/ 1 year f/u recommended -per surgical PA note, MRI results reviewed by surgical team, still for CCY -empiric Zosyn #acute on chronic pancreatitis -LR 200 -trial of clear liquids -morphine -continued EtOH cessation emphasized #h/o anemia -H/H stable #FEN -LR 200cc/hr -monitor and replete electrolytes -clear liquid, NPO after midnight #PPx -DVT: heparin sq, hold after midnight -GI: not indicated #code -full #dispo -monitor on med/surg Visit type - Emergency Visit Emergency Visit: Yes ED Registration Date: 08/11/18 Care time: The patient presented to the Emergency Department on the above date and was hospitalized for further evaluation of their emergent condition. - New Patient This patient is new to me today: Yes Date on this admission: 08/12/18 - Critical Care Critical Care patient: No
--- NOTE | 2018-08-12 15:46 | PN ---
Teaching Attending Note Name of Resident: Pacheco Vann ATTENDING PHYSICIAN STATEMENT I saw and evaluated the patient. I reviewed the resident's note and discussed the case with the resident. I agree with the resident's findings and plan as documented. SUBJECTIVE:states pain is much improved. requesting to eat. 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 Acute biliary colic- currently improved. was scheduled for an evaluation this week for outpatient cholecystectomy however pain was unbearable requiring hospital eval. will place on clears at this time. received zosyn however low concern for acute cholscystitis. can likely hold at this point. NPO for cholecystectomy in the AM. MRCP done awaiting official read. GI and surg on board 2. ETOH cirrhosis- appears compensated. unclear if she has been following with GI as outpatient. will need to follow for routine surveillance 3. remote ETOH dependence- last drink 1 year ago 4. chronic pancreatitis- with dilated pancreatic duct seen on imaging. will f/u official MRCP 5. DVT ppx- hep sq. hold tonights dose for pending surgery
--- NOTE | 2018-08-12 17:41 | CONS ---
INFECTIOUS DISEASE CONSULTATION DATE OF CONSULTATION: DATE OF DICTATION: 08/12/2018 The patient is a 48-year-old female evaluated for possible biliary sepsis. She was admitted to the hospital on August 11, 2018, with abdominal pain, nausea, vomiting. Sonogram showed gallbladder sludge without evidence of cholecystitis. An MRCP was performed and showed a dilated common bile duct without evidence of common bile duct stone, [id number] pancreatitis. She was seen in consult by Surgery and is scheduled for a cholecystectomy. She was empirically treated with Zosyn. She denies any associated fever or chills. At the present time, she denies any nausea/vomiting. PAST MEDICAL HISTORY: Positive for asthma, cirrhosis, chronic pancreatitis. ALLERGIES: No known allergies. LABORATORY DATA: White count 7.5. Creatinine 0.8. Lipase 54. PHYSICAL EXAMINATION: General: She is in no acute distress. She is seated in bed, having full liquids. Vital Signs: Temperature 96.3; blood pressure 135/98; pulse 85, regular; respirations 20 per minute. HEENT: Sclerae are anicteric. Heart: Sounds S1, S2. Lungs: Clear. Abdomen: Soft. There is mild right upper quadrant tenderness to palpation. Extremities: Negative for edema. IMPRESSION: 1. Cholelithiasis, rule out cholecystitis. 2. Mtlse-xb-cvaalck pancreatitis. 3. History of chronic liver disease. Continue Zosyn perioperatively. Laparoscopic cholecystectomy scheduled for tomorrow. Thank you for the kind referral. JAN MEHTA M.D. [id number]
--- NOTE | 2018-08-12 19:09 | PN.GI ---
GI Progress Note Subjective: No acute events States feeling well RUQ pain improved - Objective Vital Signs: Vital Signs Temperature 98.3 F 08/12/18 10:00 Pulse Rate 84 08/12/18 10:00 Respiratory Rate 20 08/12/18 10:00 Blood Pressure 135/98 08/12/18 10:00 O2 Sat by Pulse Oximetry (%) 97 08/12/18 09:00 Constitutional: Calm Eyes: No: Sclera Icterus Cardiovascular: Yes: Regular Rate and Rhythm Respiratory: Yes: CTA Bilaterally Gastrointestinal Inspection: No: Distention ...Auscultate: Yes: Normoactive Bowel Sounds ...Palpate: No: Hepatomegaly, Splenomegaly, Tenderness ...Percussion: No: Tympanitic Edema: No (No LE edema) Neurological: Yes: Alert Labs: CBC, BMP 08/12/18 07:50 08/12/18 07:50 INR, PTT INR 1.22 (0.83-1.09) H 08/11/18 14:28 Hepatic Panel Total Bilirubin 0.4 mg/dL (0.2-1) 08/12/18 07:50 AST 24 U/L (15-37) 08/12/18 07:50 ALT 31 U/L (13-61) 08/12/18 07:50 Alkaline Phosphatase 109 U/L (45-117) 08/12/18 07:50 Albumin 3.1 g/dl (3.4-5.0) L 08/12/18 07:50 - ....Imaging MRI: Report Reviewed (Atrophic pancreas, dilated PD c/w chronic pancreatitis, dilated CBD tapering to normal distally without filling defects) Problem List - Problems (1) Biliary colic symptom Assessment/Plan: For Lap Arlette in AM Code(s): K80.50 - CALCULUS OF BILE DUCT W/O CHOLANGITIS OR CHOLECYST W/O OBST (2) Atrophic pancreas Assessment/Plan: Likely secondary to chronic etoh abuse Discussed with patient. No post prandial pain / diarrheal symptoms. would monitor, repeat imaging of pancreas in 6 months with MRI Outpatient follow-up Code(s): K86.89 - OTHER SPECIFIED DISEASES OF PANCREAS
[2018-08-12] MEDS: PIPERACILLIN/TAZOB 3.375 GM 3.375 GM in DEXTROSE 5%-WATER - 50 ML IVPB SCH ×2 (23:52→23:53)
[2018-08-13] MEDS: LACTATED RINGERS SOLUTION 1,000 ML/1,000 ML INFUS.BAG IV SCH ×4 (00:43→22:31)
[2018-08-13] MEDS: MORPHINE SULFATE 2 MG/ML VIAL IVPUSH PRN (05:13)
[2018-08-13 08:49] LABS: EOS % 2.2 % (0-4.5); HEMATOCRIT 30.9 % (32.4-45.2); HEMOGLOBIN 10.6 GM/dL (10.7-15.3); LYMPH % 55.3 % (8-40); MCH 31.2 pg (25.7-33.7); MCHC 34.3 g/dl (32.0-36.0); MEAN CELL VOLUME 90.9 fl (80-96); MEAN PLT VOLUME 9.9 fl (7.5-11.1); MONO % 5.5 % (3.8-10.2); PLATELET COUNT 180 K/MM3 (134-434); RDW 13.9 % (11.6-15.6); WHITE BLOOD COUNT 5.3 K/mm3 (4.0-10.0)
[2018-08-13 09:23] LABS: ALBUMIN 3.2 g/dl (3.4-5.0); ALK PHOS 106 U/L (45-117); ANION GAP 6 MMOL/L (8-16); BILIRUBIN,TOTAL 0.2 mg/dL (0.2-1); BLOOD UREA NITROGEN 6 mg/dL (7-18); CALCIUM 8.4 mg/dL (8.5-10.1); CHLORIDE 106 mmol/L (98-107); CO2 28 mmol/L (21-32); CREATININE 0.8 mg/dL (0.55-1.3); GLUCOSE,RANDOM 82 mg/dL (74-106); MAGNESIUM 1.7 mg/dL (1.8-2.4); PHOSPHOROUS 3.4 mg/dL (2.5-4.9); POTASSIUM 3.9 mmol/L (3.5-5.1); SGOT/AST 21 U/L (15-37); SGPT/ALT 27 U/L (13-61); SODIUM 141 mmol/L (136-145)
[2018-08-13] MEDS ORDERED: MIDAZOLAM HCL 2 MG/2 ML SINGLE DOSE VIAL ONE ×2 (11:49→12:30)
[2018-08-13] MEDS ORDERED: BUPIVACAINE HCL/PF 0.5% (5MG/ML) 10 ML VIAL ONE (12:04)
--- NOTE | 2018-08-13 12:20 | PN ---
Teaching Attending Note Name of Resident: Pacheco Vann ATTENDING PHYSICIAN STATEMENT I saw and evaluated the patient. I reviewed the resident's note and discussed the case with the resident. I agree with the resident's findings and plan as documented. SUBJECTIVE:continues to have RUQ pain but overall improved from arrival. denies CP, SOB, efver, chills, N/V/C/D OBJECTIVE: Last Vital Signs Temp Pulse Resp BP Pulse Ox 99.6 F 81 20 152/98 98 08/13/18 11:15 08/13/18 11:15 08/13/18 11:15 08/13/18 11:15 08/13/18 09:00 General NAD CV S1 S2 RRR no murmur/rub/gallop Lungs CTA B/L no wheezing/rales/rhonchi Abdomen soft +RUQ tenderness ASSESSMENT AND PLAN: 48yo F wtih PMH anemia, ashtma, remote ETOH dependence, Cirrhosis due to ETOH and chronic pancreatitis presented ti the ER with RUQ pain with nausea and vomiting suggestive of acute biliary colic 1. Acute biliary colic- NPO for laproscopic cholecystectomy today. will f/u operative report. GI and surg on board 2. ETOH cirrhosis- appears compensated. unclear if she has been following with GI as outpatient. will need to follow for routine surveillance 3. elevated BP- states pain is mostly controlled. since it is above goal. will start low dose norvasc on discharge. will need to f/u with PMD for BP monitoring 3. remote ETOH dependence- last drink 1 year ago 4. chronic pancreatitis- with dilated pancreatic duct seen on imaging. will need repeat MRI in 6 months. stressed importance of f/u with GI 5. DVT ppx- hep sq. 6. anticipate d/c in next 24H if no complications from surgery
[2018-08-13] MEDS ORDERED: PROPOFOL 20 ML ONE (12:31)
[2018-08-13] MEDS ORDERED: ROCURONIUM BROMIDE 50 MG/5 ML VIAL ONE (12:32)
[2018-08-13] MEDS ORDERED: ceFAZolin SODIUM 1 GM VIAL IVPB ONE (12:35)
--- NOTE | 2018-08-13 12:35 | PN ---
Physical Exam: SUBJECTIVE: Patient seen and examined at bedside. No overnight events. NPO for surgery. Abd pain well-controlled though present. OBJECTIVE: Vital Signs Period Temp Pulse Resp BP Sys/Pires Pulse Ox Last 24 Hr 97.6 F-99.6 F 68-82 18-20 152-158/92-99 98-98 GENERAL: A&Ox3, NAD HEENT: NC/AT, PERRLA, EOMI, MMM NECK: Trachea midline, full range of motion, supple. LUNGS: CTA b/l HEART: RRR no m/r/g ABDOMEN: +bs, soft, diffuse tenderness most prominent in epigastrum, equivocal Moraes sign EXTREMITIES: 2+ pulses, warm, well-perfused, no edema. 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 SKIN: Warm, dry, normal turgor, no rashes or lesions noted Laboratory Results - last 24 hr 08/13/18 08/13/18 07:16 07:16 WBC 5.3 RBC 3.40 L Hgb 10.6 L Hct 30.9 L MCV 90.9 MCH 31.2 MCHC 34.3 RDW 13.9 Plt Count 180 MPV 9.9 Absolute Neuts (auto) 1.9 Neutrophils % 36.0 L Lymphocytes % 55.3 H Monocytes % 5.5 Eosinophils % 2.2 Basophils % 1.0 Nucleated RBC % 0 Sodium 141 Potassium 3.9 Chloride 106 Carbon Dioxide 28 Anion Gap 6 L BUN 6 L Creatinine 0.8 Creat Clearance w eGFR 76.56 Random Glucose 82 Calcium 8.4 L Phosphorus 3.4 Magnesium 1.7 L Total Bilirubin 0.2 AST 21 ALT 27 Alkaline Phosphatase 106 Total Protein 6.0 L Albumin 3.2 L Active Medications Generic Name Dose Route Start Last Admin Trade Name Freq PRN Reason Stop Dose Admin Heparin Sodium (Porcine) 5,000 unit 08/11/18 22:00 08/12/18 21:22 Heparin - SQ 5,000 unit TID MOODY Administration Lactated Ringer's 1,000 ml in 1,000 mls @ 200 mls/hr 08/12/18 13:00 08/13/18 11:19 Lactated Ringers Solution IV 200 mls/hr ASDIR MOODY Administration Morphine Sulfate 2 mg 08/11/18 13:55 08/13/18 05:13 Morphine Sulfate IVPUSH 2 mg Q6H PRN Administration PAIN LEVEL 7 - 10 ASSESSMENT/PLAN: #RUQ/epigastric pain -abd US: 5mm stone in neck of GB, biliary sludge, prominent pancreatic duct, no definite acute cholecystitis -Sx consulted: for CCY today, will f/u post-surgical instructions -GI consulted -MRCP: acute on chronic pancreatitis, liver cirrhosis, cholelithiasis CBD dilatation without choledocholithiasis, 1 cm R upper renal pole cystic mass ( Bosniak 2F) w/ 1 year f/u recommended #acute on chronic pancreatitis -LR 200 -tolerated clear liquids, will restart diet following CCY -morphine PRN -continued EtOH cessation emphasized #h/o anemia -H/H stable #HTN -uncontrolled -will start Norvasc following CCY and refer for primary care f/u #FEN -LR 200cc/hr -monitor and replete electrolytes -NPO until cleared by Sx #PPx -DVT: restarting heparin sq following CCY -GI: not indicated #code -full #dispo -monitor on med/surg Visit type - Emergency Visit Emergency Visit: No - New Patient This patient is new to me today: No - Critical Care Critical Care patient: No
[2018-08-13] MEDS ORDERED: BENZOIN TINCTURE SWABSTICK TP ONE (13:33)
[2018-08-13] MEDS ORDERED: BUPIVACAINE HCL/PF (5 MG/ML) 30 ML VIAL IJ ONE ×2 (14:20)
--- NOTE | 2018-08-13 14:30 | OP ---
Operative Note - Note: Operative Date: 08/13/18 Pre-Operative Diagnosis: acute cholecystitis/cholelithiasis Operation: laparoscopic cholecystectomy Findings: as above; cirrhotic liver Surgeon: Torsten Ricardo Police Shift Commander: Madhuri Angelo Anesthesia: General Specimens Removed: gallbladder and contents Estimated Blood Loss (mls): 50 Drains & Tubes with Location: 10 mm LITA gallbladder fossa
[2018-08-13] MEDS ORDERED: ONDANSETRON 4 MG/2 ML VIAL IVPUSH PRN ×2 (14:59→15:25)
[2018-08-13] MEDS ORDERED: LACTATED RINGERS SOLUTION 1,000 ML IV SCH (15:00)
[2018-08-13] MEDS ORDERED: oxyCODONE HCL 5 MG TABLET PO PRN (15:20)
[2018-08-13] MEDS ORDERED: ACETAMINOPHEN 1000 MG/100 ML VIAL (NON FORMULARY) IVPB PRN (15:23)
[2018-08-13] MEDS ORDERED: ACETAMINOPHEN INJECTION 100 ML IVPB ONE (15:35)
--- NOTE | 2018-08-13 15:47 | SURG ---
Surgery Trench Digger Helper Note Trench Digger Helper: Madhuri Angelo PA-C Date of Service: 08/13/18 Diagnosis: acute cholecystitis/cholelithiasis Procedure: laparoscopic cholecystectomy I was present for the entirety of the operative procedure. For further detail, please refer to operative report. Visit type - Case Type Case Type: ED Admission - Emergency Emergency Visit: Yes ED Registration Date: 08/11/18 Care time: The patient presented to the Emergency Department on the above date and was hospitalized for further evaluation of their emergent condition. - New patient This patient is new to me today: Yes Date on this admission: 08/13/18
[2018-08-13] MEDS: oxyCODONE HCL 5 MG TABLET PO PRN ×2 (17:01→22:27)
[2018-08-14] MEDS: oxyCODONE HCL 5 MG TABLET PO PRN ×5 (02:37→20:18)
[2018-08-14] MEDS: HEPARIN NA (PORCINE) 5,000 UNITS/ML 1ML VIAL SQ SCH ×4 (02:43→22:04)
[2018-08-14] MEDS: LACTATED RINGERS SOLUTION 1,000 ML/1,000 ML INFUS.BAG IV SCH ×2 (02:44→06:37)
[2018-08-14 07:23] LABS: BASO % 0.5 % (0-2.0); EOS % 1.2 % (0-4.5); HEMATOCRIT 32.7 % (32.4-45.2); HEMOGLOBIN 11.2 GM/dL (10.7-15.3); LYMPH % 37.6 % (8-40); MCH 31.1 pg (25.7-33.7); MCHC 34.3 g/dl (32.0-36.0); MEAN CELL VOLUME 90.4 fl (80-96); MEAN PLT VOLUME 9.9 fl (7.5-11.1); MONO % 6.3 % (3.8-10.2); NEUT % 54.4 % (42.8-82.8); PLATELET COUNT 198 K/MM3 (134-434); RBC 3.62 M/mm3 (3.60-5.2); RDW 13.7 % (11.6-15.6); WHITE BLOOD COUNT 7.9 K/mm3 (4.0-10.0)
[2018-08-14 07:47] LABS: ALBUMIN 3.3 g/dl (3.4-5.0); ALK PHOS 143 U/L (45-117); ANION GAP 8 MMOL/L (8-16); BILIRUBIN,TOTAL 0.4 mg/dL (0.2-1); BLOOD UREA NITROGEN 5 mg/dL (7-18); CALCIUM 8.7 mg/dL (8.5-10.1); CHLORIDE 104 mmol/L (98-107); CO2 28 mmol/L (21-32); CREATININE 0.8 mg/dL (0.55-1.3); GLUCOSE,RANDOM 78 mg/dL (74-106); MAGNESIUM 1.5 mg/dL (1.8-2.4); PHOSPHOROUS 4.2 mg/dL (2.5-4.9); POTASSIUM 3.8 mmol/L (3.5-5.1); SGOT/AST 93 U/L (15-37); SGPT/ALT 75 U/L (13-61); SODIUM 139 mmol/L (136-145); TOT PROT 6.5 g/dl (6.4-8.2)
[2018-08-14] MEDS ORDERED: amLODIPine BESYLATE 5 MG TABLET (FP) PO ONE (09:55)
--- NOTE | 2018-08-14 10:06 | PN ---
Progress Note (short form) - Note Progress Note: Post op day#1.S/P Cholecystectomy under GA uneventful.Patient stable.No any anesthesia related problem.Patient Dc from the anesthesia care.
--- NOTE | 2018-08-14 11:28 | PN ---
Progress Note (short form) - Note Progress Note: states pain is controlled with pain medications. denies CP, SOB, fever, chills, N/V/C/D passing flatus, no BM Current Medications Generic Name Dose Route Start Last Admin Trade Name Freq PRN Reason Stop Dose Admin Acetaminophen 1,000 mg 08/13/18 15:23 08/13/18 15:40 Ofirmev Injection - IVPB 1,000 mg Q6H PRN Administration PAIN LEVEL 1 - 3 Fentanyl 50 mcg 08/13/18 15:25 08/13/18 15:15 Sublimaze Injection - IVPUSH 50 mcg Q5M PRN Administration PAIN-PACU ORDER X 4 DOSES ONLY Heparin Sodium (Porcine) 5,000 unit 08/13/18 22:00 08/14/18 06:24 Heparin - SQ 5,000 unit TID MOODY Administration Lactated Ringer's 1,000 ml in 1,000 mls @ 125 mls/hr 08/13/18 15:19 08/14/18 06:37 Lactated Ringers Solution IV 125 mls/hr ASDIR MOODY Administration Ondansetron HCl 4 mg 08/13/18 15:25 Zofran Injection IVPUSH Q6H PRN NAUSEA AND/OR VOMITING Oxycodone HCl 5 mg 08/13/18 15:20 Roxicodone - PO Q4H PRN PAIN LEVEL 1-5 Oxycodone HCl 10 mg 08/13/18 15:20 08/14/18 10:35 Roxicodone - PO 10 mg Q4H PRN Administration PAIN LEVEL 6-10 Last Vital Signs Temp Pulse Resp BP Pulse Ox 99.2 F 80 20 152/93 97 08/14/18 09:00 08/14/18 09:00 08/14/18 09:00 08/14/18 09:00 08/13/18 21:00 Intake & Output 08/11/18 08/12/18 08/13/18 08/14/18 23:59 23:59 23:59 23:59 Intake Total 800 1870 5530 1500 Output Total 1895 80 Balance 800 1870 3635 1420 Weight 165 lb 3.2 oz General NAD CV S1 S2 RRR no murmur/rub/gallop Lungs CTA B/L no wheezing/rales/rhonchi Abdomen soft diffusely tender +LITA drain with serosangenous drainage CBCD WBC 7.9 K/mm3 (4.0-10.0) 08/14/18 06:00 RBC 3.62 M/mm3 (3.60-5.2) 08/14/18 06:00 Hgb 11.2 GM/dL (10.7-15.3) 08/14/18 06:00 Hct 32.7 % (32.4-45.2) 08/14/18 06:00 MCV 90.4 fl (80-96) 08/14/18 06:00 MCHC 34.3 g/dl (32.0-36.0) 08/14/18 06:00 RDW 13.7 % (11.6-15.6) 08/14/18 06:00 Plt Count 198 K/MM3 (134-434) 08/14/18 06:00 MPV 9.9 fl (7.5-11.1) 08/14/18 06:00 CMP Sodium 139 mmol/L (136-145) 08/14/18 06:00 Potassium 3.8 mmol/L (3.5-5.1) 08/14/18 06:00 Chloride 104 mmol/L (98-107) 08/14/18 06:00 Carbon Dioxide 28 mmol/L (21-32) 08/14/18 06:00 Anion Gap 8 MMOL/L (8-16) 08/14/18 06:00 BUN 5 mg/dL (7-18) L 08/14/18 06:00 Creatinine 0.8 mg/dL (0.55-1.3) 08/14/18 06:00 Creat Clearance w eGFR 76.56 (>60) 08/14/18 06:00 Calcium 8.7 mg/dL (8.5-10.1) 08/14/18 06:00 Total Bilirubin 0.4 mg/dL (0.2-1) 08/14/18 06:00 AST 93 U/L (15-37) H 08/14/18 06:00 ALT 75 U/L (13-61) H 08/14/18 06:00 Alkaline Phosphatase 143 U/L (45-117) H 08/14/18 06:00 Total Protein 6.5 g/dl (6.4-8.2) 08/14/18 06:00 Albumin 3.3 g/dl (3.4-5.0) L 08/14/18 06:00 ASSESSMENT AND PLAN: 48yo F wtih PMH anemia, ashtma, remote ETOH dependence, Cirrhosis due to ETOH and chronic pancreatitis presented ti the ER with RUQ pain with nausea and vomiting suggestive of acute biliary colic 1. Acute biliary colic- s/p laproscopic cholecystectomy 08/13. wiht LITA drain placement. pasing flatus. tolerating diet. pain controlled. Surgery on board. 2. Acute transaminitis- likely due to surgery. will repeat 3. ETOH cirrhosis- appears compensated. unclear if she has been following with GI as outpatient. will need to follow for routine surveillance 4. elevated BP- started on norvasc. counselled on need to continue at this time. 5. remote ETOH dependence- last drink 1 year ago 6. chronic pancreatitis- with dilated pancreatic duct seen on imaging. will need repeat MRI in 6 months. stressed importance of f/u with GI 7. DVT ppx- hep sq. 8. anticipate d/c tomorrow if LFT trending down Visit type - Emergency Visit Emergency Visit: Yes ED Registration Date: 08/11/18 Care time: The patient presented to the Emergency Department on the above date and was hospitalized for further evaluation of their emergent condition. - New Patient This patient is new to me today: No - Critical Care Critical Care patient: No - Discharge Referral Referred to [facility] No
--- NOTE | 2018-08-14 11:38 | PN ---
Progress Note (short form) - Note Progress Note: Attending Surgeon POD #1 No c/o; tolerated diet VSS AF abdo-soft; non tender; port sites c/di; LITA serous WBC/bili-nl; LFT's slightly elevated. IMP: doing well PLAN: Continue present tx.; check LFT's in AM and anticipate d/c to office f/u; will pull drain prior to discharge. Torsten Ricardo MD FACS
--- NOTE | 2018-08-14 11:51 | OP ---
DATE OF OPERATION: 08/13/2018 PREOPERATIVE DIAGNOSIS: Acute cholecystitis and cholelithiasis. POSTOPERATIVE DIAGNOSIS: Acute cholecystitis and cholelithiasis. PROCEDURE: Laparoscopic cholecystectomy. OPERATIVE FINDINGS: Acute cholecystitis, cholelithiasis, and a markedly cirrhotic liver. The rest of the findings were unremarkable. SURGEON: Torsten Ricardo MD CERAMICS MACHINE OPERATOR: Madhuri Angelo PA-C ANESTHESIA: General. DESCRIPTION OF PROCEDURE: The patient was placed on the operating table in the supine position and after the induction of general anesthesia the patient's abdomen was prepped with ChloraPrep and draped in sterile fashion. A timeout was taken and pneumoperitoneum established above the umbilicus using a Veress needle. Once 15 mmHg of pressure were obtained, a 5-mm port was placed at the umbilicus and additional lateral 5-mm ports and a subxiphoid 12-mm port. Laparoscopy was carried out and the previously noted findings were observed. Dissection was begun at the neck of the gallbladder where the peritoneum was opened medially and laterally using blunt dissection and electrocautery. The cystic duct was identified coursing from the neck of the gallbladder towards the common bile duct and it was dissected using blunt dissection proximally and distally for length. Similarly, the artery was identified and dissected proximally and distally for length. A critical view of safety was taken and then the duct and the artery were clipped twice proximally and three times distally with large hemoclips. The duct and artery were then serially divided using Endoshears. Hemostasis was checked for and noted to be good and then the gallbladder was removed from the liver bed in a retrograde fashion using electrocautery. Prior to removal from the edge of the liver, hemostasis in the liver bed was again checked for and noted to be good and then the gallbladder removed from the edge of the liver, placed in an EndoCatch , and brought out through the subxiphoid port. Pneumoperitoneum was reestablished. Copious irrigation was carried out with saline. Hemostasis was verified again. A 10-mm Nikolai-Hopkins drain was placed in the right hepatorenal fossa and brought out through 1 of the 5-mm ports and secured to the skin with 2-0 silk suture. All port sites were removed under laparoscopic vision without evidence of bleeding from the port sites. The port sites were infiltrated with 0.5% Marcaine and the skin edges reapproximated with 4-0 Biosyn in a subcuticular continuous fashion. Steri-Strips and Band-Aid dressings were placed. The drain was connected to bulb suction and then the patient aroused from general anesthesia and transferred to the postanesthesia care unit in stable condition, awake and alert. ESTIMATED BLOOD LOSS: 50 mL. REPLACEMENT: Crystalloid. DRAINS: One 10-mm Nikolai-Hopkins in the gallbladder fossa. SPECIMEN: Gallbladder and contents to Pathology. I, Torsten Ricardo, was physically present in the operating room from the time the patient was placed on the operating table until she was transferred to the post-anesthesia care unit in my accompaniment. MD ROSELYN Tipton/[id number] MTDD
[2018-08-15] MEDS: oxyCODONE HCL 5 MG TABLET PO PRN ×2 (00:13→06:30)
[2018-08-15] MEDS: HEPARIN NA (PORCINE) 5,000 UNITS/ML 1ML VIAL SQ SCH (06:21)
[2018-08-15 07:50] LABS: ALBUMIN 3.6 g/dl (3.4-5.0); ALK PHOS 175 U/L (45-117); ANION GAP 9 MMOL/L (8-16); BILIRUBIN,TOTAL 0.2 mg/dL (0.2-1); BLOOD UREA NITROGEN 7 mg/dL (7-18); CALCIUM 8.7 mg/dL (8.5-10.1); CHLORIDE 102 mmol/L (98-107); CO2 26 mmol/L (21-32); CREATININE 0.9 mg/dL (0.55-1.3); GLUCOSE,RANDOM 103 mg/dL (74-106); POTASSIUM 3.7 mmol/L (3.5-5.1); SGOT/AST 59 U/L (15-37); SGPT/ALT 61 U/L (13-61); SODIUM 137 mmol/L (136-145); TOT PROT 7.4 g/dl (6.4-8.2)
[2018-08-15 09:01] VITALS: BP 156/87; PULSE 89; TEMP 99.6
--- NOTE | 2018-08-15 09:15 | PN ---
Progress Note (short form) - Note Progress Note: Attending Surgeon POd#2 No c/o VSS AF abdo-soft; non tender; drain serous; o/w negative Bili nl IMP: doing well PLAN: Drain removed; d/c to office f/u; instructions given. Torsten Ricardo MD FACS
--- NOTE | 2018-08-15 09:37 | PN ---
Teaching Attending Note Name of Resident: Pacheco Vann ATTENDING PHYSICIAN STATEMENT I saw and evaluated the patient. I reviewed the resident's note and discussed the case with the resident. I agree with the resident's findings and plan as documented. SUBJECTIVE:states pain is mostly controlled. 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 Acute biliary colic- s/p laproscopic cholecystectomy 08/13. plan for LITA removal today. will send with 2 days with of oxycodone for pain relief as pt is limited in using tylenol at this time without any relief. tolerating diet. pain controlled. Surgery on board. 2. Acute transaminitis- likely due to surgery. now trending down 3. ETOH cirrhosis- appears compensated. unclear if she has been following with GI as outpatient. will need to follow for routine surveillance 4. HTN- started on norvasc. counselled on need to continue at this time. counselled on dietary changes and weight loss 5. remote ETOH dependence- last drink 1 year ago 6. chronic pancreatitis- with dilated pancreatic duct seen on imaging. will need repeat MRI in 6 months. stressed importance of f/u with GI 7. DVT ppx- hep sq. 8. d/c home. counselled on need for compliance and lifestyle changes Istop Reference #: [id number]
--- NOTE | 2018-08-15 09:59 | DS ---
Physical Exam: SUBJECTIVE: Patient seen and examined at bedside. No acute events overnight. Tolerating diet. Improving pain at surgical site. Has passed flatus, urinating well, no BM as yet. OBJECTIVE: Vital Signs Period Temp Pulse Resp BP Sys/Pires Pulse Ox Last 24 Hr 98.5 F-99.6 F 73-93 20-20 147-162/87-98 98 PHYSICAL EXAM GENERAL: A&Ox3, NAD HEENT: NC/AT, PERRLA, EOMI, MMM NECK: Trachea midline, full range of motion, supple. LUNGS: CTA b/l HEART: RRR no m/r/g ABDOMEN: +bs, soft, surgical site with dressings c/d/i, drain in place, tenderness at/around surgical site EXTREMITIES: 2+ pulses, warm, well-perfused, no edema. 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 SKIN: Warm, dry, normal turgor, no rashes or lesions noted LABS Laboratory Results - last 24 hr 08/15/18 06:00 Sodium 137 Potassium 3.7 Chloride 102 Carbon Dioxide 26 Anion Gap 9 BUN 7 Creatinine 0.9 Creat Clearance w eGFR 66.83 Random Glucose 103 Calcium 8.7 Total Bilirubin 0.2 AST 59 H ALT 61 Alkaline Phosphatase 175 H Total Protein 7.4 Albumin 3.6 HOSPITAL COURSE: Date of Admission:08/11/18 Patient is a 48 y/o F w/ PMHx anemia, asthma, EtOH abuse (14 mos sober), cirrhosis, uterine fibroids, p/w sudden onset gnawing RUQ pain x 1 day. Had similar symptoms on 08/07/18 and presented to ED, was discharged for f/u with Dr. Ricardo which was scheduled for day of admission. CT a/p at that time showed cholelithiasis, pancreatic calcifications, and fibroids. On presentation, abd US showed stone at gallbladder neck, no definite acute cholecystitis. MCRP showed cholelithiasis, CBD dilatation, liver cirrhosis, and acute on chronic pancreatitis. She was treated with IV fluids, bowel rest, and empiric antibiotics. GI and surgery were consulted. GI recommended outpatient followup of chronic conditions. Patient underwent laparascopic cholecystectomy with Dr. Ricardo on 08/13/18 without complication and recovered well. Additionally, she was noted to be hypertensive without standing medical control and was initiated on amlodipine. She was discharged for followup with GI, surgery, and primary care. Strict EtOH abstinence was emphasized and reinforced multiple times. Date of Discharge: 08/15/18 Minutes to complete discharge: 40 Discharge Summary Reason For Visit: ABDOMINAL PAIN Current Active Problems Alcoholic cirrhosis of liver (Acute) Atrophic pancreas (Acute) Biliary colic symptom (Acute) Gall stone (Acute) Nausea and vomiting (Acute) Pancreatic duct obstruction (Acute) Condition: Stable - Instructions Diet, Activity, Other Instructions: MEDICAL DISCHARGE INSTRUCTIONS: You were hospitalized for pain related to your gallbladder and pancreas. The gallbladder pain was treated surgically by Dr. Ricardo. His instructions are below. You were seen by gastroenterology for the pancreatic pain, and an MRI was performed of your abdomen. You have chronic pancreatitis (inflammation of the pancreas) and cirrhosis of the liver. These conditions have serious implications for your penitentiary health and require close follow-up with gastroenterology. You will need to have periodic surveillance with imaging. A referral has been made on your behalf to see Dr. Hernandez, the debt management counselor. Please keep an appointment with him and your primary care provider, BILLY Knowles, within 1 week of your discharge. You were also found to have elevated blood pressure. We have sent a prescription for a blood pressure medication called Norvasc (amlodipine) to your pharmacy. Please take this medication as directed and follow up with your doctors about your blood pressure. If you experience any new or worsening abdominal pain, diarrhea, nausea and vomiting, blood in your stool, shortness of breath, chest pain, fever , chills, or any other new or concerning symptoms, please return to the Emergency Department. SURGICAL DISCHARGE INSTRUCTIONS: Dr. Ricardo Discharge Instructions Dear RONI GATES, Post Operative Instructions Physical activity Resume your normal everyday activity as tolerated no heavy lifting or exercise until seen by your surgeon. You may walk unlimited amounts of and climb stairs. You may resume driving the car when you feel safe and comfortable behind the wheel and are no longer taking narcotics. Wound care If you have a bandage, leave it on, and keep dry for 48 hours. After that time discard the outer bandage. If there are tapes on the skin under the outer bandage, leave them in place. They will peel off in the next 7 to 10 days. Do Not peel them off. You may shower 2 days after surgery but do not submerge the incisions. If there are tapes present on the skin, they can get wet. Do not apply lotion or ointments to incisions. Diet There are no dietary restrictions. Eat healthy, high-fiber foods. Drink 6 to 8 glasses of liquid each day. This will assist in keeping your bowels regular. Pain management You may take Tylenol (Acetaminophen) or Ibuprofen (for example, Motrin, Advil etc.) Any pain prescription medication ordered should be taken as prescribed for moderate to severe pain. Call Dr. Ricardo for any of the following: Severe pain not relieved by medication Fever of 101 or higher Excessive bleeding or drainage on dressing Inability to urinate Call the office at [phone] for a post operative appointment in 7 - 10 days. Referrals: Torsten Ricardo MD [Staff Physician] - Stacie Knowles NP [Primary Care Provider] - James Hernandez DO [Staff Physician] - Disposition: HOME - Home Medications Comprehensive Discharge Medication List: Ambulatory Orders Amlodipine Besylate [Norvasc -] 5 mg PO DAILY #30 tablet 08/15/18 Oxycodone HCl 5 mg PO Q6H PRN #8 tablet MDD 4 tabs 08/15/18 This patient is new to me today: No Emergency Visit: No Critical Care patient: No - Discharge Referral Referred to [facility] Yes Physician Referral: Lewis Hernandez DO (GI)
[2018-08-15] MEDS ORDERED: amLODIPine BESYLATE 5 MG TABLET (FP) PO SCH (10:00)
--- NOTE | 2018-08-17 12:55 | PATH ---
Surgical Pathology Report Patient Name: RONI GATES [facility]. Rec. #: [id number] /Age/Gender: 1970 (Age: 48) / F Account: [id number] Location: [address] [place] [address]/[facility] Taken: 08/13/2018 Received: 08/16/2018 Reported: 08/17/2018 Physicians: MD Donnie Diego M.D. Specimen(s) Received GALLBLADDER Clinical History Cholecystitis, cholelithiasis Final Diagnosis GALLBLADDER, CHOLECYSTECTOMY: CHRONIC CHOLECYSTITIS AND CHOLELITHIASIS. Electronically Signed Robbi Ramos M.D. Gross Description Received in formalin, labeled "gallbladder," is an 8.0 x 2.5 x 2.0 cm. gallbladder with a 0.2 cm. in length portion of cystic duct attached. The outer surface is perez-bowen with a large focal defect and varies from smooth to shaggy. The lumen contains clear, mucinous bile as well as multiple bowen-black, irregular choleliths ranging from 0.4-1.5 cm in greatest dimension. The mucosa is perez-brown and velvety. The wall of the gallbladder ranges from 0.1-0.5 cm. in thickness. Local City [employer] sections are submitted in one cassette. 08/16/201808/16/2018
== END 2018-08-15 10:39 | disposition home or self-care (01) | DRG 263 ==
LOC: JER 03:14 → JERBED 13:14 → J6S 14:39
PROVIDERS: ADMIT Internal Medicine; ATTEND Internal Medicine
PROC: 0FT44ZZ Resection of Gallbladder, Percutaneous Endoscopic Approach (ICD-10-PCS; principal; 2018-08-13 11:30)
DX: K80.00 Calculus of gallbladder with acute cholecystitis without obstruction (principal); K85.90 Acute pancreatitis without necrosis or infection, unspecified; J45.909 Unspecified asthma, uncomplicated; K70.30 Alcoholic cirrhosis of liver without ascites; D25.9 Leiomyoma of uterus, unspecified; K86.1 Other chronic pancreatitis; R11.2 Nausea with vomiting, unspecified; K80.20 Calculus of gallbladder without cholecystitis without obstruction; I10 Essential (primary) hypertension; F17.210 Nicotine dependence, cigarettes, uncomplicated; D64.9 Anemia, unspecified; R74.0 Nonspecific elevation of levels of transaminase and lactic acid dehydrogenase [LDH]; F10.21 Alcohol dependence, in remission
CPT/HCPCS: 36415; 74181-TC; 76705-TC; 80053; 81003; 83690; 83735; 84100; 84703; 85025; 85610; 85730; 86850; 86900; 86901; 87086; 88304-TC; 93005; 93010; 94760; 99284-25; J0131; J1644; J7030

== ENCOUNTER 2020-03-01 14:50 | Inpatient (IN) | payer OTHER ==
--- NOTE | 2020-03-01 15:33 | BHS.RME ---
Substance Use & Tx History - Substance Use History Alcohol Substance amount: one pint Vodka Frequency of use: Daily Substance route: Oral Date of Last Use: 03/01/20 - Last Treatment Date of last treatment: May 2017 Where was last treatment: Rehab Physical/Psych/Mental Status - Behavior General Behavior: Decreased activity Eye Contact: Normal - Cooperativeness Cooperativeness: Cooperative - Thinking Thought Processes: Tight Thought content: Future oriented - Physical Health Problems Is patient presently having any pain?: No Does patient presently have any injuries (include location): No Does patient currently have a fever: No CIWA Nausea/Vomitin Muscle Tremors: 3 (meets criteria due to current level of intoxication with NICOL of 0.156) Anxiety: 4-Mod. Anxious/Guarded Agitation: 0-Normal Activity Paroxysmal Sweats: No Perspiration Orientation: 0-Oriented Tacttile Disturbances: 0-None Auditory Disturbances: 0-None Visual Disturbances: 0-None Headache: 0-None Present CIWA-Ar Total Score: 10
[2020-03-01 15:43] VITALS: BMI 30.3
--- NOTE | 2020-03-01 16:03 | HP ---
CIWA Score Nausea/Vomitin Muscle Tremors: 3 (meets criteria due to current level of intoxication with NICOL of 0.156) Anxiety: 4-Mod. Anxious/Guarded Agitation: 0-Normal Activity Paroxysmal Sweats: No Perspiration Orientation: 0-Oriented Tacttile Disturbances: 0-None Auditory Disturbances: 0-None Visual Disturbances: 0-None Headache: 0-None Present CIWA-Ar Total Score: 10 - Admission Criteria OASAS Guidelines: Admission for Medically Managed Detox: Requires at least one of the followin. CIWA greater than 12 2. Seizures within the past 24 hours 3. Delirium tremens within the past 24 hours 4. Hallucinations within the past 24 hours 5. Acute intervention needed for co occurring medical disorder 6. Acute intervention needed for co occurring psychiatric disorder 7. Severe withdrawal that cannot be handled at a lower level of care (continued vomiting, continued diarrhea, abnormal vital signs) requiring intravenous medication and/or fluids 8. Admitting History and Physical - Admission Chief Complaint: Ms. Armstrong is a 49 yo woman who presents to [facility] requesting admission to detox for alcohol use disorder. History of Present Illness: Ms. Armstrong is a 49 yo woman who presents to [facility] requesting admission to detox for alcohol use disorder. She was here in May 2017 and was sober until October of this year. She a ttributes her relapse to the pandemic. 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 Nicotine: 8 cigs per day, began age 15 y - Last Treatment Date of last treatment: May 2017 Where was last treatment: Rehab History Source: Patient Limitations to Obtaining History: No Limitations - Past Medical History ...LMP: 07/21/18 - Smoking History Smoking history: Current every day smoker Have you smoked in the past 12 months: Yes Aproximately how many cigarettes per day: 10 - Alcohol/Substance Use Hx Alcohol Use: Yes (past only, none x 2 yrs) Admission [facility] Allergies/Adverse Reactions: Allergies Allergy/AdvReac Type Severity Reaction Status Date / Time No Known Allergies Allergy Verified 08/11/18 05:06 Exam Limitations: No Limitations - Ebola screening Have you traveled outside of the country in the last 21 days: No Have you been sick,other than usual withdrawal symptoms: No Do you have a fever: No - Review of Systems Constitutional: No Symptoms Reported EENT: reports: No Symptoms Reported Respiratory: reports: No Symptoms reported Cardiac: reports: No Symptoms Reported GI: reports: Nausea, Vomiting (dry heaves several days ago) : reports: No Symptoms Reported Musculoskeletal: reports: Other (left shoulder pain since vomiting a few days) Integumentary: reports: Dryness Neuro: reports: No Symptoms reported Endocrine: reports: No Symptoms Reported Hematology: reports: No Symptoms Reported Psychiatric: reports: No Sypmtoms Reported Patient History - Patient Medical History Hx Anemia: Yes Hx Asthma: Yes Hx Chronic Obstructive Pulmonary Disease (COPD): No Hx Cancer: No Hx Cardiac Disorders: No Hx Congestive Heart Failure: No Hx Hypertension: No Hx Hypercholesterolemia: No Hx Pacemaker: No HX Cerebrovascular Accident: No Hx Seizures: No Hx Dementia: No Hx Diabetes: No Hx Gastrointestinal Disorders: No Hx Liver Disease: Yes (cirrhosis of the liver) Hx Genitourinary Disorders: No Hx Sexually Transmitted Disorders: Yes (SYPHILLIS) Hx Renal Disease (ESRD): No Hx Thyroid Disease: No Hx Human Immunodeficiency Virus (HIV): No (Negative 2015) Hx Hepatitis C: No Hx Depression: No Hx Suicide Attempt: No Hx Bipolar Disorder: No Hx Schizophrenia: No - Patient Surgical History Past Surgical History: Yes Hx Neurologic Surgery: No Hx Cataract Extraction: No Hx Cardiac Surgery: No Hx Lung Surgery: No Hx Breast Surgery: No Hx Breast Biopsy: No Hx Abdominal Surgery: Yes (tubal ligation 1991) Hx Appendectomy: No Hx Cholecystectomy: Yes (2018) Hx Genitourinary Surgery: No Hx Section: No Hx Orthopedic Surgery: No Hx Hysterectomy: No Other Surgical History: Tubal ligation 1991 Anesthesia Reaction: No - Reproductive History Last Menstrual Period: 07/21/18 - Smoking Cessation Smoking history: Current every day smoker Have you smoked in the past 12 months: Yes Aproximately how many cigarettes per day: 8 Cigars Per Day: 0 Hx Chewing Tobacco Use: No Initiated information on smoking cessation: Yes 'Breaking Loose' booklet given: 03/01/20 Admission Physical Exam BHS - Vital Signs Vital Signs: Vital Signs - 24 hr 03/01/20 15:42 Temperature 97.7 F Pulse Rate 92 H Respiratory 20 Rate Blood Pressure 126/82 - Physical General Appearance: Yes: No Apparent Distress, Nourished, Anxious HEENTM: Yes: EOMI, Hearing grossly Normal, Normocephalic, Normal Voice Respiratory: Yes: Lungs Clear, No Respiratory Distress, No Accessory Muscle Use Neck: Yes: Within Normal Limits, Supple Breast: Yes: Breast Exam Deferred Cardiology: Yes: Regular Rhythm, Regular Rate Abdominal: Yes: Normal Bowel Sounds, Non Tender, Flat, Soft Genitourinary: Yes: Other (deferred) Back: Yes: Normal Inspection Musculoskeletal: Yes: Gait Steady Extremities: Yes: Normal Inspection, Non-Tender Neurological: Yes: Alert, Normal Response Integumentary: Yes: Normal Color, Dry, Warm - Diagnostic (1) Alcohol dependence with uncomplicated withdrawal Current Visit: Yes Status: Acute (2) Asthma Current Visit: Yes Status: Chronic Qualifiers: Asthma severity: moderate Asthma persistence: unspecified Asthma complication type: with acute exacerbation Qualified Code(s): J45.901 - Unspecified asthma with (acute) exacerbation Comment: mild intermittent asthma; trigger - weather/seasonal continue albuterol prn add claritin 10mg po q48h prn discussed avoiding triggers, monitoring use of albuterol - if using more frequently than normal, rtc for eval; smoking cessation discussed (3) Hypertension Current Visit: Yes Status: Chronic Comment: continue amlodipine discussed adherence, low salt diet, importance of bp control (4) Nicotine dependence Current Visit: Yes Status: Acute Qualifiers: Nicotine product type: cigarettes Substance use status: in withdrawal Qualified Code(s): F17.213 - Nicotine dependence, cigarettes, with withdrawal Comment: discussed smoking cessation; pt not interested in quitting (5) Positive PPD, treated Current Visit: No Status: Resolved Cleared for Admission [facility] - Detox or Rehab S Level of Care: Medically Managed Detox Regimen/Protocol: Ativan Breathalyzer - Breathalyzer Breathalyzer: 0.156 Urine Drug Screen - Test Device Lot number: [id number] Expiration date: 08/31/19 - Control Is test valid?: Yes - Results Drug screen NEGATIVE: Yes Inpatient Rehab Admission - Rehab Decision to Admit Inpatient rehab admission?: No
[2020-03-01] MEDS ORDERED: NICOTINE POLACRILEX 2 MG GUM BUC PRN (16:05)
[2020-03-01] MEDS ORDERED: METHOCARBAMOL 500 MG TABLET PO PRN (16:05)
[2020-03-01] MEDS ORDERED: IBUPROFEN 400 MG TABLET (FP) PO PRN (16:05)
[2020-03-01] MEDS ORDERED: BISMUTH SUBSALICYLATE 524 MG/30 ML UD PO PRN (16:05)
[2020-03-01] MEDS ORDERED: LORazepam 1 MG TABLET PO PRN (16:05)
[2020-03-01] MEDS ORDERED: MAGNESIUM HYDROX 2400MG/30ML ORAL SUSPENSION 30 ML CUP PO PRN (16:05)
[2020-03-01] MEDS ORDERED: MAG HYDROX/AL HYDROX/SIMETH 30 ML UNIT-DOSE CUP PO PRN (16:05)
[2020-03-01] MEDS ORDERED: MAGNESIUM CITRATE 300 ML BOTTLE PO PRN (16:05)
[2020-03-01] MEDS ORDERED: MENTHOL/PHENOL 1 EACH UD MM PRN (16:05)
[2020-03-01] MEDS ORDERED: ONDANSETRON *ODT* 4 MG TABLET SL PRN (16:05)
[2020-03-01] MEDS ORDERED: ACETAMINOPHEN 325 MG TABLET (FP) PO PRN ×2 (16:05)
[2020-03-01] MEDS ORDERED: amLODIPine BESYLATE 5 MG TABLET (FP) PO SCH (16:15)
--- OUTSIDE RECORDS SUMMARY | 2020-03-01 16:59 | XMS ---
:1970 Author Organization [facility] Care Team Providers Name Role Phone [facility]9 Unavailable Unavailable Re-disclosure Warning The records that you are about to access may contain information from federally- assisted alcohol or drug abuse programs. If such information is present, then the following federally mandated warning applies: This information has been disclosed to you from records protected by federal confidentiality rules (42 CFR part 2). The federal rules prohibit you from making any further disclosure of this information unless further disclosure is expressly permitted by the written consent of the person to whom it pertains or as otherwise permitted by 42 CFR part 2. A general authorization for the release of medical or other information is NOT sufficient for this purpose. The Federal rules restrict any use of the information to criminally investigate or prosecute any alcohol or drug abuse patient.The records that you are about to access may contain highly sensitive health information, the redisclosure of which is protected by Article 27-F of the [facility] Public Health law. If you continue you may haveaccess to information: Regarding HIV / AIDS; Provided by facilities licensed or operated by the [facility] Office of Mental Health; or Provided by the [facility] Office for People With Developmental Disabilities. If such information is present, then the following [facility] mandated warning applies: This information has been disclosed to you from confidential records which are protected by state law. State law prohibits you from making any further disclosure of this information without the specific written consent of the person to whom it pertains, or as otherwise permitted by law. Any unauthorized further disclosure in violation of state law may result in a fine or [place] health care facility sentence or both. A general authorization for the release of medical or other information is NOT sufficient authorization for further disclosure. Encounters Encounter Providers Location Date Indications Data Source(s ) Outpatient Attender: [id number] 07/12/2019 [facility] 01:51:41 PM Care Kathy rojas) EST Patient admitted. Insurance Providers Payer name Policy type Policy ID Covered Covered green party's Policy P ting / Coverage green party ID relationship to Quispe Inf ormation type quispe [facility] [id number] SP [id number] HEALTH NON CAP MEDICAID [id number] SP [id number] MEDICAID [id number] SP [id number] SELF PAY SP INSURANCE PENDING SP EXCHANGE [place] [id number] SP [id number] [facility] [place] [id number] SP [id number] [facility] [place] MEDICAID [id number] SP [id number] SLIDING FEE Uninsured [id number] FREE CARE [id number] Self [id number] SLIDING FEE [id number] Self [id number]
[2020-03-01] MEDS: LORazepam 2 MG TABLET PO SCH ×2 (18:12→22:45)
[2020-03-01] MEDS: amLODIPine BESYLATE 10 MG TABLET (FP) PO SCH (18:12)
[2020-03-01] MEDS: hydrOXYzine PAMOATE 25 MG CAPSULE (FP) PO SCH ×2 (18:12→22:45)
[2020-03-01] MEDS ORDERED: THIAMINE HCL 100 MG TABLET (FP) PO SCH (22:00)
[2020-03-01] MEDS ORDERED: MELATONIN 5 MG TABLETS PO SCH (22:00)
[2020-03-02] MEDS: LORazepam 2 MG TABLET PO SCH ×3 (05:59→17:26)
[2020-03-02] MEDS: hydrOXYzine PAMOATE 25 MG CAPSULE (FP) PO SCH ×4 (05:59→17:26)
[2020-03-02] MEDS ORDERED: PRENATAL VITAMINS W/ FOLIC ACID TABLET (FP) PO SCH (10:00)
[2020-03-02] MEDS ORDERED: NICOTINE 7 MG/24 HOURS TOPICAL PATCH TD SCH (10:00)
[2020-03-02] MEDS: amLODIPine BESYLATE 10 MG TABLET (FP) PO SCH (10:34)
[2020-03-02 10:35] LABS: HEMATOCRIT 37.4 % (32.4-45.2); HEMOGLOBIN 12.7 GM/dL (10.7-15.3); MCHC 33.9 g/dl (32.0-36.0); MEAN CELL VOLUME 94.2 fl (80-96); MEAN PLT VOLUME 9.8 fl (7.5-11.1); PLATELET COUNT 141 K/MM3 (134-434); RBC 3.97 M/mm3 (3.60-5.2); RDW 14.6 % (11.6-15.6); WHITE BLOOD COUNT 5.7 K/mm3 (4.0-10.0)
[2020-03-02 10:36] LABS: ALBUMIN 3.5 g/dl (3.4-5.0); BILIRUBIN,TOTAL 1.1 mg/dL (0.2-1); BLOOD UREA NITROGEN 16.8 mg/dL (7-18); CALCIUM 9.4 mg/dL (8.5-10.1); POTASSIUM 3.7 mmol/L (3.5-5.1); TOT PROT 6.9 g/dl (6.4-8.2)
[2020-03-02] MEDS ORDERED: AMMONIUM LACTATE 12% LOTION 225 GM BOTTLE TP PRN (10:58)
--- NOTE | 2020-03-02 12:17 | PN ---
S CIWA - CIWA Score Nausea/Vomitin Muscle Tremors: 2 Anxiety: 3 Agitation: 1-Slight > Activity Paroxysmal Sweats: No Perspiration Orientation: 0-Oriented Tacttile Disturbances: 0-None Auditory Disturbances: 0-None Visual Disturbances: 1-Very Mild Sensitivity Headache: 0-None Present CIWA-Ar Total Score: 9 BHS Progress Note (SOAP) Subjective: Pt seen at bedside this morning. Pt report mildly improved withdrawal symptoms. Also c/o of skin dryness. Objective: Last Vital Signs Temp Pulse Resp BP Pulse Ox 97.3 F L 89 20 114/77 99 03/02/20 08:54 03/02/20 08:54 03/02/20 08:54 03/02/20 08:54 03/02/20 06:55 Gen - NAD, well dev/well nourished, AOx3 CV - RRR, normal s1, s2 Pulm - CTAB, good air entry Mental Status - anxious MSK/ext - gait steady, normal inspection; mild tremor (felt, not seen) Skin - skin very dry around face CBC,CMP WBC 5.7 K/mm3 (4.0-10.0) 03/02/20 06:50 RBC 3.97 M/mm3 (3.60-5.2) 03/02/20 06:50 Hgb 12.7 GM/dL (10.7-15.3) 03/02/20 06:50 Hct 37.4 % (32.4-45.2) 03/02/20 06:50 MCV 94.2 fl (80-96) 03/02/20 06:50 MCH 32.0 pg (25.7-33.7) 03/02/20 06:50 MCHC 33.9 g/dl (32.0-36.0) 03/02/20 06:50 RDW 14.6 % (11.6-15.6) 03/02/20 06:50 Plt Count 141 K/MM3 (134-434) D 03/02/20 06:50 MPV 9.8 fl (7.5-11.1) 03/02/20 06:50 Sodium 137 mmol/L (136-145) 03/02/20 06:50 Potassium 3.7 mmol/L (3.5-5.1) 03/02/20 06:50 Chloride 101 mmol/L (98-107) 03/02/20 06:50 Carbon Dioxide 27 mmol/L (21-32) 03/02/20 06:50 Anion Gap 9 MMOL/L (8-16) 03/02/20 06:50 BUN 16.8 mg/dL (7-18) 03/02/20 06:50 Creatinine 1.0 mg/dL (0.55-1.3) 03/02/20 06:50 Est GFR (CKD-EPI)AfAm 76.61 03/02/20 06:50 Est GFR (CKD-EPI)NonAf 66.10 03/02/20 06:50 Random Glucose 146 mg/dL (74-106) H 03/02/20 06:50 Calcium 9.4 mg/dL (8.5-10.1) 03/02/20 06:50 Total Bilirubin 1.1 mg/dL (0.2-1) H 03/02/20 06:50 AST 387 U/L (15-37) H 03/02/20 06:50 ALT 200 U/L (13-61) H 03/02/20 06:50 Alkaline Phosphatase 163 U/L (45-117) H 03/02/20 06:50 Total Protein 6.9 g/dl (6.4-8.2) 03/02/20 06:50 Albumin 3.5 g/dl (3.4-5.0) 03/02/20 06:50 Total Amylase 24 U/L (25-115) L 03/02/20 06:50 03/02/20 12:31 Assessment: Pt with gradually improving alcohol withdrawal symptoms. 03/02/20 12:31 Plan: - Continue ativan detox protocl - [place] bid prn
[2020-03-02 17:24] VITALS: BP 129/90; PULSE 116; TEMP 96.9
--- NOTE | 2020-03-02 19:33 | DS ---
[facility] Detox Discharge Summary Admission Date: 03/01/20 Discharge Date: 03/02/20 - History Additional Comments: Patient is leaving against medical advice. She reports that she does not want to continue with detox as she does not feel comfortable here. Risks and consequences of her action reinforced. Patient encouraged to continue detox as she is not medically fit to go home but she refused. Nurse senior research manager notified. She is alert and oriented x 3, unsteady gait noted because patient has a history of paresthesia of both feet, not in acute distress at this time and she is tachycardiac. Patient reports that she will go to her provider tomorrow and she was encouraged to call 911 if her condition worsens. Patient signed the AMA form and was escorted off the floor by security. She reports that she has her medications at home as prescribed by her PCP.. Pertinent Past History: Alcohol dependence Nicotine dependence Asthma Hypertension Alcohol cirrhosis of liver Hernia Gallstone Insomnia Anemia Fibroid Uterus Paresthesia of both feet Substance induced sleep disorder Positive PPD - Physical Exam Results Vital Signs: Vital Signs Temperature 96.9 F L 03/02/20 16:54 Pulse Rate 116 H 03/02/20 16:54 Respiratory Rate 20 03/02/20 16:54 Blood Pressure 129/90 03/02/20 16:54 O2 Sat by Pulse Oximetry (%) 100 03/02/20 13:40 Laboratory Last Values WBC 5.7 K/mm3 (4.0-10.0) 03/02/20 06:50 RBC 3.97 M/mm3 (3.60-5.2) 03/02/20 06:50 Hgb 12.7 GM/dL (10.7-15.3) 03/02/20 06:50 Hct 37.4 % (32.4-45.2) 03/02/20 06:50 MCV 94.2 fl (80-96) 03/02/20 06:50 MCH 32.0 pg (25.7-33.7) 03/02/20 06:50 MCHC 33.9 g/dl (32.0-36.0) 03/02/20 06:50 RDW 14.6 % (11.6-15.6) 03/02/20 06:50 Plt Count 141 K/MM3 (134-434) D 03/02/20 06:50 MPV 9.8 fl (7.5-11.1) 03/02/20 06:50 Sodium 137 mmol/L (136-145) 03/02/20 06:50 Potassium 3.7 mmol/L (3.5-5.1) 03/02/20 06:50 Chloride 101 mmol/L (98-107) 03/02/20 06:50 Carbon Dioxide 27 mmol/L (21-32) 03/02/20 06:50 Anion Gap 9 MMOL/L (8-16) 03/02/20 06:50 BUN 16.8 mg/dL (7-18) 03/02/20 06:50 Creatinine 1.0 mg/dL (0.55-1.3) 03/02/20 06:50 Est GFR (CKD-EPI)AfAm 76.61 03/02/20 06:50 Est GFR (CKD-EPI)NonAf 66.10 03/02/20 06:50 Random Glucose 146 mg/dL (74-106) H 03/02/20 06:50 Calcium 9.4 mg/dL (8.5-10.1) 03/02/20 06:50 Total Bilirubin 1.1 mg/dL (0.2-1) H 03/02/20 06:50 AST 387 U/L (15-37) H 03/02/20 06:50 ALT 200 U/L (13-61) H 03/02/20 06:50 Alkaline Phosphatase 163 U/L (45-117) H 03/02/20 06:50 Total Protein 6.9 g/dl (6.4-8.2) 03/02/20 06:50 Albumin 3.5 g/dl (3.4-5.0) 03/02/20 06:50 Total Amylase 24 U/L (25-115) L 03/02/20 06:50 POC Urine HCG, Qual Negative 03/01/20 15:40 Pertinent Admission Physical Exam Findings: Alcohol withdrawal symptoms - Medication Discharge Medications: Ambulatory Orders Amlodipine Besylate [Norvasc -] 5 mg PO DAILY #30 tablet 08/15/18 Amlodipine Besylate [Norvasc -] 5 mg PO DAILY #30 tablet 08/12/19 Albuterol 0.083% Nebulizer Joanie [Ventolin 0.083% Nebulizer Soln -] 1 neb NEB Q6H PRN #120 vial 10/27/19 Albuterol Sulfate Inhaler - [Ventolin HFA Inhaler -] 1 - 2 inh PO QID PRN #1 inhaler 10/27/19 Fluticasone Propionate [Flovent Hfa] 110 mcg IH BID #1 inh 10/27/19 Loratadine [Claritin -] 10 mg PO DAILY PRN #30 tablet 10/27/19 Nebulizer Accessories [Reusable Nebulizer Kit] 1 each ASDIR #1 kit 10/27/19 Nebulizer and Compressor [[employer] Choice Nebulizer] 1 each ASDIR #1 each 10/27/19 - Diagnosis (1) Alcohol dependence with uncomplicated withdrawal Status: Chronic (2) Nicotine dependence Status: Chronic Qualifiers: Nicotine product type: cigarettes Substance use status: in withdrawal Qualified Code(s): F17.213 - Nicotine dependence, cigarettes, with withdrawal (3) Asthma Status: Chronic Qualifiers: Asthma severity: moderate Asthma persistence: unspecified Asthma complication type: with acute exacerbation Qualified Code(s): J45.901 - Unspecified asthma with (acute) exacerbation (4) Hypertension Status: Chronic (5) Alcoholic cirrhosis of liver Status: Chronic (6) Gall stone Status: Chronic Qualifiers: Cholecystitis presence: without cholecystitis Biliary obstruction: without biliary obstruction Qualified Code(s): K80.20 - Calculus of gallbladder without cholecystitis without obstruction (7) Hernia Status: Chronic (8) Insomnia Status: Acute (9) Anemia Status: Chronic Qualifiers: Anemia type: folate deficiency Folate deficiency anemia type: dietary Qualified Code(s): D52.0 - Dietary folate deficiency anemia (10) Cirrhosis of liver Status: Chronic Qualifiers: Hepatic cirrhosis type: unspecified hepatic cirrhosis Ascites presence: with ascites Qualified Code(s): K74.60 - Unspecified cirrhosis of liver; R18.8 - Other ascites (11) Fibroid uterus Status: Chronic (12) Depression (emotion) Status: Chronic Qualifiers: Depression Type: dysthymia Qualified Code(s): F34.1 - Dysthymic disorder (13) Positive PPD, treated Status: Chronic - AMA Did Patient Leave Against Medical Advice: Yes
[2020-03-03] MEDS ORDERED: LORazepam 1 MG TABLET PO SCH (05:00)
[2020-03-04] MEDS ORDERED: LORazepam 0.5 MG TABLET PO PRN
[2020-03-04] MEDS ORDERED: LORazepam 0.5 MG TABLET PO SCH (05:00)
[2020-03-05] MEDS ORDERED: LORazepam 0.5 MG TABLET PO ONE (05:00)
== END 2020-03-02 19:15 | disposition left against medical advice (07) | DRG 770 ==
LOC: YASAS 14:50 → Y3N 16:44
PROVIDERS: ADMIT Allergy & Immunology; ATTEND Allergy & Immunology
PROC: HZ2ZZZZ Detoxification Services for Substance Abuse Treatment (ICD-10-PCS; principal; 2020-03-01)
DX: F10.230 Alcohol dependence with withdrawal, uncomplicated (principal); F17.210 Nicotine dependence, cigarettes, uncomplicated; F19.282 Other psychoactive substance dependence with psychoactive substance-induced sleep disorder; F19.24 Other psychoactive substance dependence with psychoactive substance-induced mood disorder; F34.1 Dysthymic disorder; I10 Essential (primary) hypertension; J45.909 Unspecified asthma, uncomplicated; K70.30 Alcoholic cirrhosis of liver without ascites; D64.9 Anemia, unspecified; G47.00 Insomnia, unspecified; D25.9 Leiomyoma of uterus, unspecified; R20.2 Paresthesia of skin; R76.11 Nonspecific reaction to tuberculin skin test without active tuberculosis
CPT/HCPCS: 36415; 71046-TC-FY; 80053; 81025; 82150; 85027; C9803; U0003